=== PATIENT | female | born 1945 | race African-American/Black ===

== ENCOUNTER 2016-03-16 12:28 | Inpatient (IN) | payer MEDICARE ==
[~2016-03-16] VITALS: Ht 157.5 cm; Wt 71.8 kg
[~2016-03-16 12:28] MED LIST: HYDR50TA6 PO; INSU100I17 SQ; LEVO50TA5 PO; LOSA50TA6 PO; OMEP20CA5 PO
[2016-03-16 13:33] LABS: BASO # 0.1 x10^3/uL (0.0-0.2); BASO % 1 % (0-3); EOS % 1 % (0-3); HEMATOCRIT 36.2 % (36.0-47.0); HEMOGLOBIN 11.3 g/dL (12.0-15.5); LYMPH # 2.4 x10^3/uL (1.0-4.8); LYMPH % 17 % (24-48); MEAN CORPUSCULAR HEMOGLOBIN 28 pg (25-35); MEAN CORPUSCULAR HGB CONC 31 g/dL (31-37); MEAN CORPUSCULAR VOLUME 89 fL (79-100); MONO % 5 % (0-9); NEUT % 76 % (31-73); PLATELET COUNT 205 x10^3/uL (140-400); RED BLOOD COUNT 4.08 x10^6/uL (3.50-5.40); RED CELL DISTRIBUTION WIDTH 18.1 % (11.5-14.5); WHITE BLOOD COUNT 13.7 x10^3/uL (4.0-11.0)
--- NOTE | 2016-03-16 13:39 | PHYS DOC ---
Past Medical History Past Medical History: Anemia, Diabetes-Type II, Hypertension Additional Past Medical Histor: "borderline diabetes" Past Surgical History: Other Additional Past Surgical Histo: PANCREATIC Alcohol Use: Rarely Drug Use: None Adult General Chief Complaint Chief Complaint: CHEST PAIN HPI HPI Patient is a 71 year old female who drove herself to the emergency department with the complaint of left-sided chest pain that started at 10 AM today. The patient was seated at work when it started. It has not changed since it began about 3 hours and 20 minutes ago. It does go through into her back and goes up into the left side of her neck, it does not go down her arm. She feels a little short of air and the pain worsens with of breath. She's never had pain like this before. She has not had any diaphoresis or nausea. She has not recently been sick, no cough or fever. She has a history of treated hypertension, "borderline diabetes", negative cardiac history. She is not a smoker. PCP Dr. kaye Review of Systems Review of Systems Constitutional: Denies fever or chills [] Eyes: Denies change in visual acuity, redness, or eye pain [] HENT: Denies nasal congestion or sore throat [] Respiratory: Denies cough or shortness of breath [] Cardiovascular: As in history of present illness GI: Denies abdominal pain, nausea, vomiting, bloody stools or diarrhea [] : Denies dysuria or hematuria [] Musculoskeletal: Denies back pain or joint pain [] Integument: Denies rash or skin lesions [] Neurologic: Denies headache, focal weakness or sensory changes [] Allergies Allergies Allergies Coded Allergies Type Severity Reaction Last Updated Verified No Known Drug Allergies 01/21/14 No Physical Exam Physical Exam Constitutional: Well developed, well nourished, no acute distress, non-toxic appearance. Blood pressure 190s over 100. HENT: Normocephalic, atraumatic, bilateral external ears normal, nose normal. [] Eyes: conjunctiva normal, no discharge. [] Neck: Normal range of motion, no stridor. [] Cardiovascular:Heart rate regular rhythm, no murmur [] Lungs & Thorax: Bilateral breath sounds clear to auscultation [] Abdomen: Bowel sounds normal, soft, no tenderness, no masses, no pulsatile masses. [] Skin: Warm, dry, no erythema, no rash. [] Extremities: No tenderness, no cyanosis, no clubbing, ROM intact, no edema. [] Neurologic: Alert and oriented X 3, normal motor function, normal sensory function, no focal deficits noted. [] Current Patient Data Vital Signs Vital Signs Date Time Temp Pulse Resp B/P Pulse Ox O2 Delivery O2 Flow Rate FiO2 03/16/16 15:03 66 203/86 97 Room Air 03/16/16 12:35 98.2 18 98.2 Lab Values Laboratory Tests Test 03/16/16 12:45 White Blood Count 13.7x10^3/uL (4.0-11.0) H Red Blood Count 4.08x10^6/uL (3.50-5.40) Hemoglobin 11.3g/dL (12.0-15.5) L Hematocrit 36.2% (36.0-47.0) Mean Corpuscular Volume 89fL (79-100) Mean Corpuscular Hemoglobin 28pg (25-35) Mean Corpuscular Hemoglobin Concent 31g/dL (31-37) Red Cell Distribution Width 18.1% (11.5-14.5) H Platelet Count 205x10^3/uL (140-400) Neutrophils (%) (Auto) 76% (31-73) H Lymphocytes (%) (Auto) 17% (24-48) L Monocytes (%) (Auto) 5% (0-9) Eosinophils (%) (Auto) 1% (0-3) Basophils (%) (Auto) 1% (0-3) Neutrophils # (Auto) 10.5x10^3uL (1.8-7.7) H Lymphocytes # (Auto) 2.4x10^3/uL (1.0-4.8) Monocytes # (Auto) 0.7x10^3/uL (0.0-1.1) Eosinophils # (Auto) 0.2x10^3/uL (0.0-0.7) Basophils # (Auto) 0.1x10^3/uL (0.0-0.2) Sodium Level 142mmol/L (136-145) Potassium Level 3.7mmol/L (3.5-5.1) Chloride Level 103mmol/L (98-107) Carbon Dioxide Level 28mmol/L (21-32) Anion Gap 11 (6-14) Blood Urea Nitrogen 15mg/dL (7-20) Creatinine 0.9mg/dL (0.6-1.0) Estimated GFR (Cockcroft-Gault) 74.7 Glucose Level 89mg/dL (70-99) Calcium Level 9.6mg/dL (8.5-10.1) Magnesium Level 1.9mg/dL (1.8-2.4) Total Bilirubin 0.8mg/dL (0.2-1.0) Direct Bilirubin 0.1mg/dL (0.0-0.2) Aspartate Amino Transferase (AST) 25U/L (15-37) Alanine Aminotransferase (ALT) 25U/L (14-59) Alkaline Phosphatase 67U/L (46-116) Creatine Kinase 136U/L (26-192) Creatine Kinase MB (Mass) 1.2ng/mL (0.0-3.6) Creatine Kinase MB Relative Index 0.9% (0-4) Troponin I Quantitative < 0.017ng/mL (0.000-0.055) HT-Uhz-I-Type Natriuretic Peptide 58pg/mL (0-124) Total Protein 8.1g/dL (6.4-8.2) Albumin 4.0g/dL (3.4-5.0) Lipase 114U/L (73-393) Laboratory Tests 03/16/16 12:45 Laboratory Tests 03/16/16 12:45 EKG EKG 12-lead EKG read by me. Sinus rhythm. Heart rate 63. There are no acute ST or T wave changes indicative of ischemia or infarction. No STEMI. 1236 [] Radiology/Procedures Radiology/Procedures One view portable chest x-ray read by the radiologist. No infiltrate. Probable tortuous thoracic aorta, mediastinal mass on entirely excluded. No acute process. I ordered a CT scan of the chest with IV contrast to follow this up. It's pending at the time of the patient's admission. [] Course & Med Decision Making Course & Med Decision Making Pertinent Labs and Imaging studies reviewed. (See chart for details) 71-year-old female with no cardiac history presents with 3 hours of left-sided chest pain with some shortness of air into the left side of her neck and into her back, unclear what might be causing this pain. I discussed with the patient that we will check some labs and chest x-ray. Her blood pressure was elevated at about 190/100 but the patient has not yet taken her morning doses of meds, she just forgot her didn't get around to doing it yet. I let her go ahead and take her regularly scheduled medications. This includes aspirin 81 mg. Patient remained stable in the emergency department. Cardiac enzymes negative. As noted, I did order a CT scan of the chest to follow up on the possible mediastinal abnormality. That's pending at the time of the patient's admission. I spoke with Dr. Kaye who will admit the patient. I wrote bridge orders. [] Dragon Disclaimer Dragon Disclaimer This electronic medical record was generated, in whole or in part, using a voice recognition dictation system. Departure Departure Impression: Primary Impression: Chest pain Additional Impression: Abnormal chest x-ray Disposition: ADMITTED INPATIENT Admitting Physician: María Kaye Condition: STABLE Referrals: MARÍA KAYE MD (PCP) Problem Qualifiers THOM CALVERT MD Mar 16, 2016 13:39
[2016-03-16 13:44] LABS: CALCIUM 9.6 mg/dL (8.5-10.1); CREATININE 0.9 mg/dL (0.6-1.0); GFR 74.7; POTASSIUM 3.7 mmol/L (3.5-5.1)
[2016-03-16 13:49] LABS: DIRECT BILIRUBIN 0.1 mg/dL (0.0-0.2); MAGNESIUM 1.9 mg/dL (1.8-2.4); TOTAL BILIRUBIN 0.8 mg/dL (0.2-1.0); TOTAL PROTEIN 8.1 g/dL (6.4-8.2)
[2016-03-16 13:57] LABS: CKMB INDEX 0.9 % (0-4); CKMB MASS 1.2 ng/mL (0.0-3.6)
--- NOTE | 2016-03-16 13:58 | EKG ---
[facility] [address] [place] [address] Test Date: 2016-03-16 Test Time: 12:36:35 Pat Name: DURAN DAVIS Department: Room: Gender: F Procedure Writer: : 1945 Requested By: THOM CALVERT Order Number: [id number] Reading MD: Ynes Rodriguez Measurements Intervals [place] Rate: 63 P: 59 IA: 132 QRS: 26 QRSD: 92 T: 8 QT: 418 QTc: 431 Interpretive Statements SINUS RHYTHM T ABNORMALITY IN INFEROLATERAL LEADS ABNORMAL ECG Electronically Signed On 03-20-2016 15:27:57 STATE MANAGER by Ynes Rodriguez
--- NOTE | 2016-03-16 14:04 | RAD ---
Indication left-sided chest pain. A single view of the chest was obtained. No prior imaging of the chest is available. Heart size and pulmonary vessels are within normal limits. There is a curvilinear density adjacent to the left lower thoracic spine. This may represent a tortuous aorta. A mediastinal mass is not entirely excluded. There is no acute parenchymal infiltrate. Significant pleural fluid is not present and there is no pneumothorax. Chronic, probably postsurgical, abnormality is noted associated with the right sixth rib IMPRESSION: Probable tortuous thoracic aorta. Mediastinal mass not entirely excluded. See above discussion. A definite acute process in the chest is not seen
[2016-03-16] MEDS ORDERED: IOHEXOL 300 MG/ML 75 ML VIAL IV ONE (15:30)
[2016-03-16] MEDS ORDERED: CONTRAST GIVEN MC PRN (15:45)
--- NOTE | 2016-03-16 16:10 | RAD ---
CT study of the chest with contrast Clinical indications: Left-sided chest pain since 10:00 AM. Left-sided neck pain which extends down the left arm. Shortness of air.. Follow-up of abnormal chest x-ray. Possible mediastinal mass. Technique: After IV infusion of 75 mL of Omnipaque 300, helical CT scanning of the chest was performed down to the adrenal glands. Findings: Large calcified subcarinal lymph nodes are seen. The largest measures 3.3 cm in size. Calcified right hilar lymph nodes are seen. This is due to old granulomatous disease. No other thoracic lymphadenopathy is seen. The heart size is enlarged. No pericardial effusion is seen. Calcified atheromatous disease of the right and left coronary arteries is seen. No focal aneurysmal dilatation or dissection of the thoracic aorta is seen. No lung mass or lung consolidation is seen. There is some linear scarring of the right midlung zone. The proximal bronchial tree is patent. No adrenal mass is seen. There is an abnormal appearance of the lateral aspect of the right sixth rib. This may represent a developmental anomaly or related to previous surgery or trauma. No osteolytic process is seen otherwise. There is wall thickening of the antrum of the stomach. Small radiopaque gallstone of the gallbladder is seen. IMPRESSION: Enlarged calcified granulomatous lymph nodes in the subcarinal region. No other mediastinal mass is seen. Linear scarring of the right midlung zone. No lung mass or lung consolidation is seen. Cardiomegaly with calcified atheromatous disease of the coronary arteries. Wall thickening of the antrum of the stomach. This could be due to gastritis or peptic ulcer disease or neoplasia. Cholelithiasis.
[2016-03-16 18:15] VITALS: BP 202/52
[2016-03-16] MEDS ORDERED: FERR-26 PO (18:19)
[2016-03-16] MEDS ORDERED: ASPI325T4 PO (18:19)
[2016-03-16] MEDS ORDERED: OLME40TA PO (18:19)
[2016-03-16] MEDS ORDERED: CLONIDINE HCL 0.1 MG TABLET PO PRN (18:45)
[2016-03-16] MEDS ORDERED: CLONIDINE HCL 0.2 MG TABLET PO ONE (18:45)
[2016-03-16 19:00] VITALS: BP 187/75
[2016-03-16 19:17] VITALS: BP 202/52
[2016-03-16 23:00] VITALS: BP 107/48
[2016-03-17 03:05] VITALS: BP 112/56
--- NOTE | 2016-03-17 05:19 | EKG ---
[facility] [address] [place] [address] Test Date: 2016-03-17 Test Time: 05:12:13 Pat Name: DURAN DAVIS Department: Room: 528 1 Gender: F Forestry Biology Specialist: RODNEY : 1945 Requested By: MARÍA DILLON Order Number: [id number] Reading MD: Measurements Intervals [place] Rate: 46 P: 90 [place]: 144 QRS: 49 QRSD: 88 T: 51 QT: 476 QTc: 418 Interpretive Statements SINUS BRADYCARDIA NO SPECIFIC ECG ABNORMALITIES RI6.01 Unconfirmed report Compared to ECG 11/21/2014 19:03:03 No significant changes
[2016-03-17 07:00] VITALS: BP 117/45
[2016-03-17] MEDS: LEVOTHYROXINE 50 MCG TABLET PO SCH (07:53)
[2016-03-17] MEDS: PANTOPRAZOLE 40 MG TABLET. PO SCH (07:54)
[2016-03-17] MEDS ORDERED: OLMESARTAN MEDOXOMIL PO SCH (09:00)
--- NOTE | 2016-03-17 09:39 | PDOC2 ---
PTEER BOWEN SENIOR CONTRACT SPECIALIST 03/17/16 0939: CARDIAC CONSULT DATE OF CONSULT Date of Consult DATE: 03/17/16 TIME: 09:34 REASON FOR CONSULT Reason for Consult: Chest pain REFERRING PHYSICIAN Referring Physician: Ruslan SOURCE Source: Chart review, Patient HISTORY OF PRESENT ILLNESS HISTORY OF PRESENT ILLNESS This is a pleasant 71 yo functional female admitted for complains of chest pain. Reports of this occurring walking to work. Lasted about 2 hours with no medications. Reported pressure to left chest radiated to back. She has not had this pain before. Associated with nausea and SOA. No diaphoresis, palpitations, dizziness. She was noted with slow HR upon admission and verbalized that she knows about her "slow pulse" but she currently does not take any medications that would promote this. There has been no episode of dizziness or passing out. She is compliant with her medications at home. Denies any CAD, VTE, falls, injury. She does take ASA daily and PPI. NO routine use of NSAID. PAST MEDICAL HISTORY Cardiovascular: HTN, Other (Slow pulse) CENTRAL NERVOUS SYSTEM: Other (No pertinent history) GI: GERD Heme/Onc: No pertinent hx Hepatobiliary: No pertinent hx Psych: No pertinent hx Musculoskeletal: Osteoarthritis Infectious disease: No pertinent hx ENT: Other (cataract) Renal/: No pertinent hx Endocrine: Diabetes (in the past better after pancreatic lesion removal, not on any regimen, borderline per her report), Hypothyroidism (takes her replacement on empty stomach) Dermatology: No pertinent hx PAST SURGICAL HISTORY Past Surgical History: Other (pancreatic lesion removal) FAMILY HISTORY Family History: Coronary Artery Disease (father with SCD at 69) SOCIAL HISTORY Smoke: No (quit at age 30. 30 pk/yr) ALCOHOL: none Drugs: None Lives: with Family CURRENT MEDICATIONS CURRENT MEDICATIONS Current Medications Medications (Trade) Dose Ordered Sig/Eber Route PRN Reason Start Time Stop Time Status Last Admin Dose Admin Iohexol (Omnipaque 300 Mg/ml) 75 ml 1X ONCE IV 03/16/16 15:30 03/16/16 15:33 DC 03/16/16 15:42 Levothyroxine Sodium (Synthroid) 50 mcg DAILYAC PO 03/17/16 07:30 03/17/16 07:53 Pantoprazole Sodium (Protonix) 40 mg DAILYAC PO 03/17/16 07:30 03/17/16 07:54 Clonidine HCl (Catapres) 0.2 mg 1X ONCE PO 03/16/16 18:45 03/16/16 18:50 DC 03/16/16 18:45 ALLERGIES ALLERGIES: Coded Allergies: No Known Drug Allergies (Unverified , 01/21/14) ROS Review of System 14 point ROS evaluated with pertinent positives noted per HPI PHYSICAL EXAM General: Alert, Oriented X3, Cooperative, No acute distress HEENT: Atraumatic, Mucous membr. moist/pink Lungs: Clear to auscultation, Normal air movement Heart: Regular rate, Normal S1, Normal S2, Other (2/6 systolic murmur to LLS border) Extremities: No cyanosis, No edema Skin: No breakdown, No significant lesion Neuro: Normal speech, Sensation intact Psych/Mental Status: Mental status NL, Mood NL MUSCULOSKELETAL: Osteoarthritic changes both hands VITALS VITALS Vital Signs Date Time Temp Pulse Resp B/P Pulse Ox O2 Delivery O2 Flow Rate FiO2 03/17/16 07:00 97.5 45 18 117/45 99 Room Air 97.5 LABS Lab: Laboratory Tests Test 03/16/16 12:45 03/16/16 17:53 03/16/16 20:53 03/17/16 04:50 White Blood Count 13.7x10^3/uL (4.0-11.0) Red Blood Count 4.08x10^6/uL (3.50-5.40) Hemoglobin 11.3g/dL (12.0-15.5) Hematocrit 36.2% (36.0-47.0) Mean Corpuscular Volume 89fL (79-100) Mean Corpuscular Hemoglobin 28pg (25-35) Mean Corpuscular Hemoglobin Concent 31g/dL (31-37) Red Cell Distribution Width 18.1% (11.5-14.5) Platelet Count 205x10^3/uL (140-400) Neutrophils (%) (Auto) 76% (31-73) Lymphocytes (%) (Auto) 17% (24-48) Monocytes (%) (Auto) 5% (0-9) Eosinophils (%) (Auto) 1% (0-3) Basophils (%) (Auto) 1% (0-3) Neutrophils # (Auto) 10.5x10^3uL (1.8-7.7) Lymphocytes # (Auto) 2.4x10^3/uL (1.0-4.8) Monocytes # (Auto) 0.7x10^3/uL (0.0-1.1) Eosinophils # (Auto) 0.2x10^3/uL (0.0-0.7) Basophils # (Auto) 0.1x10^3/uL (0.0-0.2) Sodium Level 142mmol/L (136-145) Potassium Level 3.7mmol/L (3.5-5.1) Chloride Level 103mmol/L (98-107) Carbon Dioxide Level 28mmol/L (21-32) Anion Gap 11 (6-14) Blood Urea Nitrogen 15mg/dL (7-20) Creatinine 0.9mg/dL (0.6-1.0) Estimated GFR (Cockcroft-Gault) 74.7 Glucose Level 89mg/dL (70-99) Calcium Level 9.6mg/dL (8.5-10.1) Magnesium Level 1.9mg/dL (1.8-2.4) Total Bilirubin 0.8mg/dL (0.2-1.0) Direct Bilirubin 0.1mg/dL (0.0-0.2) Aspartate Amino Transf (AST/SGOT) 25U/L (15-37) Alanine Aminotransferase (ALT/SGPT) 25U/L (14-59) Alkaline Phosphatase 67U/L (46-116) Creatine Kinase 136U/L (26-192) Creatine Kinase MB (Mass) 1.2ng/mL (0.0-3.6) Creatine Kinase MB Relative Index 0.9% (0-4) Troponin I Quantitative < 0.017ng/mL (0.000-0.055) < 0.017ng/mL (0.000-0.055) < 0.017ng/mL (0.000-0.055) LO-Xwx-H-Type Natriuretic Peptide 58pg/mL (0-124) Total Protein 8.1g/dL (6.4-8.2) Albumin 4.0g/dL (3.4-5.0) Lipase 114U/L (73-393) Glucose (Fingerstick) 219mg/dL (70-99) Test 03/17/16 08:30 Glucose (Fingerstick) 103mg/dL (70-99) ASSESSMENT/PLAN ASSESSMENT/PLAN 1. Chest pain: better 2. Accelerated HTN: improved. 3. Asymptomatic Bradycardia: lowest in the 30s. Known "slow pulse". Received x1 clonidine last night. 4. Leukocytosis with enlarged calcified granulomatous lymph nodes in the subcarinal region per CT 5. CAD per CT 6. Gastric wall thickening per CT 7. DM2: verbalized being borderline, no home coverage Recommendations 1. TTE, MPI today 2. TSH, lipid panel, Mg 3. Avoid QT prolonging medications, and bradycardia inducing agents 4. Resume home antiHTN or equivalence and uptitrate as warranted. Stop clonidine. Hydralazine IV PRN. Problems: THEO TOLLIVER MD 03/17/16 2318: CARDIAC CONSULT ALLERGIES ALLERGIES: Coded Allergies: No Known Drug Allergies (Unverified , 01/21/14) ASSESSMENT/PLAN ASSESSMENT/PLAN Pt. seen and examined. Agree with above RAILROAD SUPERVISOR OF ENGINES note. 71 y.o woman presenting with atypical symptoms. Normal cardiac exam. labs/meds reviewed. Normal echo/MPI. No further testing needed. Thanks for consultation. Problems: PETER BOWEN APRN Mar 17, 2016 09:39 THEO TOLLIVER MD Mar 17, 2016 23:18
--- NOTE | 2016-03-17 09:56 | PDOC ---
Provider Note Provider Note Pt seen.H&P dictated. #[id number] MARÍA DILLON MD Mar 17, 2016 09:56
[2016-03-17] MEDS ORDERED: DEXTROSE 50% 25 GM / 50ML DISP.SYRIN. IV PRN (10:00)
[2016-03-17] MEDS ORDERED: hydrALAZINE 20 MG/ML VIAL. IVP PRN (10:00)
[2016-03-17 10:15] LABS: BASO % 1 % (0-3); EOS % 2 % (0-3); HEMOGLOBIN 9.6 g/dL (12.0-15.5); LYMPH # 1.3 x10^3/uL (1.0-4.8); LYMPH % 26 % (24-48); MEAN CORPUSCULAR HEMOGLOBIN 28 pg (25-35); MEAN CORPUSCULAR HGB CONC 32 g/dL (31-37); MEAN CORPUSCULAR VOLUME 88 fL (79-100); MONO % 7 % (0-9); NEUT % 64 % (31-73); PLATELET COUNT 161 x10^3/uL (140-400); RED BLOOD COUNT 3.41 x10^6/uL (3.50-5.40); RED CELL DISTRIBUTION WIDTH 18.3 % (11.5-14.5)
--- NOTE | 2016-03-17 10:25 | PDOC2 ---
JOSELINE PRIEST Pat [employer] HELPER 03/17/16 1025: CONSULT Date of Consult Date of Consult DATE: 03/17/16 TIME: 10:20 Reason for Consult Reason for Consult: cholelithiasis Referring Physician Referring Physician: Dr Marcial Identification/Chief Complaint Chief Complaint chest pain Source Source: Chart review, Patient History of Present Illness Reason for Visit: Acute onset of chest pain, LUQ, and radiation to back yesterday mid morning. Had a sausage and cinnamon roll for breakfast. No nausea or emesis. No similar pain in past. Does have occasional epigastric pain that resolves without intervention. Currently no pain Past Medical History Cardiovascular: HTN, Other (Slow pulse) CENTRAL NERVOUS SYSTEM: Other (No pertinent history) GI: GERD Heme/Onc: No pertinent hx Hepatobiliary: No pertinent hx Psych: No pertinent hx Musculoskeletal: Osteoarthritis Infectious disease: No pertinent hx ENT: Other (cataract) Renal/: No pertinent hx Endocrine: Diabetes (in the past better after pancreatic lesion removal, not on any regimen, borderline per her report), Hypothyroidism (takes her replacement on empty stomach) Dermatology: No pertinent hx Past Surgical History Past Surgical History: Other (pancreatic lesion removal) Family History Family History: Coronary Artery Disease (father with SCD at 69) Social History No (quit at age 30. 30 pk/yr) ALCOHOL: none Drugs: None Lives: with Family Current Problem List Problem List Problems Medical Problems: (1) Abnormal chest x-ray Status: Acute (2) Chest pain Status: Acute (3) Gall stone Status: Acute Current Medications Current Medications Current Medications Iohexol (Omnipaque 300 Mg/ml) 75 ml 1X ONCE IV Last administered on 03/16/16 15:42; Start 03/16/16 at 15:30; Stop 03/16/16 at 15:33; Status DC Info (Do NOT chart on this entry -- for MONITORING) 1 each PRN DAILY PRN MC SEE COMMENTS; Start 03/16/16 at 15:45; Stop 03/18/16 at 15:44 Aspirin (Gabriella Aspirin) 325 mg DAILYWBKFT PO ; Start 03/17/16 at 08:00 Ferrous Sulfate (Feosol) 325 mg DAILYWBKFT PO ; Start 03/17/16 at 08:00 Levothyroxine Sodium (Synthroid) 50 mcg DAILYAC PO Last administered on 07:53; Start 03/17/16 at 07:30 Losartan Potassium (Cozaar) 50 mg DAILY PO ; Start 03/17/16 at 09:00 Hydrochlorothiazide (Hydrodiuril) 25 mg DAILY PO ; Start 03/17/16 at 09:00 Non-Formulary Medication 1 tab DAILY PO ; Start 03/17/16 at 09:00; Status UNV Pantoprazole Sodium (Protonix) 40 mg DAILYAC PO Last administered on 03/17/16 07:54; Start 03/17/16 at 07:30 Clonidine HCl (Catapres) 0.2 mg 1X ONCE PO Last administered on 03/16/16 18:45 ; Start 03/16/16 at 18:45; Stop 03/16/16 at 18:50; Status DC Clonidine HCl (Catapres) 0.1 mg PRN Q6HRS PRN PO HYPERTENSION, SEE COMMENTS; Start 03/16/16 at 18:45; Stop 03/17/16 at 10:07; Status DC Insulin Aspart (Novolog) 0-7 UNITS TIDWMEALS SQ ; Start 03/17/16 at 12:00 Dextrose 12.5 gm PRN Q15MIN PRN IV SEE COMMENTS; Start 03/17/16 at 10:00 Hydralazine HCl (Apresoline) 10 mg PRN Q4HRS PRN IVP ELEVATED BP, SEE COMMENTS ; Start 03/17/16 at 10:00 Active Scripts Active Reported Ferrous Sulfate 325 Mg Tablet 1 Tab PO DAILY Aspirin 325 Mg Tablet 325 Tab PO DAILY Benicar (Olmesartan Medoxomil) 40 Mg Tablet 1 Tab PO DAILY Losartan Potassium 50 Mg Tablet 50 Mg PO DAILY Hydrochlorothiazide Tablet (Hydrochlorothiazide) 50 Mg Tablet 25 Mg PO DAILY Levothyroxine Sodium 50 Mcg Tablet 50 Mcg PO DAILYAC Prilosec (Omeprazole) 20 Mg Capsule.dr 20 Mg PO DAILY Novolog Flexpen (Insulin Aspart) 100 Unit/1 Ml Insuln.pen 10 Unit SQ DAILYAC Allergies Allergies: Coded Allergies: No Known Drug Allergies (Unverified , 01/21/14) ROS General: No: Chills, Other (fevers) PSYCHOLOGICAL ROS: No: Anxiety, Depression Eyes: No Blurry vision, No Double vision HEENT: No: Heacaches, Sore Throat Hematological and Lymphatic: No: Bleeding Problems, Blood Clots Respiratory: YES: Shortness of breath (with acute pain), No: Cough Cardiovascular: yes Chest Pain, No Palpitations Gastrointestinal: Yes Other (see hpi) Genitourinary: No Dysuria, No Hematuria Musculoskeletal: No Joint Pain, No Muscle Pain Neurological: No Confusion, No Numbness/Tingling Skin: No Pruritus, No Rash Physical Exam General: Alert, Oriented X3, Cooperative, No acute distress HEENT: PERRLA, Mucous membr. moist/pink Lungs: Clear to auscultation, Normal air movement Heart: Regular rate, Normal S1, Normal S2, No murmurs Abdomen: Soft, Other (ND, NTTP, large midline scar from previous pancreatic surgery ) Extremities: No clubbing, No cyanosis Skin: No rashes, No breakdown Neuro: Normal gait, Normal speech Psych/Mental Status: Mental status NL, Mood NL MUSCULOSKELETAL: No deformity, No swelling Vitals VITALS Vital Signs Date Time Temp Pulse Resp B/P Pulse Ox O2 Delivery O2 Flow Rate FiO2 03/17/16 08:00 Room Air 03/17/16 07:00 97.5 45 18 117/45 99 97.5 Labs Labs Laboratory Tests Test 03/16/16 12:45 03/16/16 17:53 03/16/16 20:53 03/17/16 04:50 White Blood Count 13.7x10^3/uL (4.0-11.0) 5.0x10^3/uL (4.0-11.0) Red Blood Count 4.08x10^6/uL (3.50-5.40) 3.41x10^6/uL (3.50-5.40) Hemoglobin 11.3g/dL (12.0-15.5) 9.6g/dL (12.0-15.5) Hematocrit 36.2% (36.0-47.0) 30.0% (36.0-47.0) Mean Corpuscular Volume 89fL (79-100) 88fL (79-100) Mean Corpuscular Hemoglobin 28pg (25-35) 28pg (25-35) Mean Corpuscular Hemoglobin Concent 31g/dL (31-37) 32g/dL (31-37) Red Cell Distribution Width 18.1% (11.5-14.5) 18.3% (11.5-14.5) Platelet Count 205x10^3/uL (140-400) 161x10^3/uL (140-400) Neutrophils (%) (Auto) 76% (31-73) 64% (31-73) Lymphocytes (%) (Auto) 17% (24-48) 26% (24-48) Monocytes (%) (Auto) 5% (0-9) 7% (0-9) Eosinophils (%) (Auto) 1% (0-3) 2% (0-3) Basophils (%) (Auto) 1% (0-3) 1% (0-3) Neutrophils # (Auto) 10.5x10^3uL (1.8-7.7) 3.2x10^3uL (1.8-7.7) Lymphocytes # (Auto) 2.4x10^3/uL (1.0-4.8) 1.3x10^3/uL (1.0-4.8) Monocytes # (Auto) 0.7x10^3/uL (0.0-1.1) 0.4x10^3/uL (0.0-1.1) Eosinophils # (Auto) 0.2x10^3/uL (0.0-0.7) 0.1x10^3/uL (0.0-0.7) Basophils # (Auto) 0.1x10^3/uL (0.0-0.2) 0.0x10^3/uL (0.0-0.2) Sodium Level 142mmol/L (136-145) Potassium Level 3.7mmol/L (3.5-5.1) Chloride Level 103mmol/L (98-107) Carbon Dioxide Level 28mmol/L (21-32) Anion Gap 11 (6-14) Blood Urea Nitrogen 15mg/dL (7-20) Creatinine 0.9mg/dL (0.6-1.0) Estimated GFR (Cockcroft-Gault) 74.7 Glucose Level 89mg/dL (70-99) Calcium Level 9.6mg/dL (8.5-10.1) Magnesium Level 1.9mg/dL (1.8-2.4) Total Bilirubin 0.8mg/dL (0.2-1.0) Direct Bilirubin 0.1mg/dL (0.0-0.2) Aspartate Amino Transf (AST/SGOT) 25U/L (15-37) Alanine Aminotransferase (ALT/SGPT) 25U/L (14-59) Alkaline Phosphatase 67U/L (46-116) Creatine Kinase 136U/L (26-192) Creatine Kinase MB (Mass) 1.2ng/mL (0.0-3.6) Creatine Kinase MB Relative Index 0.9% (0-4) Troponin I Quantitative < 0.017ng/mL (0.000-0.055) < 0.017ng/mL (0.000-0.055) < 0.017ng/mL (0.000-0.055) FU-Xao-I-Type Natriuretic Peptide 58pg/mL (0-124) Total Protein 8.1g/dL (6.4-8.2) Albumin 4.0g/dL (3.4-5.0) Lipase 114U/L (73-393) Glucose (Fingerstick) 219mg/dL (70-99) Test 03/17/16 08:30 Glucose (Fingerstick) 103mg/dL (70-99) Laboratory Tests Test 03/16/16 12:45 03/16/16 17:53 03/16/16 20:53 03/17/16 04:50 White Blood Count 13.7x10^3/uL (4.0-11.0) 5.0x10^3/uL (4.0-11.0) Red Blood Count 4.08x10^6/uL (3.50-5.40) 3.41x10^6/uL (3.50-5.40) Hemoglobin 11.3g/dL (12.0-15.5) 9.6g/dL (12.0-15.5) Hematocrit 36.2% (36.0-47.0) 30.0% (36.0-47.0) Mean Corpuscular Volume 89fL (79-100) 88fL (79-100) Mean Corpuscular Hemoglobin 28pg (25-35) 28pg (25-35) Mean Corpuscular Hemoglobin Concent 31g/dL (31-37) 32g/dL (31-37) Red Cell Distribution Width 18.1% (11.5-14.5) 18.3% (11.5-14.5) Platelet Count 205x10^3/uL (140-400) 161x10^3/uL (140-400) Neutrophils (%) (Auto) 76% (31-73) 64% (31-73) Lymphocytes (%) (Auto) 17% (24-48) 26% (24-48) Monocytes (%) (Auto) 5% (0-9) 7% (0-9) Eosinophils (%) (Auto) 1% (0-3) 2% (0-3) Basophils (%) (Auto) 1% (0-3) 1% (0-3) Neutrophils # (Auto) 10.5x10^3uL (1.8-7.7) 3.2x10^3uL (1.8-7.7) Lymphocytes # (Auto) 2.4x10^3/uL (1.0-4.8) 1.3x10^3/uL (1.0-4.8) Monocytes # (Auto) 0.7x10^3/uL (0.0-1.1) 0.4x10^3/uL (0.0-1.1) Eosinophils # (Auto) 0.2x10^3/uL (0.0-0.7) 0.1x10^3/uL (0.0-0.7) Basophils # (Auto) 0.1x10^3/uL (0.0-0.2) 0.0x10^3/uL (0.0-0.2) Sodium Level 142mmol/L (136-145) Potassium Level 3.7mmol/L (3.5-5.1) Chloride Level 103mmol/L (98-107) Carbon Dioxide Level 28mmol/L (21-32) Anion Gap 11 (6-14) Blood Urea Nitrogen 15mg/dL (7-20) Creatinine 0.9mg/dL (0.6-1.0) Estimated GFR (Cockcroft-Gault) 74.7 Glucose Level 89mg/dL (70-99) Calcium Level 9.6mg/dL (8.5-10.1) Magnesium Level 1.9mg/dL (1.8-2.4) Total Bilirubin 0.8mg/dL (0.2-1.0) Direct Bilirubin 0.1mg/dL (0.0-0.2) Aspartate Amino Transf (AST/SGOT) 25U/L (15-37) Alanine Aminotransferase (ALT/SGPT) 25U/L (14-59) Alkaline Phosphatase 67U/L (46-116) Creatine Kinase 136U/L (26-192) Creatine Kinase MB (Mass) 1.2ng/mL (0.0-3.6) Creatine Kinase MB Relative Index 0.9% (0-4) Troponin I Quantitative < 0.017ng/mL (0.000-0.055) < 0.017ng/mL (0.000-0.055) < 0.017ng/mL (0.000-0.055) DI-Prl-V-Type Natriuretic Peptide 58pg/mL (0-124) Total Protein 8.1g/dL (6.4-8.2) Albumin 4.0g/dL (3.4-5.0) Lipase 114U/L (73-393) Glucose (Fingerstick) 219mg/dL (70-99) Test 03/17/16 08:30 Glucose (Fingerstick) 103mg/dL (70-99) Assessment/Plan Assessment/Plan chest pain, LUQ and radiation to back Cardiology is evaluating CT chest showed cholelithiasis will order US of to evaluate TABITHA LORD MD 03/17/16 1039: CONSULT Allergies Allergies: Coded Allergies: No Known Drug Allergies (Unverified , 01/21/14) Assessment/Plan Assessment/Plan Patient seen and examined by me. She currently has no complaints, no abdominal pain, or nausea. All of her pain on admission was on the left side. She has a history of GERD and on PPI. Labs show normal LFT's. CT chest suggested gallstones. Will obtain U/S but enlight of no symptoms and cardiac work up would likely recommend follow up as outpatient. Will F/U on U/S results. JOSELINE PRIEST APRN Mar 17, 2016 10:25 TABITHA LORD MD Mar 17, 2016 10:39
[2016-03-17 10:26] LABS: CALCIUM 9.4 mg/dL (8.5-10.1); CREATININE 0.9 mg/dL (0.6-1.0); GFR 74.7; POTASSIUM 4.1 mmol/L (3.5-5.1)
[2016-03-17 10:33] LABS: CHOLESTEROL/HDL RATIO 2.4
[2016-03-17 11:00] VITALS: BP 130/57
[2016-03-17] MEDS ORDERED: REGADENOSON 0.4 MG/5 ML DISP.SYRIN. IV ONE (11:00)
[2016-03-17] MEDS: INSULIN ASPART 300 UNITS/3 ML INSULN.PEN SQ SCH ×2 (12:00→17:28)
[2016-03-17] MEDS: LOSARTAN POTASSIUM 50 MG TABLET. PO SCH (12:52)
[2016-03-17] MEDS: ASPIRIN 325 MG TABLET PO SCH (12:52)
[2016-03-17] MEDS: HYDROCHLOROTHIAZIDE 25 MG TABLET PO SCH (12:52)
[2016-03-17] MEDS: FERROUS SULFATE 325 MG TABLET PO SCH (12:52)
--- NOTE | 2016-03-17 13:22 | RAD ---
Right upper quadrant abdomen ultrasound study Clinical indications: Cholelithiasis. Chest pain. Findings: Small gallbladder polyp is seen measuring 5 mm. Small gallstones are seen. The largest measures 6 mm. No gallbladder wall thickening or pericholecystic free fluid is evident. The pancreas is poorly visualized due to overlying bowel gas. The liver measures 11.8 cm in length and is homogeneous. The extra hepatic bile duct measures 2.6 mm in caliber which is normal. The length of the right kidney is 9.8 cm. No hydronephrosis or renal mass or perinephric fluid collection is seen on this side. IMPRESSION: Cholelithiasis. Gallbladder polyp.
--- NOTE | 2016-03-17 14:35 | RAD ---
APPROVED REPORT Test Type: Exercise Stress Nurse/Tech: FABRICIO Swan RN Test Indications: Chest pressure Cardiac History: HTN, see EHR Medications: see EHR Medical History: see EHR Resting ECG: SB Resting Heart Rate: 45 bpm Resting Blood Pressure: 138/56mmHg Pretest Chest Pain: No chest pain Nurse/Tech Notes Lungs CTA, heart tones WNL Consent: The procedure was explained to the patient in lay terms. Informed consent was witnessed. Mike eout was entered into [employer] OTR. History and Stress Test performed by RT Shara (R) (N) Stress Symptoms No chest pain or symptoms. POST EXERCISE Reason for Termination: Reached target heart rate Target HR: Yes Max HR: 142 bpm 112% of Maximum Predicted HR: 126 bpm Exercise duration: 3:00 min:sec, 1 Stage Exercise capacity: 4.6METs Max Blood Pressure: 198/67mmHg Blood Pressure response to exercise: Normal blood pressure response during stress. Chest Pain: No. Arrhythmia: No. ST Change: No. INTERPRETATION Stress EKG Conclusion: Baseline EKG showed sinus rhythm. No ischemic changes at peak stress. No arr hythmias. Imaging Protocol IMAGE PROTOCOL: Rest Tc-99m/stress Tc-99m 1 day Rest: Stress: Viability: Radiopharm.Tc99m VgkgkrzutRu83p Sestamibi Ghvw15aSi 34mCi Duration 15min. 10min. Img Date 03/17/2016 03/17/2016 Inj-Img Enyw85thy. 60min. Rest Admin Site:IV - Left AntecubitalAdministrator:RT Shara (R)(N) Stress Admin Site: IV - Left AntecubitalAdministrator: RT Maggie (R)(N) STRESS DATA End Diast. Vol.50.0mlAv. Heart Rate56.0bpm End Syst. Vol.11.0mlCO Index BSA0.0L/min Myocardial Mass92.0gEject. Utikhdqe12.0% Stress Rates Pk. Fill Rate2.79EDV/secLVtime Pk. Fill 251.31msec Pk. Empty Rate4.31ESV/secLVtime Pk. Ozbbs430.07msec 02/08 Pk. Fill1.15EDV/sec Stress Scores Regional WT1.00Summed WT2.00 Regional WM0.00Summed WM1.00 Study quality was good. Left Ventricular size was Normal at Rest and Stress. Lung uptake was Normal. Left Ventricular ejection fraction is 78%. The rest and stress images show normal perfusion, normal contraction and thickening. LV Perf. Quant 17 Seg. SSS0.00 17 Seg. SRS3.00 17 Seg. SDS0.00 Stress Defect Extent (% LAD)0.00Rest Defect Extent (% LAD)6.30Rev. Defect Extent (% LAD)0.00 Stress Defect Extent (% LCX) 0.00Rest Defect Extent (% LCX)0.00Rev. Defect Extent (% LCX)0.00 Stress Defect Extent (% RCA)0.00Rest Defect Extent (% RCA)5.60Rev. Defect Extent (% RCA)0.00 Stress Defect Extent (% YARELIS)0.00Rest Defect Extent (% YARELIS)8.30Rev. Defect Extent (% YARELIS)0.00 Conclusion 1. Treadmill exercise cardioisotope stress test did not show any evidence of ischemia or infarct. 2. Normal left ventricular systolic function with ejection fraction calculated at 78%. 3. Patient had fair activity tolerance. Low risk for cardiac events.
--- NOTE | 2016-03-17 14:39 | CARD ---
APPROVED REPORT EXAM: Two-dimensional and M-mode echocardiogram with Doppler and color Doppler. Other Information Quality : Average Rhythm : NSR INDICATION Chest Pain 2D DIMENSIONS Left Atrium(2D)3.6 (1.6-4.0cm)IVSd0.7 (0.7-1.1cm) Aortic Root(2D)2.5 (2.0-3.7cm)LVDd5.1 (3.9-5.9cm) LVOT Diameter1.9 (1.8-2.4cm)PWd0.7 (0.7-1.1cm) LVDs2.6 (2.5-4.0cm)FS (%) 39.5 % SV98.0 mlLVEF(%)70.6 (>50%) Aortic Valve AoV Peak David.157.3cm/sAoV VTI34.5cm AO Peak GR.9.9mmHgLVOT Peak David.124.7cm/s AO Mean GR.5mmHgAVA (VMAX)2.21cm2 YAMILETH (VTI)2.40cm2 Mitral Valve MV E Qhdwlbzu220.0cm/sMV E Peak Gr.6mmHg MV DECEL FJOE910xuFR A Huwmkhat633.3cm/s MV E Mean Gr.2mmHgMV MUE48ee E/A Ratio1.1MV A Dtrmyzlp143ja MVA (PHT)3.93cm2 Tricuspid Valve TR P. Jxikxvvq481gc/sRAP DKUUNTZN7gbXg TR Peak Gr.16sjFbJBYU84poUq Pulmonary Vein S1 Nfbgydjv65.0cm/sD2 Gqfzmsni41.0cm/s PVa pnapsulc82iept LEFT VENTRICLE The left ventricle is normal size. There is normal left ventricular wall thickness. Left ventricle sy stolic function is normal. The Ejection Fraction is 65-70%. There is normal LV segmental wall motion. The left ventricular diastolic function and filling is normal for age. RIGHT VENTRICLE The right ventricle is normal size. The right ventricular systolic function is normal. ATRIA The left atrium size is normal. The right atrium size is normal. The interatrial septum is intact wit h no evidence for an atrial septal defect or patent foramen ovale as noted on 2-D or Doppler imaging. AORTIC VALVE The aortic valve is normal in structure and function. The aortic valve is trileaflet. Doppler and Col or Flow revealed no significant aortic regurgitation. There is no significant aortic valvular stenosi s. MITRAL VALVE The mitral valve is normal in structure and function. There is no mitral valve stenosis. Doppler and Color Flow revealed no mitral valve regurgitation noted. TRICUSPID VALVE The tricuspid valve is normal in structure and function. Doppler and Color Flow revealed mild tricusp id regurgitation. The PA pressure was estimated at 37 mmHg. There is no tricuspid valve stenosis. PULMONIC VALVE The pulmonic valve is not well visualized. Doppler and Color Flow revealed no pulmonic valvular regur gitation. There is no pulmonic valvular stenosis. GREAT VESSELS The aortic root is normal in size. Normal pulmonary venous flow (Doppler). The IVC is normal in size and collapses >50% with inspiration. PERICARDIAL EFFUSION There is no evidence of significant pericardial effusion. Critical Notification Critical Value: No <Conclusion> Left ventricle systolic function is normal. The Ejection Fraction is 65-70%. There is normal LV segmental wall motion. Doppler and Color Flow revealed mild tricuspid regurgitation. The PA pressure was estimated at 37 mmHg. There is no evidence of significant pericardial effusion.
[2016-03-17 15:00] VITALS: BP 146/55
[2016-03-17 19:00] VITALS: BP 151/50
--- NOTE | 2016-03-18 01:18 | HP ---
ADMIT DATE: 03/16/2016 PATIENT LOCATION: 8. REASON FOR ADMISSION TO THE HOSPITAL: Chest pain, abdominal pain, possible gallstones. HISTORY OF PRESENT ILLNESS: The patient is a 71-year-old female patient known to me. She has a history of hypertension, has mild renal insufficiency. She also had history of pancreatic pseudocyst with partial pancreatectomy was done at 3-4 years ago. She was doing relatively well. She was having pain in the lower chest going to the back and came into the Emergency Room. EKG negative for ischemia. Cardiac enzymes negative, was admitted to rule out CAD and also the patient had a CT chest, which picked up showed some gallstones. The patient was admitted to the hospital. Surgical consult was obtained and also cardiology evaluation pending. PAST MEDICAL HISTORY: The patient has a history of hypertension, borderline diabetes, renal insufficiency stage 2. PAST SURGICAL HISTORY: The patient had a pancreatic pseudocyst, partial pancreatectomy 3-4 years ago at . ALLERGIES: No known drug allergies. MEDICATIONS AT HOME: Sliding scale insulin, aspirin 325 daily, iron 325 mg daily, hydrochlorothiazide 50 mg daily, levothyroxine 50 mcg daily, losartan 50 mg daily, omeprazole 20 mg daily. PERSONAL HISTORY: No history of smoking, alcohol, drug abuse. FAMILY HISTORY: Positive for diabetes, hypertension, heart disease. REVIEW OF SYSTEMS: Fourteen-system review: CARDIAC: Has some pain going to the back. GASTROINTESTINAL: Heartburn. NEUROLOGICAL: No weakness. The rest of the 14-system was reviewed and negative. PHYSICAL EXAMINATION: GENERAL: The patient is pleasant, not in any distress. VITAL SIGNS: At the time of admission shows a temperature 98, pulse 62, respirations 18, blood pressure 229/98, 97% on room air. HEENT: Head is atraumatic. Pupils are equal. Oral cavity, no congestion. NECK: Supple. Thyroid not enlarged. JVD not elevated. CHEST: Symmetrical. CARDIOVASCULAR: S1, S2. LUNGS: Clear. ABDOMEN: Soft. Scar in the midline from partial pancreatectomy. No mass palpable. EXTERNAL GENITALIA: No [place]. RECTAL: Deferred. EXTREMITIES: No calf tenderness or edema. Pulses 1+. NEUROLOGIC: Cranial nerves intact. Power 5/5 in all extremities. LABORATORY DATA: Shows a white count of 13.7, hemoglobin 11, platelets 205. Electrolytes show sodium 142, potassium 3.7, chloride 103, bicarbonate 28, BUN 15, creatinine 0.9, glucose 89. LFTs were normal. CPK 136, albumin 4, lipase 114. Chest x-ray was negative. CT scan showed some gallstones and some calcification of the coronary arteries, thickening of candelario of the stomach and also calcified granulomatous lymph nodes in the subcarinal regional, slightly enlarged. No other mediastinal mass. FINAL IMPRESSION: 1. Chest pain, probably looks like from gallstones. 2. The patient has borderline diabetes, hypertension and family history of coronary artery disease. We will also have cardiology. 3. May need a stress test later. We will have a surgical consult for gallstone surgery and hopefully we can do laparoscopy and see how she improves. MARÍA DILLON MD DR: GRACE/reynaldo JOB#: [id number] / [id number]
[2016-03-18 03:00] VITALS: BP 195/43
[2016-03-18 07:43] VITALS: BP 142/80
[2016-03-18] MEDS: INSULIN ASPART 300 UNITS/3 ML INSULN.PEN SQ SCH (08:00)
--- NOTE | 2016-03-18 08:49 | PDOC ---
JOSELINE PRIEST [employer] 03/18/16 0849: SURGICAL PROGRESS NOTE Subjective no abdominal pain tolerated diet yesterday Vital Signs Vital Signs Date Time Temp Pulse Resp B/P Pulse Ox O2 Delivery O2 Flow Rate FiO2 03/18/16 07:43 97.5 50 20 142/80 Room Air 97.5 03/18/16 03:00 99 I&O Intake and Output 03/18/16 07:00 Intake Total 550 ml Balance 550 ml Intake Oral 550 ml # Voids 7 General: Alert, Oriented X3, Cooperative, No acute distress Abdomen: Soft, No tenderness Labs Laboratory Tests Test 03/16/16 12:45 03/16/16 17:53 03/16/16 20:53 03/17/16 04:50 White Blood Count 13.7x10^3/uL (4.0-11.0) 5.0x10^3/uL (4.0-11.0) Red Blood Count 4.08x10^6/uL (3.50-5.40) 3.41x10^6/uL (3.50-5.40) Hemoglobin 11.3g/dL (12.0-15.5) 9.6g/dL (12.0-15.5) Hematocrit 36.2% (36.0-47.0) 30.0% (36.0-47.0) Mean Corpuscular Volume 89fL (79-100) 88fL (79-100) Mean Corpuscular Hemoglobin 28pg (25-35) 28pg (25-35) Mean Corpuscular Hemoglobin Concent 31g/dL (31-37) 32g/dL (31-37) Red Cell Distribution Width 18.1% (11.5-14.5) 18.3% (11.5-14.5) Platelet Count 205x10^3/uL (140-400) 161x10^3/uL (140-400) Neutrophils (%) (Auto) 76% (31-73) 64% (31-73) Lymphocytes (%) (Auto) 17% (24-48) 26% (24-48) Monocytes (%) (Auto) 5% (0-9) 7% (0-9) Eosinophils (%) (Auto) 1% (0-3) 2% (0-3) Basophils (%) (Auto) 1% (0-3) 1% (0-3) Neutrophils # (Auto) 10.5x10^3uL (1.8-7.7) 3.2x10^3uL (1.8-7.7) Lymphocytes # (Auto) 2.4x10^3/uL (1.0-4.8) 1.3x10^3/uL (1.0-4.8) Monocytes # (Auto) 0.7x10^3/uL (0.0-1.1) 0.4x10^3/uL (0.0-1.1) Eosinophils # (Auto) 0.2x10^3/uL (0.0-0.7) 0.1x10^3/uL (0.0-0.7) Basophils # (Auto) 0.1x10^3/uL (0.0-0.2) 0.0x10^3/uL (0.0-0.2) Sodium Level 142mmol/L (136-145) 141mmol/L (136-145) Potassium Level 3.7mmol/L (3.5-5.1) 4.1mmol/L (3.5-5.1) Chloride Level 103mmol/L (98-107) 106mmol/L (98-107) Carbon Dioxide Level 28mmol/L (21-32) 28mmol/L (21-32) Anion Gap 11 (6-14) 7 (6-14) Blood Urea Nitrogen 15mg/dL (7-20) 17mg/dL (7-20) Creatinine 0.9mg/dL (0.6-1.0) 0.9mg/dL (0.6-1.0) Estimated GFR (Cockcroft-Gault) 74.7 74.7 Glucose Level 89mg/dL (70-99) 137mg/dL (70-99) Calcium Level 9.6mg/dL (8.5-10.1) 9.4mg/dL (8.5-10.1) Magnesium Level 1.9mg/dL (1.8-2.4) 2.0mg/dL (1.8-2.4) Total Bilirubin 0.8mg/dL (0.2-1.0) Direct Bilirubin 0.1mg/dL (0.0-0.2) Aspartate Amino Transf (AST/SGOT) 25U/L (15-37) Alanine Aminotransferase (ALT/SGPT) 25U/L (14-59) Alkaline Phosphatase 67U/L (46-116) Creatine Kinase 136U/L (26-192) Creatine Kinase MB (Mass) 1.2ng/mL (0.0-3.6) Creatine Kinase MB Relative Index 0.9% (0-4) Troponin I Quantitative < 0.017ng/mL (0.000-0.055) < 0.017ng/mL (0.000-0.055) < 0.017ng/mL (0.000-0.055) VF-Qfz-E-Type Natriuretic Peptide 58pg/mL (0-124) Total Protein 8.1g/dL (6.4-8.2) Albumin 4.0g/dL (3.4-5.0) Lipase 114U/L (73-393) Glucose (Fingerstick) 219mg/dL (70-99) Triglycerides Level 83mg/dL (0-150) Cholesterol Level 162mg/dL (0-200) LDL Cholesterol, Calculated 77mg/dL (0-100) VLDL Cholesterol, Calculated 17mg/dL (0-40) HDL Cholesterol 68mg/dL (40-60) Cholesterol/HDL Ratio 2.4 Amylase Level 39U/L (25-115) Thyroid Stimulating Hormone (TSH) 1.333uIU/mL (0.358-3.74) Test 03/17/16 08:30 03/17/16 12:40 03/17/16 16:36 03/17/16 19:56 Glucose (Fingerstick) 103mg/dL (70-99) 111mg/dL (70-99) 199mg/dL (70-99) 161mg/dL (70-99) Test 03/18/16 07:37 Glucose (Fingerstick) 110mg/dL (70-99) Laboratory Tests Test 03/17/16 12:40 03/17/16 16:36 03/17/16 19:56 03/18/16 07:37 Glucose (Fingerstick) 111mg/dL (70-99) 199mg/dL (70-99) 161mg/dL (70-99) 110mg/dL (70-99) Problem List Problems Medical Problems: (1) Abnormal chest x-ray Status: Acute (2) Chest pain Status: Acute (3) Gall stone Status: Acute Assessment/Plan US shows cholelithiasis, polyp asymptomatic, would rec FU in clinic with Dr Lord to arrange elective surgery for cholecystectomy Problems: TABITHA LORD MD 03/18/16 0912: SURGICAL PROGRESS NOTE Assessment/Plan Agree with Penny's assessment and plan. Problems: JOSELINE PRIEST APRN Mar 18, 2016 08:49 TABITHA LORD MD Mar 18, 2016 09:12
--- NOTE | 2016-03-18 09:39 | PDOC ---
PROGRESS NOTES Subjective Subjective pt feels better ,anxious to go home Objective Objective Vital Signs Date Time Temp Pulse Resp B/P Pulse Ox O2 Delivery O2 Flow Rate FiO2 03/18/16 08:25 Room Air 03/18/16 07:43 97.5 50 20 142/80 97.5 03/18/16 03:00 99 Intake and Output 03/18/16 07:00 Intake Total 550 ml Balance 550 ml Intake Oral 550 ml # Voids 7 Physical Exam Abdomen: Soft, No tenderness Heart: Regular rate, Normal S1, Normal S2, No murmurs Extremities: No clubbing, No cyanosis General: Alert, Oriented X3, Cooperative, No acute distress HEENT: PERRLA, Mucous membr. moist/pink Lungs: Clear to auscultation, Normal air movement MUSCULOSKELETAL: No deformity, No swelling Neuro: Normal gait, Normal speech Psych/Mental Status: Mental status NL, Mood NL Skin: No rashes, No breakdown Diagnosis Problem List Problems Medical Problems: (1) Abnormal chest x-ray Status: Acute (2) Chest pain Status: Acute (3) Gall stone Status: Acute Assessment Assessment Problems Medical Problems: (1) Abnormal chest x-ray Status: Acute (2) Chest pain Status: Acute (3) Gall stone Status: Acute FINAL IMPRESSION: 1. Chest pain, probably looks like from gallstones. 2. The patient has borderline diabetes, hypertension and family history of coronary artery disease. We will also have cardiology. 3. May need a stress test later. We will have a surgical consult for gallstone surgery and hopefully we can do laparoscopy and see how she improves. Plan: stress test -ve for ischemia. echo 60% gallstones+ out pt gall stones, surgery out pt on gallbladder d/c home today Problems: Plan Plan of Care Problems Medical Problems: (1) Abnormal chest x-ray Status: Acute (2) Chest pain Status: Acute (3) Gall stone Status: Acute Comment Review of Relevant I have reviewed the following items raeann (where applicable) has been applied. Labs Laboratory Tests Test 03/17/16 12:40 03/17/16 16:36 03/17/16 19:56 03/18/16 07:37 Glucose (Fingerstick) 111mg/dL (70-99) 199mg/dL (70-99) 161mg/dL (70-99) 110mg/dL (70-99) Medications Current Medications Dextrose 12.5 gm PRN Q15MIN PRN IV SEE COMMENTS; Start 03/17/16 at 10:00 Hydralazine HCl (Apresoline) 10 mg PRN Q4HRS PRN IVP ELEVATED BP, SEE COMMENTS ; Start 03/17/16 at 10:00 Insulin Aspart (Novolog) 0-7 UNITS TIDWMEALS SQ Last administered on 03/17/16t 17:28; Start 03/17/16 at 12:00 Regadenoson (Lexiscan) 0.4 mg 1X ONCE IV ; Start 03/17/16 at 11:00; Stop at 11:01; Status DC Vitals/I & O Vital Sign - Last 24 Hours 03/17/16 03/17/16 03/17/16 03/17/16 11:00 12:52 15:00 19:00 Temp 97.7 97.6 97.7 97.7 97.6 97.7 Pulse 53 53 60 54 Resp B/P 130/57 130/57 146/55 151/50 Pulse Ox 99 98 100 O2 Delivery Room Air Room Air Room Air 03/17/16 03/18/16 03/18/16 03/18/16 20:00 03:00 07:43 08:25 Temp 97.3 97.5 97.3 97.5 Pulse 94 50 Resp 18 B/P 195/43 142/80 Pulse Ox 99 O2 Delivery Room Air Room Air Room Air Room Air Intake and Output 03/17/16 03/17/16 03/18/16 15:00 23:00 07:00 Intake Total 550 ml 0 ml Balance 550 ml 0 ml MARÍA DILLON MD Mar 18, 2016 09:39
[2016-03-18 09:42] VITALS: BP 142/80
[2016-03-18] MEDS: FERROUS SULFATE 325 MG TABLET PO SCH (09:42)
[2016-03-18] MEDS: ASPIRIN 325 MG TABLET PO SCH (09:42)
[2016-03-18] MEDS: PANTOPRAZOLE 40 MG TABLET. PO SCH (09:42)
[2016-03-18] MEDS: HYDROCHLOROTHIAZIDE 25 MG TABLET PO SCH (09:42)
[2016-03-18] MEDS: LOSARTAN POTASSIUM 50 MG TABLET. PO SCH (09:42)
[2016-03-18] MEDS: LEVOTHYROXINE 50 MCG TABLET PO SCH (09:42)
--- NOTE | 2016-03-23 20:30 | PDOC ---
Provider Note Provider Note Discharge summary dictated. #[id number] MARÍA DILLON MD Mar 23, 2016 20:30
--- NOTE | 2016-03-24 06:57 | DS ---
DATE OF DISCHARGE: 03/18/2016 REASON FOR ADMISSION TO THE HOSPITAL: Chest pain, epigastric pain, history of hypertension. PROCEDURES DONE: 1. CT of the chest. 2. Ultrasound of the abdomen. 3. Nuclear stress test. 4. Echocardiogram. CONSULTATIONS: Dr. Tinoco, Surgery, General Surgery and Dr. Collier, Cardiology. HOSPITAL COURSE: The patient is a 71-year-old female with history of pancreatic pseudocyst and a partial pancreatectomy in the past. She came with chest pain, epigastric pain and EKG, cardiac enzymes negative. Her blood pressure was high when she came in. EKG negative for ischemia. Cardiac enzymes negative. Echocardiogram shows a normal left ventricular function, ejection fraction 70%. Had a nuclear stress test, was negative for ischemia and normal left ventricular function. The patient had an ultrasound, which shows gallstones, gallbladder polyp. Had a CT of the chest, was negative for pulmonary embolism, shows enlarged calcified granulomatous lymph node subcarinal area, not significant at this point, thickening of the antrum of the stomach, the patient was seen by General Surgery, she was feeling better. It was recommended that she needs a gallbladder surgery, but would be scheduled as outpatient in a couple of weeks and she is being discharged over the weekend. FINAL DIAGNOSES: 1. Abdominal pain secondary to gallstones. 2. Gastroesophageal reflux disease secondary to gallstones. 3. Stress test negative for ischemia. 4. Hypertension, accelerated. 5. History of pancreatic pseudocyst s/p partial resection of pancreas. DISPOSITION: Home. She was scheduled for a gallbladder surgery outpatient in a couple of weeks. MARÍA DILLON MD DR: GRACE/reynaldo JOB#: [id number] / [id number] SHARDA
== END 2016-03-18 10:49 | disposition home or self-care (01) | DRG 446 ==
LOC: ER 12:28 → 5 NORTH 15:25
PROVIDERS: ADMIT Internal Medicine; ATTEND Internal Medicine
DX: K80.20 Calculus of gallbladder without cholecystitis without obstruction (principal); I10 Essential (primary) hypertension; D72.829 Elevated white blood cell count, unspecified; E11.9 Type 2 diabetes mellitus without complications; H26.9 Unspecified cataract; D64.9 Anemia, unspecified; I25.10 Atherosclerotic heart disease of native coronary artery without angina pectoris; K21.9 Gastro-esophageal reflux disease without esophagitis; Z79.82 Long term (current) use of aspirin; Z82.49 Family history of ischemic heart disease and other diseases of the circulatory system; Z83.3 Family history of diabetes mellitus
CPT/HCPCS: 36415; 71010; 71260; 76705; 78452; 80048; 80061; 80076; 82150; 82553; 82947; 83690; 83735; 83880; 84443; 84484; 85027; 93005; 93017; 93306; 96374; 96376; A9500; J1815; Q9967; 99285-25

== ENCOUNTER 2017-04-19 04:58 | Emergency (ER) | payer MEDICARE ==
[2017-04-19 06:00] LABS: ADD MAN DIFF? NO
[2017-04-19 06:03] LABS: BASO % 1 % (0-3); EOS # 0.2 x10^3/uL (0.0-0.7); EOS % 4 % (0-3); HEMATOCRIT 37.3 % (36.0-47.0); HEMOGLOBIN 11.9 g/dL (12.0-15.5); LYMPH # 1.9 x10^3/uL (1.0-4.8); LYMPH % 35 % (24-48); MEAN CORPUSCULAR HEMOGLOBIN 30 pg (25-35); MEAN CORPUSCULAR HGB CONC 32 g/dL (31-37); MEAN CORPUSCULAR VOLUME 93 fL (79-100); MONO # 0.4 x10^3/uL (0.0-1.1); MONO % 7 % (0-9); NEUT # 2.8 x10^3uL (1.8-7.7); NEUT % 53 % (31-73); PLATELET COUNT 189 x10^3/uL (140-400); RED BLOOD COUNT 4.03 x10^6/uL (3.50-5.40); RED CELL DISTRIBUTION WIDTH 13.1 % (11.5-14.5); WHITE BLOOD COUNT 5.3 x10^3/uL (4.0-11.0)
[2017-04-19 06:20] LABS: ANION GAP 7 (6-14); BLOOD UREA NITROGEN 16 mg/dL (7-20); CALCIUM 9.7 mg/dL (8.5-10.1); CARBON DIOXIDE 29 mmol/L (21-32); CHLORIDE 104 mmol/L (98-107); CREATININE 0.9 mg/dL (0.6-1.0); GFR 74.5; GLUCOSE 142 mg/dL (70-99); POTASSIUM 3.9 mmol/L (3.5-5.1); SODIUM 140 mmol/L (136-145)
[2017-04-19 06:31] LABS: TROPONINI < 0.017 ng/mL (0.000-0.055)
[2017-04-19 06:33] LABS: NT-PRO BNP 91 pg/mL (0-124)
== END 2017-04-19 07:00 | disposition left against medical advice (07) ==
LOC: ER 04:58
DX: R07.89 Other chest pain (principal); R00.1 Bradycardia, unspecified; R11.0 Nausea; E11.9 Type 2 diabetes mellitus without complications; I10 Essential (primary) hypertension
CPT/HCPCS: 36415; 71045; 80048; 83880; 84484; 85025; 93005; 99285-25

== ENCOUNTER → 2017-07-21 | Outpatient (CLI) | payer MEDICARE | END | disposition home or self-care (01) | LOC: KCIC 15:25 | DX: M41.86 Other forms of scoliosis, lumbar region (principal); I70.0 Atherosclerosis of aorta | CPT/HCPCS: 72100; 73502 ==

== ENCOUNTER → 2019-03-12 | Outpatient (CLI) | payer MEDICARE ==
[2017-04-19 07:04] VITALS: BP 232/84
[~2019-03-12] MED LIST changes: +ASPI325T8 PO; +FERR325T14 PO; +LOSA-73 PO; -LOSA50TA6 PO; +OLME40TA12 PO
--- NOTE | 2019-03-12 16:40 | RAD ---
EXAM: Right lower extremity venous Doppler. HISTORY: Right lower extremity pain/swelling. COMPARISON: None. FINDINGS: Grayscale and Doppler analysis of the right lower extremity deep venous system was performed with graded compression and augmentation. The common femoral, greater saphenous, superficial femoral, popliteal and calf veins were assessed. There is no evidence of deep venous thrombosis. No clear abnormality is appreciated at the site of calf swelling. IMPRESSION: 1. No evidence of deep venous thrombosis. Electronically signed by: Raúl Epstein MD (03/12/2019 4:37 PM) [id number]
== END | disposition home or self-care (01) ==
LOC: US 15:35
PROVIDERS: ATTEND Internal Medicine
DX: M79.661 Pain in right lower leg (principal); Z79.899 Other long term (current) drug therapy
CPT/HCPCS: 93971

== ENCOUNTER 2019-07-06 07:42 | Inpatient (IN) | payer MEDICARE ==
[~2019-07-06] VITALS: Ht 154.9 cm; Wt 65.5 kg
[2019-07-06] MEDS ORDERED: FAMOTIDINE 20 MG/2 ML VIAL IVP ONE (08:00)
[2019-07-06] MEDS ORDERED: MORPHINE SULFATE 4 MG/ML VIAL. IV ONE (08:00)
[2019-07-06] MEDS ORDERED: ONDANSETRON PF 4 MG/2 ML VIAL. IVP ONE (08:00)
--- NOTE | 2019-07-06 08:03 | PHYS DOC ---
Past Medical History Past Medical History: Anemia, Diabetes-Type II, GERD, Hypertension Additional Past Medical Histor: "borderline diabetes" Past Surgical History: Other Additional Past Surgical Histo: PANCREATIC Smoking Status: Former Smoker Alcohol Use: Rarely Drug Use: None General Adult EDM: Chief Complaint: ABDOMINAL PAIN HPI: HPI: Patient is a 74 year old female presenting to the ED with a chief complaint of abdominal pain. Patient states that the pain is been present for the last 3 to 4 days. Patient states that she had a CT done of her abdomen and pelvis as an outpatient 2 days ago but has not received the results yet. Patient states that her last good bowel movement was 2 days ago. Patient does state that she is a history of GERD. Patient describes the pain is in the mid abdomen with no specific radiation. Patient describes the pain as generalized and aching. Patient did state that she had surgery on her pancreas in 2012. Patient states that the surgery was done at [facility]. Patient states that she had one episode of vomiting earlier this morning. Patient denies taking blood thinners or having history of irregular heartbeat. Review of Systems: Review of Systems: Constitutional: Denies fever or chills. [] Eyes: Denies change in visual acuity. [] HENT: Denies nasal congestion or sore throat. [] Respiratory: Denies cough or shortness of breath. [] Cardiovascular: Denies chest pain or edema. [] GI: Complains of generalized abdominal pain. : Denies dysuria. [] Musculoskeletal: Denies back pain or joint pain. [] Neurologic: Denies headache, focal weakness or sensory changes. [] Heart Score: Risk Factors: Risk Factors: DM, Current or recent (<one month) smoker, HTN, HLP, family history of CAD, obesity. Risk Scores: Score 0 - 3: 2.5% MACE over next 6 weeks - Discharge Home Score 4 - 6: 20.3% MACE over next 6 weeks - Admit for Clinical Observation Score 7 - 10: 72.7% MACE over next 6 weeks - Early Invasive Strategies Current Medications: Current Medications Medications (Trade) Dose Ordered Sig/Eber Start Time Stop Time Status Last Admin Dose Admin Famotidine (Pepcid Vial) 20 mg 1X ONCE 07/06/19 08:00 07/06/19 08:01 UNV Morphine Sulfate (Morphine Sulfate) 4 mg 1X ONCE 07/06/19 08:00 07/06/19 08:01 UNV Ondansetron HCl (Zofran) 4 mg 1X ONCE 07/06/19 08:00 07/06/19 08:01 UNV Allergies: Allergies: Allergies Coded Allergies Type Severity Reaction Last Updated Verified No Known Drug Allergies 01/21/14 No Physical Exam: PE: Constitutional: Well developed, well nourished, no acute distress, non-toxic appearance. [] HENT: Normocephalic, atraumatic Eyes: EOMI Neck: Normal range of motion, no tenderness, supple Cardiovascular:Heart rate regular rhythm, no murmur [] Lungs & Thorax: Bilateral breath sounds clear to auscultation [] Abdomen: Bowel sounds normal, soft, mid abdominal tenderness. No focal abdominal tenderness. Extremities: No tenderness, no cyanosis, no clubbing, ROM intact Neurologic: Alert and oriented X 3, normal motor function EKG: EKG: [] Radiology/Procedures: Radiology/Procedures: [] Impression: Impression: 1. Dilated loops of small bowel with transition point in the anterior lower abdomen, concerning for bowel obstruction. 2. 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 3. High-grade stenosis of the right renal artery origin. 4. High-grade stenosis to near occlusion of the left common iliac artery. 5. Postoperative changes distal pancreatectomy. Course & Med Decision Making: Course & Med Decision Making Pertinent Labs and Imaging studies reviewed. (See chart for details) Ordered labs, UA, IV morphine, IV Zofran, IV Pepcid. We will try to get the results of her CT scan before we order any repeat imaging. Patient has leukocytosis. CT shows likely small bowel obstruction. There are also multiple artery stenosis per the CTA. Patient's lactic acid is 2.4. I will page general surgery on-call for consultation. I discussed case with Dr. Hall who is the on-call surgeon. He recommends that patient get an NG tube. I also discussed case with Dr. Johns who is the on-call vascular surgeon. He states that he will consult on the patient. Patient has NG tube placed in the ER. I discussed results and plan of care with patient and family. Discussed with Dr Dillon for admission. Critical Care: 35 minutes Patient had a surgical bowel as well as mesenteric ischemia due to multiple artery stenosis. Dragon Disclaimer: Dragon Disclaimer: This electronic medical record was generated, in whole or in part, using a voice recognition dictation system. Departure Departure Impression: Primary Impression: Bowel obstruction Disposition: ADMITTED INPATIENT Admitting Physician: Aniket CASTILLO Vinaya Condition: IMPROVED Referrals: MARÍA DILLON MD (PCP) RMAONITA TEJADA DO July 06, 2019 08:03
[2019-07-06 08:20] LABS: BASO # 0.1 x10^3/uL (0.0-0.2); BASO % 1 % (0-3); EOS % 0 % (0-3); HEMATOCRIT 26.2 % (36.0-47.0); HEMOGLOBIN 8.4 g/dL (12.0-15.5); LYMPH % 8 % (24-48); MEAN CORPUSCULAR HEMOGLOBIN 26 pg (25-35); MEAN CORPUSCULAR HGB CONC 32 g/dL (31-37); MEAN CORPUSCULAR VOLUME 82 fL (79-100); MONO # 0.6 x10^3/uL (0.0-1.1); MONO % 4 % (0-9); NEUT # 11.2 x10^3/uL (1.8-7.7); NEUT % 87 % (31-73); PLATELET COUNT 374 x10^3/uL (140-400); RED CELL DISTRIBUTION WIDTH 16.8 % (11.5-14.5); WHITE BLOOD COUNT 12.8 x10^3/uL (4.0-11.0)
[2019-07-06 08:28] LABS: CALCIUM 10.1 mg/dL (8.5-10.1); CREATININE 1.7 mg/dL (0.6-1.0); GFR 35.5; POTASSIUM 3.7 mmol/L (3.5-5.1)
[2019-07-06 08:33] LABS: ALBUMIN 3.7 g/dL (3.4-5.0); ALBUMIN/GLOBULIN RATIO 0.9 (1.0-1.7); TOTAL PROTEIN 7.9 g/dL (6.4-8.2)
[2019-07-06] MEDS ORDERED: IV NORMAL SALINE 1000ML BAG 1,000 ML IV ONE ×2 (09:30→12:45)
[2019-07-06 09:39] LABS: % LYMPHS 8 % (24-48); % MONOS 3 % (0-10); % SEGS 89 % (35-66); PLT ESTIMATE ADEQUATE (ADEQUATE)
[2019-07-06] MEDS ORDERED: IOHEXOL 350 MG/ML 100 ML VIAL. IV ONE (09:45)
[2019-07-06] MEDS ORDERED: CONTRAST GIVEN. MC PRN (10:00)
--- NOTE | 2019-07-06 11:28 | RAD ---
CT ANGIOGRAPHY ABD AND PELVIS History: Reason: pain Technique: CT angiogram abdomen and pelvis with intravenous contrast. 3-D reconstructions were performed. Exposure: One or more of the following individualized dose reduction techniques were utilized for this examination: 1. Automated exposure control 2. Adjustment of the mA and/or kV according to patient size 3. Use of iterative reconstruction technique. Comparison: None Findings: Lower chest: Postop changes right middle lobe. Linear bilateral atelectasis. Abdomen and pelvis: The liver, spleen, and adrenal glands are unremarkable. Lobulated appearance the kidneys. No hydronephrosis. Postoperative changes distal pancreatectomy. Increased layering density within the gallbladder, may relate to gallbladder sludge or vicarious excretion of contrast from prior contrast study. Decompressed urinary bladder. Colonic diverticulosis. Decompressed colon. Normal appendix. Mild distention of the stomach with fluid. Mildly dilated mid to proximal small bowel loops with transition point in the anterior lower abdomen and decompressed distal small bowel loops. Contrast is noted within the colon from prior contrast study. No pathologic lymphadenopathy. No ascites. Prior hysterectomy. Heavy calcification within the celiac artery origin with high-grade stenosis or occlusion. Small-caliber celiac axis. Mild narrowing of the superior mesenteric artery origin due to calcified plaque. Narrowing of the inferior mesenteric artery origin. Moderate to severe narrowing of the right and mild narrowing of the left renal artery origins. Extensive atheromatous plaque throughout the nonaneurysmal abdominal aorta. Severe narrowing to near occlusion of the left common iliac artery origin. Calcified plaque throughout the internal iliac arteries. Bones: Multilevel lumbar spondylosis. Impression: 1. Dilated loops of small bowel with transition point in the anterior lower abdomen, concerning for bowel obstruction. 2. 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 3. High-grade stenosis of the right renal artery origin. 4. High-grade stenosis to near occlusion of the left common iliac artery. 5. Postoperative changes distal pancreatectomy. Electronically signed by: Beltran Gipson DO (07/06/2019 11:25 AM) [id number]
--- NOTE | 2019-07-06 13:37 | RAD ---
Examination: KUB History: Reason: POST NG TUBE PLACEMENT / Spl. Instructions: / History: Comparison/Correlation: None Findings: Portable supine frontal view of the abdomen was obtained. Enteric tube terminates within the stomach. The sidehole is at the gastroesophageal junction level. Surgical clips involving the left upper quadrant. Suture material involves the right lung base. Contrast is noted within the proximal colon. Surgical clips involving epigastric region and right upper quadrant also present. Gas within bowel is present without significant distention suggested. Retained contrast within pyelocalyceal systems and urinary bladder noted. Impression: Enteric tube is in place. Sidehole of the tube is at the gastroesophageal junction. Consider further advancement by several centimeters if clinically desired. Electronically signed by: Redd Rey MD (07/06/2019 1:34 PM) [id number]
[2019-07-06] MEDS ORDERED: AMLO5TAB10 PO (15:26)
[2019-07-06] MEDS ORDERED: LOSA-73 PO (15:26)
[2019-07-06] MEDS ORDERED: OMEP40CA45 PO (16:22)
[2019-07-06 16:46] VITALS: BP 162/48
[2019-07-06] MEDS: hydrALAZINE 20 MG/ML VIAL. IVP PRN (17:30)
[2019-07-06] MEDS: POTASSIUM CL 20MEQ D5-0.9%NACL 1,000 ML IV SCH (17:30)
[2019-07-06 19:00] VITALS: BP 181/53
[2019-07-06 23:00] VITALS: BP 148/54
[2019-07-07 03:00] VITALS: BP 180/61
[2019-07-07] MEDS: POTASSIUM CL 20MEQ D5-0.9%NACL 1,000 ML IV SCH ×3 (03:04→23:20)
[2019-07-07] MEDS: hydrALAZINE 20 MG/ML VIAL. IVP PRN ×2 (03:04→11:59)
[2019-07-07 05:37] LABS: ALBUMIN 3.1 g/dL (3.4-5.0); ALBUMIN/GLOBULIN RATIO 0.9 (1.0-1.7); CALCIUM 9.2 mg/dL (8.5-10.1); CREATININE 1.3 mg/dL (0.6-1.0); GFR 48.4; POTASSIUM 3.8 mmol/L (3.5-5.1); TOTAL BILIRUBIN 0.8 mg/dL (0.2-1.0); TOTAL PROTEIN 6.7 g/dL (6.4-8.2)
[2019-07-07 05:44] LABS: BASO % 0 % (0-3); EOS # 0.1 x10^3/uL (0.0-0.7); EOS % 1 % (0-3); HEMATOCRIT 22.9 % (36.0-47.0); HEMOGLOBIN 7.3 g/dL (12.0-15.5); LYMPH # 1.1 x10^3/uL (1.0-4.8); LYMPH % 17 % (24-48); MEAN CORPUSCULAR HEMOGLOBIN 26 pg (25-35); MEAN CORPUSCULAR HGB CONC 32 g/dL (31-37); MEAN CORPUSCULAR VOLUME 83 fL (79-100); MONO # 0.9 x10^3/uL (0.0-1.1); MONO % 13 % (0-9); NEUT # 4.7 x10^3/uL (1.8-7.7); NEUT % 69 % (31-73); PLATELET COUNT 260 x10^3/uL (140-400); RED BLOOD COUNT 2.77 x10^6/uL (3.50-5.40); RED CELL DISTRIBUTION WIDTH 17.3 % (11.5-14.5); WHITE BLOOD COUNT 6.8 x10^3/uL (4.0-11.0)
[2019-07-07] MEDS: PANTOPRAZOLE 40 MG TABLET.DR. PO SCH (07:11)
[2019-07-07 07:25] VITALS: BP 161/47
--- NOTE | 2019-07-07 07:50 | RAD ---
KUB History: Reason: SBO / Spl. Instructions: / History: Technique: Supine view the abdomen. Comparison: July 06, 2019 Findings: Mildly prominent air-filled loops of small bowel within the mid abdomen, similar compared to prior. Air stool scattered throughout the imaged colon. Contrast noted within the right colon. Unchanged position of enteric tube with tip projecting over the gastric fundus and side port over the gastroesophageal junction. Contrast noted within the urinary bladder. Multilevel lumbar spondylosis. Postop changes overlying the upper abdomen and pelvis. Impression: 1. Unchanged positioning of enteric tube with side-port at the level of the gastroesophageal junction. Consider advancement. 2. Mildly prominent small bowel loops, unchanged. Electronically signed by: Beltran Gipson DO (07/07/2019 7:47 AM) [id number]
[2019-07-07] MEDS: amLODIPine BESYLATE 5 MG TABLET PO SCH (08:16)
[2019-07-07] MEDS ORDERED: hydroCHLOROthiazide 25 MG TABLET PO SCH (09:00)
--- NOTE | 2019-07-07 09:38 | PDOC2 ---
CONSULT Date of Consult Date of Consult DATE: 07/07/19 TIME: 09:35 Reason for Consult Reason for Consult: SBO Referring Physician Referring Physician: Dr. Marcial Identification/Chief Complaint Chief Complaint abd pain, constipation Source Source: Chart review, Patient History of Present Illness Reason for Visit: 74 yo F with 2 day history of abd pain, no flatus, no stool. Seen in hospital room and pt reports feeling better. Past Medical History Cardiovascular: HTN, Other CENTRAL NERVOUS SYSTEM: Other GI: GERD Heme/Onc: No pertinent hx Hepatobiliary: No pertinent hx Psych: No pertinent hx Musculoskeletal: Osteoarthritis Infectious disease: No pertinent hx Renal/: No pertinent hx Endocrine: Diabetes, Hypothyroidism Past Surgical History Past Surgical History: Other (distal pancreatectomy) Family History Family History: Coronary Artery Disease Social History ALCOHOL: none Drugs: None Lives: with Family Current Problem List Problem List Problems Medical Problems: (1) Bowel obstruction Status: Acute Current Medications Current Medications Current Medications Morphine Sulfate (Morphine Sulfate) 4 mg 1X ONCE IV Last administered on 07/06/19at 08:17; Start 07/06/19 at 08:00; Stop 07/06/19 at 08:05; Status DC Ondansetron HCl (Zofran) 4 mg 1X ONCE IVP Last administered on 07/06/19at 08:17; Start 07/06/19 at 08:00; Stop 07/06/19 at 08:05; Status DC Famotidine (Pepcid Vial) 20 mg 1X ONCE IVP Last administered on 07/06/19at 08:17; Start 07/06/19 at 08:00; Stop 07/06/19 at 08:05; Status DC Sodium Chloride 1,000 ml @ 1,000 mls/hr 1X ONCE IV Last administered on 07/06/19at 09:38; Start 07/06/19 at 09:30; Stop 07/06/19 at 10:29; Status DC Iohexol (Omnipaque 350 Mg/ml) 70 ml 1X ONCE IV Last administered on 07/06/19at 10:50; Start 07/06/19 at 09:45; Stop 07/06/19 at 09:46; Status DC Info (CONTRAST GIVEN -- Rx MONITORING) 1 each PRN DAILY PRN MC SEE COMMENTS; Start 07/06/19 at 10:00; Stop 07/08/19 at 09:59 Sodium Chloride 1,000 ml @ 1,000 mls/hr 1X ONCE IV Last administered on 07/06/19at 12:41; Start 07/06/19 at 12:45; Stop 07/06/19 at 13:44; Status DC Amlodipine Besylate (Norvasc) 5 mg DAILY PO ; Start 07/07/19 at 09:00 Hydrochlorothiazide (Hydrodiuril) 25 mg DAILY PO ; Start 07/07/19 at 09:00 Pantoprazole Sodium (Protonix) 40 mg DAILYAC PO ; Start 07/07/19 at 07:30 Potassium Chloride/Dextrose/ Sod Cl 1,000 ml @ 100 mls/hr Q10H IV Last administered on 07/07/19at 03:04; Start 07/06/19 at 18:00 Hydralazine HCl (Apresoline Inj) 10 mg PRN Q4HRS PRN IVP ELEVATED BP, SEE COMMENTS Last administered on 07/07/19at 03:04; Start 07/06/19 at 17:15 Active Scripts Active Reported Omeprazole 40 Mg Capsule.dr 50 Mg PO DAILY Losartan Potassium 50 Mg Tablet 50 Mg PO BID Amlodipine Besylate 5 Mg Tablet 5 Mg PO DAILY Aspirin 325 Mg Tablet 325 Tab PO DAILY Hydrochlorothiazide Tablet (Hydrochlorothiazide) 50 Mg Tablet 25 Mg PO DAILY Levothyroxine Sodium 50 Mcg Tablet 50 Mcg PO DAILYAC Allergies Allergies: Coded Allergies: No Known Drug Allergies (Unverified , 01/21/14) ROS Gastrointestinal: Yes Constipation Physical Exam General: Alert, Oriented X3, Cooperative, No acute distress HEENT: Atraumatic Lungs: Normal air movement Abdomen: Soft, No tenderness, Other (incision well healed, NGT with clearing aspriate) Extremities: No clubbing, No cyanosis Skin: No rashes, No breakdown Neuro: Normal speech, Sensation intact Psych/Mental Status: Mental status NL, Mood NL Vitals VITALS Vital Signs Date Time Temp Pulse Resp B/P (MAP) Pulse Ox O2 Delivery O2 Flow Rate FiO2 07/07/19 08:00 Room Air 07/07/19 07:25 98.9 83 18 161/47 (85) 93 98.9 Labs Labs Laboratory Tests Test 07/06/19 08:10 07/06/19 12:04 07/07/19 03:57 07/07/19 05:04 White Blood Count 12.8 x10^3/uL (4.0-11.0) 6.8 x10^3/uL (4.0-11.0) Red Blood Count 3.20 x10^6/uL (3.50-5.40) 2.77 x10^6/uL (3.50-5.40) Hemoglobin 8.4 g/dL (12.0-15.5) 7.3 g/dL (12.0-15.5) Hematocrit 26.2 % (36.0-47.0) 22.9 % (36.0-47.0) Mean Corpuscular Volume 82 fL (79-100) 83 fL (79-100) Mean Corpuscular Hemoglobin 26 pg (25-35) 26 pg (25-35) Mean Corpuscular Hemoglobin Concent 32 g/dL (31-37) 32 g/dL (31-37) Red Cell Distribution Width 16.8 % (11.5-14.5) 17.3 % (11.5-14.5) Platelet Count 374 x10^3/uL (140-400) 260 x10^3/uL (140-400) Neutrophils (%) (Auto) 87 % (31-73) 69 % (31-73) Lymphocytes (%) (Auto) 8 % (24-48) 17 % (24-48) Monocytes (%) (Auto) 4 % (0-9) 13 % (0-9) Eosinophils (%) (Auto) 0 % (0-3) 1 % (0-3) Basophils (%) (Auto) 1 % (0-3) 0 % (0-3) Neutrophils # (Auto) 11.2 x10^3/uL (1.8-7.7) 4.7 x10^3/uL (1.8-7.7) Lymphocytes # (Auto) 1.0 x10^3/uL (1.0-4.8) 1.1 x10^3/uL (1.0-4.8) Monocytes # (Auto) 0.6 x10^3/uL (0.0-1.1) 0.9 x10^3/uL (0.0-1.1) Eosinophils # (Auto) 0.0 x10^3/uL (0.0-0.7) 0.1 x10^3/uL (0.0-0.7) Basophils # (Auto) 0.1 x10^3/uL (0.0-0.2) 0.0 x10^3/uL (0.0-0.2) Segmented Neutrophils % 89 % (35-66) Lymphocytes % 8 % (24-48) Monocytes % 3 % (0-10) Platelet Estimate Adequate (ADEQUATE) Sodium Level 136 mmol/L (136-145) 141 mmol/L (136-145) Potassium Level 3.7 mmol/L (3.5-5.1) 3.8 mmol/L (3.5-5.1) Chloride Level 95 mmol/L (98-107) 106 mmol/L (98-107) Carbon Dioxide Level 31 mmol/L (21-32) 28 mmol/L (21-32) Anion Gap 10 (6-14) 7 (6-14) Blood Urea Nitrogen 21 mg/dL (7-20) 19 mg/dL (7-20) Creatinine 1.7 mg/dL (0.6-1.0) 1.3 mg/dL (0.6-1.0) Estimated GFR (Cockcroft-Gault) 35.5 48.4 BUN/Creatinine Ratio 12 (6-20) 15 (6-20) Glucose Level 221 mg/dL (70-99) 174 mg/dL (70-99) Lactic Acid Level 2.4 mmol/L (0.4-2.0) 1.1 mmol/L (0.4-2.0) Calcium Level 10.1 mg/dL (8.5-10.1) 9.2 mg/dL (8.5-10.1) Total Bilirubin 1.0 mg/dL (0.2-1.0) 0.8 mg/dL (0.2-1.0) Aspartate Amino Transf (AST/SGOT) 22 U/L (15-37) 22 U/L (15-37) Alanine Aminotransferase (ALT/SGPT) 17 U/L (14-59) 13 U/L (14-59) Alkaline Phosphatase 72 U/L (46-116) 59 U/L (46-116) Total Protein 7.9 g/dL (6.4-8.2) 6.7 g/dL (6.4-8.2) Albumin 3.7 g/dL (3.4-5.0) 3.1 g/dL (3.4-5.0) Albumin/Globulin Ratio 0.9 (1.0-1.7) 0.9 (1.0-1.7) Lipase 64 U/L (73-393) Glucose (Fingerstick) 178 mg/dL (70-99) Laboratory Tests Test 07/06/19 12:04 07/07/19 03:57 07/07/19 05:04 Lactic Acid Level 1.1 mmol/L (0.4-2.0) White Blood Count 6.8 x10^3/uL (4.0-11.0) Red Blood Count 2.77 x10^6/uL (3.50-5.40) Hemoglobin 7.3 g/dL (12.0-15.5) Hematocrit 22.9 % (36.0-47.0) Mean Corpuscular Volume 83 fL (79-100) Mean Corpuscular Hemoglobin 26 pg (25-35) Mean Corpuscular Hemoglobin Concent 32 g/dL (31-37) Red Cell Distribution Width 17.3 % (11.5-14.5) Platelet Count 260 x10^3/uL (140-400) Neutrophils (%) (Auto) 69 % (31-73) Lymphocytes (%) (Auto) 17 % (24-48) Monocytes (%) (Auto) 13 % (0-9) Eosinophils (%) (Auto) 1 % (0-3) Basophils (%) (Auto) 0 % (0-3) Neutrophils # (Auto) 4.7 x10^3/uL (1.8-7.7) Lymphocytes # (Auto) 1.1 x10^3/uL (1.0-4.8) Monocytes # (Auto) 0.9 x10^3/uL (0.0-1.1) Eosinophils # (Auto) 0.1 x10^3/uL (0.0-0.7) Basophils # (Auto) 0.0 x10^3/uL (0.0-0.2) Sodium Level 141 mmol/L (136-145) Potassium Level 3.8 mmol/L (3.5-5.1) Chloride Level 106 mmol/L (98-107) Carbon Dioxide Level 28 mmol/L (21-32) Anion Gap 7 (6-14) Blood Urea Nitrogen 19 mg/dL (7-20) Creatinine 1.3 mg/dL (0.6-1.0) Estimated GFR (Cockcroft-Gault) 48.4 BUN/Creatinine Ratio 15 (6-20) Glucose Level 174 mg/dL (70-99) Calcium Level 9.2 mg/dL (8.5-10.1) Total Bilirubin 0.8 mg/dL (0.2-1.0) Aspartate Amino Transf (AST/SGOT) 22 U/L (15-37) Alanine Aminotransferase (ALT/SGPT) 13 U/L (14-59) Alkaline Phosphatase 59 U/L (46-116) Total Protein 6.7 g/dL (6.4-8.2) Albumin 3.1 g/dL (3.4-5.0) Albumin/Globulin Ratio 0.9 (1.0-1.7) Glucose (Fingerstick) 178 mg/dL (70-99) Images Images CT with concern for SBO and multiple vascular abnormalities Assessment/Plan Assessment/Plan SBO will plan SBFT in AM, agree with NGT will ask vascular to comment on abnormals Thanks for consult! SILVIO YUAN MD July 07, 2019 09:38
[2019-07-07] MEDS: fentaNYL PF VIAL 100 MCG/2 ML VIAL IVP PRN ×2 (10:04→13:48)
[2019-07-07] MEDS: ONDANSETRON PF 4 MG/2 ML VIAL. IVP PRN (10:17)
[2019-07-07 11:59] VITALS: BP 176/58
--- NOTE | 2019-07-07 12:13 | PDOC ---
Provider Note Provider Note . Pt seen.H&P dictated. #[id number] MARÍA DILLON MD July 07, 2019 12:13
--- NOTE | 2019-07-07 13:44 | PDOC ---
Provider Note Provider Note (Please see full dictation) 74 yo female was admitted with several day history of left lower abdominal pain associated with severe nausea and vomiting the day prior to admission. Her nausea and pain has improved since admission. A CTA abd/pelvis showed occlusion or high grade stenosis at the origin of the celiac artery. There was some plaque at the origin of the SMA, but this did not cause signicant narrowing. There is high grade stenosis of the proximal left common iliac artery, but she does not have any claudication. It is unlikely that her abdominal discomfort is related to mesenteric ischemia. She has not leg claudication. I would continue efforts at good blood pressure and cholesterol control, but would not recommend any arterial intervention at this time. ALEJANDRA FLAHERTY MD July 07, 2019 13:44
--- NOTE | 2019-07-07 14:15 | CONS ---
DATE OF CONSULTATION: 07/07/2019 CHIEF COMPLAINT: Abdominal pain with nausea and emesis. HISTORY OF PRESENT ILLNESS: The patient is a 74-year-old female with hypertension, diabetes, gastroesophageal reflux disease, and previous pancreatic cyst, who was admitted with several day history of left lower abdominal pain as well as nausea and emesis. She notes left lower abdominal pain for the last several days. She had nausea and emesis the day prior to admission including several bouts of emesis. She denies any hematemesis. Her last bowel movement was at least 2-3 days ago. She denies any previous history of diarrhea or hematochezia. She denies any chest pain or shortness of breath. She denies any lower extremity pain with activity or at rest. No history of lower extremity ulcers. PAST MEDICAL HISTORY: 1. Hypertension. 2. Gastroesophageal reflux disease. 3. Diabetes. 4. Hypothyroidism. 5. Osteoarthritis. PAST SURGICAL HISTORY: Pancreatectomy for cyst about 7 years ago. MEDICATIONS: On admission, aspirin, amlodipine, losartan, omeprazole, hydrochlorothiazide, and levothyroxine. ALLERGIES: No known drug allergies. SOCIAL HISTORY: She denies any smoking or alcohol use. FAMILY HISTORY: Noncontributory. REVIEW OF SYSTEMS: No recent fevers, chills, chest pain or shortness of breath. She had left lower abdominal pain as noted above, associated with nausea and emesis. No diarrhea, hematochezia or melena. Her last bowel movement was several days ago. She denies any unilateral weakness/numbness, vision loss, speech changes, or other TIA or stroke type symptoms. She denies any significant weight changes recently. PHYSICAL EXAMINATION: GENERAL: This is a well-developed female in no acute distress at this time. VITAL SIGNS: Temperature 98.8, pulse 79, blood pressure 176/58, respirations 18. NECK: Supple, no lymphadenopathy. CARDIOVASCULAR: Regular rhythm. ABDOMEN: Soft, nontender, nondistended, no palpable masses. She has some diffuse abdominal discomfort mainly in the lower abdomen. EXTREMITIES: She has palpable radial and right pedal pulses. Her left pedal pulses are nonpalpable. LABORATORY DATA: Significant for white blood cell 6.8, hemoglobin 7.3, and platelet count of 260. Sodium 141, potassium 3.8, BUN 19, creatinine 1.3, glucose 174, lipase 64. CT angiogram of the abdomen and pelvis demonstrated occlusion versus high-grade stenosis at the origin of the celiac artery. There is some atherosclerotic plaquing, but no significant narrowing of the superior mesenteric artery. There is high-grade stenosis at the right renal artery origin as well as high-grade stenosis at the left common iliac artery origin. There are some postoperative changes noted from distal pancreatectomy. IMPRESSION: 1. Abdominal pain, possibly due to partial small-bowel obstruction. 2. High-grade celiac artery stenosis or occlusion. 3. Peripheral arterial disease with left common iliac artery critical stenosis, but no claudication at this time. 4. Hypertension. 5. Gastroesophageal reflux disease. RECOMMENDATIONS: 1. Continue good atherosclerotic risk factor modification including good blood pressure and cholesterol control. 2. Would continue aspirin on a long-term basis to decrease risk of stroke and heart attack. 3. It is unlikely that the celiac artery occlusion is contributing to her abdominal pain and emesis at this time. I would not recommend any intervention for the celiac artery obstruction at this time. 4. She has high-grade stenosis of her left common iliac artery, but she has no claudication. I would not recommend intervention unless she has significant limiting claudication. I discussed all of the above findings with her including warning signs for which she is to contact me. I would be happy to see her if she develops symptoms in the near future. ALEJANDRA FLAHERTY MD DR: ORQUIDEA/reynaldo JOB#: [id number] / [id number] Cleo Dumont MD, STEPHEN MD
--- NOTE | 2019-07-07 14:51 | HP ---
ADMIT DATE: 07/06/2019 REASON FOR ADMISSION TO THE HOSPITAL: Abdominal pain, nausea, vomiting, partial small-bowel obstruction. HISTORY OF PRESENT ILLNESS: The patient is a 74-year-old female patient known to me. She was not feeling well for the last 3-4 days. She was having abdominal pain, nausea and vomiting, got progressively worse, came to the Emergency Room. CT scan shows partial small-bowel obstruction and the patient was NG tube, IV fluids. Surgery was consulted, was admitted to the hospital. PAST MEDICAL HISTORY: She has a history of hypertension, had a pancreatic cyst, had a surgery done 5 years ago at . PAST SURGICAL HISTORY: Had a distal pancreatic surgery at . PERSONAL HISTORY: Former smoker. Denies alcohol or drug abuse. ALLERGIES: No known drug allergies. MEDICATIONS AT HOME: The patient is on aspirin 325 daily, levothyroxine 50 mcg daily, losartan 50 mg daily, amlodipine 5 mg daily, hydrochlorothiazide 50 daily, omeprazole 40 mg daily. FAMILY HISTORY: Unremarkable. The patient's recently from chronic illness. REVIEW OF SYMPTOMS: Denies any chest pain, shortness of breath. Only nausea, abdominal pain. No fever. Rest of the 14-system was reviewed. No diarrhea. PHYSICAL EXAMINATION: GENERAL: The patient is not in any distress. VITAL SIGNS: Temperature 98, pulse 80, respirations 18, blood pressure 176/58, 92 on room air. HEENT: Head is atraumatic. Pupils equal. The patient has NG tube to intermittent suction. Oral cavity: Dentures. NECK: Supple. Thyroid not enlarged. JVD not elevated. CHEST: Symmetrical. CARDIOVASCULAR: S1, S2. LUNGS: Clear. ABDOMEN: Soft. Scar in the midline from previous surgery, had a distal pancreatectomy. EXTERNAL GENITALIA: No [place]. RECTAL: Deferred. EXTREMITIES: No calf tenderness, no edema. Pulses 1+. NEUROLOGIC: Moving all extremities. No focal deficits noted. LABORATORY DATA: Shows a white count of 13, hemoglobin 8.4, platelets of 374. Electrolytes show sodium 136, potassium 3.7, chloride 95, bicarbonate 31, BUN 21, creatinine 1.7, glucose 221. LFTs were normal. Lactic acid was 2.4, came down to 1.1. CT of the abdomen and pelvis shows small-bowel obstruction. FINAL IMPRESSION: 1. Partial small-bowel obstruction. 2. 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 3. Hypertension. 4. Hyperlipidemia. 5. Hypothyroidism. 6. Anemia. 7. Acute renal insufficiency. 8. Lactic acidosis, improving with IV fluids. PLAN: At this time, admit to hospital, given IV fluids, NG tube to suction. Surgical consult small bowel series. DVT prevention and see how she improves. Need further workup once the GI reassured for anemia. MARÍA DILLON MD DR: GRACE/reynaldo JOB#: [id number] / [id number]
--- NOTE | 2019-07-07 15:28 | RAD ---
KUB History: Reason: VERIFY NG TUBE PLACEMENT / Spl. Instructions: / History: Technique: Supine view the abdomen. Comparison: July 07, 2019 Findings: Feeding tube with tip projecting over the gastric fundus. Side port below the diaphragm. Postop changes upper abdomen. Prominent loops of small bowel within the imaged upper abdomen. Air and stool scattered throughout the imaged colon. Contrast within the right colon. Multilevel lumbar spondylosis. Patchy bibasilar opacities, most likely atelectasis. Postop changes right lower lung. Impression: 1. Interval advancement of feeding tube with tip projecting over the gastric fundus and side port below the diaphragm. Electronically signed by: Beltran Gipson DO (07/07/2019 3:25 PM) [id number]
[2019-07-07 15:59] VITALS: BP 169/55
[2019-07-07 19:00] VITALS: BP 170/60
[2019-07-07 23:00] VITALS: BP 150/48
[2019-07-08] VITALS (10 sets, daily range): BP systolic 175–194; BP diastolic 53–87
[2019-07-08] MEDS: hydrALAZINE 20 MG/ML VIAL. IVP PRN ×3 (04:04→20:14)
[2019-07-08 06:48] LABS: BASO % 0 % (0-3); EOS # 0.1 x10^3/uL (0.0-0.7); EOS % 2 % (0-3); HEMATOCRIT 21.4 % (36.0-47.0); LYMPH # 0.7 x10^3/uL (1.0-4.8); LYMPH % 14 % (24-48); MEAN CORPUSCULAR HEMOGLOBIN 27 pg (25-35); MEAN CORPUSCULAR HGB CONC 32 g/dL (31-37); MEAN CORPUSCULAR VOLUME 83 fL (79-100); MONO # 0.6 x10^3/uL (0.0-1.1); MONO % 12 % (0-9); NEUT # 3.8 x10^3/uL (1.8-7.7); NEUT % 72 % (31-73); PLATELET COUNT 225 x10^3/uL (140-400); RED BLOOD COUNT 2.56 x10^6/uL (3.50-5.40); RED CELL DISTRIBUTION WIDTH 16.9 % (11.5-14.5); WHITE BLOOD COUNT 5.3 x10^3/uL (4.0-11.0)
[2019-07-08 07:04] LABS: HEMOGLOBIN 6.8 g/dL (12.0-15.5)
[2019-07-08 07:05] LABS: CALCIUM 8.8 mg/dL (8.5-10.1); GFR 65.6; POTASSIUM 3.7 mmol/L (3.5-5.1)
--- NOTE | 2019-07-08 07:05 | NUR ---
Dr. Marcial paged regarding critical hgb and hct. Awaiting call back.
[2019-07-08] MEDS: PANTOPRAZOLE 40 MG TABLET.DR. PO SCH (07:30)
[2019-07-08] MEDS ORDERED: IOHEXOL 300 MG/ML 100ML VIAL. PO ONE (07:45)
[2019-07-08] MEDS ORDERED: CONTRAST GIVEN. MC PRN (07:45)
[2019-07-08] MEDS: amLODIPine BESYLATE 5 MG TABLET PO SCH (09:00)
--- NOTE | 2019-07-08 09:49 | PDOC ---
PROGRESS NOTES Subjective Subjective none Objective Objective Vital Signs Date Time Temp Pulse Resp B/P (MAP) Pulse Ox O2 Delivery O2 Flow Rate FiO2 07/08/19 07:00 98.7 89 16 175/53 (93) 94 Room Air 98.7 Intake and Output 07/08/19 07:00 Intake Total 1000 ml Output Total 525 ml Balance 475 ml Intake Oral 0 ml IV Total 1000 ml Output Gastric Drainage Total 25 ml Drainage Total 500 ml # Voids 2 Physical Exam Abdomen: Soft, No tenderness, Other (incision well healed, NGT with clearing aspriate) Extremities: No clubbing, No cyanosis General: Alert, Oriented X3, Cooperative, No acute distress HEENT: Atraumatic Lungs: Normal air movement MUSCULOSKELETAL: No deformity, No swelling Neuro: Normal speech, Sensation intact Psych/Mental Status: Mental status NL, Mood NL Skin: No rashes, No breakdown Diagnosis Problem List Problems Medical Problems: (1) Bowel obstruction Status: Acute Assessment Assessment Problems Medical Problems: (1) Bowel obstruction Status: Acute FINAL IMPRESSION: 1. Partial small-bowel obstruction. 2. 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 3. Hypertension. 4. Hyperlipidemia. 5. Hypothyroidism. 6. Anemia. 7. Acute renal insufficiency. 8. Lactic acidosis, improving with IV fluids. PLAN: small bowel series today Hb 6.7 transfuse 1 u today. IV fluids. kidney function improved. GI consult for anemia At this time, admit to hospital, given IV fluids, NG tube to suction. Surgical consult small bowel series. DVT prevention and see how she improves. Need further workup once the GI reassured for anemia. Plan Plan of Care Problems Medical Problems: (1) Bowel obstruction Status: Acute Comment Review of Relevant I have reviewed the following items raeann (where applicable) has been applied. Labs Laboratory Tests Test 07/07/19 11:43 07/07/19 18:01 07/08/19 00:01 07/08/19 05:30 Glucose (Fingerstick) 162 mg/dL (70-99) 144 mg/dL (70-99) 136 mg/dL (70-99) White Blood Count 5.3 x10^3/uL (4.0-11.0) Red Blood Count 2.56 x10^6/uL (3.50-5.40) Hemoglobin 6.8 g/dL (12.0-15.5) Hematocrit 21.4 % (36.0-47.0) Mean Corpuscular Volume 83 fL (79-100) Mean Corpuscular Hemoglobin 27 pg (25-35) Mean Corpuscular Hemoglobin Concent 32 g/dL (31-37) Red Cell Distribution Width 16.9 % (11.5-14.5) Platelet Count 225 x10^3/uL (140-400) Neutrophils (%) (Auto) 72 % (31-73) Lymphocytes (%) (Auto) 14 % (24-48) Monocytes (%) (Auto) 12 % (0-9) Eosinophils (%) (Auto) 2 % (0-3) Basophils (%) (Auto) 0 % (0-3) Neutrophils # (Auto) 3.8 x10^3/uL (1.8-7.7) Lymphocytes # (Auto) 0.7 x10^3/uL (1.0-4.8) Monocytes # (Auto) 0.6 x10^3/uL (0.0-1.1) Eosinophils # (Auto) 0.1 x10^3/uL (0.0-0.7) Basophils # (Auto) 0.0 x10^3/uL (0.0-0.2) Sodium Level 147 mmol/L (136-145) Potassium Level 3.7 mmol/L (3.5-5.1) Chloride Level 112 mmol/L (98-107) Carbon Dioxide Level 28 mmol/L (21-32) Anion Gap 7 (6-14) Blood Urea Nitrogen 13 mg/dL (7-20) Creatinine 1.0 mg/dL (0.6-1.0) Estimated GFR (Cockcroft-Gault) 65.6 Glucose Level 161 mg/dL (70-99) Calcium Level 8.8 mg/dL (8.5-10.1) Test 07/08/19 06:27 Glucose (Fingerstick) 134 mg/dL (70-99) Medications Current Medications Fentanyl Citrate (Fentanyl 2ml Vial) 25 mcg PRN Q3HRS PRN IVP PAIN Last administered on 07/07/19at 13:48; Start 07/07/19 at 10:00 Info (CONTRAST GIVEN -- Rx MONITORING) 1 each PRN DAILY PRN MC SEE COMMENTS; Start 07/08/19 at 07:45; Stop 07/10/19 at 07:44 Iohexol (Omnipaque 300 Mg/ml) 400 ml 1X ONCE PO Last administered on 07/08/19at 07:45; Start 07/08/19 at 07:45; Stop 07/08/19 at 07:46; Status DC Ondansetron HCl (Zofran) 4 mg PRN Q6HRS PRN IVP NAUSEA/VOMITING Last administered on 07/07/19at 10:17; Start 07/07/19 at 10:00 Vitals/I & O Vital Sign - Last 24 Hours 07/07/19 07/07/19 07/07/19 07/07/19 10:04 10:34 11:59 11:59 Temp 98.8 98.8 Pulse 79 81 Resp 18 B/P (MAP) 176/58 176/58 (97) Pulse Ox 92 O2 Delivery Room Air Room Air Room Air 07/07/19 07/07/19 07/07/19 07/07/19 13:48 14:50 15:59 19:00 Temp 99.3 98.9 99.3 98.9 Pulse 91 80 Resp 18 18 B/P (MAP) 169/55 (93) 170/60 (96) Pulse Ox 92 91 O2 Delivery Room Air Room Air Room Air Room Air 07/07/19 07/07/19 07/08/19 07/08/19 19:00 23:00 03:00 04:04 Temp 98.9 98.6 98.9 98.6 Pulse 76 75 75 Resp 18 18 B/P (MAP) 150/48 (82) 175/62 (99) 175/62 Pulse Ox 91 90 O2 Delivery Room Air Room Air Room Air 07/08/19 07:00 Temp 98.7 98.7 Pulse 89 Resp 16 B/P (MAP) 175/53 (93) Pulse Ox 94 O2 Delivery Room Air Intake and Output 07/07/19 07/07/19 07/08/19 15:00 23:00 07:00 Intake Total 0 ml 0 ml 1000 ml Output Total 25 ml 500 ml Balance -25 ml 0 ml 500 ml MARÍA DILLON MD Jul 08, 2019 09:49
--- NOTE | 2019-07-08 09:54 | NUR ---
SW following. Discussed with RN, pt from home with son - pt's recently. Pt having small bowel series today, getting blood afterwards. No PT/OT ordered. SW will continue to follow for any discharge planning needs.
--- NOTE | 2019-07-08 11:41 | RAD ---
EXAM: SMALL BOWEL FOLLOW-THROUGH. HISTORY: Small bowel obstruction.. COMPARISON: CT abdomen and pelvis of 07/06/2019. FINDINGS: A network designer image was obtained. It showed that there was residual dense enteric contrast material in the right colon, splenic flexure, transverse colon and rectum, similar to the pattern of residual contrast material in the large bowel on the abdomen CT of 2 days prior. Following an attempt to discuss these findings with the referring surgeon, decision was made to proceed with the diagnostic study, accepting the limitations of evaluation of the ileocecal junction due to residual contrast in the large bowel. 400 mL of Omnipaque 300 contrast material was administered orally and followed in its course through the stomach and small bowel with fluoroscopy and plain radiographs. 2 fluoroscopic images were obtained. Fluoroscopy time 0.8 minutes. The network designer image demonstrates a persistence of gas-filled distended small bowel loops in the midabdomen and residual contrast material in the large bowel. Serial images of the small bowel showed opacification of distended jejunal loops which remain dilated and very slow to opacify with enteric contrast. At 2 hours post oral contrast administration, persistently dilated small bowel loops were demonstrated with gradual dilution of contrast in dilated bowel loops in the right lower quadrant. Incidental duodenal diverticulum in the second portion noted. Fluoroscopic spot images showed no clear opacification of the terminal ileum at the ileocecal valve. Additional attempts at fluoroscopic imaging were deferred as the residual contrast material in the right colon likely meant that identified the ileocecal valve the challenging. IMPRESSION: 1. Small bowel series shows evidence of high-grade partial small bowel obstruction. No evidence of bowel perforation. Electronically signed by: Jodie Gomes MD (07/08/2019 11:38 AM) [id number]
--- NOTE | 2019-07-08 12:53 | PDOC2 ---
GI CONSULT Reason For Consult: SBO, anemia HPI: HPI: 74 y/o female, not feeling well. Ill w/ abd pain and n/v for a week or so. Admitted 07/05 w/ SBO. Had SBS today - says vomited during exam - results as below w/ ongoing obstruction. Noted w/ anemia and we are asked to see re: this. Denies hematemesis, hematoche diana, and melena. Takes ASA QD. H/o GERD on omeprazole QD. No dysphagia. Hasn't stooled in several days but usually no issues w/ diarrhea or constipation. Denies weight loss. EGD long ago. Last colonoscopy w/ polyps in 2017. Abnormal GB imaging in the past. Denies liver history. S/p distal pancreatectomy for cyst at [facility]. CT noted possible GB sludge, diverticulosis, high grade celiac stenosis and PAD - vascular evaluated, no intervention planned. PMH: PMH: HTN, DM, hypothyroidism, OA, PAD, celiac artery stenosis, colon polyps, GERD distal pancreatectomy Social History: Smoke: Quit ALCOHOL: none Drugs: None ROS: GEN: Denies fevers, chills, sweats HEENT: Denies blurred vision, sore throat CV: Denies chest pain RESP: Denies shortness of air, cough GI: Per HPI : Denies hematuria, dysuria ENDO: Denies weight changes NEURO: Denies confusion, dizziness MSK: Denies weakness, joint pain/swelling SKIN: Denies jaundice, pruritus Vitals: Vitals: Vital Signs Date Time Temp Pulse Resp B/P (MAP) Pulse Ox O2 Delivery O2 Flow Rate FiO2 07/08/19 12:30 98.9 86 16 177/61 98.9 07/08/19 07:00 94 Room Air Labs: Labs: Laboratory Tests Test 07/07/19 18:01 07/08/19 00:01 07/08/19 05:30 07/08/19 06:27 Glucose (Fingerstick) 144 mg/dL (70-99) 136 mg/dL (70-99) 134 mg/dL (70-99) White Blood Count 5.3 x10^3/uL (4.0-11.0) Red Blood Count 2.56 x10^6/uL (3.50-5.40) Hemoglobin 6.8 g/dL (12.0-15.5) Hematocrit 21.4 % (36.0-47.0) Mean Corpuscular Volume 83 fL (79-100) Mean Corpuscular Hemoglobin 27 pg (25-35) Mean Corpuscular Hemoglobin Concent 32 g/dL (31-37) Red Cell Distribution Width 16.9 % (11.5-14.5) Platelet Count 225 x10^3/uL (140-400) Neutrophils (%) (Auto) 72 % (31-73) Lymphocytes (%) (Auto) 14 % (24-48) Monocytes (%) (Auto) 12 % (0-9) Eosinophils (%) (Auto) 2 % (0-3) Basophils (%) (Auto) 0 % (0-3) Neutrophils # (Auto) 3.8 x10^3/uL (1.8-7.7) Lymphocytes # (Auto) 0.7 x10^3/uL (1.0-4.8) Monocytes # (Auto) 0.6 x10^3/uL (0.0-1.1) Eosinophils # (Auto) 0.1 x10^3/uL (0.0-0.7) Basophils # (Auto) 0.0 x10^3/uL (0.0-0.2) Sodium Level 147 mmol/L (136-145) Potassium Level 3.7 mmol/L (3.5-5.1) Chloride Level 112 mmol/L (98-107) Carbon Dioxide Level 28 mmol/L (21-32) Anion Gap 7 (6-14) Blood Urea Nitrogen 13 mg/dL (7-20) Creatinine 1.0 mg/dL (0.6-1.0) Estimated GFR (Cockcroft-Gault) 65.6 Glucose Level 161 mg/dL (70-99) Calcium Level 8.8 mg/dL (8.5-10.1) Allergies: Coded Allergies: No Known Drug Allergies (Unverified , 01/21/14) Medications: Current Medications Medications (Trade) Dose Ordered Sig/Eber Route PRN Reason Start Time Stop Time Status Last Admin Dose Admin Iohexol (Omnipaque 300 Mg/ml) 400 ml 1X ONCE PO 07/08/19 07:45 07/08/19 07:46 DC 07/08/19 07:45 Imaging: Imaging: SBS 07/07 IMPRESSION: 1. Small bowel series shows evidence of high-grade partial small bowel obstruction. No evidence of bowel perforation. KUB 07/06 Impression: 1. Interval advancement of feeding tube with tip projecting over the gastric fundus and side port below the diaphragm. CTA A/P 07/05 Impression: 1. Dilated loops of small bowel with transition point in the anterior lower abdomen, concerning for bowel obstruction. 2. 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 3. High-grade stenosis of the right renal artery origin. 4. High-grade stenosis to near occlusion of the left common iliac artery. 5. Postoperative changes distal pancreatectomy. CT A/P on 07/03 [facility] noted extensive multivessel atherosclerotic disease with areas of possible stenosis, also noted mild sigmoid diverticulosis, lower lumbar spine degenerative changes, incidental finding of intramuscular lipome within right adductor muscles or proximal right thigh, and surgical changes withint the pancreatic body and tail. PE: GEN: looks ill HEENT: Atraumatic, PERRL LUNGS: CTAB HEART: RRR ABD: quiet, uncomfortable, NG w/ brownish output EXTREMITY: No edema SKIN: No rashes, no jaundice NEURO/PSYCH: A & O 3 A/P: A/P: SBO Anemia - chronic, Hgb below baseline GERD on PPI CRC screen, h/o polyps - due for screening 2021 Diverticulosis ?GB sludge S/p distal pancreatectomy HTN -- Await surgery recommendations, continue NGT. Change to IV PPI, check iron profile. Transfusion planned. Additional GB imaging eventually. Other per Dr. Mancilla. LULI MONZON Jul 08, 2019 12:53
[2019-07-08] MEDS: cloNIDine TTS-1 1 PATCH PATCH.TDWK TD SCH (14:15)
[2019-07-08] MEDS: ONDANSETRON PF 4 MG/2 ML VIAL. IVP PRN (14:33)
[2019-07-08] MEDS: POTASSIUM CL 20MEQ D5-0.45NACL 1,000 ML IV SCH (15:16)
--- NOTE | 2019-07-08 15:44 | PDOC ---
SURGICAL PROGRESS NOTE Subjective Pt feels better, no flatus or stool Vital Signs Vital Signs Date Time Temp Pulse Resp B/P (MAP) Pulse Ox O2 Delivery O2 Flow Rate FiO2 07/08/19 15:00 98.6 91 18 192/70 (110) 93 Room Air 98.6 I&O Intake and Output0 07/08/19 07:00 Intake Total 1000 ml Output Total 525 ml Balance 475 ml Intake Oral 0 ml IV Total 1000 ml Output Gastric Drainage Total 25 ml Drainage Total 500 ml # Voids 2 General: Alert, Oriented X3, Cooperative, No acute distress Abdomen: Soft, No tenderness Labs Laboratory Tests Test 07/07/19 03:57 07/07/19 05:04 07/07/19 11:43 07/07/19 18:01 White Blood Count 6.8 x10^3/uL (4.0-11.0) Red Blood Count 2.77 x10^6/uL (3.50-5.40) Hemoglobin 7.3 g/dL (12.0-15.5) Hematocrit 22.9 % (36.0-47.0) Mean Corpuscular Volume 83 fL (79-100) Mean Corpuscular Hemoglobin 26 pg (25-35) Mean Corpuscular Hemoglobin Concent 32 g/dL (31-37) Red Cell Distribution Width 17.3 % (11.5-14.5) Platelet Count 260 x10^3/uL (140-400) Neutrophils (%) (Auto) 69 % (31-73) Lymphocytes (%) (Auto) 17 % (24-48) Monocytes (%) (Auto) 13 % (0-9) Eosinophils (%) (Auto) 1 % (0-3) Basophils (%) (Auto) 0 % (0-3) Neutrophils # (Auto) 4.7 x10^3/uL (1.8-7.7) Lymphocytes # (Auto) 1.1 x10^3/uL (1.0-4.8) Monocytes # (Auto) 0.9 x10^3/uL (0.0-1.1) Eosinophils # (Auto) 0.1 x10^3/uL (0.0-0.7) Basophils # (Auto) 0.0 x10^3/uL (0.0-0.2) Sodium Level 141 mmol/L (136-145) Potassium Level 3.8 mmol/L (3.5-5.1) Chloride Level 106 mmol/L (98-107) Carbon Dioxide Level 28 mmol/L (21-32) Anion Gap 7 (6-14) Blood Urea Nitrogen 19 mg/dL (7-20) Creatinine 1.3 mg/dL (0.6-1.0) Estimated GFR (Cockcroft-Gault) 48.4 BUN/Creatinine Ratio 15 (6-20) Glucose Level 174 mg/dL (70-99) Calcium Level 9.2 mg/dL (8.5-10.1) Total Bilirubin 0.8 mg/dL (0.2-1.0) Aspartate Amino Transf (AST/SGOT) 22 U/L (15-37) Alanine Aminotransferase (ALT/SGPT) 13 U/L (14-59) Alkaline Phosphatase 59 U/L (46-116) Total Protein 6.7 g/dL (6.4-8.2) Albumin 3.1 g/dL (3.4-5.0) Albumin/Globulin Ratio 0.9 (1.0-1.7) Glucose (Fingerstick) 178 mg/dL (70-99) 162 mg/dL (70-99) 144 mg/dL (70-99) Test 07/08/19 00:01 07/08/19 05:30 07/08/19 06:27 Glucose (Fingerstick) 136 mg/dL (70-99) 134 mg/dL (70-99) White Blood Count 5.3 x10^3/uL (4.0-11.0) Red Blood Count 2.56 x10^6/uL (3.50-5.40) Hemoglobin 6.8 g/dL (12.0-15.5) Hematocrit 21.4 % (36.0-47.0) Mean Corpuscular Volume 83 fL (79-100) Mean Corpuscular Hemoglobin 27 pg (25-35) Mean Corpuscular Hemoglobin Concent 32 g/dL (31-37) Red Cell Distribution Width 16.9 % (11.5-14.5) Platelet Count 225 x10^3/uL (140-400) Neutrophils (%) (Auto) 72 % (31-73) Lymphocytes (%) (Auto) 14 % (24-48) Monocytes (%) (Auto) 12 % (0-9) Eosinophils (%) (Auto) 2 % (0-3) Basophils (%) (Auto) 0 % (0-3) Neutrophils # (Auto) 3.8 x10^3/uL (1.8-7.7) Lymphocytes # (Auto) 0.7 x10^3/uL (1.0-4.8) Monocytes # (Auto) 0.6 x10^3/uL (0.0-1.1) Eosinophils # (Auto) 0.1 x10^3/uL (0.0-0.7) Basophils # (Auto) 0.0 x10^3/uL (0.0-0.2) Sodium Level 147 mmol/L (136-145) Potassium Level 3.7 mmol/L (3.5-5.1) Chloride Level 112 mmol/L (98-107) Carbon Dioxide Level 28 mmol/L (21-32) Anion Gap 7 (6-14) Blood Urea Nitrogen 13 mg/dL (7-20) Creatinine 1.0 mg/dL (0.6-1.0) Estimated GFR (Cockcroft-Gault) 65.6 Glucose Level 161 mg/dL (70-99) Calcium Level 8.8 mg/dL (8.5-10.1) Iron Level 10 ug/dL (50-170) Total Iron Binding Capacity 328 ug/dL (250-450) Iron Saturation 3 % (15-34) Laboratory Tests Test 07/07/19 18:01 07/08/19 00:01 07/08/19 05:30 07/08/19 06:27 Glucose (Fingerstick) 144 mg/dL (70-99) 136 mg/dL (70-99) 134 mg/dL (70-99) White Blood Count 5.3 x10^3/uL (4.0-11.0) Red Blood Count 2.56 x10^6/uL (3.50-5.40) Hemoglobin 6.8 g/dL (12.0-15.5) Hematocrit 21.4 % (36.0-47.0) Mean Corpuscular Volume 83 fL (79-100) Mean Corpuscular Hemoglobin 27 pg (25-35) Mean Corpuscular Hemoglobin Concent 32 g/dL (31-37) Red Cell Distribution Width 16.9 % (11.5-14.5) Platelet Count 225 x10^3/uL (140-400) Neutrophils (%) (Auto) 72 % (31-73) Lymphocytes (%) (Auto) 14 % (24-48) Monocytes (%) (Auto) 12 % (0-9) Eosinophils (%) (Auto) 2 % (0-3) Basophils (%) (Auto) 0 % (0-3) Neutrophils # (Auto) 3.8 x10^3/uL (1.8-7.7) Lymphocytes # (Auto) 0.7 x10^3/uL (1.0-4.8) Monocytes # (Auto) 0.6 x10^3/uL (0.0-1.1) Eosinophils # (Auto) 0.1 x10^3/uL (0.0-0.7) Basophils # (Auto) 0.0 x10^3/uL (0.0-0.2) Sodium Level 147 mmol/L (136-145) Potassium Level 3.7 mmol/L (3.5-5.1) Chloride Level 112 mmol/L (98-107) Carbon Dioxide Level 28 mmol/L (21-32) Anion Gap 7 (6-14) Blood Urea Nitrogen 13 mg/dL (7-20) Creatinine 1.0 mg/dL (0.6-1.0) Estimated GFR (Cockcroft-Gault) 65.6 Glucose Level 161 mg/dL (70-99) Calcium Level 8.8 mg/dL (8.5-10.1) Iron Level 10 ug/dL (50-170) Total Iron Binding Capacity 328 ug/dL (250-450) Iron Saturation 3 % (15-34) I have reviewed the following SBFT concerning for SBO Problem List Problems Medical Problems: (1) Bowel obstruction Status: Acute Assessment/Plan SBO cont NGT and bowel rest recheck KUB in AM will attempt to avoid surgical intervention, given comorbidities. Justicifation of Admission Dx: Justifications for Admission: Justification of Admission Dx: Yes Comments: Small bowel obstruction SILVIO YUAN MD Jul 08, 2019 15:44
[2019-07-08] MEDS: fentaNYL PF VIAL 100 MCG/2 ML VIAL IVP PRN (16:12)
[2019-07-09] VITALS (7 sets, daily range): BP systolic 172–196; BP diastolic 54–70
[2019-07-09] MEDS: hydrALAZINE 20 MG/ML VIAL. IVP PRN ×3 (00:37→22:03)
[2019-07-09] MEDS: POTASSIUM CL 20MEQ D5-0.45NACL 1,000 ML IV SCH ×3 (00:38→20:28)
[2019-07-09] MEDS: ONDANSETRON PF 4 MG/2 ML VIAL. IVP PRN (06:47)
[2019-07-09 07:26] LABS: BASO % 1 % (0-3); EOS # 0.1 x10^3/uL (0.0-0.7); EOS % 1 % (0-3); HEMATOCRIT 29.2 % (36.0-47.0); HEMOGLOBIN 9.4 g/dL (12.0-15.5); LYMPH # 1.4 x10^3/uL (1.0-4.8); LYMPH % 16 % (24-48); MEAN CORPUSCULAR HEMOGLOBIN 27 pg (25-35); MEAN CORPUSCULAR HGB CONC 32 g/dL (31-37); MEAN CORPUSCULAR VOLUME 83 fL (79-100); MONO # 1.1 x10^3/uL (0.0-1.1); MONO % 12 % (0-9); NEUT # 6.2 x10^3/uL (1.8-7.7); NEUT % 71 % (31-73); PLATELET COUNT 299 x10^3/uL (140-400); RED BLOOD COUNT 3.53 x10^6/uL (3.50-5.40); RED CELL DISTRIBUTION WIDTH 16.7 % (11.5-14.5); WHITE BLOOD COUNT 8.7 x10^3/uL (4.0-11.0)
[2019-07-09 07:38] LABS: CALCIUM 9.6 mg/dL (8.5-10.1); CREATININE 1.1 mg/dL (0.6-1.0); GFR 58.7; POTASSIUM 3.4 mmol/L (3.5-5.1)
--- NOTE | 2019-07-09 08:13 | RAD ---
ABDOMEN SUPINE UPRIGHT History: Reason: small bowel obstruction / Spl. Instructions: / History: Technique: Supine and upright views of the abdomen. Comparison: Small bowel series July 08, 2019 Findings: Postoperative changes right lower lung. No consolidation or pleural effusion. Right basilar linear atelectasis or scarring. Normal heart size. No pneumothorax. No pneumoperitoneum. Enteric tube with tip projecting over the gastric fundus and side port at the level of the gastric esophageal junction. Dilated small bowel loops with contrast from recent small bowel series. Slight interval progression distally into small bowel compared to prior. Contrast noted within the proximal colon from prior study before the small bowel series. Postop changes overlying the pelvis and upper abdomen. Multilevel lumbar spondylosis. Impression: 1. Dilated small bowel loops with contrast from recent small bowel series, slight progression of contrast into distal dilated small bowel compared to prior. Findings concerning for persistent small bowel obstruction. Electronically signed by: Beltran Gipson DO (07/09/2019 8:10 AM) [facility]
[2019-07-09] MEDS: PANTOPRAZOLE IV PUSH 40 MG VIAL. IVP SCH (08:15)
[2019-07-09] MEDS: amLODIPine BESYLATE 5 MG TABLET PO SCH (08:20)
--- NOTE | 2019-07-09 09:31 | PDOC ---
PROGRESS NOTES Subjective Subjective no new problems ,sore throat from NGT Objective Objective Vital Signs Date Time Temp Pulse Resp B/P (MAP) Pulse Ox O2 Delivery O2 Flow Rate FiO2 07/09/19 08:20 93 174/54 07/09/19 07:00 98.2 16 94 Room Air 98.2 Intake and Output 07/09/19 07:00 Intake Total 30 ml Output Total 500 ml Balance -470 ml Blood Product IV Normal Saline Flush 30 ml Output Gastric Drainage Total 500 ml # Voids 1 Physical Exam Abdomen: Soft, No tenderness Extremities: No clubbing, No cyanosis General: Alert, Oriented X3, Cooperative, No acute distress HEENT: Atraumatic Lungs: Normal air movement MUSCULOSKELETAL: No deformity, No swelling Neuro: Normal speech, Sensation intact Psych/Mental Status: Mental status NL, Mood NL Skin: No rashes, No breakdown Diagnosis Problem List Problems Medical Problems: (1) Bowel obstruction Status: Acute Assessment Assessment Problems Medical Problems: (1) Bowel obstruction Status: Acute FINAL IMPRESSION: 1. Partial small-bowel obstruction. 2. 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 3. Hypertension. 4. Hyperlipidemia. 5. Hypothyroidism. 6. Anemia. 7. Acute renal insufficiency. 8. Lactic acidosis, improving with IV fluids. PLAN: catapress patch for htn small bowel series -high grade stenosis Hb 6.7 transfused 1 u yesterday ,Hb 9 today IV fluids.NA 147, cr 1.3 kidney function improved. GI consult for anemia At this time, admit to hospital, given IV fluids, NG tube to suction. Surgical consult small bowel series. DVT prevention and see how she improves. Need further workup once the GI reassured for anemia. Plan Plan of Care Problems Medical Problems: (1) Bowel obstruction Status: Acute Comment Review of Relevant I have reviewed the following items raeann (where applicable) has been applied. Labs Laboratory Tests Test 07/08/19 16:47 07/08/19 21:06 07/09/19 05:45 07/09/19 07:23 Glucose (Fingerstick) 148 mg/dL (70-99) 151 mg/dL (70-99) 175 mg/dL (70-99) White Blood Count 8.7 x10^3/uL (4.0-11.0) Red Blood Count 3.53 x10^6/uL (3.50-5.40) Hemoglobin 9.4 g/dL (12.0-15.5) Hematocrit 29.2 % (36.0-47.0) Mean Corpuscular Volume 83 fL (79-100) Mean Corpuscular Hemoglobin 27 pg (25-35) Mean Corpuscular Hemoglobin Concent 32 g/dL (31-37) Red Cell Distribution Width 16.7 % (11.5-14.5) Platelet Count 299 x10^3/uL (140-400) Neutrophils (%) (Auto) 71 % (31-73) Lymphocytes (%) (Auto) 16 % (24-48) Monocytes (%) (Auto) 12 % (0-9) Eosinophils (%) (Auto) 1 % (0-3) Basophils (%) (Auto) 1 % (0-3) Neutrophils # (Auto) 6.2 x10^3/uL (1.8-7.7) Lymphocytes # (Auto) 1.4 x10^3/uL (1.0-4.8) Monocytes # (Auto) 1.1 x10^3/uL (0.0-1.1) Eosinophils # (Auto) 0.1 x10^3/uL (0.0-0.7) Basophils # (Auto) 0.0 x10^3/uL (0.0-0.2) Sodium Level 147 mmol/L (136-145) Potassium Level 3.4 mmol/L (3.5-5.1) Chloride Level 108 mmol/L (98-107) Carbon Dioxide Level 31 mmol/L (21-32) Anion Gap 8 (6-14) Blood Urea Nitrogen 15 mg/dL (7-20) Creatinine 1.1 mg/dL (0.6-1.0) Estimated GFR (Cockcroft-Gault) 58.7 Glucose Level 156 mg/dL (70-99) Calcium Level 9.6 mg/dL (8.5-10.1) Medications Current Medications Clonidine HCl (Catapres Tts-1) 1 patch WEEKLY TD Last administered on 07/08/19at 14:15; Start 07/08/19 at 13:30 Pantoprazole Sodium (PROTONIX VIAL for IV PUSH) 40 mg DAILYAC IVP Last administered on 07/09/19at 08:15; Start 6/2/20 at 07:30 Potassium Chloride/Dextrose/ Sod Cl 1,000 ml @ 100 mls/hr Q10H IV Last administered on 07/09/19at 08:22; Start 07/08/19 at 13:15 Vitals/I & O Vital Sign - Last 24 Hours 07/08/19 07/08/19 07/08/19 07/08/19 12:30 12:45 13:30 14:30 Temp 98.9 99.2 98.6 98.8 98.9 99.2 98.6 98.8 Pulse 86 85 91 90 Resp 16 16 16 18 B/P (MAP) 177/61 183/68 192/70 187/76 07/08/19 07/08/19 07/08/19 07/08/19 14:34 15:00 16:12 16:14 Temp 98.6 97.9 98.6 97.9 Pulse 91 91 92 Resp 18 17 B/P (MAP) 192/70 192/70 (110) 188/70 Pulse Ox 93 93 O2 Delivery Room Air Room Air 07/08/19 07/08/19 07/08/19 07/08/19 16:42 19:00 19:30 20:07 Temp 98.9 98.9 Pulse 91 Resp 20 B/P (MAP) 194/70 (111) Pulse Ox 93 93 O2 Delivery Room Air Room Air Room Air Room Air 07/08/19 07/08/19 07/09/19 07/09/19 20:14 23:00 00:37 03:00 Temp 98.9 99.2 98.9 99.2 Pulse 91 87 87 80 Resp 18 18 B/P (MAP) 194/70 181/87 (118) 181/65 172/56 (94) Pulse Ox 94 93 O2 Delivery Room Air Room Air 07/09/19 07/09/19 07/09/19 07/09/19 05:30 05:40 07:00 08:20 Temp 98.2 98.2 Pulse 86 86 93 93 Resp 16 B/P (MAP) 187/62 (103) 187/62 174/54 (94) 174/54 Pulse Ox 94 O2 Delivery Room Air Intake and Output 07/08/19 07/08/19 07/09/19 15:00 23:00 07:00 Intake Total 30 ml Output Total 500 ml Balance 30 ml -500 ml Justicifation of Admission Dx: Justifications for Admission: Justification of Admission Dx: Yes MARÍA DILLON MD Jul 09, 2019 09:31
--- NOTE | 2019-07-09 10:06 | PDOC ---
Subjective: Subjective: Stinging pain in right ear. Pain controlled w/ meds. No flatus or stool. Objective: Vital Signs: Vital Signs Date Time Temp Pulse Resp B/P (MAP) Pulse Ox O2 Delivery O2 Flow Rate FiO2 07/09/19 08:20 93 174/54 07/09/19 07:00 98.2 16 94 Room Air 98.2 Labs: Laboratory Tests Test 07/08/19 16:47 07/08/19 21:06 07/09/19 05:45 07/09/19 07:23 Glucose (Fingerstick) 148 mg/dL 151 mg/dL 175 mg/dL White Blood Count 8.7 x10^3/uL Red Blood Count 3.53 x10^6/uL Hemoglobin 9.4 g/dL Hematocrit 29.2 % Mean Corpuscular Volume 83 fL Mean Corpuscular Hemoglobin 27 pg Mean Corpuscular Hemoglobin Concent 32 g/dL Red Cell Distribution Width 16.7 % Platelet Count 299 x10^3/uL Neutrophils (%) (Auto) 71 % Lymphocytes (%) (Auto) 16 % Monocytes (%) (Auto) 12 % Eosinophils (%) (Auto) 1 % Basophils (%) (Auto) 1 % Neutrophils # (Auto) 6.2 x10^3/uL Lymphocytes # (Auto) 1.4 x10^3/uL Monocytes # (Auto) 1.1 x10^3/uL Eosinophils # (Auto) 0.1 x10^3/uL Basophils # (Auto) 0.0 x10^3/uL Sodium Level 147 mmol/L Potassium Level 3.4 mmol/L Chloride Level 108 mmol/L Carbon Dioxide Level 31 mmol/L Anion Gap 8 Blood Urea Nitrogen 15 mg/dL Creatinine 1.1 mg/dL Estimated GFR (Cockcroft-Gault) 58.7 Glucose Level 156 mg/dL Calcium Level 9.6 mg/dL Imaging: Abd X-Ray Impression: 1. Dilated small bowel loops with contrast from recent small bowel series, slight progression of contrast into distal dilated small bowel compared to prior. Findings concerning for persistent small bowel obstruction. PE: GEN: NAD LUNGS: CTAB HEART: RRR ABD: periumbilical discomfort, NG more bilious NEURO/PSYCH: A & O 3 A/P: SBO RAYRAY - improved w/ transfusion Ear pain -- NG output ongoing, continue per surgery. Justicifation of Admission Dx: Justifications for Admission: Justification of Admission Dx: Yes LULI MONZON Jul 09, 2019 10:06
--- NOTE | 2019-07-09 10:11 | NUR ---
SW following. Discussed with RN, pt NPO, had xray this morning, NG tube. Per RN, pt having quite a large output from NG tube and still vomiting. SW will continue to follow.
--- NOTE | 2019-07-09 16:31 | PDOC ---
SURGICAL PROGRESS NOTE Subjective Pt reports feeling better, best day yet, no flatus or stool Vital Signs Vital Signs Date Time Temp Pulse Resp B/P (MAP) Pulse Ox O2 Delivery O2 Flow Rate FiO2 07/09/19 15:00 98.6 77 18 191/68 (109) 92 Room Air 98.6 I&O Intake and Output 07/09/19 07:00 Intake Total 30 ml Output Total 500 ml Balance -470 ml Blood Product IV Normal Saline Flush 30 ml Output Gastric Drainage Total 500 ml # Voids 1 General: Alert, Oriented X3, Cooperative, No acute distress Abdomen: Soft, No tenderness Labs Laboratory Tests Test 07/07/19 18:01 07/08/19 00:01 07/08/19 05:30 07/08/19 06:27 Glucose (Fingerstick) 144 mg/dL (70-99) 136 mg/dL (70-99) 134 mg/dL (70-99) White Blood Count 5.3 x10^3/uL (4.0-11.0) Red Blood Count 2.56 x10^6/uL (3.50-5.40) Hemoglobin 6.8 g/dL (12.0-15.5) Hematocrit 21.4 % (36.0-47.0) Mean Corpuscular Volume 83 fL (79-100) Mean Corpuscular Hemoglobin 27 pg (25-35) Mean Corpuscular Hemoglobin Concent 32 g/dL (31-37) Red Cell Distribution Width 16.9 % (11.5-14.5) Platelet Count 225 x10^3/uL (140-400) Neutrophils (%) (Auto) 72 % (31-73) Lymphocytes (%) (Auto) 14 % (24-48) Monocytes (%) (Auto) 12 % (0-9) Eosinophils (%) (Auto) 2 % (0-3) Basophils (%) (Auto) 0 % (0-3) Neutrophils # (Auto) 3.8 x10^3/uL (1.8-7.7) Lymphocytes # (Auto) 0.7 x10^3/uL (1.0-4.8) Monocytes # (Auto) 0.6 x10^3/uL (0.0-1.1) Eosinophils # (Auto) 0.1 x10^3/uL (0.0-0.7) Basophils # (Auto) 0.0 x10^3/uL (0.0-0.2) Sodium Level 147 mmol/L (136-145) Potassium Level 3.7 mmol/L (3.5-5.1) Chloride Level 112 mmol/L (98-107) Carbon Dioxide Level 28 mmol/L (21-32) Anion Gap 7 (6-14) Blood Urea Nitrogen 13 mg/dL (7-20) Creatinine 1.0 mg/dL (0.6-1.0) Estimated GFR (Cockcroft-Gault) 65.6 Glucose Level 161 mg/dL (70-99) Calcium Level 8.8 mg/dL (8.5-10.1) Iron Level 10 ug/dL (50-170) Total Iron Binding Capacity 328 ug/dL (250-450) Iron Saturation 3 % (15-34) Test 07/08/19 16:47 07/08/19 21:06 07/09/19 05:45 07/09/19 07:23 Glucose (Fingerstick) 148 mg/dL (70-99) 151 mg/dL (70-99) 175 mg/dL (70-99) White Blood Count 8.7 x10^3/uL (4.0-11.0) Red Blood Count 3.53 x10^6/uL (3.50-5.40) Hemoglobin 9.4 g/dL (12.0-15.5) Hematocrit 29.2 % (36.0-47.0) Mean Corpuscular Volume 83 fL (79-100) Mean Corpuscular Hemoglobin 27 pg (25-35) Mean Corpuscular Hemoglobin Concent 32 g/dL (31-37) Red Cell Distribution Width 16.7 % (11.5-14.5) Platelet Count 299 x10^3/uL (140-400) Neutrophils (%) (Auto) 71 % (31-73) Lymphocytes (%) (Auto) 16 % (24-48) Monocytes (%) (Auto) 12 % (0-9) Eosinophils (%) (Auto) 1 % (0-3) Basophils (%) (Auto) 1 % (0-3) Neutrophils # (Auto) 6.2 x10^3/uL (1.8-7.7) Lymphocytes # (Auto) 1.4 x10^3/uL (1.0-4.8) Monocytes # (Auto) 1.1 x10^3/uL (0.0-1.1) Eosinophils # (Auto) 0.1 x10^3/uL (0.0-0.7) Basophils # (Auto) 0.0 x10^3/uL (0.0-0.2) Sodium Level 147 mmol/L (136-145) Potassium Level 3.4 mmol/L (3.5-5.1) Chloride Level 108 mmol/L (98-107) Carbon Dioxide Level 31 mmol/L (21-32) Anion Gap 8 (6-14) Blood Urea Nitrogen 15 mg/dL (7-20) Creatinine 1.1 mg/dL (0.6-1.0) Estimated GFR (Cockcroft-Gault) 58.7 Glucose Level 156 mg/dL (70-99) Calcium Level 9.6 mg/dL (8.5-10.1) Test 07/09/19 11:25 Glucose (Fingerstick) 144 mg/dL (70-99) Laboratory Tests Test 07/08/19 16:47 07/08/19 21:06 07/09/19 05:45 07/09/19 07:23 Glucose (Fingerstick) 148 mg/dL (70-99) 151 mg/dL (70-99) 175 mg/dL (70-99) White Blood Count 8.7 x10^3/uL (4.0-11.0) Red Blood Count 3.53 x10^6/uL (3.50-5.40) Hemoglobin 9.4 g/dL (12.0-15.5) Hematocrit 29.2 % (36.0-47.0) Mean Corpuscular Volume 83 fL (79-100) Mean Corpuscular Hemoglobin 27 pg (25-35) Mean Corpuscular Hemoglobin Concent 32 g/dL (31-37) Red Cell Distribution Width 16.7 % (11.5-14.5) Platelet Count 299 x10^3/uL (140-400) Neutrophils (%) (Auto) 71 % (31-73) Lymphocytes (%) (Auto) 16 % (24-48) Monocytes (%) (Auto) 12 % (0-9) Eosinophils (%) (Auto) 1 % (0-3) Basophils (%) (Auto) 1 % (0-3) Neutrophils # (Auto) 6.2 x10^3/uL (1.8-7.7) Lymphocytes # (Auto) 1.4 x10^3/uL (1.0-4.8) Monocytes # (Auto) 1.1 x10^3/uL (0.0-1.1) Eosinophils # (Auto) 0.1 x10^3/uL (0.0-0.7) Basophils # (Auto) 0.0 x10^3/uL (0.0-0.2) Sodium Level 147 mmol/L (136-145) Potassium Level 3.4 mmol/L (3.5-5.1) Chloride Level 108 mmol/L (98-107) Carbon Dioxide Level 31 mmol/L (21-32) Anion Gap 8 (6-14) Blood Urea Nitrogen 15 mg/dL (7-20) Creatinine 1.1 mg/dL (0.6-1.0) Estimated GFR (Cockcroft-Gault) 58.7 Glucose Level 156 mg/dL (70-99) Calcium Level 9.6 mg/dL (8.5-10.1) Test 07/09/19 11:25 Glucose (Fingerstick) 144 mg/dL (70-99) I have reviewed the following KUB with minimal improvement Problem List Problems Medical Problems: (1) Bowel obstruction Status: Acute Assessment/Plan SBO no evidence of bowel compromise favor continued conservative management given comorbidities and known vascular issues will start TPN and PICC pt in agreement. Justicifation of Admission Dx: Justifications for Admission: Justification of Admission Dx: Yes SILVIO YUAN MD Jul 09, 2019 16:31
--- NOTE | 2019-07-10 00:44 | NUR ---
Pt had DL PICC inserted by [facility] to Right Basilic vein. 5 bengali. 36cm inserted. Modified cell susan used. Tip ends at CAJ. Suraj DORMAN Addendum: 07/10/19 at 0046 by SURAJ STERN RN RN Amended: Links added.
--- NOTE | 2019-07-10 01:44 | RAD ---
EXAM: AP View of the chest DATE: 07/10/2019 12:13 AM INDICATION: PICC placementn COMPARISON: 06/19/17 FINDINGS: Right upper extremity PICC tip projects over the middistal right SVC. Enteric tube tip terminates within the fundus/body of the stomach. Cardiomediastinal silhouette is stable. Patchy opacities in the right lower lobe may represent atelectasis or developing consolidation. Postsurgical changes are seen in the right lower lung. No pleural effusion or pneumothorax. IMPRESSION: Patchy opacities right lower lung, new compared to 04/19/2017 possibly consolidation or atelectasis. Support lines and tubes as above with the right upper extremity PICC tip projecting over the mid-distal SVC. Electronically signed by: Fuad Bynum MD (07/10/2019 1:41 AM) [facility]
[2019-07-10 03:00] VITALS: BP 176/53
[2019-07-10] MEDS: hydrALAZINE 20 MG/ML VIAL. IVP PRN ×2 (04:50→21:11)
[2019-07-10 04:57] LABS: BASO % 1 % (0-3); EOS # 0.1 x10^3/uL (0.0-0.7); EOS % 2 % (0-3); HEMATOCRIT 26.6 % (36.0-47.0); HEMOGLOBIN 8.6 g/dL (12.0-15.5); LYMPH # 1.2 x10^3/uL (1.0-4.8); LYMPH % 16 % (24-48); MEAN CORPUSCULAR HEMOGLOBIN 27 pg (25-35); MEAN CORPUSCULAR HGB CONC 32 g/dL (31-37); MEAN CORPUSCULAR VOLUME 83 fL (79-100); MONO # 0.9 x10^3/uL (0.0-1.1); MONO % 11 % (0-9); NEUT # 5.6 x10^3/uL (1.8-7.7); NEUT % 71 % (31-73); PLATELET COUNT 228 x10^3/uL (140-400); RED CELL DISTRIBUTION WIDTH 16.5 % (11.5-14.5); WHITE BLOOD COUNT 7.8 x10^3/uL (4.0-11.0)
[2019-07-10] MEDS: POTASSIUM CL 20MEQ D5-0.45NACL 1,000 ML IV SCH ×2 (04:59→15:41)
[2019-07-10 05:18] LABS: CREATININE 1.1 mg/dL (0.6-1.0); GFR 58.7; POTASSIUM 3.5 mmol/L (3.5-5.1)
[2019-07-10] MEDS: ONDANSETRON PF 4 MG/2 ML VIAL. IVP PRN (05:40)
[2019-07-10 06:45] VITALS: BP 171/53
[2019-07-10] MEDS: amLODIPine BESYLATE 5 MG TABLET PO SCH (07:26)
[2019-07-10] MEDS: PANTOPRAZOLE IV PUSH 40 MG VIAL. IVP SCH (07:56)
--- NOTE | 2019-07-10 09:56 | PDOC ---
PROGRESS NOTES Subjective Subjective no new problems Objective Objective Vital Signs Date Time Temp Pulse Resp B/P (MAP) Pulse Ox O2 Delivery O2 Flow Rate FiO2 07/10/19 08:00 Room Air 07/10/19 07:26 78 171/53 07/10/19 06:45 98.4 17 94 98.4 Intake and Output 07/10/19 07:00 Intake Total 100 ml Output Total 950 ml Balance -850 ml Intake Oral 100 ml Output Urine Total 500 ml Gastric Drainage Total 100 ml Drainage Total 350 ml # Voids 4 Physical Exam Physical Exam NGT to suction Abdomen: Soft, No tenderness Extremities: No clubbing, No cyanosis General: Alert, Oriented X3, Cooperative, No acute distress HEENT: Atraumatic Lungs: Normal air movement MUSCULOSKELETAL: No deformity, No swelling Neuro: Normal speech, Sensation intact Psych/Mental Status: Mental status NL, Mood NL Skin: No rashes, No breakdown Diagnosis Problem List Problems Medical Problems: (1) Bowel obstruction Status: Acute Assessment Assessment Problems Medical Problems: (1) Bowel obstruction Status: Acute FINAL IMPRESSION: 1. Partial small-bowel obstruction. 2. 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 3. Hypertension. 4. Hyperlipidemia. 5. Hypothyroidism. 6. Anemia. 7. Acute renal insufficiency. 8. Lactic acidosis, improving with IV fluids. PLAN: spoke with pts daughter spoke with GI spoke with RN atelactasis on cxr .KUB pending catapress patch for htn small bowel series -high grade stenosis Hb 6.7 transfused 1 u yesterday ,Hb8.6 today IV fluids.NA 143, cr 1.3 kidney function improved. inc ambulation ,incentive spirometry, duoneb plans for picc line and TPN Plan Plan of Care Problems Medical Problems: (1) Bowel obstruction Status: Acute Comment Review of Relevant I have reviewed the following items raeann (where applicable) has been applied. Labs Laboratory Tests Test 07/09/19 11:25 07/10/19 01:02 07/10/19 03:55 07/10/19 06:24 Glucose (Fingerstick) 144 mg/dL (70-99) 156 mg/dL (70-99) 156 mg/dL (70-99) White Blood Count 7.8 x10^3/uL (4.0-11.0) Red Blood Count 3.20 x10^6/uL (3.50-5.40) Hemoglobin 8.6 g/dL (12.0-15.5) Hematocrit 26.6 % (36.0-47.0) Mean Corpuscular Volume 83 fL (79-100) Mean Corpuscular Hemoglobin 27 pg (25-35) Mean Corpuscular Hemoglobin Concent 32 g/dL (31-37) Red Cell Distribution Width 16.5 % (11.5-14.5) Platelet Count 228 x10^3/uL (140-400) Neutrophils (%) (Auto) 71 % (31-73) Lymphocytes (%) (Auto) 16 % (24-48) Monocytes (%) (Auto) 11 % (0-9) Eosinophils (%) (Auto) 2 % (0-3) Basophils (%) (Auto) 1 % (0-3) Neutrophils # (Auto) 5.6 x10^3/uL (1.8-7.7) Lymphocytes # (Auto) 1.2 x10^3/uL (1.0-4.8) Monocytes # (Auto) 0.9 x10^3/uL (0.0-1.1) Eosinophils # (Auto) 0.1 x10^3/uL (0.0-0.7) Basophils # (Auto) 0.0 x10^3/uL (0.0-0.2) Sodium Level 143 mmol/L (136-145) Potassium Level 3.5 mmol/L (3.5-5.1) Chloride Level 107 mmol/L (98-107) Carbon Dioxide Level 27 mmol/L (21-32) Anion Gap 9 (6-14) Blood Urea Nitrogen 14 mg/dL (7-20) Creatinine 1.1 mg/dL (0.6-1.0) Estimated GFR (Cockcroft-Gault) 58.7 Glucose Level 146 mg/dL (70-99) Calcium Level 9.0 mg/dL (8.5-10.1) Vitals/I & O Vital Sign - Last 24 Hours 07/09/19 07/09/19 07/09/19 07/09/19 11:00 15:00 19:00 20:15 Temp 98.3 98.6 99.0 98.3 98.6 99.0 Pulse 92 77 77 Resp 16 18 18 B/P (MAP) 191/55 (100) 191/68 (109) 190/70 (110) Pulse Ox 93 92 94 O2 Delivery Room Air Room Air Room Air Room Air 07/09/19 07/09/19 07/10/19 07/10/19 22:03 23:00 03:00 04:50 Temp 98.5 98.2 98.5 98.2 Pulse 77 79 74 74 Resp 18 18 B/P (MAP) 190/70 196/67 (110) 176/53 (94) 176/53 Pulse Ox 95 94 O2 Delivery Room Air Room Air 07/10/19 07/10/19 07/10/19 06:45 07:26 08:00 Temp 98.4 98.4 Pulse 78 78 Resp 17 B/P (MAP) 171/53 (92) 171/53 Pulse Ox 94 O2 Delivery Room Air Room Air Intake and Output 07/09/19 07/09/19 07/10/19 15:00 23:00 07:00 Intake Total 100 ml Output Total 650 ml 300 ml Balance -650 ml -200 ml Justicifation of Admission Dx: Justifications for Admission: Justification of Admission Dx: Yes Nutrition Consultation Dietary Evaluation: Recommendations by RD: Dietary education by RD, Increase Calorie Intake, PPN/TPN Comments: REC diet advancement within 24-48 hrs as able/per surgery, goal diet regular w/protein supplments per pt choice REC PPN if unable to advance diet within 24 - 48 hrs Expected Outcomes/Goals: diet advancement Interpretation of weight loss: >7.5% in 3 months Malnutrition Findings: Food and Nutrition Intake (Sev: <50% est energy req 5days Weight Status: Appropriate MARÍA DILLON MD Jul 10, 2019 09:55
--- NOTE | 2019-07-10 10:07 | PDOC ---
Subjective: Subjective: Belching but no flatus or stool. NG uncomfortable, meds help abd pain. Going to get up and walk today. Objective: Objective: D/w nurse - NG wasn't suctioning earlier, working better now. D/w Dr. Marcial - he spoke w/ her daughter just now - they are wanting to know a plan/timeline. Vital Signs: Vital Signs Date Time Temp Pulse Resp B/P (MAP) Pulse Ox O2 Delivery O2 Flow Rate FiO2 07/10/19 08:00 Room Air 07/10/19 07:26 78 171/53 07/10/19 06:45 98.4 17 94 98.4 Labs: Laboratory Tests Test 07/09/19 11:25 07/10/19 01:02 07/10/19 03:55 07/10/19 06:24 Glucose (Fingerstick) 144 mg/dL 156 mg/dL 156 mg/dL White Blood Count 7.8 x10^3/uL Red Blood Count 3.20 x10^6/uL Hemoglobin 8.6 g/dL Hematocrit 26.6 % Mean Corpuscular Volume 83 fL Mean Corpuscular Hemoglobin 27 pg Mean Corpuscular Hemoglobin Concent 32 g/dL Red Cell Distribution Width 16.5 % Platelet Count 228 x10^3/uL Neutrophils (%) (Auto) 71 % Lymphocytes (%) (Auto) 16 % Monocytes (%) (Auto) 11 % Eosinophils (%) (Auto) 2 % Basophils (%) (Auto) 1 % Neutrophils # (Auto) 5.6 x10^3/uL Lymphocytes # (Auto) 1.2 x10^3/uL Monocytes # (Auto) 0.9 x10^3/uL Eosinophils # (Auto) 0.1 x10^3/uL Basophils # (Auto) 0.0 x10^3/uL Sodium Level 143 mmol/L Potassium Level 3.5 mmol/L Chloride Level 107 mmol/L Carbon Dioxide Level 27 mmol/L Anion Gap 9 Blood Urea Nitrogen 14 mg/dL Creatinine 1.1 mg/dL Estimated GFR (Cockcroft-Gault) 58.7 Glucose Level 146 mg/dL Calcium Level 9.0 mg/dL Imaging: CXR 07/09 IMPRESSION: Patchy opacities right lower lung, new compared to 04/19/2017 possibly consolidation or atelectasis. Support lines and tubes as above with the right upper extremity PICC tip projecting over the mid-distal SVC. KUB 07/09 pending PE: GEN: NAD LUNGS: CTAB HEART: RRR ABD: soft, NG bilious NEURO/PSYCH: A & O 3 A/P: SBO RAYRAY -- Continue same. Justicifation of Admission Dx: Justifications for Admission: Justification of Admission Dx: Yes LULI MONZON Jul 10, 2019 10:07
[2019-07-10] MEDS ORDERED: IPRATRPIUM/ALBUTEROL 0.5/2.5MG 3 ML NEBU. NEB ONE (10:15)
--- NOTE | 2019-07-10 10:38 | RAD ---
ABDOMEN SUPINE UPRIGHT History: Reason: SBO / Spl. Instructions: / History: Technique: Upright and supine views the abdomen. Comparison: July 09, 2019 Findings: Numerous dilated small bowel loops throughout the abdomen with contrast, similar compared to prior. Scattered fluid levels noted. Contrast noted within the proximal colon from prior contrast study. No definite new contrast is noted within the colon. Stable enteric tube. Postop changes right lower lobe. Postop changes upper abdomen and pelvis. Multilevel lumbar spondylosis. Impression: 1. Unchanged dilated small bowel loops with contrast. No definite progression of contrast distally. Electronically signed by: Beltran Gipson DO (07/10/2019 10:35 AM) [facility]
--- NOTE | 2019-07-10 10:49 | NUR ---
SW following. Discussed with RN, pt still NPO. PICC line inserted yesterday for plans to start TPN. SW will continue to follow.
[2019-07-10 10:56] VITALS: BP 180/53
[2019-07-10] MEDS: IPRATRPIUM/ALBUTEROL 0.5/2.5MG 3 ML NEBU. NEB SCH ×3 (11:31→20:30)
--- NOTE | 2019-07-10 13:50 | PDOC ---
SURGICAL PROGRESS NOTE Subjective Pt without new c/o, did have some N/V with NGT off, no flatus, no abd pain Vital Signs Vital Signs Date Time Temp Pulse Resp B/P (MAP) Pulse Ox O2 Delivery O2 Flow Rate FiO2 07/10/19 11:31 98 Room Air 07/10/19 10:56 97.5 72 18 180/53 (95) 97.5 I&O Intake and Output 07/10/19 07:00 Intake Total 100 ml Output Total 950 ml Balance -850 ml Intake Oral 100 ml Output Urine Total 500 ml Gastric Drainage Total 100 ml Drainage Total 350 ml # Voids 4 General: Alert, Oriented X3, Cooperative, No acute distress, Other (NGT with some bilious output) Abdomen: Soft, No tenderness Labs Laboratory Tests Test 07/08/19 16:47 07/08/19 21:06 07/09/19 05:45 07/09/19 07:23 Glucose (Fingerstick) 148 mg/dL (70-99) 151 mg/dL (70-99) 175 mg/dL (70-99) White Blood Count 8.7 x10^3/uL (4.0-11.0) Red Blood Count 3.53 x10^6/uL (3.50-5.40) Hemoglobin 9.4 g/dL (12.0-15.5) Hematocrit 29.2 % (36.0-47.0) Mean Corpuscular Volume 83 fL (79-100) Mean Corpuscular Hemoglobin 27 pg (25-35) Mean Corpuscular Hemoglobin Concent 32 g/dL (31-37) Red Cell Distribution Width 16.7 % (11.5-14.5) Platelet Count 299 x10^3/uL (140-400) Neutrophils (%) (Auto) 71 % (31-73) Lymphocytes (%) (Auto) 16 % (24-48) Monocytes (%) (Auto) 12 % (0-9) Eosinophils (%) (Auto) 1 % (0-3) Basophils (%) (Auto) 1 % (0-3) Neutrophils # (Auto) 6.2 x10^3/uL (1.8-7.7) Lymphocytes # (Auto) 1.4 x10^3/uL (1.0-4.8) Monocytes # (Auto) 1.1 x10^3/uL (0.0-1.1) Eosinophils # (Auto) 0.1 x10^3/uL (0.0-0.7) Basophils # (Auto) 0.0 x10^3/uL (0.0-0.2) Sodium Level 147 mmol/L (136-145) Potassium Level 3.4 mmol/L (3.5-5.1) Chloride Level 108 mmol/L (98-107) Carbon Dioxide Level 31 mmol/L (21-32) Anion Gap 8 (6-14) Blood Urea Nitrogen 15 mg/dL (7-20) Creatinine 1.1 mg/dL (0.6-1.0) Estimated GFR (Cockcroft-Gault) 58.7 Glucose Level 156 mg/dL (70-99) Calcium Level 9.6 mg/dL (8.5-10.1) Test 07/09/19 11:25 07/10/19 01:02 07/10/19 03:55 07/10/19 06:24 Glucose (Fingerstick) 144 mg/dL (70-99) 156 mg/dL (70-99) 156 mg/dL (70-99) White Blood Count 7.8 x10^3/uL (4.0-11.0) Red Blood Count 3.20 x10^6/uL (3.50-5.40) Hemoglobin 8.6 g/dL (12.0-15.5) Hematocrit 26.6 % (36.0-47.0) Mean Corpuscular Volume 83 fL (79-100) Mean Corpuscular Hemoglobin 27 pg (25-35) Mean Corpuscular Hemoglobin Concent 32 g/dL (31-37) Red Cell Distribution Width 16.5 % (11.5-14.5) Platelet Count 228 x10^3/uL (140-400) Neutrophils (%) (Auto) 71 % (31-73) Lymphocytes (%) (Auto) 16 % (24-48) Monocytes (%) (Auto) 11 % (0-9) Eosinophils (%) (Auto) 2 % (0-3) Basophils (%) (Auto) 1 % (0-3) Neutrophils # (Auto) 5.6 x10^3/uL (1.8-7.7) Lymphocytes # (Auto) 1.2 x10^3/uL (1.0-4.8) Monocytes # (Auto) 0.9 x10^3/uL (0.0-1.1) Eosinophils # (Auto) 0.1 x10^3/uL (0.0-0.7) Basophils # (Auto) 0.0 x10^3/uL (0.0-0.2) Sodium Level 143 mmol/L (136-145) Potassium Level 3.5 mmol/L (3.5-5.1) Chloride Level 107 mmol/L (98-107) Carbon Dioxide Level 27 mmol/L (21-32) Anion Gap 9 (6-14) Blood Urea Nitrogen 14 mg/dL (7-20) Creatinine 1.1 mg/dL (0.6-1.0) Estimated GFR (Cockcroft-Gault) 58.7 Glucose Level 146 mg/dL (70-99) Calcium Level 9.0 mg/dL (8.5-10.1) Test 07/10/19 11:46 Glucose (Fingerstick) 135 mg/dL (70-99) Laboratory Tests Test 07/10/19 01:02 07/10/19 03:55 07/10/19 06:24 07/10/19 11:46 Glucose (Fingerstick) 156 mg/dL (70-99) 156 mg/dL (70-99) 135 mg/dL (70-99) White Blood Count 7.8 x10^3/uL (4.0-11.0) Red Blood Count 3.20 x10^6/uL (3.50-5.40) Hemoglobin 8.6 g/dL (12.0-15.5) Hematocrit 26.6 % (36.0-47.0) Mean Corpuscular Volume 83 fL (79-100) Mean Corpuscular Hemoglobin 27 pg (25-35) Mean Corpuscular Hemoglobin Concent 32 g/dL (31-37) Red Cell Distribution Width 16.5 % (11.5-14.5) Platelet Count 228 x10^3/uL (140-400) Neutrophils (%) (Auto) 71 % (31-73) Lymphocytes (%) (Auto) 16 % (24-48) Monocytes (%) (Auto) 11 % (0-9) Eosinophils (%) (Auto) 2 % (0-3) Basophils (%) (Auto) 1 % (0-3) Neutrophils # (Auto) 5.6 x10^3/uL (1.8-7.7) Lymphocytes # (Auto) 1.2 x10^3/uL (1.0-4.8) Monocytes # (Auto) 0.9 x10^3/uL (0.0-1.1) Eosinophils # (Auto) 0.1 x10^3/uL (0.0-0.7) Basophils # (Auto) 0.0 x10^3/uL (0.0-0.2) Sodium Level 143 mmol/L (136-145) Potassium Level 3.5 mmol/L (3.5-5.1) Chloride Level 107 mmol/L (98-107) Carbon Dioxide Level 27 mmol/L (21-32) Anion Gap 9 (6-14) Blood Urea Nitrogen 14 mg/dL (7-20) Creatinine 1.1 mg/dL (0.6-1.0) Estimated GFR (Cockcroft-Gault) 58.7 Glucose Level 146 mg/dL (70-99) Calcium Level 9.0 mg/dL (8.5-10.1) Problem List Problems Medical Problems: (1) Bowel obstruction Status: Acute Assessment/Plan SBO appears to not have bowel compromise will try sesame seed oil may need to consider operative intervention if not improved TPN to start tonight, PICC in Justicifation of Admission Dx: Justifications for Admission: Justification of Admission Dx: Yes SILVIO YUAN MD Jul 10, 2019 13:50
[2019-07-10 14:16] LABS: PHOSPHORUS 3.3 mg/dL (2.6-4.7)
[2019-07-10 14:57] VITALS: BP 180/61
[2019-07-10 19:25] VITALS: BP 191/76
[2019-07-10] MEDS ORDERED: TOTAL PARENTERAL NUTRITION 1,424.9614 ML, AMINO ACID 15% 60 GM, DEXTROSE 70 % IN WATER ... IV SCH ×10 (22:00)
[2019-07-10 23:19] VITALS: BP 187/62
[2019-07-11 03:12] VITALS: BP 169/55
[2019-07-11] MEDS: hydrALAZINE 20 MG/ML VIAL. IVP PRN ×2 (03:18→14:19)
[2019-07-11 06:07] LABS: CALCIUM 8.9 mg/dL (8.5-10.1); CREATININE 1.1 mg/dL (0.6-1.0); GFR 58.7; MAGNESIUM 1.7 mg/dL (1.8-2.4); PHOSPHORUS 3.6 mg/dL (2.6-4.7); POTASSIUM 3.5 mmol/L (3.5-5.1)
[2019-07-11 06:44] VITALS: BP 152/41
[2019-07-11] MEDS: IPRATRPIUM/ALBUTEROL 0.5/2.5MG 3 ML NEBU. NEB SCH ×4 (07:01→20:00)
--- NOTE | 2019-07-11 08:08 | PDOC ---
SURGICAL PROGRESS NOTE Subjective Patient resting comfortably in bed she states that she has not passed any flatus or stool but feels some rumblings below like she might need to go denies any nausea Vital Signs Vital Signs Date Time Temp Pulse Resp B/P (MAP) Pulse Ox O2 Delivery O2 Flow Rate FiO2 07/11/19 07:02 95 Room Air 07/11/19 06:44 98.4 75 16 152/41 (78) 98.4 I&O Intake and Output 07/11/19 07:00 Intake Total 850 ml Balance 850 ml Intake Oral 150 ml IV Total 700 ml # Voids 5 PATIENT HAS A CABRERA: No General: Alert, Oriented X3, Cooperative, No acute distress Abdomen: Normal bowel sounds, Soft, No tenderness, Other (Mildly distended NG tube in place with bilious output) Labs Laboratory Tests Test 07/09/19 11:25 07/10/19 01:02 07/10/19 03:55 07/10/19 06:24 Glucose (Fingerstick) 144 mg/dL (70-99) 156 mg/dL (70-99) 156 mg/dL (70-99) White Blood Count 7.8 x10^3/uL (4.0-11.0) Red Blood Count 3.20 x10^6/uL (3.50-5.40) Hemoglobin 8.6 g/dL (12.0-15.5) Hematocrit 26.6 % (36.0-47.0) Mean Corpuscular Volume 83 fL (79-100) Mean Corpuscular Hemoglobin 27 pg (25-35) Mean Corpuscular Hemoglobin Concent 32 g/dL (31-37) Red Cell Distribution Width 16.5 % (11.5-14.5) Platelet Count 228 x10^3/uL (140-400) Neutrophils (%) (Auto) 71 % (31-73) Lymphocytes (%) (Auto) 16 % (24-48) Monocytes (%) (Auto) 11 % (0-9) Eosinophils (%) (Auto) 2 % (0-3) Basophils (%) (Auto) 1 % (0-3) Neutrophils # (Auto) 5.6 x10^3/uL (1.8-7.7) Lymphocytes # (Auto) 1.2 x10^3/uL (1.0-4.8) Monocytes # (Auto) 0.9 x10^3/uL (0.0-1.1) Eosinophils # (Auto) 0.1 x10^3/uL (0.0-0.7) Basophils # (Auto) 0.0 x10^3/uL (0.0-0.2) Sodium Level 143 mmol/L (136-145) Potassium Level 3.5 mmol/L (3.5-5.1) Chloride Level 107 mmol/L (98-107) Carbon Dioxide Level 27 mmol/L (21-32) Anion Gap 9 (6-14) Blood Urea Nitrogen 14 mg/dL (7-20) Creatinine 1.1 mg/dL (0.6-1.0) Estimated GFR (Cockcroft-Gault) 58.7 Glucose Level 146 mg/dL (70-99) Calcium Level 9.0 mg/dL (8.5-10.1) Phosphorus Level 3.3 mg/dL (2.6-4.7) Triglycerides Level 96 mg/dL (0-150) Test 07/10/19 11:46 07/10/19 17:43 07/10/19 23:40 07/11/19 05:40 Glucose (Fingerstick) 135 mg/dL (70-99) 154 mg/dL (70-99) 163 mg/dL (70-99) Sodium Level 142 mmol/L (136-145) Potassium Level 3.5 mmol/L (3.5-5.1) Chloride Level 106 mmol/L (98-107) Carbon Dioxide Level 25 mmol/L (21-32) Anion Gap 11 (6-14) Blood Urea Nitrogen 16 mg/dL (7-20) Creatinine 1.1 mg/dL (0.6-1.0) Estimated GFR (Cockcroft-Gault) 58.7 Glucose Level 149 mg/dL (70-99) Calcium Level 8.9 mg/dL (8.5-10.1) Phosphorus Level 3.6 mg/dL (2.6-4.7) Magnesium Level 1.7 mg/dL (1.8-2.4) Test 07/11/19 05:41 Glucose (Fingerstick) 161 mg/dL (70-99) Laboratory Tests Test 07/10/19 11:46 6/3/20 17:43 07/10/19 23:40 07/11/19 05:40 Glucose (Fingerstick) 135 mg/dL (70-99) 154 mg/dL (70-99) 163 mg/dL (70-99) Sodium Level 142 mmol/L (136-145) Potassium Level 3.5 mmol/L (3.5-5.1) Chloride Level 106 mmol/L (98-107) Carbon Dioxide Level 25 mmol/L (21-32) Anion Gap 11 (6-14) Blood Urea Nitrogen 16 mg/dL (7-20) Creatinine 1.1 mg/dL (0.6-1.0) Estimated GFR (Cockcroft-Gault) 58.7 Glucose Level 149 mg/dL (70-99) Calcium Level 8.9 mg/dL (8.5-10.1) Phosphorus Level 3.6 mg/dL (2.6-4.7) Magnesium Level 1.7 mg/dL (1.8-2.4) Test 07/11/19 05:41 Glucose (Fingerstick) 161 mg/dL (70-99) Problem List Problems Medical Problems: (1) Bowel obstruction Status: Acute Assessment/Plan Small bowel obstruction minimal progression she is currently on sesame seed oil monitor today may need surgical intervention Justicifation of Admission Dx: Justifications for Admission: Justification of Admission Dx: Yes TABITHA LORD MD Jul 11, 2019 08:08
[2019-07-11] MEDS: amLODIPine BESYLATE 5 MG TABLET PO SCH (09:00)
[2019-07-11] MEDS: PANTOPRAZOLE IV PUSH 40 MG VIAL. IVP SCH (09:22)
--- NOTE | 2019-07-11 09:54 | PDOC ---
PROGRESS NOTES Subjective Subjective no new problems Objective Objective Vital Signs Date Time Temp Pulse Resp B/P (MAP) Pulse Ox O2 Delivery O2 Flow Rate FiO2 07/11/19 07:02 95 Room Air 07/11/19 06:44 98.4 75 16 152/41 (78) 98.4 Intake and Output 07/11/19 07:00 Intake Total 850 ml Balance 850 ml Intake Oral 150 ml IV Total 700 ml # Voids 5 Physical Exam Physical Exam NGT to suction Abdomen: Normal bowel sounds, Soft, No tenderness, Other (Mildly distended NG tube in place with bilious output) Extremities: No clubbing, No cyanosis General: Alert, Oriented X3, Cooperative, No acute distress HEENT: Atraumatic Lungs: Normal air movement MUSCULOSKELETAL: No deformity, No swelling Neuro: Normal speech, Sensation intact Psych/Mental Status: Mental status NL, Mood NL Skin: No rashes, No breakdown Diagnosis Problem List Problems Medical Problems: (1) Bowel obstruction Status: Acute Assessment Assessment Problems Medical Problems: (1) Bowel obstruction Status: Acute FINAL IMPRESSION: 1. Partial small-bowel obstruction. 2. 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 3. Hypertension. 4. Hyperlipidemia. 5. Hypothyroidism. 6. Anemia. 7. Acute renal insufficiency. 8. Lactic acidosis, improving with IV fluids. PLAN: trying sesame seed oil ,to see if it works if not ?surgery tomorrow spoke with pts daughter spoke with GI spoke with RN .TRISHA tomorrow catapress patch for htn small bowel series -high grade stenosis Hb 6.7 transfused 1 u yesterday ,Hb8.6 today IV fluids.NA 143, cr 11 kidney function improved. inc ambulation ,incentive spirometry, duoneb picc line and TPN started Plan Plan of Care Problems Medical Problems: (1) Bowel obstruction Status: Acute Comment Review of Relevant I have reviewed the following items raeann (where applicable) has been applied. Labs Laboratory Tests Test 07/10/19 11:46 07/10/19 17:43 07/10/19 23:40 07/11/19 05:40 Glucose (Fingerstick) 135 mg/dL (70-99) 154 mg/dL (70-99) 163 mg/dL (70-99) Sodium Level 142 mmol/L (136-145) Potassium Level 3.5 mmol/L (3.5-5.1) Chloride Level 106 mmol/L (98-107) Carbon Dioxide Level 25 mmol/L (21-32) Anion Gap 11 (6-14) Blood Urea Nitrogen 16 mg/dL (7-20) Creatinine 1.1 mg/dL (0.6-1.0) Estimated GFR (Cockcroft-Gault) 58.7 Glucose Level 149 mg/dL (70-99) Calcium Level 8.9 mg/dL (8.5-10.1) Phosphorus Level 3.6 mg/dL (2.6-4.7) Magnesium Level 1.7 mg/dL (1.8-2.4) Test 07/11/19 05:41 Glucose (Fingerstick) 161 mg/dL (70-99) Medications Current Medications Albuterol/ Ipratropium (Duoneb) 3 ml 1X ONCE NEB Last administered on 07/10/19at 11:31; Start 07/10/19 at 10:15; Stop 07/10/19 at 10:16; Status DC Albuterol/ Ipratropium (Duoneb) 3 ml RTQID NEB Last administered on 07/11/19at 07:01; Start 07/10/19 at 12:00 Info (Tpn Per Pharmacy) 1 each PRN DAILY PRN MC SEE COMMENTS; Start 07/10/19 at 13:45 Sodium Chloride 90 meq/Potassium Chloride 50 meq/ Potassium Phosphate 13.6 mmol/Magnesium Sulfate 10 meq/ Calcium Gluconate 10 meq/ Multivitamins 10 ml/Chromium/ Copper/Manganese/ Seleni/Zn 1 ml/ Total Parenteral Nutrition/Amino Acids/Dextrose/ Fat Emulsion Intravenous 1,512 ml @ 63 mls/hr TPN CONT IV Last administered on 07/10/19at 22:40; Start 07/10/19 at 22:00; Stop 07/11/19 at 21:59 Vitals/I & O Vital Sign - Last 24 Hours 07/10/19 07/10/19 07/10/19 07/10/19 10:56 11:31 14:57 15:48 Temp 97.5 98.5 97.5 98.5 Pulse 72 73 Resp 18 16 B/P (MAP) 180/53 (95) 180/61 (100) Pulse Ox 95 98 93 O2 Delivery Room Air Room Air Room Air Room Air 6/3/07/10/19 07/10/19 07/10/19 19:25 19:30 20:31 21:11 Temp 98.8 98.8 Pulse 70 70 Resp 18 B/P (MAP) 191/76 (114) 191/76 Pulse Ox 96 O2 Delivery Room Air Room Air Room Air 07/10/19 07/11/19 07/11/19 07/11/19 23:19 03:12 03:18 06:44 Temp 98.9 99.0 98.4 98.9 99.0 98.4 Pulse 84 71 71 75 Resp 16 14 16 B/P (MAP) 187/62 (103) 169/55 (93) 169/55 152/41 (78) Pulse Ox 92 96 95 O2 Delivery Room Air Room Air Room Air 07/11/19 07:02 Pulse Ox 95 O2 Delivery Room Air Intake and Output 07/10/19 07/10/19 07/11/19 15:00 23:00 07:00 Intake Total 750 ml 100 ml Balance 750 ml 100 ml Justicifation of Admission Dx: Justifications for Admission: Justification of Admission Dx: Yes Nutrition Consultation Dietary Evaluation: Recommendations by RD: Dietary education by RD, Increase Calorie Intake, PPN/TPN Comments: REC diet advancement within 24-48 hrs as able/per surgery, goal diet regular w/protein supplments per pt choice REC PPN if unable to advance diet within 24 - 48 hrs Expected Outcomes/Goals: diet advancement Interpretation of weight loss: >7.5% in 3 months Malnutrition Findings: Food and Nutrition Intake (Sev: <50% est energy req 5days Weight Status: Appropriate MARÍA DILLON MD Jul 11, 2019 09:54
--- NOTE | 2019-07-11 10:25 | PDOC ---
Subjective: Subjective: Would like some ice chips. Hasn't had to use pain medication. No flatus or stool but feels like something might happen today. Has been walking. Objective: Objective: Reviewed chart - got sesame seed oil, TPN started. Vital Signs: Vital Signs Date Time Temp Pulse Resp B/P (MAP) Pulse Ox O2 Delivery O2 Flow Rate FiO2 07/11/19 07:02 95 Room Air 07/11/19 06:44 98.4 75 16 152/41 (78) 98.4 Labs: Laboratory Tests Test 07/10/19 11:46 07/10/19 17:43 07/10/19 23:40 07/11/19 05:40 Glucose (Fingerstick) 135 mg/dL 154 mg/dL 163 mg/dL Sodium Level 142 mmol/L Potassium Level 3.5 mmol/L Chloride Level 106 mmol/L Carbon Dioxide Level 25 mmol/L Anion Gap 11 Blood Urea Nitrogen 16 mg/dL Creatinine 1.1 mg/dL Estimated GFR (Cockcroft-Gault) 58.7 Glucose Level 149 mg/dL Calcium Level 8.9 mg/dL Phosphorus Level 3.6 mg/dL Magnesium Level 1.7 mg/dL Test 07/11/19 05:41 Glucose (Fingerstick) 161 mg/dL PE: GEN: NAD, resting LUNGS: CTAB HEART: RRR ABD: a few gurgles? (maybe NGT), non-tender NEURO/PSYCH: A & O 3 A/P: SBO, RAYRAY -- Denies pain today but still no gas/stool. Continue per surgery. Justicifation of Admission Dx: Justifications for Admission: Justification of Admission Dx: Yes LULI MONZON Jul 11, 2019 10:25
--- NOTE | 2019-07-11 10:48 | NUR ---
SW following. Discussed with RN, pt started TPN last night. Per chart, may need to consider surgical intervention if no improvement by tomorrow (07/12/2019). SW will continue to follow.
[2019-07-11 10:56] VITALS: BP 176/61
[2019-07-11] MEDS: TPN PER PHARMACY MC PRN ×2 (14:07→14:13)
--- NOTE | 2019-07-11 14:13 | NUR ---
Pharmacy TPN Dosing Note S: JAQUELIN DAVIS is a 74 year old F Currently receiving Central Continuous TPN started 07/10/19 B:Pertinent PMH: SBO, NPO Height: 5 feet, 1 inches Weight: 65.5 kg Current diet: NPO LABS: Sodium: 142 Potassium: 3.5 Chloride: 106 Calcium: 8.9 Corrected Calcium: 9.62 Magnesium: 1.7 CO2: 25 SCr: 1.1 Glucose: 200 Albumin: 3.1 AST: 22 ALT: 13 TPN FORMULA: TPN TYPE: Central Continuous AMINO ACIDS: 60 gm DEXTROSE: 195 gm LIPIDS: 20 gm SODIUM CHLORIDE: 90 mEq POTASSIUM CHLORIDE: 50 mEq POTASSIUM PHOSPHATE: 13.6 mmol MAGNESIUM: 10 mEq CALCIUM: 10 mEq MULTIPLE VITAMIN: 10 ml TRACE ELEMENTS: 1ml ml(s) TPN PLAN: Continue same TPN. Waiting for forge tender recommendation for nutrients. R: Continue TPN Will monitor electrolytes, glucose, and tolerance to TPN. Brandon Hernández [facility], 07/11/19 [id number]
[2019-07-11 14:32] VITALS: BP 195/70
[2019-07-11] MEDS ORDERED: BENZOCAINE ONE 20% MUCOSAL SPRAY. MM PRN (16:15)
[2019-07-11] MEDS: ONDANSETRON PF 4 MG/2 ML VIAL. IVP PRN (16:47)
[2019-07-11] MEDS ORDERED: DEXTROSE 50% 25 GM / 50ML DISP.SYRIN. IV PRN (19:15)
[2019-07-11 19:28] VITALS: BP 191/57
[2019-07-11] MEDS ORDERED: TOTAL PARENTERAL NUTRITION 1,424.9614 ML, AMINO ACID 15% 60 GM, DEXTROSE 70 % IN WATER ... IV SCH ×10 (22:00)
[2019-07-11 22:54] VITALS: BP 185/58
[2019-07-12] MEDS: hydrALAZINE 20 MG/ML VIAL. IVP PRN ×2 (01:41→11:36)
[2019-07-12 03:04] VITALS: BP 155/49
[2019-07-12] MEDS: ONDANSETRON PF 4 MG/2 ML VIAL. IVP PRN (03:34)
[2019-07-12 06:15] LABS: CALCIUM 9.2 mg/dL (8.5-10.1); CREATININE 1.1 mg/dL (0.6-1.0); GFR 58.7; PHOSPHORUS 3.3 mg/dL (2.6-4.7); POTASSIUM 3.7 mmol/L (3.5-5.1)
[2019-07-12 06:28] LABS: BASO # 0.1 x10^3/uL (0.0-0.2); BASO % 1 % (0-3); EOS # 0.2 x10^3/uL (0.0-0.7); EOS % 2 % (0-3); HEMATOCRIT 28.1 % (36.0-47.0); LYMPH # 1.2 x10^3/uL (1.0-4.8); LYMPH % 10 % (24-48); MEAN CORPUSCULAR HEMOGLOBIN 27 pg (25-35); MEAN CORPUSCULAR HGB CONC 32 g/dL (31-37); MEAN CORPUSCULAR VOLUME 83 fL (79-100); MONO % 9 % (0-9); NEUT % 78 % (31-73); PLATELET COUNT 236 x10^3/uL (140-400); RED CELL DISTRIBUTION WIDTH 16.5 % (11.5-14.5); WHITE BLOOD COUNT 11.6 x10^3/uL (4.0-11.0)
[2019-07-12 07:00] VITALS: BP 172/60
[2019-07-12] MEDS: INSULIN LISPRO 300 UNITS/3 ML VIAL. SQ SCH ×3 (07:35→17:00)
[2019-07-12] MEDS: PANTOPRAZOLE IV PUSH 40 MG VIAL. IVP SCH (07:49)
[2019-07-12] MEDS: IPRATRPIUM/ALBUTEROL 0.5/2.5MG 3 ML NEBU. NEB SCH ×4 (07:51→19:25)
--- NOTE | 2019-07-12 08:34 | PDOC ---
SURGICAL PROGRESS NOTE Subjective Pt with c/o N/V yesterday, no flatus, no stool, denies significant pain Vital Signs Vital Signs Date Time Temp Pulse Resp B/P (MAP) Pulse Ox O2 Delivery O2 Flow Rate FiO2 07/12/19 07:59 96 Room Air 07/12/19 07:00 98.7 75 16 172/60 (97) 98.7 I&O Intake and Output 07/12/19 07:00 Intake Total 50 ml Output Total 2050 ml Balance -2000 ml Intake Oral 50 ml Emesis 50 ml Drainage Total 1550 ml Other 450 ml # Voids 7 General: Alert, Oriented X3, Cooperative, No acute distress HEENT: Other (NGt with bilious output) Abdomen: Soft, No tenderness Labs Laboratory Tests Test 07/10/19 11:46 07/10/19 17:43 07/10/19 23:40 07/11/19 05:40 Glucose (Fingerstick) 135 mg/dL (70-99) 154 mg/dL (70-99) 163 mg/dL (70-99) Sodium Level 142 mmol/L (136-145) Potassium Level 3.5 mmol/L (3.5-5.1) Chloride Level 106 mmol/L (98-107) Carbon Dioxide Level 25 mmol/L (21-32) Anion Gap 11 (6-14) Blood Urea Nitrogen 16 mg/dL (7-20) Creatinine 1.1 mg/dL (0.6-1.0) Estimated GFR (Cockcroft-Gault) 58.7 Glucose Level 149 mg/dL (70-99) Calcium Level 8.9 mg/dL (8.5-10.1) Phosphorus Level 3.6 mg/dL (2.6-4.7) Magnesium Level 1.7 mg/dL (1.8-2.4) Test 07/11/19 05:41 07/11/19 11:57 07/11/19 18:32 07/12/19 00:25 Glucose (Fingerstick) 161 mg/dL (70-99) 200 mg/dL (70-99) 194 mg/dL (70-99) 188 mg/dL (70-99) Test 07/12/19 05:50 07/12/19 06:09 White Blood Count 11.6 x10^3/uL (4.0-11.0) Red Blood Count 3.40 x10^6/uL (3.50-5.40) Hemoglobin 9.0 g/dL (12.0-15.5) Hematocrit 28.1 % (36.0-47.0) Mean Corpuscular Volume 83 fL (79-100) Mean Corpuscular Hemoglobin 27 pg (25-35) Mean Corpuscular Hemoglobin Concent 32 g/dL (31-37) Red Cell Distribution Width 16.5 % (11.5-14.5) Platelet Count 236 x10^3/uL (140-400) Neutrophils (%) (Auto) 78 % (31-73) Lymphocytes (%) (Auto) 10 % (24-48) Monocytes (%) (Auto) 9 % (0-9) Eosinophils (%) (Auto) 2 % (0-3) Basophils (%) (Auto) 1 % (0-3) Neutrophils # (Auto) 9.0 x10^3/uL (1.8-7.7) Lymphocytes # (Auto) 1.2 x10^3/uL (1.0-4.8) Monocytes # (Auto) 1.0 x10^3/uL (0.0-1.1) Eosinophils # (Auto) 0.2 x10^3/uL (0.0-0.7) Basophils # (Auto) 0.1 x10^3/uL (0.0-0.2) Sodium Level 142 mmol/L (136-145) Potassium Level 3.7 mmol/L (3.5-5.1) Chloride Level 107 mmol/L (98-107) Carbon Dioxide Level 25 mmol/L (21-32) Anion Gap 10 (6-14) Blood Urea Nitrogen 26 mg/dL (7-20) Creatinine 1.1 mg/dL (0.6-1.0) Estimated GFR (Cockcroft-Gault) 58.7 Glucose Level 135 mg/dL (70-99) Calcium Level 9.2 mg/dL (8.5-10.1) Phosphorus Level 3.3 mg/dL (2.6-4.7) Magnesium Level 2.0 mg/dL (1.8-2.4) Glucose (Fingerstick) 148 mg/dL (70-99) Laboratory Tests Test 07/11/19 11:57 07/11/19 18:32 07/12/19 00:25 07/12/19 05:50 Glucose (Fingerstick) 200 mg/dL (70-99) 194 mg/dL (70-99) 188 mg/dL (70-99) White Blood Count 11.6 x10^3/uL (4.0-11.0) Red Blood Count 3.40 x10^6/uL (3.50-5.40) Hemoglobin 9.0 g/dL (12.0-15.5) Hematocrit 28.1 % (36.0-47.0) Mean Corpuscular Volume 83 fL (79-100) Mean Corpuscular Hemoglobin 27 pg (25-35) Mean Corpuscular Hemoglobin Concent 32 g/dL (31-37) Red Cell Distribution Width 16.5 % (11.5-14.5) Platelet Count 236 x10^3/uL (140-400) Neutrophils (%) (Auto) 78 % (31-73) Lymphocytes (%) (Auto) 10 % (24-48) Monocytes (%) (Auto) 9 % (0-9) Eosinophils (%) (Auto) 2 % (0-3) Basophils (%) (Auto) 1 % (0-3) Neutrophils # (Auto) 9.0 x10^3/uL (1.8-7.7) Lymphocytes # (Auto) 1.2 x10^3/uL (1.0-4.8) Monocytes # (Auto) 1.0 x10^3/uL (0.0-1.1) Eosinophils # (Auto) 0.2 x10^3/uL (0.0-0.7) Basophils # (Auto) 0.1 x10^3/uL (0.0-0.2) Sodium Level 142 mmol/L (136-145) Potassium Level 3.7 mmol/L (3.5-5.1) Chloride Level 107 mmol/L (98-107) Carbon Dioxide Level 25 mmol/L (21-32) Anion Gap 10 (6-14) Blood Urea Nitrogen 26 mg/dL (7-20) Creatinine 1.1 mg/dL (0.6-1.0) Estimated GFR (Cockcroft-Gault) 58.7 Glucose Level 135 mg/dL (70-99) Calcium Level 9.2 mg/dL (8.5-10.1) Phosphorus Level 3.3 mg/dL (2.6-4.7) Magnesium Level 2.0 mg/dL (1.8-2.4) Test 07/12/19 06:09 Glucose (Fingerstick) 148 mg/dL (70-99) Problem List Problems Medical Problems: (1) Bowel obstruction Status: Acute Assessment/Plan SBO, not responding to conservative measures. d/w pt and pt's daughter (via phone) extensively. No evidence of bowel compromise, so no need for urgent surgery. However, pt is not improving at this time, despite conservative efforts. Suspect pt is moderately poor surgical candidate, given no vascular disease by imaging. Regardless, favor proceeding with surgical intervention on 07/14, if not improved. R/R/B/A d/w pt and pt's supportive daughter. Risks, including, but not limited to: bleeding, infection, damage to surrounding structures, risk of anesthesia, risk of open, risk of bowel resection. They appear to understand, their questions are answered and they elect to proceed. Justicifation of Admission Dx: Justifications for Admission: Justification of Admission Dx: Yes SILVIO YUAN MD Jul 12, 2019 08:34
[2019-07-12] MEDS: amLODIPine BESYLATE 5 MG TABLET PO SCH (09:00)
--- NOTE | 2019-07-12 09:32 | PDOC ---
PROGRESS NOTES Subjective Subjective feels upbeat today Objective Objective Vital Signs Date Time Temp Pulse Resp B/P (MAP) Pulse Ox O2 Delivery O2 Flow Rate FiO2 07/12/19 07:59 96 Room Air 07/12/19 07:00 98.7 75 16 172/60 (97) 98.7 Intake and Output 07/12/19 07:00 Intake Total 50 ml Output Total 2050 ml Balance -2000 ml Intake Oral 50 ml Emesis 50 ml Drainage Total 1550 ml Other 450 ml # Voids 7 Physical Exam Physical Exam NGT to suction Abdomen: Soft, No tenderness Extremities: No clubbing, No cyanosis General: Alert, Oriented X3, Cooperative, No acute distress HEENT: Other (NGt with bilious output) Lungs: Normal air movement MUSCULOSKELETAL: No deformity, No swelling Neuro: Normal speech, Sensation intact Psych/Mental Status: Mental status NL, Mood NL Skin: No rashes, No breakdown Diagnosis Problem List Problems Medical Problems: (1) Bowel obstruction Status: Acute Assessment Assessment Problems Medical Problems: (1) Bowel obstruction Status: Acute FINAL IMPRESSION: 1. Partial small-bowel obstruction. 2. 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 3. Hypertension. 4. Hyperlipidemia. 5. Hypothyroidism. 6. Anemia. 7. Acute renal insufficiency. 8. Lactic acidosis, improving with IV fluids. PLAN:Covid test for pre op. trying sesame seed oil ,to see if it works if not ?surgery monday spoke with pts daughter spoke with GI spoke with RN .TRISHA today catapress patch for htn small bowel series -high grade stenosis Hb8.6 today,s/p i u transfusion On TPN,.NA 143, cr 1.1 kidney function improved. inc ambulation ,incentive spirometry, duoneb picc line and TPN started Plan Plan of Care Problems Medical Problems: (1) Bowel obstruction Status: Acute Comment Review of Relevant I have reviewed the following items raeann (where applicable) has been applied. Labs Laboratory Tests Test 07/11/19 11:57 07/11/19 18:32 07/12/19 00:25 07/12/19 05:50 Glucose (Fingerstick) 200 mg/dL (70-99) 194 mg/dL (70-99) 188 mg/dL (70-99) White Blood Count 11.6 x10^3/uL (4.0-11.0) Red Blood Count 3.40 x10^6/uL (3.50-5.40) Hemoglobin 9.0 g/dL (12.0-15.5) Hematocrit 28.1 % (36.0-47.0) Mean Corpuscular Volume 83 fL (79-100) Mean Corpuscular Hemoglobin 27 pg (25-35) Mean Corpuscular Hemoglobin Concent 32 g/dL (31-37) Red Cell Distribution Width 16.5 % (11.5-14.5) Platelet Count 236 x10^3/uL (140-400) Neutrophils (%) (Auto) 78 % (31-73) Lymphocytes (%) (Auto) 10 % (24-48) Monocytes (%) (Auto) 9 % (0-9) Eosinophils (%) (Auto) 2 % (0-3) Basophils (%) (Auto) 1 % (0-3) Neutrophils # (Auto) 9.0 x10^3/uL (1.8-7.7) Lymphocytes # (Auto) 1.2 x10^3/uL (1.0-4.8) Monocytes # (Auto) 1.0 x10^3/uL (0.0-1.1) Eosinophils # (Auto) 0.2 x10^3/uL (0.0-0.7) Basophils # (Auto) 0.1 x10^3/uL (0.0-0.2) Sodium Level 142 mmol/L (136-145) Potassium Level 3.7 mmol/L (3.5-5.1) Chloride Level 107 mmol/L (98-107) Carbon Dioxide Level 25 mmol/L (21-32) Anion Gap 10 (6-14) Blood Urea Nitrogen 26 mg/dL (7-20) Creatinine 1.1 mg/dL (0.6-1.0) Estimated GFR (Cockcroft-Gault) 58.7 Glucose Level 135 mg/dL (70-99) Calcium Level 9.2 mg/dL (8.5-10.1) Phosphorus Level 3.3 mg/dL (2.6-4.7) Magnesium Level 2.0 mg/dL (1.8-2.4) Test 07/12/19 06:09 Glucose (Fingerstick) 148 mg/dL (70-99) Medications Current Medications Benzocaine (Hurricaine One) 1 spray PRN Q4HRS PRN MM NG irritation; Start 07/11/19 at 16:15 Cefoxitin Sodium (Mefoxin) 2 gm 1X PREOP ONCE IVP ; Start 07/15/19 at 08:30; Stop 07/15/19 at 08:31 Dextrose (Dextrose 50%-Water Syringe) 12.5 gm PRN Q15MIN PRN IV SEE COMMENTS; Start 07/11/19 at 19:15 Insulin Human Lispro (HumaLOG) 0-7 UNITS TIDWMEALS SQ ; Start 07/12/19 at 08:00 Sodium Chloride 90 meq/Potassium Chloride 50 meq/ Potassium Phosphate 13.6 mmol/Magnesium Sulfate 10 meq/ Calcium Gluconate 10 meq/ Multivitamins 10 ml/Chromium/ Copper/Manganese/ Seleni/Zn 1 ml/ Total Parenteral Nutrition/Amino Acids/Dextrose/ Fat Emulsion Intravenous 1,512 ml @ 63 mls/hr TPN CONT IV Last administered on 07/11/19at 22:00; Start 07/11/19 at 22:00; Stop 07/12/19 at 21:59 Vitals/I & O Vital Sign - Last 24 Hours 07/11/19 07/11/19 07/11/19 07/11/19 10:56 11:28 14:19 14:32 Temp 98.6 98.0 98.6 98.0 Pulse 75 75 Resp 16 18 B/P (MAP) 176/61 (99) 195/70 195/70 (111) Pulse Ox 93 98 O2 Delivery Room Air Room Air Room Air 07/11/19 07/11/19 07/11/19 07/12/19 19:28 20:21 22:54 01:41 Temp 98.6 98.9 98.6 98.9 Pulse 77 73 73 Resp 18 18 B/P (MAP) 191/57 (101) 185/58 (100) 185/58 Pulse Ox 93 93 O2 Delivery Room Air Room Air Room Air 07/12/19 07/12/19 07/12/19 03:04 07:00 07:59 Temp 98.7 98.7 98.7 98.7 Pulse 77 75 Resp 18 16 B/P (MAP) 155/49 (84) 172/60 (97) Pulse Ox 94 95 96 O2 Delivery Room Air Room Air Room Air Intake and Output 07/11/19 07/11/19 07/12/19 15:00 23:00 07:00 Intake Total 50 ml Output Total 1100 ml 950 ml Balance -1050 ml -950 ml Justicifation of Admission Dx: Justifications for Admission: Justification of Admission Dx: Yes Nutrition Consultation Dietary Evaluation: Recommendations by RD: Dietary education by RD, Increase Calorie Intake, PPN/TPN Comments: REC adjust TPN to followin g AA, 225 g dextrose, 30 g lipids Expected Outcomes/Goals: diet advancement - not met, new goal established New goal 07/10: TPN to meet >70% est needs while NPO Interpretation of weight loss: >7.5% in 3 months Malnutrition Findings: Food and Nutrition Intake (Sev: <50% est energy req 5days Weight Status: Appropriate MARÍA DILLON MD Jul 12, 2019 09:32
--- NOTE | 2019-07-12 10:19 | RAD ---
KUB History: Reason: small bowel obstruction f/u xray / Spl. Instructions: / History: Technique: Supine view of the abdomen. Comparison: July 10, 2019 Findings: Dilated fluid-filled loops of small bowel throughout the abdomen. Contrast is less apparent within the small bowel loops compared to prior and may relate to resorption. Overall distention of small bowel is similar compared to prior. Contrast noted within the proximal colon and distal colon, unchanged. Postop changes overlying the abdomen and pelvis. Multilevel lumbar spondylosis. Unchanged enteric tube. Pubic symphysis DJD. Impression: 1. Dilated fluid-filled loops of small bowel, similar compared to prior with less apparent contrast. Electronically signed by: Beltran Gipson DO (07/12/2019 10:16 AM) SHAYNA
--- NOTE | 2019-07-12 10:26 | PDOC ---
Subjective: Subjective: Vomited last night when tube not suctioning. No flatus/stool. Says getting sesame oil again. Objective: Objective: Reviewed surgery note - d/w daughter, possibly to OR on 07/14 if no improvement. On TPN. Vital Signs: Vital Signs Date Time Temp Pulse Resp B/P (MAP) Pulse Ox O2 Delivery O2 Flow Rate FiO2 07/12/19 07:59 96 Room Air 07/12/19 07:00 98.7 75 16 172/60 (97) 98.7 Labs: Laboratory Tests Test 07/11/19 11:57 07/11/19 18:32 07/12/19 00:25 07/12/19 05:50 Glucose (Fingerstick) 200 mg/dL 194 mg/dL 188 mg/dL White Blood Count 11.6 x10^3/uL Red Blood Count 3.40 x10^6/uL Hemoglobin 9.0 g/dL Hematocrit 28.1 % Mean Corpuscular Volume 83 fL Mean Corpuscular Hemoglobin 27 pg Mean Corpuscular Hemoglobin Concent 32 g/dL Red Cell Distribution Width 16.5 % Platelet Count 236 x10^3/uL Neutrophils (%) (Auto) 78 % Lymphocytes (%) (Auto) 10 % Monocytes (%) (Auto) 9 % Eosinophils (%) (Auto) 2 % Basophils (%) (Auto) 1 % Neutrophils # (Auto) 9.0 x10^3/uL Lymphocytes # (Auto) 1.2 x10^3/uL Monocytes # (Auto) 1.0 x10^3/uL Eosinophils # (Auto) 0.2 x10^3/uL Basophils # (Auto) 0.1 x10^3/uL Sodium Level 142 mmol/L Potassium Level 3.7 mmol/L Chloride Level 107 mmol/L Carbon Dioxide Level 25 mmol/L Anion Gap 10 Blood Urea Nitrogen 26 mg/dL Creatinine 1.1 mg/dL Estimated GFR (Cockcroft-Gault) 58.7 Glucose Level 135 mg/dL Calcium Level 9.2 mg/dL Phosphorus Level 3.3 mg/dL Magnesium Level 2.0 mg/dL Test 07/12/19 06:09 Glucose (Fingerstick) 148 mg/dL Imaging: KUB 07/11 Impression: 1. Dilated fluid-filled loops of small bowel, similar compared to prior with less apparent contrast. PE: GEN: NAD LUNGS: CTAB HEART: RRR ABD: one gurgle, non-tender, NG brownish NEURO/PSYCH: A & O 3 A/P: SBO -- Plans as above. Justicifation of Admission Dx: Justifications for Admission: Justification of Admission Dx: Yes LULI MONZON Jul 12, 2019 10:26
--- NOTE | 2019-07-12 10:29 | EKG ---
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
[2019-07-12 11:16] VITALS: BP 191/81
--- NOTE | 2019-07-12 11:28 | NUR ---
SW following. Chart reviewed, pt from home with family. COVID test pending for surgery. Trying sesame oil, if this doesn't work, surgery possibly on Monday (07/15/2019). SW will continue to follow.
[2019-07-12] MEDS: TPN PER PHARMACY MC PRN (12:25)
--- NOTE | 2019-07-12 13:16 | NUR ---
Pharmacy TPN Dosing Note S: JAQUELIN DAVIS is a 74 year old F Currently receiving Central Continuous TPN started 07/10/19 B:Pertinent PMH: SBO, NPO Height: 5 feet, 1 inches Weight: 65.5 kg Current diet: NPO LABS: Sodium: 142 Potassium: 3.7 Chloride: 107 Calcium: 9.2 Corrected Calcium: 9.92 Magnesium: 2 CO2: 25 SCr: 1.1 Glucose: 135-188 Albumin: 3.1 AST: 22 ALT: 13 TPN FORMULA: TPN TYPE: Central Continuous AMINO ACIDS: 65 gm DEXTROSE: 225 gm LIPIDS: 30 gm SODIUM CHLORIDE: 90 mEq SODIUM ACETATE: mEq SODIUM PHOSPHATE: mmol POTASSIUM CHLORIDE: 50 mEq POTASSIUM ACETATE: mEq POTASSIUM PHOSPHATE: 13.6 mmol MAGNESIUM: 10 mEq CALCIUM: 10 mEq INSULIN: units MULTIPLE VITAMIN: 10 ml TRACE ELEMENTS: 1ml ml(s) TPN PLAN: Macro changes per dietary. Labs stable. CMP, phos, mag in AM. R: Continue TPN ABOVE. Will monitor electrolytes, glucose, and tolerance to TPN. NAVNEET CORDON FORMERLY [facility], 07/12/19 [id number]
[2019-07-12 15:10] VITALS: BP 100/52
[2019-07-12 19:00] VITALS: BP 188/65
[2019-07-12] MEDS ORDERED: [UNRECOGNIZED DRUG - OTHER] IV SCH ×10 (22:00)
[2019-07-12] MEDS ORDERED: DEXTROSE 70% IV SCH ×10 (22:00)
[2019-07-12] MEDS ORDERED: TOTAL PARENTERAL NUTRITION IV SCH ×10 (22:00)
[2019-07-12] MEDS ORDERED: AMINO ACID IV SCH ×10 (22:00)
[2019-07-12 23:00] VITALS: BP 156/54
[2019-07-13 03:00] VITALS: BP 174/58
[2019-07-13 07:00] VITALS: BP 203/64
[2019-07-13 07:04] LABS: BASO # 0.1 x10^3/uL (0.0-0.2); BASO % 1 % (0-3); EOS # 0.4 x10^3/uL (0.0-0.7); EOS % 4 % (0-3); HEMATOCRIT 26.4 % (36.0-47.0); HEMOGLOBIN 8.6 g/dL (12.0-15.5); LYMPH % 10 % (24-48); MEAN CORPUSCULAR HEMOGLOBIN 27 pg (25-35); MEAN CORPUSCULAR HGB CONC 33 g/dL (31-37); MEAN CORPUSCULAR VOLUME 84 fL (79-100); MONO # 0.9 x10^3/uL (0.0-1.1); MONO % 9 % (0-9); NEUT # 7.6 x10^3/uL (1.8-7.7); NEUT % 76 % (31-73); PLATELET COUNT 180 x10^3/uL (140-400); RED BLOOD COUNT 3.15 x10^6/uL (3.50-5.40); RED CELL DISTRIBUTION WIDTH 17.3 % (11.5-14.5); WHITE BLOOD COUNT 9.9 x10^3/uL (4.0-11.0)
[2019-07-13] MEDS: IPRATRPIUM/ALBUTEROL 0.5/2.5MG 3 ML NEBU. NEB SCH ×4 (07:16→20:29)
[2019-07-13 07:23] LABS: CALCIUM 8.8 mg/dL (8.5-10.1); GFR 65.6; PHOSPHORUS 3.5 mg/dL (2.6-4.7); POTASSIUM 3.8 mmol/L (3.5-5.1)
[2019-07-13] MEDS: INSULIN LISPRO 300 UNITS/3 ML VIAL. SQ SCH ×3 (08:00→16:56)
[2019-07-13] MEDS: PANTOPRAZOLE IV PUSH 40 MG VIAL. IVP SCH (08:44)
[2019-07-13] MEDS: amLODIPine BESYLATE 5 MG TABLET PO SCH (08:45)
[2019-07-13] MEDS: hydrALAZINE 20 MG/ML VIAL. IVP PRN ×4 (08:46→21:57)
--- NOTE | 2019-07-13 10:45 | PDOC ---
IM PROGRESS NOTES- Subjective Subjective No complaints of nausea, dyspnea. She passed minimal gas Objective Vitals/I&O Vital Signs Date Time Temp Pulse Resp B/P (MAP) Pulse Ox O2 Delivery O2 Flow Rate FiO2 07/13/19 08:46 79 203/64 07/13/19 08:00 Room Air 07/13/19 07:18 98 07/13/19 07:00 97.9 16 97.9 I & O 07/12/19 07/12/19 07/13/19 15:00 23:00 07:00 Output Total 1150 ml 800 ml Balance -1150 ml -800 ml Physical Exam Physical Exam General appearance - alert,well appearing, and in no distress and oriented to person, place, and time Mental Status - alert, oriented to person, place, and time, affect appropriate to mood Head - normal Chest -decreased breath sounds bilaterally Heart - S1 and S2 normal Abdomen - soft, nontender, bowel sounds absent Neurological - alert and oriented Extremities - no pedal edema Skin - warm and dry Labs Laboratory Tests Test 07/12/19 11:40 07/12/19 18:04 07/13/19 00:15 07/13/19 06:30 Glucose (Fingerstick) 182 mg/dL (70-99) H 139 mg/dL (70-99) H 270 mg/dL (70-99) H White Blood Count 9.9 x10^3/uL (4.0-11.0) Red Blood Count 3.15 x10^6/uL (3.50-5.40) L Hemoglobin 8.6 g/dL (12.0-15.5) L Hematocrit 26.4 % (36.0-47.0) L Mean Corpuscular Volume 84 fL (79-100) Mean Corpuscular Hemoglobin 27 pg (25-35) Mean Corpuscular Hemoglobin Concent 33 g/dL (31-37) Red Cell Distribution Width 17.3 % (11.5-14.5) H Platelet Count 180 x10^3/uL (140-400) Neutrophils (%) (Auto) 76 % (31-73) H Lymphocytes (%) (Auto) 10 % (24-48) L Monocytes (%) (Auto) 9 % (0-9) Eosinophils (%) (Auto) 4 % (0-3) H Basophils (%) (Auto) 1 % (0-3) Neutrophils # (Auto) 7.6 x10^3/uL (1.8-7.7) Lymphocytes # (Auto) 1.0 x10^3/uL (1.0-4.8) Monocytes # (Auto) 0.9 x10^3/uL (0.0-1.1) Eosinophils # (Auto) 0.4 x10^3/uL (0.0-0.7) Basophils # (Auto) 0.1 x10^3/uL (0.0-0.2) Sodium Level 144 mmol/L (136-145) Potassium Level 3.8 mmol/L (3.5-5.1) Chloride Level 110 mmol/L (98-107) H Carbon Dioxide Level 25 mmol/L (21-32) Anion Gap 9 (6-14) Blood Urea Nitrogen 29 mg/dL (7-20) H Creatinine 1.0 mg/dL (0.6-1.0) Estimated GFR (Cockcroft-Gault) 65.6 Glucose Level 156 mg/dL (70-99) H Calcium Level 8.8 mg/dL (8.5-10.1) Phosphorus Level 3.5 mg/dL (2.6-4.7) Magnesium Level 2.0 mg/dL (1.8-2.4) Laboratory Tests 07/13/19 06:30 Laboratory Tests 07/13/19 06:30 Meds Current Medications Medications (Trade) Dose Ordered Sig/Eber Route PRN Reason Start Time Stop Time Status Last Admin Dose Admin Sodium Chloride 90 meq/Potassium Chloride 50 meq/ Potassium Phosphate 13.6 mmol/Magnesium Sulfate 10 meq/ Calcium Gluconate 10 meq/ Multivitamins 10 ml/Chromium/ Copper/Manganese/ Seleni/Zn 1 ml/ Total Parenteral Nutrition/Amino Acids/Dextrose/ Fat Emulsion Intravenous 1,512 ml @ 63 mls/hr TPN CONT IV 07/12/19 22:00 07/13/19 21:59 07/12/19 22:34 Assessment Assessment Problems Medical Problems: (1) Bowel obstruction Status: Acute FINAL IMPRESSION: 1. Partial small-bowel obstruction. 2. 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 3. Hypertension. 4. Hyperlipidemia. 5. Hypothyroidism. 6. Anemia. 7. Acute renal insufficiency. 8. Lactic acidosis, improving with IV fluids. PLAN:Covid test for pre op. trying sesame seed oil ,to see if it works if not ?surgery monday catapress patch for htn small bowel series -high grade stenosis On TPN,.NA 143, cr 1.1 kidney function improved. inc ambulation ,incentive spirometry, duoneb Accelerated hypertension-systolic blood pressure was 203. On PRN IV hydralazi minimal improvement. Ne and Catapres patch. May need more medications. Small bowel obstruction- Minimal improvement, order KUB tomorrow. Plan Plan For more details regarding further plans, please refer to the orders. Justicifation of Admission Dx: Justifications for Admission: Justification of Admission Dx: Yes Nutrition Consultation Dietary Evaluation: Recommendations by RD: Dietary education by RD, Increase Calorie Intake, PPN/TPN Comments: REC adjust TPN to followin g AA, 225 g dextrose, 30 g lipids Expected Outcomes/Goals: diet advancement - not met, new goal established New goal 07/10: TPN to meet >70% est needs while NPO Interpretation of weight loss: >7.5% in 3 months Malnutrition Findings: Food and Nutrition Intake (Sev: <50% est energy req 5days Weight Status: Appropriate JUS PLAZA MD Jul 13, 2019 10:45
[2019-07-13 11:00] VITALS: BP 185/60
--- NOTE | 2019-07-13 11:39 | PDOC ---
G I PROGRESS NOTE Subjective Maybe small amount of flatus. Has not stooled. Physical Exam Lungs clear. RRR Abdomen protuberant. Mild diffuse tenderness. Rare bowel sounds. Review of Relevant I have reviewed the following items raeann (where applicable) has been applied. Labs Laboratory Tests Test 07/11/19 11:57 07/11/19 18:32 07/12/19 00:25 07/12/19 05:50 Glucose (Fingerstick) 200 mg/dL (70-99) 194 mg/dL (70-99) 188 mg/dL (70-99) White Blood Count 11.6 x10^3/uL (4.0-11.0) Red Blood Count 3.40 x10^6/uL (3.50-5.40) Hemoglobin 9.0 g/dL (12.0-15.5) Hematocrit 28.1 % (36.0-47.0) Mean Corpuscular Volume 83 fL (79-100) Mean Corpuscular Hemoglobin 27 pg (25-35) Mean Corpuscular Hemoglobin Concent 32 g/dL (31-37) Red Cell Distribution Width 16.5 % (11.5-14.5) Platelet Count 236 x10^3/uL (140-400) Neutrophils (%) (Auto) 78 % (31-73) Lymphocytes (%) (Auto) 10 % (24-48) Monocytes (%) (Auto) 9 % (0-9) Eosinophils (%) (Auto) 2 % (0-3) Basophils (%) (Auto) 1 % (0-3) Neutrophils # (Auto) 9.0 x10^3/uL (1.8-7.7) Lymphocytes # (Auto) 1.2 x10^3/uL (1.0-4.8) Monocytes # (Auto) 1.0 x10^3/uL (0.0-1.1) Eosinophils # (Auto) 0.2 x10^3/uL (0.0-0.7) Basophils # (Auto) 0.1 x10^3/uL (0.0-0.2) Sodium Level 142 mmol/L (136-145) Potassium Level 3.7 mmol/L (3.5-5.1) Chloride Level 107 mmol/L (98-107) Carbon Dioxide Level 25 mmol/L (21-32) Anion Gap 10 (6-14) Blood Urea Nitrogen 26 mg/dL (7-20) Creatinine 1.1 mg/dL (0.6-1.0) Estimated GFR (Cockcroft-Gault) 58.7 Glucose Level 135 mg/dL (70-99) Calcium Level 9.2 mg/dL (8.5-10.1) Phosphorus Level 3.3 mg/dL (2.6-4.7) Magnesium Level 2.0 mg/dL (1.8-2.4) Test 07/12/19 06:09 07/12/19 11:40 07/12/19 18:04 07/13/19 00:15 Glucose (Fingerstick) 148 mg/dL (70-99) 182 mg/dL (70-99) 139 mg/dL (70-99) 270 mg/dL (70-99) Test 07/13/19 06:30 White Blood Count 9.9 x10^3/uL (4.0-11.0) Red Blood Count 3.15 x10^6/uL (3.50-5.40) Hemoglobin 8.6 g/dL (12.0-15.5) Hematocrit 26.4 % (36.0-47.0) Mean Corpuscular Volume 84 fL (79-100) Mean Corpuscular Hemoglobin 27 pg (25-35) Mean Corpuscular Hemoglobin Concent 33 g/dL (31-37) Red Cell Distribution Width 17.3 % (11.5-14.5) Platelet Count 180 x10^3/uL (140-400) Neutrophils (%) (Auto) 76 % (31-73) Lymphocytes (%) (Auto) 10 % (24-48) Monocytes (%) (Auto) 9 % (0-9) Eosinophils (%) (Auto) 4 % (0-3) Basophils (%) (Auto) 1 % (0-3) Neutrophils # (Auto) 7.6 x10^3/uL (1.8-7.7) Lymphocytes # (Auto) 1.0 x10^3/uL (1.0-4.8) Monocytes # (Auto) 0.9 x10^3/uL (0.0-1.1) Eosinophils # (Auto) 0.4 x10^3/uL (0.0-0.7) Basophils # (Auto) 0.1 x10^3/uL (0.0-0.2) Sodium Level 144 mmol/L (136-145) Potassium Level 3.8 mmol/L (3.5-5.1) Chloride Level 110 mmol/L (98-107) Carbon Dioxide Level 25 mmol/L (21-32) Anion Gap 9 (6-14) Blood Urea Nitrogen 29 mg/dL (7-20) Creatinine 1.0 mg/dL (0.6-1.0) Estimated GFR (Cockcroft-Gault) 65.6 Glucose Level 156 mg/dL (70-99) Calcium Level 8.8 mg/dL (8.5-10.1) Phosphorus Level 3.5 mg/dL (2.6-4.7) Magnesium Level 2.0 mg/dL (1.8-2.4) Laboratory Tests Test 07/12/19 11:40 07/12/19 18:04 07/13/19 00:15 07/13/19 06:30 Glucose (Fingerstick) 182 mg/dL (70-99) 139 mg/dL (70-99) 270 mg/dL (70-99) White Blood Count 9.9 x10^3/uL (4.0-11.0) Red Blood Count 3.15 x10^6/uL (3.50-5.40) Hemoglobin 8.6 g/dL (12.0-15.5) Hematocrit 26.4 % (36.0-47.0) Mean Corpuscular Volume 84 fL (79-100) Mean Corpuscular Hemoglobin 27 pg (25-35) Mean Corpuscular Hemoglobin Concent 33 g/dL (31-37) Red Cell Distribution Width 17.3 % (11.5-14.5) Platelet Count 180 x10^3/uL (140-400) Neutrophils (%) (Auto) 76 % (31-73) Lymphocytes (%) (Auto) 10 % (24-48) Monocytes (%) (Auto) 9 % (0-9) Eosinophils (%) (Auto) 4 % (0-3) Basophils (%) (Auto) 1 % (0-3) Neutrophils # (Auto) 7.6 x10^3/uL (1.8-7.7) Lymphocytes # (Auto) 1.0 x10^3/uL (1.0-4.8) Monocytes # (Auto) 0.9 x10^3/uL (0.0-1.1) Eosinophils # (Auto) 0.4 x10^3/uL (0.0-0.7) Basophils # (Auto) 0.1 x10^3/uL (0.0-0.2) Sodium Level 144 mmol/L (136-145) Potassium Level 3.8 mmol/L (3.5-5.1) Chloride Level 110 mmol/L (98-107) Carbon Dioxide Level 25 mmol/L (21-32) Anion Gap 9 (6-14) Blood Urea Nitrogen 29 mg/dL (7-20) Creatinine 1.0 mg/dL (0.6-1.0) Estimated GFR (Cockcroft-Gault) 65.6 Glucose Level 156 mg/dL (70-99) Calcium Level 8.8 mg/dL (8.5-10.1) Phosphorus Level 3.5 mg/dL (2.6-4.7) Magnesium Level 2.0 mg/dL (1.8-2.4) Vitals/I & O Vital Sign - Last 24 Hours 07/12/19 07/12/19 07/12/19 07/12/19 11:47 15:10 15:30 19:00 Temp 98.4 97.8 98.4 97.8 Pulse 79 97 Resp 16 18 B/P (MAP) 100/52 (68) 188/65 (106) Pulse Ox 96 95 97 100 O2 Delivery Room Air Room Air Room Air Room Air 07/12/19 07/12/19 07/12/19 07/13/19 19:25 20:00 23:00 03:00 Temp 99.0 98.1 99.0 98.1 Pulse 80 68 Resp 16 16 B/P (MAP) 156/54 (88) 174/58 (96) Pulse Ox 96 95 96 O2 Delivery Room Air Room Air Room Air Room Air 07/13/19 07/13/19 07/13/19 07/13/19 07:00 07:18 08:00 08:46 Temp 97.9 97.9 Pulse 79 79 Resp 16 B/P (MAP) 203/64 (110) 203/64 Pulse Ox 98 98 O2 Delivery Room Air Room Air Room Air Intake and Output 07/12/19 07/12/19 07/13/19 15:00 23:00 07:00 Output Total 1150 ml 800 ml Balance -1150 ml -800 ml Still high NG output. Problem List Problems Medical Problems: (1) Bowel obstruction Status: Acute Assessment SBO, clinically not resolved. Plan of Care Note Continue as now. May need surgical intervention. Justicifation of Admission Dx: Justifications for Admission: Justification of Admission Dx: Yes Comments: Small bowel obstruction. AMAYA ROSENBAUM MD Jul 13, 2019 11:39
--- NOTE | 2019-07-13 12:07 | PDOC ---
PROGRESS NOTES Subjective Subjective comfortable, not much pain, tiny amount of flatus Objective Objective Vital Signs Date Time Temp Pulse Resp B/P (MAP) Pulse Ox O2 Delivery O2 Flow Rate FiO2 07/13/19 11:00 98.3 84 18 185/60 (101) 99 Room Air 98.3 Intake and Output 07/13/19 06:59 Output Total 1950 ml Balance -1950 ml Output Urine Total 400 ml Drainage Total 1550 ml # Voids 1 Physical Exam Abdomen: Soft, No tenderness Extremities: No clubbing General: Alert, Oriented X3 HEENT: Atraumatic, Other (NG tube intact) Lungs: Clear to auscultation Neuro: Normal speech Psych/Mental Status: Mental status NL Assessment Assessment Problems Medical Problems: (1) Bowel obstruction Status: Acute Plan Plan of Care Cont NG tube, TPN; possible surgery Monday if no improvement Comment Review of Relevant I have reviewed the following items raeann (where applicable) has been applied. Labs Laboratory Tests Test 07/11/19 18:32 07/12/19 00:25 07/12/19 05:50 07/12/19 06:09 Glucose (Fingerstick) 194 mg/dL (70-99) 188 mg/dL (70-99) 148 mg/dL (70-99) White Blood Count 11.6 x10^3/uL (4.0-11.0) Red Blood Count 3.40 x10^6/uL (3.50-5.40) Hemoglobin 9.0 g/dL (12.0-15.5) Hematocrit 28.1 % (36.0-47.0) Mean Corpuscular Volume 83 fL (79-100) Mean Corpuscular Hemoglobin 27 pg (25-35) Mean Corpuscular Hemoglobin Concent 32 g/dL (31-37) Red Cell Distribution Width 16.5 % (11.5-14.5) Platelet Count 236 x10^3/uL (140-400) Neutrophils (%) (Auto) 78 % (31-73) Lymphocytes (%) (Auto) 10 % (24-48) Monocytes (%) (Auto) 9 % (0-9) Eosinophils (%) (Auto) 2 % (0-3) Basophils (%) (Auto) 1 % (0-3) Neutrophils # (Auto) 9.0 x10^3/uL (1.8-7.7) Lymphocytes # (Auto) 1.2 x10^3/uL (1.0-4.8) Monocytes # (Auto) 1.0 x10^3/uL (0.0-1.1) Eosinophils # (Auto) 0.2 x10^3/uL (0.0-0.7) Basophils # (Auto) 0.1 x10^3/uL (0.0-0.2) Sodium Level 142 mmol/L (136-145) Potassium Level 3.7 mmol/L (3.5-5.1) Chloride Level 107 mmol/L (98-107) Carbon Dioxide Level 25 mmol/L (21-32) Anion Gap 10 (6-14) Blood Urea Nitrogen 26 mg/dL (7-20) Creatinine 1.1 mg/dL (0.6-1.0) Estimated GFR (Cockcroft-Gault) 58.7 Glucose Level 135 mg/dL (70-99) Calcium Level 9.2 mg/dL (8.5-10.1) Phosphorus Level 3.3 mg/dL (2.6-4.7) Magnesium Level 2.0 mg/dL (1.8-2.4) Test 07/12/19 11:40 07/12/19 18:04 07/13/19 00:15 07/13/19 06:30 Glucose (Fingerstick) 182 mg/dL (70-99) 139 mg/dL (70-99) 270 mg/dL (70-99) White Blood Count 9.9 x10^3/uL (4.0-11.0) Red Blood Count 3.15 x10^6/uL (3.50-5.40) Hemoglobin 8.6 g/dL (12.0-15.5) Hematocrit 26.4 % (36.0-47.0) Mean Corpuscular Volume 84 fL (79-100) Mean Corpuscular Hemoglobin 27 pg (25-35) Mean Corpuscular Hemoglobin Concent 33 g/dL (31-37) Red Cell Distribution Width 17.3 % (11.5-14.5) Platelet Count 180 x10^3/uL (140-400) Neutrophils (%) (Auto) 76 % (31-73) Lymphocytes (%) (Auto) 10 % (24-48) Monocytes (%) (Auto) 9 % (0-9) Eosinophils (%) (Auto) 4 % (0-3) Basophils (%) (Auto) 1 % (0-3) Neutrophils # (Auto) 7.6 x10^3/uL (1.8-7.7) Lymphocytes # (Auto) 1.0 x10^3/uL (1.0-4.8) Monocytes # (Auto) 0.9 x10^3/uL (0.0-1.1) Eosinophils # (Auto) 0.4 x10^3/uL (0.0-0.7) Basophils # (Auto) 0.1 x10^3/uL (0.0-0.2) Sodium Level 144 mmol/L (136-145) Potassium Level 3.8 mmol/L (3.5-5.1) Chloride Level 110 mmol/L (98-107) Carbon Dioxide Level 25 mmol/L (21-32) Anion Gap 9 (6-14) Blood Urea Nitrogen 29 mg/dL (7-20) Creatinine 1.0 mg/dL (0.6-1.0) Estimated GFR (Cockcroft-Gault) 65.6 Glucose Level 156 mg/dL (70-99) Calcium Level 8.8 mg/dL (8.5-10.1) Phosphorus Level 3.5 mg/dL (2.6-4.7) Magnesium Level 2.0 mg/dL (1.8-2.4) Laboratory Tests Test 07/12/19 18:04 07/13/19 00:15 07/13/19 06:30 Glucose (Fingerstick) 139 mg/dL (70-99) 270 mg/dL (70-99) White Blood Count 9.9 x10^3/uL (4.0-11.0) Red Blood Count 3.15 x10^6/uL (3.50-5.40) Hemoglobin 8.6 g/dL (12.0-15.5) Hematocrit 26.4 % (36.0-47.0) Mean Corpuscular Volume 84 fL (79-100) Mean Corpuscular Hemoglobin 27 pg (25-35) Mean Corpuscular Hemoglobin Concent 33 g/dL (31-37) Red Cell Distribution Width 17.3 % (11.5-14.5) Platelet Count 180 x10^3/uL (140-400) Neutrophils (%) (Auto) 76 % (31-73) Lymphocytes (%) (Auto) 10 % (24-48) Monocytes (%) (Auto) 9 % (0-9) Eosinophils (%) (Auto) 4 % (0-3) Basophils (%) (Auto) 1 % (0-3) Neutrophils # (Auto) 7.6 x10^3/uL (1.8-7.7) Lymphocytes # (Auto) 1.0 x10^3/uL (1.0-4.8) Monocytes # (Auto) 0.9 x10^3/uL (0.0-1.1) Eosinophils # (Auto) 0.4 x10^3/uL (0.0-0.7) Basophils # (Auto) 0.1 x10^3/uL (0.0-0.2) Sodium Level 144 mmol/L (136-145) Potassium Level 3.8 mmol/L (3.5-5.1) Chloride Level 110 mmol/L (98-107) Carbon Dioxide Level 25 mmol/L (21-32) Anion Gap 9 (6-14) Blood Urea Nitrogen 29 mg/dL (7-20) Creatinine 1.0 mg/dL (0.6-1.0) Estimated GFR (Cockcroft-Gault) 65.6 Glucose Level 156 mg/dL (70-99) Calcium Level 8.8 mg/dL (8.5-10.1) Phosphorus Level 3.5 mg/dL (2.6-4.7) Magnesium Level 2.0 mg/dL (1.8-2.4) Medications Current Medications Morphine Sulfate (Morphine Sulfate) 4 mg 1X ONCE IV Last administered on 07/06/19at 08:17; Start 07/06/19 at 08:00; Stop 07/06/19 at 08:05; Status DC Ondansetron HCl (Zofran) 4 mg 1X ONCE IVP Last administered on 07/06/19at 08:17; Start 07/06/19 at 08:00; Stop 07/06/19 at 08:05; Status DC Famotidine (Pepcid Vial) 20 mg 1X ONCE IVP Last administered on 07/06/19at 08:17; Start 07/06/19 at 08:00; Stop 07/06/19 at 08:05; Status DC Sodium Chloride 1,000 ml @ 1,000 mls/hr 1X ONCE IV Last administered on 07/06/19at 09:38; Start 07/06/19 at 09:30; Stop 07/06/19 at 10:29; Status DC Iohexol (Omnipaque 350 Mg/ml) 70 ml 1X ONCE IV Last administered on 07/06/19at 10:50; Start 07/06/19 at 09:45; Stop 07/06/19 at 09:46; Status DC Info (CONTRAST GIVEN -- Rx MONITORING) 1 each PRN DAILY PRN MC SEE COMMENTS; Start 07/06/19 at 10:00; Stop 07/08/19 at 07:44; Status DC Sodium Chloride 1,000 ml @ 1,000 mls/hr 1X ONCE IV Last administered on 07/06/19at 12:41; Start 07/06/19 at 12:45; Stop 07/06/19 at 13:44; Status DC Amlodipine Besylate (Norvasc) 5 mg DAILY PO ; Start 07/07/19 at 09:00 Hydrochlorothiazide (Hydrodiuril) 25 mg DAILY PO ; Start 07/07/19 at 09:00; Stop 07/07/19 at 12:15; Status DC Pantoprazole Sodium (Protonix) 40 mg DAILYAC PO ; Start 07/07/19 at 07:30; Stop 07/08/19 at 12:50; Status DC Potassium Chloride/Dextrose/ Sod Cl 1,000 ml @ 100 mls/hr Q10H IV Last administered on 07/07/19at 23:20; Start 07/06/19 at 18:00; Stop 07/08/19 at 13:05; Status DC Hydralazine HCl (Apresoline Inj) 10 mg PRN Q4HRS PRN IVP ELEVATED BP, SEE COMMENTS Last administered on 07/13/19at 08:46; Start 07/06/19 at 17:15 Fentanyl Citrate (Fentanyl 2ml Vial) 25 mcg PRN Q3HRS PRN IVP PAIN Last administered on 07/08/19at 16:12; Start 07/07/19 at 10:00 Ondansetron HCl (Zofran) 4 mg PRN Q6HRS PRN IVP NAUSEA/VOMITING Last administered on 07/12/19 03:34; Start 07/07/19 at 10:00 Iohexol (Omnipaque 300 Mg/ml) 400 ml 1X ONCE PO Last administered on 07/08/19 07:45; Start 07/08/19 at 07:45; Stop 07/08/19 at 07:46; Status DC Info (CONTRAST GIVEN -- Rx MONITORING) 1 each PRN DAILY PRN MC SEE COMMENTS; Start 07/08/19 at 07:45; Stop 07/10/19 at 07:44; Status DC Pantoprazole Sodium (PROTONIX VIAL for IV PUSH) 40 mg DAILYAC IVP Last adm inistered on 07/13/19 08:44; Start 07/09/19 at 07:30 Potassium Chloride/Dextrose/ Sod Cl 1,000 ml @ 100 mls/hr Q10H IV Last adm inistered on 07/10/19at 15:41; Start 07/08/19 at 13:15; Stop 07/11/19 at 01:00; Status DC Clonidine HCl (Catapres Tts-1) 1 patch WEEKLY TD Last administered on 07/08/19at 14:15; Start 07/08/19 at 13:30 Albuterol/ Ipratropium (Duoneb) 3 ml 1X ONCE NEB Last administered on 07/10/19at 11:31; Start 07/10/19 at 10:15; Stop 07/10/19 at 10:16; Status DC Albuterol/ Ipratropium (Duoneb) 3 ml RTQID NEB Last administered on 07/13/19at 07:16; Start 07/10/19 at 12:00 Info (Tpn Per Pharmacy) 1 each PRN DAILY PRN MC SEE COMMENTS Last administered on 07/12/19at 12:25; Start 07/10/19 at 13:45 Sodium Chloride 90 meq/Potassium Chloride 50 meq/ Potassium Phosphate 13.6 mmol/Magnesium Sulfate 10 meq/ Calcium Gluconate 10 meq/ Multivitamins 10 ml/Chromium/ Copper/Manganese/ Seleni/Zn 1 ml/ Total Parenteral Nutrition/Amino Acids/Dextrose/ Fat Emulsion Intravenous 1,512 ml @ 63 mls/hr TPN CONT IV Last administered on 07/10/19at 22:40; Start 07/10/19 at 22:00; Stop 07/11/19 at 21:59; Status DC Sodium Chloride 90 meq/Potassium Chloride 50 meq/ Potassium Phosphate 13.6 mmol/Magnesium Sulfate 10 meq/ Calcium Gluconate 10 meq/ Multivitamins 10 ml/Chromium/ Copper/Manganese/ Seleni/Zn 1 ml/ Total Parenteral Nutrition/Amino Acids/Dextrose/ Fat Emulsion Intravenous 1,512 ml @ 63 mls/hr TPN CONT IV Last administered on 07/11/19at 22:00; Start 07/11/19 at 22:00; Stop 07/12/19 at 21:59; Status DC Benzocaine (Hurricaine One) 1 spray PRN Q4HRS PRN MM NG irritation; Start 07/11/19 at 16:15 Insulin Human Lispro (HumaLOG) 0-7 UNITS TIDWMEALS SQ Last administered on 07/12/19at 11:51; Start 07/12/19 at 08:00 Dextrose (Dextrose 50%-Water Syringe) 12.5 gm PRN Q15MIN PRN IV SEE COMMENTS; Start 07/11/19 at 19:15 Cefoxitin Sodium (Mefoxin) 2 gm 1X PREOP ONCE IVP ; Start 07/15/19 at 08:30; Stop 07/15/19 at 08:31 Sodium Chloride 90 meq/Potassium Chloride 50 meq/ Potassium Phosphate 13.6 mmol/Magnesium Sulfate 10 meq/ Calcium Gluconate 10 meq/ Multivitamins 10 ml/Chromium/ Copper/Manganese/ Seleni/Zn 1 ml/ Total Parenteral Nutrition/Amino Acids/Dextrose/ Fat Emulsion Intravenous 1,512 ml @ 63 mls/hr TPN CONT IV Last administered on 07/12/19at 22:34; Start 07/12/19 at 22:00; Stop 07/13/19 at 21:59 Ondansetron HCl (Zofran) 4 mg PRN Q6HRS PRN IV NAUSEA/VOMITING; Start 07/15/19 at 07:00; Stop 07/16/19 at 06:59 Fentanyl Citrate (Fentanyl 2ml Vial) 25 mcg PRN Q5MIN PRN IV MILD PAIN 1-3; Start 07/15/19 at 07:00; Stop 07/15/19 at 19:00 Fentanyl Citrate (Fentanyl 2ml Vial) 50 mcg PRN Q5MIN PRN IV MODERATE TO SEVERE PAIN; Start 07/15/19 at 07:00; Stop 07/15/19 at 19:00 Morphine Sulfate (Morphine Sulfate) 1 mg PRN Q10MIN PRN IV SEVERE PAIN 7-10; Start 07/15/19 at 07:00; Stop 07/15/19 at 19:00 Ringer's Solution 1,000 ml @ 30 mls/hr Q24H IV ; Start 07/15/19 at 07:00; Stop 07/15/19 at 18:59 Lidocaine HCl (Xylocaine-Mpf 1% 2ml Vial) 2 ml PRN 1X PRN ID PRIOR TO IV START; Start 07/15/19 at 07:00; Stop 07/15/19 at 19:00 Hydromorphone HCl (Dilaudid) 0.5 mg PRN Q10MIN PRN IV SEV PAIN, Second choice; Start 07/15/19 at 07:00; Stop 07/15/19 at 19:00 Prochlorperazine Edisylate (Compazine) 5 mg PACU PRN PRN IV NAUSEA, MRX1; Start 07/15/19 at 07:00; Stop 07/16/19 at 06:59 Active Scripts Active Reported Omeprazole 40 Mg Capsule.dr 50 Mg PO DAILY Losartan Potassium 50 Mg Tablet 50 Mg PO BID Amlodipine Besylate 5 Mg Tablet 5 Mg PO DAILY Aspirin 325 Mg Tablet 325 Tab PO DAILY Hydrochlorothiazide Tablet (Hydrochlorothiazide) 50 Mg Tablet 25 Mg PO DAILY Levothyroxine Sodium 50 Mcg Tablet 50 Mcg PO DAILYAC Vitals/I & O Vital Sign - Last 24 Hours 07/12/19 07/12/19 07/12/19 07/12/19 15:10 15:30 19:00 19:25 Temp 98.4 97.8 98.4 97.8 Pulse 79 97 Resp 16 18 B/P (MAP) 100/52 (68) 188/65 (106) Pulse Ox 95 97 100 96 O2 Delivery Room Air Room Air Room Air Room Air 07/12/19 07/12/19 07/13/19 07/13/19 20:00 23:00 03:00 07:00 Temp 99.0 98.1 97.9 99.0 98.1 97.9 Pulse 80 68 79 Resp 16 16 16 B/P (MAP) 156/54 (88) 174/58 (96) 203/64 (110) Pulse Ox 95 96 98 O2 Delivery Room Air Room Air Room Air Room Air 07/13/19 07/13/19 07/13/19 07/13/19 07:18 08:00 08:46 11:00 Temp 98.3 98.3 Pulse 79 84 Resp 18 B/P (MAP) 203/64 185/60 (101) Pulse Ox 98 99 O2 Delivery Room Air Room Air Room Air Intake and Output 07/12/19 07/12/19 07/13/19 14:59 22:59 06:59 Output Total 1150 ml 800 ml Balance -1150 ml -800 ml Nutrition Consultation Dietary Evaluation: Recommendations by RD: Dietary education by RD, Increase Calorie Intake, PPN/TPN Comments: REC adjust TPN to followin g AA, 225 g dextrose, 30 g lipids Expected Outcomes/Goals: diet advancement - not met, new goal established New goal 07/10: TPN to meet >70% est needs while NPO Interpretation of weight loss: >7.5% in 3 months Malnutrition Findings: Food and Nutrition Intake (Sev: <50% est energy req 5days Weight Status: Appropriate AKUA CARO MD Jul 13, 2019 12:07
[2019-07-13] MEDS: TPN PER PHARMACY MC PRN (12:11)
--- NOTE | 2019-07-13 12:12 | NUR ---
Pharmacy TPN Dosing Note S: JAQUELIN DAVIS is a 74 year old F Currently receiving Central Continuous TPN started 07/10/19 B:Pertinent PMH: SBO, NPO Current diet: NPO LABS: Sodium: 144 Potassium: 3.8 Chloride: 110 Calcium: 8.8 Corrected Calcium: 9.52 Magnesium: 2 CO2: 25 SCr: 1.0 Glucose: 156 Albumin: 3.1 AST: 22 ALT: 13 TPN FORMULA: TPN TYPE: Central Continuous AMINO ACIDS: 65 gm DEXTROSE: 225 gm LIPIDS: 30 gm SODIUM CHLORIDE: 90 mEq SODIUM ACETATE: - mEq SODIUM PHOSPHATE: - mmol POTASSIUM CHLORIDE: 50 mEq POTASSIUM ACETATE: - mEq POTASSIUM PHOSPHATE: 13.6 mmol MAGNESIUM: 10 mEq CALCIUM: 10 mEq INSULIN: - units MULTIPLE VITAMIN: 10 ml TRACE ELEMENTS: 1ml ml(s) TPN PLAN: Cont same TPN, labs stable. CMP, phos, mag in on Friday 07/14. R: Continue TPN Will monitor electrolytes, glucose, and tolerance to TPN. MATT ELENA RPH, 07/13/19 121
--- NOTE | 2019-07-13 15:39 | NUR ---
Patient transferred to room 664 so she can be placed on telemetry for PRN Lopressor dosing for HTN. Patient was told at about 1300 that she would be transferred mid-afternoon before next IVP anti-hypertensive medication was given. She agreed to transfer, even though she initially expressed her displeasure with having to be transferred. Report was given to Krish DORMAN and pt transferred from room 402 to room 664 at 1530.
[2019-07-13 15:41] VITALS: BP 191/68
[2019-07-13] MEDS: ONDANSETRON PF 4 MG/2 ML VIAL. IVP PRN (15:52)
[2019-07-13] MEDS: METOPROLOL TARTRATE 5 MG/5 ML VIAL. IVP PRN (15:57)
[2019-07-13 19:00] VITALS: BP 179/46
[2019-07-13] MEDS ORDERED: TOTAL PARENTERAL NUTRITION IV SCH ×10 (22:00)
[2019-07-13] MEDS ORDERED: DEXTROSE 70% IV SCH ×10 (22:00)
[2019-07-13] MEDS ORDERED: [UNRECOGNIZED DRUG - OTHER] IV SCH ×10 (22:00)
[2019-07-13] MEDS ORDERED: AMINO ACID IV SCH ×10 (22:00)
[2019-07-13 23:02] VITALS: BP 159/55
[2019-07-14 03:00] VITALS: BP 189/57
[2019-07-14] MEDS: ONDANSETRON PF 4 MG/2 ML VIAL. IVP PRN (03:55)
[2019-07-14] MEDS: METOPROLOL TARTRATE 5 MG/5 ML VIAL. IVP PRN ×2 (03:56→15:03)
[2019-07-14 07:00] VITALS: BP 176/61
[2019-07-14] MEDS: IPRATRPIUM/ALBUTEROL 0.5/2.5MG 3 ML NEBU. NEB SCH ×4 (07:29→20:16)
--- NOTE | 2019-07-14 07:38 | RAD ---
KUB 07/14/2019 5:00 AM INDICATION: Intestinal obstruction COMPARISON: 07/12/2019, 07/07/2019 TECHNIQUE: Single supine view the abdomen is provided. FINDINGS/ IMPRESSION: 1. Nasogastric tube is identified with the side port projecting over the expected region of the gastric lumen. Post surgical changes are identified in the left upper quadrant of the abdomen. Cholecystectomy clips are suspected. 2. Borderline prominent small bowel loops appears similar. Small bowel loops appear partly opacified with oral contrast measuring up to 2.7 cm. Oral contrast is noted within the right colon, similar to the prior examination without significant interval transit. 3. No new suspicious osseous abnormality. Electronically signed by: Katie Dash MD (07/14/2019 7:36 AM) PRETTY
[2019-07-14] MEDS: PANTOPRAZOLE IV PUSH 40 MG VIAL. IVP SCH (08:31)
[2019-07-14] MEDS: hydrALAZINE 20 MG/ML VIAL. IVP PRN ×2 (08:32→23:01)
[2019-07-14] MEDS: INSULIN LISPRO 300 UNITS/3 ML VIAL. SQ SCH ×3 (08:41→16:57)
[2019-07-14] MEDS: amLODIPine BESYLATE 5 MG TABLET PO SCH (08:51)
--- NOTE | 2019-07-14 10:10 | PDOC ---
IM PROGRESS NOTES- Subjective Subjective No complaints of nausea, dyspnea. She passed minimal gas Objective Vitals/I&O Vital Signs Date Time Temp Pulse Resp B/P (MAP) Pulse Ox O2 Delivery O2 Flow Rate FiO2 07/14/19 08:32 57 176/61 07/14/19 07:31 99 Room Air 07/14/19 07:00 97.8 17 97.8 I & O 07/13/19 07/13/19 07/14/19 15:00 23:00 07:00 Intake Total 1562 ml 0 ml Balance 1562 ml 0 ml Physical Exam Physical Exam General appearance - alert,well appearing, and in no distress and oriented to person, place, and time Mental Status - alert, oriented to person, place, and time, affect appropriate to mood Head - normal Chest -decreased breath sounds bilaterally Heart - S1 and S2 normal Abdomen - soft, nontender, bowel sounds absent Neurological - alert and oriented Extremities - no pedal edema Skin - warm and dry Labs Laboratory Tests Test 07/13/19 12:12 07/13/19 16:09 07/13/19 20:25 07/14/19 06:58 Glucose (Fingerstick) 216 mg/dL (70-99) H 112 mg/dL (70-99) H 173 mg/dL (70-99) H 195 mg/dL (70-99) H Meds Current Medications Medications (Trade) Dose Ordered Sig/Eber Route PRN Reason Start Time Stop Time Status Last Admin Dose Admin Sodium Chloride 90 meq/Potassium Chloride 50 meq/ Potassium Phosphate 13.6 mmol/Magnesium Sulfate 10 meq/ Calcium Gluconate 10 meq/ Multivitamins 10 ml/Chromium/ Copper/Manganese/ Seleni/Zn 1 ml/ Total Parenteral Nutrition/Amino Acids/Dextrose/ Fat Emulsion Intravenous 1,512 ml @ 63 mls/hr TPN CONT IV 07/13/19 22:00 07/14/19 21:59 07/13/19 21:56 Metoprolol Tartrate (Lopressor Vial) 10 mg PRN Q6HRS PRN IVP SBP > 160 07/13/19 12:45 07/14/19 03:56 Assessment Assessment Problems Medical Problems: (1) Bowel obstruction Status: Acute FINAL IMPRESSION: 1. Partial small-bowel obstruction. 2. 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 3. Hypertension. 4. Hyperlipidemia. 5. Hypothyroidism. 6. Anemia. 7. Acute renal insufficiency. 8. Lactic acidosis, improving with IV fluids. PLAN:Covid test for pre op. trying sesame seed oil ,to see if it works if not ?surgery monday catapress patch f. small bowel series -high grade stenosis On TPN,. kidney function improved. inc ambulation ,incentive spirometry, duoneb Accelerated hypertension-systolic blood pressure is elevated but improving. Last systolic blood pressure 173.. On PRN IV hydralazine minimal improvement. On Catapres patch. Continue IV Lopressor as needed. Small bowel obstruction- Minimal improvement, KUB today shows no improvement. She will need surgery tomorrow Plan Plan For more details regarding further plans, please refer to the orders. Justicifation of Admission Dx: Justifications for Admission: Justification of Admission Dx: Yes Nutrition Consultation Dietary Evaluation: Recommendations by RD: Dietary education by RD, Increase Calorie Intake, PPN /TPN Comments: REC adjust TPN to followin g AA, 225 g dextrose, 30 g lipids Expected Outcomes/Goals: diet advancement - not met, new goal established New goal 07/10: TPN to meet >70% est needs while NPO Interpretation of weight loss: >7.5% in 3 months Malnutrition Findings: Food and Nutrition Intake (Sev: <50% est energy req 5days Weight Status: Appropriate JUS PLAZA MD Jul 14, 2019 10:10
[2019-07-14 11:00] VITALS: BP 162/64
[2019-07-14] MEDS: TPN PER PHARMACY MC PRN (11:21)
--- NOTE | 2019-07-14 11:21 | NUR ---
Pharmacy TPN Dosing Note S: JAQUELIN DAVIS is a 74 year old F Currently receiving Central Continuous TPN started 07/10/19 B:Pertinent PMH: SBO, NPO LABS: Sodium: 144 Potassium: 3.8 Chloride: 110 Calcium: 8.8 Corrected Calcium: 9.52 Magnesium: 2 CO2: 25 SCr: 1.0 Glucose: 112-195 Albumin: 3.1 AST: 22 ALT: 13 TPN FORMULA: TPN TYPE: Central Continuous AMINO ACIDS: 65 gm DEXTROSE: 225 gm LIPIDS: 30 gm SODIUM CHLORIDE: 90 mEq SODIUM ACETATE: - mEq SODIUM PHOSPHATE: - mmol POTASSIUM CHLORIDE: 50 mEq POTASSIUM ACETATE: - mEq POTASSIUM PHOSPHATE: 13.6 mmol MAGNESIUM: 10 mEq CALCIUM: 10 mEq INSULIN: - units MULTIPLE VITAMIN: 10 ml TRACE ELEMENTS: 1ml ml(s) TPN PLAN: Cont same TPN, labs stable. CMP, phos, mag on Friday 07/14. R: Continue TPN Will monitor electrolytes, glucose, and tolerance to TPN. MATT ELENA RPH, 07/14/19 1121
--- NOTE | 2019-07-14 12:19 | PDOC ---
G I PROGRESS NOTE Subjective Fairly comfortable. Denies N, V, flatus or stool. Objective Still high NG output. Physical Exam Lungs clear. RRR Abdomen soft, not distended. Review of Relevant I have reviewed the following items raeann (where applicable) has been applied. Labs Laboratory Tests Test 07/12/19 18:04 07/12/19 21:00 07/13/19 00:15 07/13/19 06:30 Glucose (Fingerstick) 139 mg/dL (70-99) 270 mg/dL (70-99) Coronavirus (COVID-19)(PCR) Negative (NEGATIVE) White Blood Count 9.9 x10^3/uL (4.0-11.0) Red Blood Count 3.15 x10^6/uL (3.50-5.40) Hemoglobin 8.6 g/dL (12.0-15.5) Hematocrit 26.4 % (36.0-47.0) Mean Corpuscular Volume 84 fL (79-100) Mean Corpuscular Hemoglobin 27 pg (25-35) Mean Corpuscular Hemoglobin Concent 33 g/dL (31-37) Red Cell Distribution Width 17.3 % (11.5-14.5) Platelet Count 180 x10^3/uL (140-400) Neutrophils (%) (Auto) 76 % (31-73) Lymphocytes (%) (Auto) 10 % (24-48) Monocytes (%) (Auto) 9 % (0-9) Eosinophils (%) (Auto) 4 % (0-3) Basophils (%) (Auto) 1 % (0-3) Neutrophils # (Auto) 7.6 x10^3/uL (1.8-7.7) Lymphocytes # (Auto) 1.0 x10^3/uL (1.0-4.8) Monocytes # (Auto) 0.9 x10^3/uL (0.0-1.1) Eosinophils # (Auto) 0.4 x10^3/uL (0.0-0.7) Basophils # (Auto) 0.1 x10^3/uL (0.0-0.2) Sodium Level 144 mmol/L (136-145) Potassium Level 3.8 mmol/L (3.5-5.1) Chloride Level 110 mmol/L (98-107) Carbon Dioxide Level 25 mmol/L (21-32) Anion Gap 9 (6-14) Blood Urea Nitrogen 29 mg/dL (7-20) Creatinine 1.0 mg/dL (0.6-1.0) Estimated GFR (Cockcroft-Gault) 65.6 Glucose Level 156 mg/dL (70-99) Calcium Level 8.8 mg/dL (8.5-10.1) Phosphorus Level 3.5 mg/dL (2.6-4.7) Magnesium Level 2.0 mg/dL (1.8-2.4) Test 07/13/19 12:12 07/13/19 16:09 07/13/19 20:25 07/14/19 06:58 Glucose (Fingerstick) 216 mg/dL (70-99) 112 mg/dL (70-99) 173 mg/dL (70-99) 195 mg/dL (70-99) Test 07/14/19 10:59 Glucose (Fingerstick) 169 mg/dL (70-99) Laboratory Tests Test 07/13/19 16:09 07/13/19 20:25 07/14/19 06:58 07/14/19 10:59 Glucose (Fingerstick) 112 mg/dL (70-99) 173 mg/dL (70-99) 195 mg/dL (70-99) 169 mg/dL (70-99) Vitals/I & O Vital Sign - Last 24 Hours 07/13/19 07/13/19 07/13/19 07/13/19 12:52 15:41 15:57 17:28 Temp 97.6 97.6 Pulse 84 89 89 89 Resp 20 B/P (MAP) 185/60 191/68 (109) 191/68 191/68 Pulse Ox 98 O2 Delivery Room Air 07/13/19 07/13/19 07/13/19 07/13/19 19:00 20:08 20:33 21:57 Temp 99.0 99.0 Pulse 68 68 Resp 18 B/P (MAP) 179/46 (90) 179/46 Pulse Ox 98 97 O2 Delivery Room Air Room Air Room Air 07/13/19 07/14/19 07/14/19 07/14/19 23:02 03:00 03:56 07:00 Temp 97.5 98.1 97.8 97.5 98.1 97.8 Pulse 77 74 77 57 Resp 18 18 17 B/P (MAP) 159/55 (89) 189/57 (101) 189/57 176/61 (99) Pulse Ox 97 96 97 O2 Delivery Room Air Room Air Room Air 07/14/19 07/14/19 07/14/19 07/14/19 07:31 07:45 08:32 11:00 Temp 97.7 97.7 Pulse 57 68 Resp 17 B/P (MAP) 176/61 162/64 (96) Pulse Ox 99 99 O2 Delivery Room Air Room Air Room Air 07/14/19 11:45 Pulse Ox 99 O2 Delivery Room Air Intake and Output 07/13/19 07/13/19 07/14/19 15:00 23:00 07:00 Intake Total 1562 ml 0 ml Balance 1562 ml 0 ml Problem List Problems Medical Problems: (1) Bowel obstruction Status: Acute Assessment SBO, not clinically resolved. Plan of Care Note CPM Agree with plans for surgical intervention 07/14. Consider concomitant jimbo. Justicifation of Admission Dx: Justifications for Admission: Justification of Admission Dx: Yes Comments: Unresolved small bowel obstruction. AMAYA ROSENBAUM MD Jul 14, 2019 12:19
[2019-07-14 15:00] VITALS: BP 179/46
[2019-07-14 19:15] VITALS: BP 127/58
--- NOTE | 2019-07-14 19:45 | PDOC ---
PROGRESS NOTES Subjective Subjective Pt states she feels better, no pain, but no gas or stool Objective Objective Vital Signs Date Time Temp Pulse Resp B/P (MAP) Pulse Ox O2 Delivery O2 Flow Rate FiO2 07/14/19 15:52 99 Room Air 07/14/19 15:03 80 179/46 07/14/19 15:00 97.9 17 97.9 Intake and Output 07/14/19 07:00 Intake Total 1562 ml Balance 1562 ml Intake Oral 50 ml IV Total 1512 ml # Voids 3 Physical Exam Abdomen: Soft, No tenderness Heart: Regular rate Extremities: No clubbing General: Alert, Oriented X3, Cooperative Neuro: Normal speech Psych/Mental Status: Mental status NL Assessment Assessment Problems Medical Problems: (1) Bowel obstruction Status: Acute Plan Plan of Care SBO, not much clinical improvement; Dr Hall to return tomorrow for surgical planning Comment Review of Relevant I have reviewed the following items raeann (where applicable) has been applied. Labs Laboratory Tests Test 07/12/19 21:00 07/13/19 00:15 07/13/19 06:30 07/13/19 12:12 Coronavirus (COVID-19)(PCR) Negative (NEGATIVE) Glucose (Fingerstick) 270 mg/dL (70-99) 216 mg/dL (70-99) White Blood Count 9.9 x10^3/uL (4.0-11.0) Red Blood Count 3.15 x10^6/uL (3.50-5.40) Hemoglobin 8.6 g/dL (12.0-15.5) Hematocrit 26.4 % (36.0-47.0) Mean Corpuscular Volume 84 fL (79-100) Mean Corpuscular Hemoglobin 27 pg (25-35) Mean Corpuscular Hemoglobin Concent 33 g/dL (31-37) Red Cell Distribution Width 17.3 % (11.5-14.5) Platelet Count 180 x10^3/uL (140-400) Neutrophils (%) (Auto) 76 % (31-73) Lymphocytes (%) (Auto) 10 % (24-48) Monocytes (%) (Auto) 9 % (0-9) Eosinophils (%) (Auto) 4 % (0-3) Basophils (%) (Auto) 1 % (0-3) Neutrophils # (Auto) 7.6 x10^3/uL (1.8-7.7) Lymphocytes # (Auto) 1.0 x10^3/uL (1.0-4.8) Monocytes # (Auto) 0.9 x10^3/uL (0.0-1.1) Eosinophils # (Auto) 0.4 x10^3/uL (0.0-0.7) Basophils # (Auto) 0.1 x10^3/uL (0.0-0.2) Sodium Level 144 mmol/L (136-145) Potassium Level 3.8 mmol/L (3.5-5.1) Chloride Level 110 mmol/L (98-107) Carbon Dioxide Level 25 mmol/L (21-32) Anion Gap 9 (6-14) Blood Urea Nitrogen 29 mg/dL (7-20) Creatinine 1.0 mg/dL (0.6-1.0) Estimated GFR (Cockcroft-Gault) 65.6 Glucose Level 156 mg/dL (70-99) Calcium Level 8.8 mg/dL (8.5-10.1) Phosphorus Level 3.5 mg/dL (2.6-4.7) Magnesium Level 2.0 mg/dL (1.8-2.4) Test 07/13/19 16:09 07/13/19 20:25 07/14/19 06:58 07/14/19 10:59 Glucose (Fingerstick) 112 mg/dL (70-99) 173 mg/dL (70-99) 195 mg/dL (70-99) 169 mg/dL (70-99) Test 07/14/19 16:26 Glucose (Fingerstick) 209 mg/dL (70-99) Laboratory Tests Test 07/13/19 20:25 07/14/19 06:58 07/14/19 10:59 07/14/19 16:26 Glucose (Fingerstick) 173 mg/dL (70-99) 195 mg/dL (70-99) 169 mg/dL (70-99) 209 mg/dL (70-99) Medications Current Medications Morphine Sulfate (Morphine Sulfate) 4 mg 1X ONCE IV Last administered on 07/06/19at 08:17; Start 07/06/19 at 08:00; Stop 07/06/19 at 08:05; Status DC Ondansetron HCl (Zofran) 4 mg 1X ONCE IVP Last administered on 07/06/19at 08:17; Start 07/06/19 at 08:00; Stop 07/06/19 at 08:05; Status DC Famotidine (Pepcid Vial) 20 mg 1X ONCE IVP Last administered on 07/06/19at 08:17; Start 07/06/19 at 08:00; Stop 07/06/19 at 08:05; Status DC Sodium Chloride 1,000 ml @ 1,000 mls/hr 1X ONCE IV Last administered on 07/06/19at 09:38; Start 07/06/19 at 09:30; Stop 07/06/19 at 10:29; Status DC Iohexol (Omnipaque 350 Mg/ml) 70 ml 1X ONCE IV Last administered on 07/06/19at 10:50; Start 07/06/19 at 09:45; Stop 07/06/19 at 09:46; Status DC Info (CONTRAST GIVEN -- Rx MONITORING) 1 each PRN DAILY PRN MC SEE COMMENTS; Start 07/06/19 at 10:00; Stop 07/08/19 at 07:44; Status DC Sodium Chloride 1,000 ml @ 1,000 mls/hr 1X ONCE IV Last administered on 07/06/19at 12:41; Start 07/06/19 at 12:45; Stop 07/06/19 at 13:44; Status DC Amlodipine Besylate (Norvasc) 5 mg DAILY PO ; Start 07/07/19 at 09:00 Hydrochlorothiazide (Hydrodiuril) 25 mg DAILY PO ; Start 07/07/19 at 09:00; Stop 07/07/19 at 12:15; Status DC Pantoprazole Sodium (Protonix) 40 mg DAILYAC PO ; Start 07/07/19 at 07:30; Stop 07/08/19 at 12:50; Status DC Potassium Chloride/Dextrose/ Sod Cl 1,000 ml @ 100 mls/hr Q10H IV Last administered on 07/07/19at 23:20; Start 07/06/19 at 18:00; Stop 07/08/19 at 13:05; Status DC Hydralazine HCl (Apresoline Inj) 10 mg PRN Q4HRS PRN IVP ELEVATED BP, SEE COMMENTS Last administered on 07/14/19 08:32; Start 07/06/19 at 17:15 Fentanyl Citrate (Fentanyl 2ml Vial) 25 mcg PRN Q3HRS PRN IVP PAIN Last administered on 07/08/19 16:12; Start 07/07/19 at 10:00 Ondansetron HCl (Zofran) 4 mg PRN Q6HRS PRN IVP NAUSEA/VOMITING Last administered on 07/14/19 03:55; Start 07/07/19 at 10:00 Iohexol (Omnipaque 300 Mg/ml) 400 ml 1X ONCE PO Last administered on 07/08/19 07:45; Start 07/08/19 at 07:45; Stop 07/08/19 at 07:46; Status DC Info (CONTRAST GIVEN -- Rx MONITORING) 1 each PRN DAILY PRN MC SEE COMMENTS; Start 07/08/19 at 07:45; Stop 07/10/19 at 07:44; Status DC Pantoprazole Sodium (PROTONIX VIAL for IV PUSH) 40 mg DAILYAC IVP Last administered on 07/14/19 08:31; Start 07/09/19 at 07:30 Potassium Chloride/Dextrose/ Sod Cl 1,000 ml @ 100 mls/hr Q10H IV Last administered on 07/10/19 15:41; Start 07/08/19 at 13:15; Stop 07/11/19 at 01:00; Status DC Clonidine HCl (Catapres Tts-1) 1 patch WEEKLY TD Last administered on 07/08/19 14:15; Start 07/08/19 at 13:30 Albuterol/ Ipratropium (Duoneb) 3 ml 1X ONCE NEB Last administered on 07/10/19 11:31; Start 07/10/19 at 10:15; Stop 07/10/19 at 10:16; Status DC Albuterol/ Ipratropium (Duoneb) 3 ml RTQID NEB Last administered on 07/14/19 15:51; Start 07/10/19 at 12:00 Info (Tpn Per Pharmacy) 1 each PRN DAILY PRN MC SEE COMMENTS Last administered on 07/14/19 11:21; Start 07/10/19 at 13:45 Sodium Chloride 90 meq/Potassium Chloride 50 meq/ Potassium Phosphate 13.6 mmol/Magnesium Sulfate 10 meq/ Calcium Gluconate 10 meq/ Multivitamins 10 ml/Chromium/ Copper/Manganese/ Seleni/Zn 1 ml/ Total Parenteral Nutrition/Amino Acids/Dextrose/ Fat Emulsion Intravenous 1,512 ml @ 63 mls/hr TPN CONT IV Last administered on 07/10/19at 22:40; Start 07/10/19 at 22:00; Stop 07/11/19 at 21:59; Status DC Sodium Chloride 90 meq/Potassium Chloride 50 meq/ Potassium Phosphate 13.6 mmol/ Magnesium Sulfate 10 meq/ Calcium Gluconate 10 meq/ Multivitamins 10 ml/Chromium/ Copper/Manganese/ Seleni/Zn 1 ml/ Total Parenteral Nutrition/Amino Acids/Dextrose/ Fat Emulsion Intravenous 1,512 ml @ 63 mls/hr TPN CONT IV Last administered on 07/11/19at 22:00; Start 07/11/19 at 22:00; Stop 07/12/19 at 21:59; Status DC Benzocaine (Hurricaine One) 1 spray PRN Q4HRS PRN MM NG irritation; Start 07/11/19 at 16:15 Insulin Human Lispro (HumaLOG) 0-7 UNITS TIDWMEALS SQ Last administered on 07/14/19at 16:57; Start 07/12/19 at 08:00 Dextrose (Dextrose 50%-Water Syringe) 12.5 gm PRN Q15MIN PRN IV SEE COMMENTS; Start 07/11/19 at 19:15 Cefoxitin Sodium (Mefoxin) 2 gm 1X PREOP ONCE IVP ; Start 07/15/19 at 08:30; Stop 07/15/19 at 08:31 Sodium Chloride 90 meq/Potassium Chloride 50 meq/ Potassium Phosphate 13.6 mmol/Magnesium Sulfate 10 meq/ Calcium Gluconate 10 meq/ Multivitamins 10 ml/Chromium/ Copper/Manganese/ Seleni/Zn 1 ml/ Total Parenteral Nutrition/Amino Acids/Dextrose/ Fat Emulsion Intravenous 1,512 ml @ 63 mls/hr TPN CONT IV Last administered on 07/12/19at 22:34; Start 07/12/19 at 22:00; Stop 07/13/19 at 21:59; Status DC Ondansetron HCl (Zofran) 4 mg PRN Q6HRS PRN IV NAUSEA/VOMITING; Start 07/15/19 at 07:00; Stop 07/15/19 at 19:00 Fentanyl Citrate (Fentanyl 2ml Vial) 25 mcg PRN Q5MIN PRN IV MILD PAIN 1-3; Start 07/15/19 at 07:00; Stop 07/15/19 at 19:00 Fentanyl Citrate (Fentanyl 2ml Vial) 50 mcg PRN Q5MIN PRN IV MODERATE TO SEVERE PAIN; Start 07/15/19 at 07:00; Stop 07/15/19 at 19:00 Morphine Sulfate (Morphine Sulfate) 1 mg PRN Q10MIN PRN IV SEVERE PAIN 7-10; Start 07/15/19 at 07:00; Stop 07/15/19 at 19:00 Ringer's Solution 1,000 ml @ 30 mls/hr Q24H IV ; Start 07/15/19 at 07:00; Stop 07/15/19 at 18:59 Lidocaine HCl (Xylocaine-Mpf 1% 2ml Vial) 2 ml PRN 1X PRN ID PRIOR TO IV START; Start 07/15/19 at 07:00; Stop 07/15/19 at 19:00 Hydromorphone HCl (Dilaudid) 0.5 mg PRN Q10MIN PRN IV SEV PAIN, Second choice; Start 07/15/19 at 07:00; Stop 07/15/19 at 19:00 Prochlorperazine Edisylate (Compazine) 5 mg PACU PRN PRN IV NAUSEA, MRX1; St art 07/15/19 at 07:00; Stop 07/16/19 at 06:59 Sodium Chloride 90 meq/Potassium Chloride 50 meq/ Potassium Phosphate 13.6 mmol/Magnesium Sulfate 10 meq/ Calcium Gluconate 10 meq/ Multivitamins 10 ml/Chromium/ Copper/Manganese/ Seleni/Zn 1 ml/ Total Parenteral Nutrition/Amino Acids/Dextrose/ Fat Emulsion Intravenous 1,512 ml @ 63 mls/hr TPN CONT IV Last administered on 07/13/19at 21:56; Start 07/13/19 at 22:00; Stop 07/14/19 at 21:59 Metoprolol Tartrate (Lopressor Vial) 10 mg PRN Q6HRS PRN IVP SBP > 160 Last adm inistered on 07/14/19at 15:03; Start 07/13/19 at 12:45 Sodium Chloride 90 meq/Potassium Chloride 50 meq/ Potassium Phosphate 13.6 m mol/Magnesium Sulfate 10 meq/ Calcium Gluconate 10 meq/ Multivitamins 10 ml/Chromium/ Copper/Manganese/ Seleni/Zn 1 ml/ Total Parenteral Nutrition/Amino Acids/Dextrose/ Fat Emulsion Intravenous 1,512 ml @ 63 mls/hr TPN CONT IV ; Start 07/14/19 at 22:00; Stop 07/15/19 at 21:59 Active Scripts Active Reported Omeprazole 40 Mg Capsule.dr 50 Mg PO DAILY Losartan Potassium 50 Mg Tablet 50 Mg PO BID Amlodipine Besylate 5 Mg Tablet 5 Mg PO DAILY Aspirin 325 Mg Tablet 325 Tab PO DAILY Hydrochlorothiazide Tablet (Hydrochlorothiazide) 50 Mg Tablet 25 Mg PO DAILY Levothyroxine Sodium 50 Mcg Tablet 50 Mcg PO DAILYAC Vitals/I & O Vital Sign - Last 24 Hours 07/13/19 07/13/19 07/13/19 07/13/19 20:08 20:33 21:57 23:02 Temp 97.5 97.5 Pulse 68 77 Resp 18 B/P (MAP) 179/46 159/55 (89) Pulse Ox 97 97 O2 Delivery Room Air Room Air Room Air 07/14/19 07/14/19 07/14/19 07/14/19 03:00 03:56 07:00 07:31 Temp 98.1 97.8 98.1 97.8 Pulse 74 77 57 Resp 18 17 B/P (MAP) 189/57 (101) 189/57 176/61 (99) Pulse Ox 96 97 99 O2 Delivery Room Air Room Air Room Air 07/14/19 07/14/19 07/14/19 07/14/19 07:45 08:32 11:00 11:45 Temp 97.7 97.7 Pulse 57 68 Resp 17 B/P (MAP) 176/61 162/64 (96) Pulse Ox 99 99 O2 Delivery Room Air Room Air Room Air 07/14/19 07/14/19 07/14/19 15:00 15:03 15:52 Temp 97.9 97.9 Pulse 80 80 Resp 17 B/P (MAP) 179/46 (90) 179/46 Pulse Ox 97 99 O2 Delivery Room Air Room Air Intake and Output 07/13/19 07/13/19 07/14/19 15:00 23:00 07:00 Intake Total 1562 ml 0 ml Balance 1562 ml 0 ml Nutrition Consultation Dietary Evaluation: Recommendations by RD: Dietary education by RD, Increase Calorie Intake, PPN/TPN Comments: REC adjust TPN to followin g AA, 225 g dextrose, 30 g lipids Expected Outcomes/Goals: diet advancement - not met, new goal established New goal 07/10: TPN to meet >70% est needs while NPO Interpretation of weight loss: >7.5% in 3 months Malnutrition Findings: Food and Nutrition Intake (Sev: <50% est energy req 5days Weight Status: Appropriate AKUA CARO MD Jul 14, 2019 19:45
[2019-07-14] MEDS ORDERED: [UNRECOGNIZED DRUG - OTHER] IV SCH ×10 (22:00)
[2019-07-14] MEDS ORDERED: TOTAL PARENTERAL NUTRITION IV SCH ×10 (22:00)
[2019-07-14] MEDS ORDERED: DEXTROSE 70% IV SCH ×10 (22:00)
[2019-07-14] MEDS ORDERED: AMINO ACID IV SCH ×10 (22:00)
[2019-07-14 23:00] VITALS: BP 189/57
[2019-07-15] VITALS (13 sets, daily range): BP systolic 101–191; BP diastolic 43–74
[2019-07-15 05:30] LABS: PHOSPHORUS 3.6 mg/dL (2.6-4.7)
[2019-07-15 05:37] LABS: ALBUMIN/GLOBULIN RATIO 0.8 (1.0-1.7); CALCIUM 9.3 mg/dL (8.5-10.1); CREATININE 1.1 mg/dL (0.6-1.0); GFR 58.7; POTASSIUM 4.1 mmol/L (3.5-5.1); TOTAL BILIRUBIN 0.5 mg/dL (0.2-1.0); TOTAL PROTEIN 6.7 g/dL (6.4-8.2)
[2019-07-15] MEDS ORDERED: fentaNYL PF VIAL 100 MCG/2 ML VIAL IV PRN ×2 (07:00)
[2019-07-15] MEDS ORDERED: MORPHINE SULFATE 2 MG/ML VIAL. IV PRN (07:00)
[2019-07-15] MEDS ORDERED: ONDANSETRON PF 4 MG/2 ML VIAL. IV PRN (07:00)
[2019-07-15] MEDS ORDERED: LIDOCAINE 1% PF 2 ML VIAL. ID PRN (07:00)
[2019-07-15] MEDS ORDERED: HYDROmorphone 2 MG/ML VIAL IV PRN (07:00)
[2019-07-15] MEDS ORDERED: IV RINGERS,LACTATED 1000ML 1,000 ML IV SCH (07:00)
[2019-07-15] MEDS ORDERED: PROCHLORPERAZINE 10 MG/2 ML VIAL. IV PRN (07:00)
[2019-07-15] MEDS: IPRATRPIUM/ALBUTEROL 0.5/2.5MG 3 ML NEBU. NEB SCH ×4 (07:23→22:19)
[2019-07-15] MEDS: PANTOPRAZOLE IV PUSH 40 MG VIAL. IVP SCH (07:30)
[2019-07-15] MEDS: INSULIN LISPRO 300 UNITS/3 ML VIAL. SQ SCH ×3 (08:00→18:00)
[2019-07-15] MEDS ORDERED: cefOXitin SODIUM IV Push 2 GM VIAL. IVP ONE (08:30)
[2019-07-15] MEDS: amLODIPine BESYLATE 5 MG TABLET PO SCH (09:00)
--- NOTE | 2019-07-15 09:46 | PDOC ---
PROGRESS NOTES Subjective Subjective no new problems ,moved to 6 th floor due to HTN, better controlled today Objective Objective Vital Signs Date Time Temp Pulse Resp B/P (MAP) Pulse Ox O2 Delivery O2 Flow Rate FiO2 07/15/19 07:24 98 Room Air 07/15/19 07:00 97.8 73 18 101/74 (83) 97.8 Intake and Output 07/15/19 07:00 Intake Total 1562 ml Output Total 950 ml Balance 612 ml Intake Oral 50 ml IV Total 1512 ml Output Urine Total 300 ml Drainage Total 650 ml # Voids 2 Physical Exam Physical Exam NGT to suction Abdomen: Soft, No tenderness Heart: Regular rate Extremities: No clubbing General: Alert, Oriented X3, Cooperative HEENT: Atraumatic, Other (NG tube intact) Lungs: Clear to auscultation MUSCULOSKELETAL: No deformity, No swelling Neuro: Normal speech Psych/Mental Status: Mental status NL Skin: No rashes, No breakdown Diagnosis Problem List Problems Medical Problems: (1) Bowel obstruction Status: Acute Assessment Assessment Problems Medical Problems: (1) Bowel obstruction Status: Acute FINAL IMPRESSION: 1. Partial small-bowel obstruction. 2. 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 3. Hypertension. 4. Hyperlipidemia. 5. Hypothyroidism. 6. Anemia. 7. Acute renal insufficiency. 8. Lactic acidosis, improving with IV fluids. PLAN: Plans for surgery today for SBO Covid test neg. labs ok tryied sesame seed oil ,to see if it works ,did not work spoke with RN zac coley f. small bowel series -high grade stenosis On TPN,. kidney function improved. inc ambulation ,incentive spirometry, duoneb Accelerated hypertension-systolic blood pressure is elevated but improving. Last systolic blood pressure 173.. On PRN IV hydralazine minimal improvement. On Catapres patch. Continue IV Lopressor as needed. Small bowel obstruction- Minimal improvement, KUB today shows no improvement. She will need surgery tomorrow Plan Plan of Care Problems Medical Problems: (1) Bowel obstruction Status: Acute Comment Review of Relevant I have reviewed the following items raeann (where applicable) has been applied. Labs Laboratory Tests Test 07/14/19 10:59 07/14/19 16:26 07/14/19 20:45 07/15/19 04:15 Glucose (Fingerstick) 169 mg/dL (70-99) 209 mg/dL (70-99) 131 mg/dL (70-99) Sodium Level 145 mmol/L (136-145) Potassium Level 4.1 mmol/L (3.5-5.1) Chloride Level 111 mmol/L (98-107) Carbon Dioxide Level 21 mmol/L (21-32) Anion Gap 13 (6-14) Blood Urea Nitrogen 34 mg/dL (7-20) Creatinine 1.1 mg/dL (0.6-1.0) Estimated GFR (Cockcroft-Gault) 58.7 BUN/Creatinine Ratio 31 (6-20) Glucose Level 196 mg/dL (70-99) Calcium Level 9.3 mg/dL (8.5-10.1) Phosphorus Level 3.6 mg/dL (2.6-4.7) Magnesium Level 2.0 mg/dL (1.8-2.4) Total Bilirubin 0.5 mg/dL (0.2-1.0) Aspartate Amino Transf (AST/SGOT) 19 U/L (15-37) Alanine Aminotransferase (ALT/SGPT) 20 U/L (14-59) Alkaline Phosphatase 79 U/L (46-116) Total Protein 6.7 g/dL (6.4-8.2) Albumin 3.0 g/dL (3.4-5.0) Albumin/Globulin Ratio 0.8 (1.0-1.7) Test 07/15/19 07:10 Glucose (Fingerstick) 194 mg/dL (70-99) Medications Current Medications Cefoxitin Sodium (Mefoxin) 2 gm 1X PREOP ONCE IVP ; Start 07/15/19 at 08:30; Stop 07/15/19 at 08:31; Status DC Fentanyl Citrate (Fentanyl 2ml Vial) 25 mcg PRN Q5MIN PRN IV MILD PAIN 1-3; Start 07/15/19 at 07:00; Stop 07/15/19 at 19:00 Fentanyl Citrate (Fentanyl 2ml Vial) 50 mcg PRN Q5MIN PRN IV MODERATE TO SEVERE PAIN; Start 07/15/19 at 07:00; Stop 07/15/19 at 19:00 Hydromorphone HCl (Dilaudid) 0.5 mg PRN Q10MIN PRN IV SEV PAIN, Second choice; Start 07/15/19 at 07:00; Stop 07/15/19 at 19:00 Lidocaine HCl (Xylocaine-Mpf 1% 2ml Vial) 2 ml PRN 1X PRN ID PRIOR TO IV START; Start 07/15/19 at 07:00; Stop 07/15/19 at 19:00 Morphine Sulfate (Morphine Sulfate) 1 mg PRN Q10MIN PRN IV SEVERE PAIN 7-10; Start 07/15/19 at 07:00; Stop 07/15/19 at 19:00 Ondansetron HCl (Zofran) 4 mg PRN Q6HRS PRN IV NAUSEA/VOMITING; Start 07/15/19 at 07:00; Stop 07/15/19 at 19:00 Prochlorperazine Edisylate (Compazine) 5 mg PACU PRN PRN IV NAUSEA, MRX1; Start 07/15/19 at 07:00; Stop 07/16/19 at 06:59 Ringer's Solution 1,000 ml @ 30 mls/hr Q24H IV ; Start 07/15/19 at 07:00; Stop 07/15/19 at 18:59 Sodium Chloride 90 meq/Potassium Chloride 50 meq/ Potassium Phosphate 13.6 mmol/Magnesium Sulfate 10 meq/ Calcium Gluconate 10 meq/ Multivitamins 10 ml/Chr omium/ Copper/Manganese/ Seleni/Zn 1 ml/ Total Parenteral Nutrition/Amino Acids/Dextrose/ Fat Emulsion Intravenous 1,512 ml @ 63 mls/hr TPN CONT IV Last administered on 07/14/19at 20:53; Start 07/14/19 at 22:00; Stop 07/15/19 at 21:59 Vitals/I & O Vital Sign - Last 24 Hours 07/14/19 07/14/19 07/14/19 07/14/19 11:00 11:45 15:00 15:03 Temp 97.7 97.9 97.7 97.9 Pulse 68 80 80 Resp 17 17 B/P (MAP) 162/64 (96) 179/46 (90) 179/46 Pulse Ox 99 99 97 O2 Delivery Room Air Room Air Room Air 07/14/19 07/14/19 07/14/19 07/14/19 15:52 19:15 20:08 20:16 Temp 98.4 98.4 Pulse 65 Resp 20 B/P (MAP) 127/58 (81) Pulse Ox 99 97 97 O2 Delivery Room Air Room Air Room Air Room Air 07/14/19 07/14/19 07/15/19 07/15/19 23:00 23:01 00:01 03:00 Temp 98.3 97.9 98.3 97.9 Pulse 66 63 Resp 20 18 B/P (MAP) 189/57 (101) 189/56 157/45 (82) 157/43 (81) Pulse Ox 96 95 O2 Delivery Room Air Room Air 07/15/19 07/15/19 07:00 07:24 Temp 97.8 97.8 Pulse 73 Resp 18 B/P (MAP) 101/74 (83) Pulse Ox 97 98 O2 Delivery Room Air Room Air Intake and Output 07/14/19 07/14/19 07/15/19 15:00 23:00 07:00 Intake Total 1512 ml 50 ml Output Total 300 ml 650 ml Balance 1212 ml -600 ml Justicifation of Admission Dx: Justifications for Admission: Justification of Admission Dx: Yes Nutrition Consultation Dietary Evaluation: Recommendations by RD: Dietary education by RD, Increase Calorie Intake, PPN/TPN Comments: REC adjust TPN to followin g AA, 225 g dextrose, 30 g lipids Expected Outcomes/Goals: diet advancement - not met, new goal established New goal 07/10: TPN to meet >70% est needs while NPO Interpretation of weight loss: >7.5% in 3 months Malnutrition Findings: Food and Nutrition Intake (Sev: <50% est energy req 5days Weight Status: Appropriate MARÍA DILLON MD Jul 15, 2019 09:46
--- NOTE | 2019-07-15 10:39 | PDOC ---
SURGICAL PROGRESS NOTE Subjective no flatus feels full Vital Signs Vital Signs Date Time Temp Pulse Resp B/P (MAP) Pulse Ox O2 Delivery O2 Flow Rate FiO2 07/15/19 09:00 73 101/74 07/15/19 07:24 98 Room Air 07/15/19 07:00 97.8 18 97.8 I&O Intake and Output 07/15/19 07:00 Intake Total 1562 ml Output Total 950 ml Balance 612 ml Intake Oral 50 ml IV Total 1512 ml Output Urine Total 300 ml Drainage Total 650 ml # Voids 2 General: Oriented X3, Cooperative HEENT: Other (ng in place) Abdomen: Soft Labs Laboratory Tests Test 07/13/19 12:12 07/13/19 16:09 07/13/19 20:25 07/14/19 06:58 Glucose (Fingerstick) 216 mg/dL (70-99) 112 mg/dL (70-99) 173 mg/dL (70-99) 195 mg/dL (70-99) Test 07/14/19 10:59 07/14/19 16:26 07/14/19 20:45 07/15/19 04:15 Glucose (Fingerstick) 169 mg/dL (70-99) 209 mg/dL (70-99) 131 mg/dL (70-99) Sodium Level 145 mmol/L (136-145) Potassium Level 4.1 mmol/L (3.5-5.1) Chloride Level 111 mmol/L (98-107) Carbon Dioxide Level 21 mmol/L (21-32) Anion Gap 13 (6-14) Blood Urea Nitrogen 34 mg/dL (7-20) Creatinine 1.1 mg/dL (0.6-1.0) Estimated GFR (Cockcroft-Gault) 58.7 BUN/Creatinine Ratio 31 (6-20) Glucose Level 196 mg/dL (70-99) Calcium Level 9.3 mg/dL (8.5-10.1) Phosphorus Level 3.6 mg/dL (2.6-4.7) Magnesium Level 2.0 mg/dL (1.8-2.4) Total Bilirubin 0.5 mg/dL (0.2-1.0) Aspartate Amino Transf (AST/SGOT) 19 U/L (15-37) Alanine Aminotransferase (ALT/SGPT) 20 U/L (14-59) Alkaline Phosphatase 79 U/L (46-116) Total Protein 6.7 g/dL (6.4-8.2) Albumin 3.0 g/dL (3.4-5.0) Albumin/Globulin Ratio 0.8 (1.0-1.7) Test 07/15/19 07:10 Glucose (Fingerstick) 194 mg/dL (70-99) Laboratory Tests Test 07/14/19 10:59 07/14/19 16:26 07/14/19 20:45 07/15/19 04:15 Glucose (Fingerstick) 169 mg/dL (70-99) 209 mg/dL (70-99) 131 mg/dL (70-99) Sodium Level 145 mmol/L (136-145) Potassium Level 4.1 mmol/L (3.5-5.1) Chloride Level 111 mmol/L (98-107) Carbon Dioxide Level 21 mmol/L (21-32) Anion Gap 13 (6-14) Blood Urea Nitrogen 34 mg/dL (7-20) Creatinine 1.1 mg/dL (0.6-1.0) Estimated GFR (Cockcroft-Gault) 58.7 BUN/Creatinine Ratio 31 (-20) Glucose Level 196 mg/dL (70-99) Calcium Level 9.3 mg/dL (8.5-10.1) Phosphorus Level 3.6 mg/dL (2.6-4.7) Magnesium Level 2.0 mg/dL (1.8-2.4) Total Bilirubin 0.5 mg/dL (0.2-1.0) Aspartate Amino Transf (AST/SGOT) 19 U/L (15-37) Alanine Aminotransferase (ALT/SGPT) 20 U/L (14-59) Alkaline Phosphatase 79 U/L (46-116) Total Protein 6.7 g/dL (6.4-8.2) Albumin 3.0 g/dL (3.4-5.0) Albumin/Globulin Ratio 0.8 (1.0-1.7) Test 07/15/19 07:10 Glucose (Fingerstick) 194 mg/dL (70-99) Problem List Problems Medical Problems: (1) Bowel obstruction Status: Acute Assessment/Plan plans for OR with Dr Hall today Justicifation of Admission Dx: Justifications for Admission: Justification of Admission Dx: Yes JOSELINE PRIEST REPORT MANAGER Jul 15, 2019 10:39
--- NOTE | 2019-07-15 10:49 | PDOC ---
Subjective: Subjective: Feels like she ate a big meal. No flatus or stool. Disappointed that she has to have surgery. Objective: Vital Signs: Vital Signs Date Time Temp Pulse Resp B/P (MAP) Pulse Ox O2 Delivery O2 Flow Rate FiO2 07/15/19 09:00 73 101/74 07/15/19 07:24 98 Room Air 07/15/19 07:00 97.8 18 97.8 Labs: Laboratory Tests Test 07/14/19 10:59 07/14/19 16:26 07/14/19 20:45 07/15/19 04:15 Glucose (Fingerstick) 169 mg/dL 209 mg/dL 131 mg/dL Sodium Level 145 mmol/L Potassium Level 4.1 mmol/L Chloride Level 111 mmol/L Carbon Dioxide Level 21 mmol/L Anion Gap 13 Blood Urea Nitrogen 34 mg/dL Creatinine 1.1 mg/dL Estimated GFR (Cockcroft-Gault) 58.7 BUN/Creatinine Ratio 31 Glucose Level 196 mg/dL Calcium Level 9.3 mg/dL Phosphorus Level 3.6 mg/dL Magnesium Level 2.0 mg/dL Total Bilirubin 0.5 mg/dL Aspartate Amino Transf (AST/SGOT) 19 U/L Alanine Aminotransferase (ALT/SGPT) 20 U/L Alkaline Phosphatase 79 U/L Total Protein 6.7 g/dL Albumin 3.0 g/dL Albumin/Globulin Ratio 0.8 Test 07/15/19 07:10 Glucose (Fingerstick) 194 mg/dL Imaging: KUB 07/13 IMPRESSION: 1. Nasogastric tube is identified with the side port projecting over the expected region of the gastric lumen. Post surgical changes are identifiedin the left upper quadrant of the abdomen. Cholecystectomy clips are suspected. 2. Borderline prominent small bowel loops appears similar. Small bowel loops appear partly opacified with oral contrast measuring up to 2.7 cm. Oral contrast is noted within the right colon, similar to the prior examination without significant interval transit. 3. No new suspicious osseous abnormality. PE: GEN: NAD LUNGS: clear anteriorly HEART: RRR ABD: soft, not particularly tender, NGT NEURO/PSYCH: A & O 3 A/P: SBO RAYRAY -- OR today? Will follow. Justicifation of Admission Dx: Justifications for Admission: Justification of Admission Dx: Yes LULI MONZON Jul 15, 2019 10:49
[2019-07-15] MEDS ORDERED: PROPOFOL 10 MG/ML (20ML) VIAL. IV ONE (10:50)
[2019-07-15] MEDS ORDERED: ROCURONIUM 50 MG/5 ML VIAL. ONE (10:50)
[2019-07-15] MEDS ORDERED: LIDOCAINE 2% PF 5 ML VIAL. ONE (10:50)
[2019-07-15] MEDS ORDERED: fentaNYL PF VIAL 100 MCG/2 ML VIAL ONE ×2 (10:51→18:09)
[2019-07-15] MEDS: TPN PER PHARMACY MC PRN (11:14)
--- NOTE | 2019-07-15 11:15 | NUR ---
Pharmacy TPN Dosing Note S: JAQUELIN DAVIS is a 74 year old F Currently receiving Central Continuous TPN started 07/10/19 B:Pertinent PMH: SBO, NPO Height: 5 feet, 1 inches Weight: 65.5 kg Current diet: NPO LABS: Sodium: 145 Potassium: 4.1 Chloride: 111 Calcium: 9.3 Corrected Calcium: 10.10 Magnesium: 2 CO2: 21 SCr: 1.1 Glucose: 131, 196, 194 Albumin: 3.0 AST: 19 ALT: 20 TPN FORMULA: TPN TYPE: Central Continuous AMINO ACIDS: 65 gm DEXTROSE: 225 gm LIPIDS: 30 gm SODIUM ACETATE: 70 mEq POTASSIUM CHLORIDE: 50 mEq POTASSIUM PHOSPHATE: 13.6 mmol MAGNESIUM: 10 mEq CALCIUM: 10 mEq MULTIPLE VITAMIN: 10 ml TRACE ELEMENTS: 1 ml TPN PLAN: -Change NaCl to NaAC, lower to 70 mEq/day. -Other electrolytes WNL and stable. -BMP tomorrow. R: Continue TPN @ current rate and with above formula. Will monitor electrolytes, glucose, and tolerance to TPN. [facility], 07/15/19 [id number]
[2019-07-15] MEDS ORDERED: INSULIN LISPRO 100 UNIT/ML 3ML VIAL for OP,RR ONLY. SQ PRN (12:00)
[2019-07-15] MEDS ORDERED: BUPIVACAINE-EPI 0.5%-1:200000 MPF 30 ML VIAL. ONE (12:38)
--- NOTE | 2019-07-15 12:44 | NUR ---
SW following. Discussed with RN, pt having surgery today - possible bowel resection. SW will continue to follow.
--- NOTE | 2019-07-15 15:29 | PDOC ---
SURGICAL PROGRESS NOTE Subjective Pre-Op Note 74 yo F with SBO, favor secondary to adhesions. Pt has not responded to conservative measures. TO OR for laparoscopic versus open exploration. R/R/B/A d/w pt and pt's supportive daughter. Risks, including, but not limited to: bleeding, infection, damage to surrounding structures, risk of anesthesia, risk of open, risk of need for bowel resection. They appear to understand, their questions are answered and they elect to proceed. Vital Signs Vital Signs Date Time Temp Pulse Resp B/P (MAP) Pulse Ox O2 Delivery O2 Flow Rate FiO2 07/15/19 12:20 97.4 80 15 119/57 97 Room Air 97.4 I&O Intake and Output 07/15/19 06:59 Intake Total 1562 ml Output Total 950 ml Balance 612 ml Intake Oral 50 ml IV Total 1512 ml Output Urine Total 300 ml Drainage Total 650 ml # Voids 2 Labs Laboratory Tests Test 07/13/19 16:09 07/13/19 20:25 07/14/19 06:58 07/14/19 10:59 Glucose (Fingerstick) 112 mg/dL (70-99) 173 mg/dL (70-99) 195 mg/dL (70-99) 169 mg/dL (70-99) Test 07/14/19 16:26 07/14/19 20:45 07/15/19 04:15 07/15/19 07:10 Glucose (Fingerstick) 209 mg/dL (70-99) 131 mg/dL (70-99) 194 mg/dL (70-99) Sodium Level 145 mmol/L (136-145) Potassium Level 4.1 mmol/L (3.5-5.1) Chloride Level 111 mmol/L (98-107) Carbon Dioxide Level 21 mmol/L (21-32) Anion Gap 13 (6-14) Blood Urea Nitrogen 34 mg/dL (7-20) Creatinine 1.1 mg/dL (0.6-1.0) Estimated GFR (Cockcroft-Gault) 58.7 BUN/Creatinine Ratio 31 (6-20) Glucose Level 196 mg/dL (70-99) Calcium Level 9.3 mg/dL (8.5-10.1) Phosphorus Level 3.6 mg/dL (2.6-4.7) Magnesium Level 2.0 mg/dL (1.8-2.4) Total Bilirubin 0.5 mg/dL (0.2-1.0) Aspartate Amino Transf (AST/SGOT) 19 U/L (15-37) Alanine Aminotransferase (ALT/SGPT) 20 U/L (14-59) Alkaline Phosphatase 79 U/L (46-116) Total Protein 6.7 g/dL (6.4-8.2) Albumin 3.0 g/dL (3.4-5.0) Albumin/Globulin Ratio 0.8 (1.0-1.7) Test 07/15/19 11:29 07/15/19 12:12 Glucose (Fingerstick) 222 mg/dL (70-99) 199 mg/dL (70-99) Laboratory Tests Test 07/14/19 16:26 07/14/19 20:45 07/15/19 04:15 07/15/19 07:10 Glucose (Fingerstick) 209 mg/dL (70-99) 131 mg/dL (70-99) 194 mg/dL (70-99) Sodium Level 145 mmol/L (136-145) Potassium Level 4.1 mmol/L (3.5-5.1) Chloride Level 111 mmol/L (98-107) Carbon Dioxide Level 21 mmol/L (21-32) Anion Gap 13 (6-14) Blood Urea Nitrogen 34 mg/dL (7-20) Creatinine 1.1 mg/dL (0.6-1.0) Estimated GFR (Cockcroft-Gault) 58.7 BUN/Creatinine Ratio 31 (6-20) Glucose Level 196 mg/dL (70-99) Calcium Level 9.3 mg/dL (8.5-10.1) Phosphorus Level 3.6 mg/dL (2.6-4.7) Magnesium Level 2.0 mg/dL (1.8-2.4) Total Bilirubin 0.5 mg/dL (0.2-1.0) Aspartate Amino Transf (AST/SGOT) 19 U/L (15-37) Alanine Aminotransferase (ALT/SGPT) 20 U/L (14-59) Alkaline Phosphatase 79 U/L (46-116) Total Protein 6.7 g/dL (6.4-8.2) Albumin 3.0 g/dL (3.4-5.0) Albumin/Globulin Ratio 0.8 (1.0-1.7) Test 07/15/19 11:29 07/15/19 12:12 Glucose (Fingerstick) 222 mg/dL (70-99) 199 mg/dL (70-99) Problem List Problems Medical Problems: (1) Bowel obstruction Status: Acute Justicifation of Admission Dx: Justifications for Admission: Justification of Admission Dx: Yes SILVIO YUAN MD Jul 15, 2019 15:29
[2019-07-15] MEDS ORDERED: SEVOFLURANE > 120 MINUTES. IH ONE (16:57)
[2019-07-15] MEDS ORDERED: ALBUMIN HUMAN 5% 500 ML IV ONE (16:57)
[2019-07-15] MEDS ORDERED: NEOSTIGMINE METHYLSULFATE 5 MG/5 ML SYRINGE. ONE (16:58)
[2019-07-15] MEDS ORDERED: PHENYLEPHRINE in 0.9% NACL PF 1 MG/10 ML SYRINGE. IV ONE (16:58)
[2019-07-15] MEDS ORDERED: ePHEDrine PF IN SALINE 50 MG/10 ML SYRINGE. IV ONE (16:58)
[2019-07-15] MEDS ORDERED: GLYCOPYRROLATE 1 MG/5 ML VIAL. ONE (16:58)
[2019-07-15] MEDS ORDERED: NALOXONE 0.4 MG/ML VIAL. IV PRN (17:45)
[2019-07-15] MEDS ORDERED: 0.9 % SODIUM CHLORIDE 10 ML DISP.SYRIN. IV PRN (17:45)
[2019-07-15] MEDS ORDERED: MORPHINE SULFATE 30 ML IV PRN (17:45)
[2019-07-15] MEDS ORDERED: ONDANSETRON PF 4 MG/2 ML VIAL. IVP PRN (17:45)
--- NOTE | 2019-07-15 18:01 | PDOC4 ---
OPERATIVE NOTE Date: Date: Jul 15, 2019 Pre-Op Diagnosis: Small bowel obstruction Post-Op Diagnosis: same Procedure Performed: laparoscopic converted to open small bowel resection x 2, lysis of adhesions Surgeon: Fawad Yuan Anesthesia Type: GETA plus local Blood Loss: 100 Specimans Obtained: small bowel segments (proximal and distal) Findings: extensive adhesions; two main areas of obstruction: proximal was less significant and noted in LUQ and appeared to be healed jejunostomy tube site; distal was more significant area with tight, somewhat compromised segment, significant adhered and involved with the anterior abdominal wall scar, stomach, colon, liver appeared otherwise normal. Complications: none Operative Note: After obtaining informed consent, patient was taken to OR, induced under GETA and prepped in the usual fashion. 5 mm ports placed LLQ, RLQ and RUQ all under laparoscopic guidance. This demonstrated extensive adhesions, especially noted to have bowel involving abdominal wall. Given this finding, open procedure indicated. Midline incision was made with cautery. Extensive lysis of adhesions was performed. Ultimately, patient was explored and noted as above. The proximal small bowel was taken off the abdominal wall. Given it's somewhat strictured nature, resection was performed. MARTELL used to divide bowel proximal and distal to area of concern. Mesentery ligated with 3 0 vicryl stick ties. Bowel sent to pathology. Side to side stapled anastomosis created with MARTELL 75. End sealed with TA 60. Mesentery repaired with 3 0 chromic. Anastomosis noted to be patent, under no tension and completely viable without evidence of leakage. In the distal small bowel was more significant stricture and possible bowel compromise. This was resected and repaired with the same manner as above. Copious irrigation. No evidence of bleeding or other pathology. Fascia repaired with 0 looped PDS. Skin repaired with 3 0 vicryl and 4 0 monocryl with vernon placed in wound and secured with 3 0 nylon. Dressing placed. Patient tolerated procedure well and sent to PACU in stable condition. Anesthesia did note patient was dry and received albumin with improvement. All counts correct. Wound class is 3. SILVIO YUAN MD Jul 15, 2019 18:01
[2019-07-15] MEDS ORDERED: ONDANSETRON PF 4 MG/2 ML VIAL. ONE (18:08)
--- NOTE | 2019-07-15 18:12 | RAD ---
Exam: Abdomen one view INDICATION: Postop exploratory laparotomy TECHNIQUE: Supine view the abdomen Comparisons: 07/14/2019 FINDINGS: Interval surgical suture material seen in the left upper quadrant. There is a small amount of air likely within the anterior abdominal wall in the left lower quadrant. Enteric tube with tip in the left upper quadrant likely within the stomach. Abdominal drain noted projecting over the right para midline abdomen. Air and stool noted throughout the colon to level of the rectum in a nonobstructive bowel gas pattern. No suspicious masses or calcifications. Redemonstration of numerous surgical clips in the left upper quadrant. IMPRESSION: Postsurgical changes as described above. Electronically signed by: Sofie Guevara MD (07/15/2019 6:09 PM) [id number]
[2019-07-15] MEDS ORDERED: KETOROLAC 30 MG/ML VIAL. IVP ONE (18:30)
[2019-07-15] MEDS: METOPROLOL TARTRATE 5 MG/5 ML VIAL. IVP PRN (20:29)
[2019-07-15] MEDS: cloNIDine TTS-1 1 PATCH PATCH.TDWK TD SCH (20:33)
[2019-07-15] MEDS ORDERED: AMINO ACID IV SCH ×10 (22:00)
[2019-07-15] MEDS ORDERED: DEXTROSE 70% IV SCH ×10 (22:00)
[2019-07-15] MEDS ORDERED: [UNRECOGNIZED DRUG - OTHER] IV SCH ×10 (22:00)
[2019-07-15] MEDS: IV RINGERS,LACTATED 1000ML 1,000 ML IV SCH (22:00)
[2019-07-15] MEDS ORDERED: TOTAL PARENTERAL NUTRITION IV SCH ×10 (22:00)
[2019-07-15] MEDS: IV NORMAL SALINE 1000ML BAG 1,000 ML IV SCH (22:00)
[2019-07-16] MEDS: INSULIN LISPRO 300 UNITS/3 ML VIAL. SQ SCH ×4 (00:46→17:26)
[2019-07-16 02:51] VITALS: BP 171/49
[2019-07-16] MEDS: IV RINGERS,LACTATED 1000ML 1,000 ML IV SCH ×3 (05:49→22:14)
[2019-07-16 06:03] LABS: CALCIUM 8.4 mg/dL (8.5-10.1); CREATININE 1.1 mg/dL (0.6-1.0); GFR 58.7; POTASSIUM 4.5 mmol/L (3.5-5.1)
[2019-07-16 07:00] VITALS: BP 190/58
[2019-07-16 07:02] LABS: BASO % 0 % (0-3); EOS % 0 % (0-3); HEMATOCRIT 26.1 % (36.0-47.0); HEMOGLOBIN 8.3 g/dL (12.0-15.5); LYMPH # 0.7 x10^3/uL (1.0-4.8); LYMPH % 4 % (24-48); MEAN CORPUSCULAR HEMOGLOBIN 27 pg (25-35); MEAN CORPUSCULAR HGB CONC 32 g/dL (31-37); MEAN CORPUSCULAR VOLUME 84 fL (79-100); MONO # 0.8 x10^3/uL (0.0-1.1); MONO % 5 % (0-9); NEUT # 15.6 x10^3/uL (1.8-7.7); NEUT % 91 % (31-73); PLATELET COUNT 152 x10^3/uL (140-400); RED BLOOD COUNT 3.11 x10^6/uL (3.50-5.40); RED CELL DISTRIBUTION WIDTH 17.4 % (11.5-14.5)
[2019-07-16] MEDS: IPRATRPIUM/ALBUTEROL 0.5/2.5MG 3 ML NEBU. NEB SCH ×4 (07:40→19:45)
[2019-07-16] MEDS: hydrALAZINE 20 MG/ML VIAL. IVP PRN (08:33)
[2019-07-16] MEDS: PANTOPRAZOLE IV PUSH 40 MG VIAL. IVP SCH (08:37)
[2019-07-16] MEDS: ENOXAPARIN 40 MG/0.4 ML SYRINGE. SQ SCH (08:37)
[2019-07-16] MEDS: amLODIPine BESYLATE 5 MG TABLET PO SCH (08:45)
[2019-07-16 08:51] LABS: % BANDS 8 % (0-9); % LYMPHS 13 % (24-48); % MONOS 1 % (0-10); % SEGS 78 % (35-66)
[2019-07-16 08:52] LABS: ACANTHOCYTES OCC; ANISOCYTOSIS SLIGHT; OVALOCYTES OCC; PLT ESTIMATE ADEQUATE (ADEQUATE); TEAR DROP CELLS OCC
--- NOTE | 2019-07-16 09:53 | PDOC ---
PROGRESS NOTES Subjective Subjective feels weak Objective Objective Vital Signs Date Time Temp Pulse Resp B/P (MAP) Pulse Ox O2 Delivery O2 Flow Rate FiO2 07/16/19 08:33 73 190/58 07/16/19 07:41 97 Room Air 07/16/19 07:00 98.8 18 1.0 98.8 Intake and Output 07/16/19 07:00 Intake Total 2000 ml Output Total 1050 ml Balance 950 ml Intake Oral 0 ml IV Total 2000 ml Output Urine Total 950 ml Estimated Blood Loss 100 ml # Voids 2 Physical Exam Physical Exam NGT to suction Abdomen: Other (dressings) Heart: Regular rate Extremities: No clubbing General: Oriented X3, Cooperative HEENT: Other (ng in place) Lungs: Clear to auscultation MUSCULOSKELETAL: No deformity, No swelling Neuro: Normal speech Psych/Mental Status: Mental status NL Skin: No rashes, No breakdown Diagnosis Problem List Problems Medical Problems: (1) Bowel obstruction Status: Acute Assessment Assessment Problems Medical Problems: (1) Bowel obstruction Status: Acute FINAL IMPRESSION: 1. Persistent small-bowel obstruction 2. 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 3. Hypertension. 4. Hyperlipidemia. 5. Hypothyroidism. 6. Anemia. 7. Acute renal insufficiency. 8. Lactic acidosis, improving with IV fluids. PLAN: POD#1 small bowel partial resection due to adhesions labs ok BP still high Covid test neg. labs ok spoke with DANDY wiggins On TPN,. kidney function improved. inc ambulation ,incentive spirometry, duoneb. Plan Plan of Care Problems Medical Problems: (1) Bowel obstruction Status: Acute Comment Review of Relevant I have reviewed the following items raeann (where applicable) has been applied. Labs Laboratory Tests Test 07/15/19 11:29 07/15/19 12:12 07/15/19 18:17 07/15/19 19:28 Glucose (Fingerstick) 222 mg/dL (70-99) 199 mg/dL (70-99) 137 mg/dL (70-99) 147 mg/dL (70-99) Test 07/16/19 00:03 07/16/19 05:40 Glucose (Fingerstick) 277 mg/dL (70-99) White Blood Count 17.0 x10^3/uL (4.0-11.0) Red Blood Count 3.11 x10^6/uL (3.50-5.40) Hemoglobin 8.3 g/dL (12.0-15.5) Hematocrit 26.1 % (36.0-47.0) Mean Corpuscular Volume 84 fL (79-100) Mean Corpuscular Hemoglobin 27 pg (25-35) Mean Corpuscular Hemoglobin Concent 32 g/dL (31-37) Red Cell Distribution Width 17.4 % (11.5-14.5) Platelet Count 152 x10^3/uL (140-400) Neutrophils (%) (Auto) 91 % (31-73) Lymphocytes (%) (Auto) 4 % (24-48) Monocytes (%) (Auto) 5 % (0-9) Eosinophils (%) (Auto) 0 % (0-3) Basophils (%) (Auto) 0 % (0-3) Neutrophils # (Auto) 15.6 x10^3/uL (1.8-7.7) Lymphocytes # (Auto) 0.7 x10^3/uL (1.0-4.8) Monocytes # (Auto) 0.8 x10^3/uL (0.0-1.1) Eosinophils # (Auto) 0.0 x10^3/uL (0.0-0.7) Basophils # (Auto) 0.0 x10^3/uL (0.0-0.2) Segmented Neutrophils % 78 % (35-66) Band Neutrophils % 8 % (0-9) Lymphocytes % 13 % (24-48) Monocytes % 1 % (0-10) Platelet Estimate Adequate (ADEQUATE) Anisocytosis Slight Tear Drop Cells Occ Ovalocytes Occ Acanthocytes Occ Sodium Level 143 mmol/L (136-145) Potassium Level 4.5 mmol/L (3.5-5.1) Chloride Level 110 mmol/L (98-107) Carbon Dioxide Level 24 mmol/L (21-32) Anion Gap 9 (6-14) Blood Urea Nitrogen 32 mg/dL (7-20) Creatinine 1.1 mg/dL (0.6-1.0) Estimated GFR (Cockcroft-Gault) 58.7 Glucose Level 299 mg/dL (70-99) Calcium Level 8.4 mg/dL (8.5-10.1) Medications Current Medications Albumin Human 500 ml @ As Directed STK-MED ONCE IV ; Start 07/15/19 at 16:57; Stop 07/15/19 at 16:58; Status DC Bupivacaine HCl/ Epinephrine Bitart (Sensorcain-Epi 0.5%-1:[id number] Mpf) 30 ml STK-MED ONCE .ROUTE Last administered on 07/15/19at 15:57; Start 07/15/19 at 12:38; Stop 07/15/19 at 12:38; Status DC Enoxaparin Sodium (Lovenox 40mg Syringe) 40 mg Q24H SQ Last administered on 07/16/19at 08:37; Start 07/16/19 at 09:00 Ephedrine Sulfate (ePHEDrine PF IN SALINE SYRINGE) 50 mg STK-MED ONCE IV ; Start 07/15/19 at 16:58; Stop 07/15/19 at 16:58; Status DC Fentanyl Citrate (Fentanyl 2ml Vial) 100 mcg STK-MED ONCE .ROUTE ; Start 07/15/19 at 10:51; Stop 07/15/19 at 10:51; Status DC Fentanyl Citrate (Fentanyl 2ml Vial) 100 mcg STK-MED ONCE .ROUTE ; Start 07/15/19 at 18:09; Stop 07/15/19 at 18:09; Status DC Glycopyrrolate (Robinul) 1 mg STK-MED ONCE .ROUTE ; Start 07/15/19 at 16:58; Stop 07/15/19 at 16:58; Status DC Insulin Human Lispro (HumaLOG VIAL for OP,RR ONLY) 0-10 units PRN Q1HR PRN SQ PER PROTOCOL Last administered on 07/15/19at 12:16; Start 07/15/19 at 12:00; Stop 07/16/19 at 11:59 Insulin Human Lispro (HumaLOG) 0-7 UNITS Q6HRS SQ Last administered on 07/16/19at 05:52; Start 07/15/19 at 12:00 Ketorolac Tromethamine (Toradol 30mg Vial) 30 mg 1X ONCE IVP Last administered on 07/15/19at 18:30; Start 07/15/19 at 18:30; Stop 07/15/19 at 18:31; Status DC Lidocaine HCl (Lidocaine Pf 2% Vial) 5 ml STK-MED ONCE .ROUTE ; Start 07/15/19 at 10:50; Stop 07/15/19 at 10:51; Status DC Morphine Sulfate 30 ml @ 0 mls/hr CONT PRN PRN IV PER PROTOCOL Last admi nistered on 07/15/19at 18:30; Start 07/15/19 at 17:45 Naloxone HCl (Narcan) 0.4 mg PRN Q2MIN PRN IV SEE INSTRUCTIONS; Start 07/15/19 at 17:45 Neostigmine [place] (Neostigmine Methylsulfate) 5 mg STK-MED ONCE .ROUTE ; Start 07/15/19 at 16:58; Stop 07/15/19 at 16:58; Status DC Ondansetron HCl (Zofran) 4 mg PRN Q6HRS PRN IVP [place], 1ST CHOICE; Start 07/15/19 at 17:45 Ondansetron HCl (Zofran) 4 mg STK-MED ONCE .ROUTE ; Start 07/15/19 at 18:08; Stop 07/15/19 at 18:08; Status DC Phenylephrine HCl (PHENYLEPHRINE in 0.9% NACL PF) 1 mg STK-MED ONCE IV ; Start 07/15/19 at 16:58; Stop 07/15/19 at 16:58; Status DC Propofol (Diprivan) 200 mg STK-MED ONCE IV ; Start 07/15/19 at 10:50; Stop 07/15/19 at 10:51; Status DC Ringer's Solution 1,000 ml @ 100 mls/hr Q10H IV Last administered on 07/16/19at 05:49; Start 07/15/19 at 17:43 Rocuronium [place] (Zemuron) 50 mg STK-MED ONCE .ROUTE ; Start 07/15/19 at 10:50; Stop 07/15/19 at 10:51; Status DC Sevoflurane (Ultane) 90 ml STK-MED ONCE IH ; Start 07/15/19 at 16:57; Stop 07/15/19 at 16:58; Status DC Sodium Acetate 70 meq/Potassium Chloride 50 meq/ Potassium Phosphate 13.6 mmol/Magnesium Sulfate 10 meq/ Calcium Gluconate 10 meq/ Multivitamins 10 ml/Chromium/ Copper/Manganese/ Seleni/Zn 1 ml/ Total Parenteral Nutrition/Amino Acids/Dextrose/ Fat Emulsion Intravenous 1,512 ml @ 63 mls/hr TPN CONT IV Last administered on 07/15/19at 22:02; Start 07/15/19 at 22:00; Stop 07/16/19 at 21:59 Sodium Chloride 1,000 ml @ 25 mls/hr Q24H IV ; Start 07/15/19 at 17:43 Sodium Chloride (Normal Saline Flush) 3 ml QSHIFT PRN IV AFTER MEDS AND BLOOD DRAWS; Start 07/15/19 at 17:45 Vitals/I & O Vital Sign - Last 24 Hours 07/15/19 07/15/19 07/15/19 07/15/19 10:51 12:20 18:04 18:04 Temp 97.9 97.4 98.0 97.9 97.4 98.0 Pulse 74 80 94 Resp 18 15 18 B/P (MAP) 110/70 (83) 119/57 175/62 Pulse Ox 98 97 96 O2 Delivery Room Air Room Air Mask Simple Mask O2 Flow Rate 8 8 07/15/19 07/15/19 07/15/19 07/15/19 18:20 18:23 18:30 18:35 Temp 98.0 98.0 Pulse 96 93 Resp 20 18 18 18 B/P (MAP) 180/57 180/59 Pulse Ox 97 8 96 94 O2 Delivery Simple Mask Simple Mask Nasal Cannula Nasal Cannula O2 Flow Rate 8 3.0 3 07/15/19 07/15/19 07/15/19 07/15/19 18:39 19:19 19:35 19:48 Temp 97.5 97.5 Pulse 85 94 Resp 20 20 B/P (MAP) 183/56 (98) 191/66 (107) Pulse Ox 96 97 98 O2 Delivery Nasal Cannula Nasal Cannula Nasal Cannula Room Air O2 Flow Rate 4 4.0 4.0 07/15/19 07/15/19 07/15/19 07/15/19 19:50 20:05 20:15 20:20 Pulse 92 94 96 Resp 20 20 16 B/P (MAP) 181/65 (103) 175/50 (91) 169/48 (88) Pulse Ox 97 100 92 O2 Delivery Nasal Cannula Nasal Cannula Nasal Cannula Nasal Cannula O2 Flow Rate 4.0 4.0 4.0 4.0 07/15/19 07/15/19 07/15/19 07/15/19 20:29 20:50 21:20 22:20 Temp 98.2 98.2 Pulse 96 98 78 78 Resp 16 B/P (MAP) 169/48 160/47 (84) 164/52 (89) 160/55 (90) Pulse Ox 95 93 94 O2 Delivery Nasal Cannula Nasal Cannula Nasal Cannula O2 Flow Rate 4.0 4.0 4.0 07/15/19 07/16/19 07/16/19 07/16/19 23:20 02:51 07:00 07:41 Temp 98.5 98.8 98.5 98.8 Pulse 78 86 73 Resp 16 20 18 B/P (MAP) 166/54 (91) 171/49 (89) 190/58 (102) Pulse Ox 94 98 91 97 O2 Delivery Nasal Cannula Room Air Nasal Cannula Room Air O2 Flow Rate 4.0 1.0 07/16/19 08:33 Pulse 73 B/P (MAP) 190/58 Intake and Output 07/15/19 07/15/19 07/16/19 15:00 23:00 07:00 Intake Total 2000 ml 0 ml Output Total 200 ml 850 ml Balance 1800 ml -850 ml Justicifation of Admission Dx: Justifications for Admission: Justification of Admission Dx: Yes Nutrition Consultation Dietary Evaluation: Recommendations by RD: Dietary education by RD, Increase Calorie Intake, PPN/TPN Comments: REC adjust TPN to followin g AA, 225 g dextrose, 30 g lipids Expected Outcomes/Goals: diet advancement - not met, new goal established New goal 07/10: TPN to meet >70% est needs while NPO Interpretation of weight loss: >7.5% in 3 months Malnutrition Findings: Food and Nutrition Intake (Sev: <50% est energy req 5days Weight Status: Appropriate MARÍA DILLON MD Jul 16, 2019 09:53
--- NOTE | 2019-07-16 10:20 | NUR ---
SW following. Discussed with RN, pt had surgery yesterday - doing okay today. RN advised no bowel sounds yet, still NPO/ TPN. SW will continue to follow.
--- NOTE | 2019-07-16 10:59 | PDOC ---
Subjective: Subjective: Not feeling great, pain pump helps. Objective: Objective: Procedure Performed: laparoscopic converted to open small bowel resection x 2, lysis of adhesions Specimans Obtained: small bowel segments (proximal and distal) Findings: extensive adhesions; two main areas of obstruction: proximal was less significant and noted in LUQ and appeared to be healed jejunostomy tube site; distal was more significant area with tight, somewhat compromised segment, significant adhered and involved with the anterior abdominal wall scar, stomach, colon, liver appeared otherwise normal. Vital Signs: Vital Signs Date Time Temp Pulse Resp B/P (MAP) Pulse Ox O2 Delivery O2 Flow Rate FiO2 07/16/19 08:33 73 190/58 07/16/19 07:41 97 Room Air 07/16/19 07:00 98.8 18 1.0 98.8 Labs: Laboratory Tests Test 07/15/19 11:29 07/15/19 12:12 07/15/19 18:17 07/15/19 19:28 Glucose (Fingerstick) 222 mg/dL 199 mg/dL 137 mg/dL 147 mg/dL Test 07/16/19 00:03 07/16/19 05:40 Glucose (Fingerstick) 277 mg/dL White Blood Count 17.0 x10^3/uL Red Blood Count 3.11 x10^6/uL Hemoglobin 8.3 g/dL Hematocrit 26.1 % Mean Corpuscular Volume 84 fL Mean Corpuscular Hemoglobin 27 pg Mean Corpuscular Hemoglobin Concent 32 g/dL Red Cell Distribution Width 17.4 % Platelet Count 152 x10^3/uL Neutrophils (%) (Auto) 91 % Lymphocytes (%) (Auto) 4 % Monocytes (%) (Auto) 5 % Eosinophils (%) (Auto) 0 % Basophils (%) (Auto) 0 % Neutrophils # (Auto) 15.6 x10^3/uL Lymphocytes # (Auto) 0.7 x10^3/uL Monocytes # (Auto) 0.8 x10^3/uL Eosinophils # (Auto) 0.0 x10^3/uL Basophils # (Auto) 0.0 x10^3/uL Segmented Neutrophils % 78 % Band Neutrophils % 8 % Lymphocytes % 13 % Monocytes % 1 % Platelet Estimate Adequate Anisocytosis Slight Tear Drop Cells Occ Ovalocytes Occ Acanthocytes Occ Sodium Level 143 mmol/L Potassium Level 4.5 mmol/L Chloride Level 110 mmol/L Carbon Dioxide Level 24 mmol/L Anion Gap 9 Blood Urea Nitrogen 32 mg/dL Creatinine 1.1 mg/dL Estimated GFR (Cockcroft-Gault) 58.7 Glucose Level 299 mg/dL Calcium Level 8.4 mg/dL PE: GEN: uncomfortable but cooperative, nurse present LUNGS: CTAB HEART: RRR ABD: soft NEURO/PSYCH: A & O 3 A/P: S/p SBR x 2, MORIAH 07/15/19 - on TPN, IV PPI -- Continue support. Justicifation of Admission Dx: Justifications for Admission: Justification of Admission Dx: Yes LULI MONZON Jul 16, 2019 10:59
[2019-07-16 11:00] VITALS: BP 170/62
--- NOTE | 2019-07-16 11:13 | PDOC ---
SURGICAL PROGRESS NOTE Subjective Pt with c/o incisional pain and fatigue Vital Signs Vital Signs Date Time Temp Pulse Resp B/P (MAP) Pulse Ox O2 Delivery O2 Flow Rate FiO2 07/16/19 08:33 73 190/58 07/16/19 07:41 97 Room Air 07/16/19 07:00 98.8 18 1.0 98.8 I&O Intake and Output 07/16/19 07:00 Intake Total 2000 ml Output Total 1050 ml Balance 950 ml Intake Oral 0 ml IV Total 2000 ml Output Urine Total 950 ml Estimated Blood Loss 100 ml # Voids 2 PATIENT HAS A CABRERA: Yes (plan d/c in AM, good UOP) General: Alert, Oriented X3, Cooperative, mild distress Abdomen: Soft, No tenderness, Other (dressing c/d/i) Labs Laboratory Tests Test 07/14/19 16:26 07/14/19 20:45 07/15/19 04:15 07/15/19 07:10 Glucose (Fingerstick) 209 mg/dL (70-99) 131 mg/dL (70-99) 194 mg/dL (70-99) Sodium Level 145 mmol/L (136-145) Potassium Level 4.1 mmol/L (3.5-5.1) Chloride Level 111 mmol/L (98-107) Carbon Dioxide Level 21 mmol/L (21-32) Anion Gap 13 (6-14) Blood Urea Nitrogen 34 mg/dL (7-20) Creatinine 1.1 mg/dL (0.6-1.0) Estimated GFR (Cockcroft-Gault) 58.7 BUN/Creatinine Ratio 31 (6-20) Glucose Level 196 mg/dL (70-99) Calcium Level 9.3 mg/dL (8.5-10.1) Phosphorus Level 3.6 mg/dL (2.6-4.7) Magnesium Level 2.0 mg/dL (1.8-2.4) Total Bilirubin 0.5 mg/dL (0.2-1.0) Aspartate Amino Transf (AST/SGOT) 19 U/L (15-37) Alanine Aminotransferase (ALT/SGPT) 20 U/L (14-59) Alkaline Phosphatase 79 U/L (46-116) Total Protein 6.7 g/dL (6.4-8.2) Albumin 3.0 g/dL (3.4-5.0) Albumin/Globulin Ratio 0.8 (1.0-1.7) Test 07/15/19 11:29 07/15/19 12:12 07/15/19 18:17 07/15/19 19:28 Glucose (Fingerstick) 222 mg/dL (70-99) 199 mg/dL (70-99) 137 mg/dL (70-99) 147 mg/dL (70-99) Test 07/16/19 00:03 07/16/19 05:40 Glucose (Fingerstick) 277 mg/dL (70-99) White Blood Count 17.0 x10^3/uL (4.0-11.0) Red Blood Count 3.11 x10^6/uL (3.50-5.40) Hemoglobin 8.3 g/dL (12.0-15.5) Hematocrit 26.1 % (36.0-47.0) Mean Corpuscular Volume 84 fL (79-100) Mean Corpuscular Hemoglobin 27 pg (25-35) Mean Corpuscular Hemoglobin Concent 32 g/dL (31-37) Red Cell Distribution Width 17.4 % (11.5-14.5) Platelet Count 152 x10^3/uL (140-400) Neutrophils (%) (Auto) 91 % (31-73) Lymphocytes (%) (Auto) 4 % (24-48) Monocytes (%) (Auto) 5 % (0-9) Eosinophils (%) (Auto) 0 % (0-3) Basophils (%) (Auto) 0 % (0-3) Neutrophils # (Auto) 15.6 x10^3/uL (1.8-7.7) Lymphocytes # (Auto) 0.7 x10^3/uL (1.0-4.8) Monocytes # (Auto) 0.8 x10^3/uL (0.0-1.1) Eosinophils # (Auto) 0.0 x10^3/uL (0.0-0.7) Basophils # (Auto) 0.0 x10^3/uL (0.0-0.2) Segmented Neutrophils % 78 % (35-66) Band Neutrophils % 8 % (0-9) Lymphocytes % 13 % (24-48) Monocytes % 1 % (0-10) Platelet Estimate Adequate (ADEQUATE) Anisocytosis Slight Tear Drop Cells Occ Ovalocytes Occ Acanthocytes Occ Sodium Level 143 mmol/L (136-145) Potassium Level 4.5 mmol/L (3.5-5.1) Chloride Level 110 mmol/L (98-107) Carbon Dioxide Level 24 mmol/L (21-32) Anion Gap 9 (6-14) Blood Urea Nitrogen 32 mg/dL (7-20) Creatinine 1.1 mg/dL (0.6-1.0) Estimated GFR (Cockcroft-Gault) 58.7 Glucose Level 299 mg/dL (70-99) Calcium Level 8.4 mg/dL (8.5-10.1) Laboratory Tests Test 07/15/19 11:29 07/15/19 12:12 07/15/19 18:17 07/15/19 19:28 Glucose (Fingerstick) 222 mg/dL (70-99) 199 mg/dL (70-99) 137 mg/dL (70-99) 147 mg/dL (70-99) Test 07/16/19 00:03 07/16/19 05:40 Glucose (Fingerstick) 277 mg/dL (70-99) White Blood Count 17.0 x10^3/uL (4.0-11.0) Red Blood Count 3.11 x10^6/uL (3.50-5.40) Hemoglobin 8.3 g/dL (12.0-15.5) Hematocrit 26.1 % (36.0-47.0) Mean Corpuscular Volume 84 fL (79-100) Mean Corpuscular Hemoglobin 27 pg (25-35) Mean Corpuscular Hemoglobin Concent 32 g/dL (31-37) Red Cell Distribution Width 17.4 % (11.5-14.5) Platelet Count 152 x10^3/uL (140-400) Neutrophils (%) (Auto) 91 % (31-73) Lymphocytes (%) (Auto) 4 % (24-48) Monocytes (%) (Auto) 5 % (0-9) Eosinophils (%) (Auto) 0 % (0-3) Basophils (%) (Auto) 0 % (0-3) Neutrophils # (Auto) 15.6 x10^3/uL (1.8-7.7) Lymphocytes # (Auto) 0.7 x10^3/uL (1.0-4.8) Monocytes # (Auto) 0.8 x10^3/uL (0.0-1.1) Eosinophils # (Auto) 0.0 x10^3/uL (0.0-0.7) Basophils # (Auto) 0.0 x10^3/uL (0.0-0.2) Segmented Neutrophils % 78 % (35-66) Band Neutrophils % 8 % (0-9) Lymphocytes % 13 % (24-48) Monocytes % 1 % (0-10) Platelet Estimate Adequate (ADEQUATE) Anisocytosis Slight Tear Drop Cells Occ Ovalocytes Occ Acanthocytes Occ Sodium Level 143 mmol/L (136-145) Potassium Level 4.5 mmol/L (3.5-5.1) Chloride Level 110 mmol/L (98-107) Carbon Dioxide Level 24 mmol/L (21-32) Anion Gap 9 (6-14) Blood Urea Nitrogen 32 mg/dL (7-20) Creatinine 1.1 mg/dL (0.6-1.0) Estimated GFR (Cockcroft-Gault) 58.7 Glucose Level 299 mg/dL (70-99) Calcium Level 8.4 mg/dL (8.5-10.1) Problem List Problems Medical Problems: (1) Bowel obstruction Status: Acute Assessment/Plan s/p xlap, MORIAH, SBR cont pain control and supportive care. D/w Dr. Marcial Justicifation of Admission Dx: Justifications for Admission: Justification of Admission Dx: Yes SILVIO YUAN MD Jul 16, 2019 11:12
[2019-07-16] MEDS: cloNIDine TTS-2 1 PATCH PATCH TD SCH (11:32)
[2019-07-16] MEDS: TPN PER PHARMACY MC PRN (13:23)
--- NOTE | 2019-07-16 13:24 | NUR ---
Pharmacy TPN Dosing Note S: JAQUELIN DAVIS is a 74 year old F Currently receiving Central Continuous TPN started 07/10/19 B:Pertinent PMH: SBO, NPO Height: 5 feet, 1 inches Weight: 65.5 kg Current diet: NPO LABS: Sodium: 143 Potassium: 4.5 Chloride: 110 Calcium: 8.4 Corrected Calcium: 9.20 Magnesium: 2 CO2: 21 SCr: 1.1 Glucose: 137-299 Albumin: 3.0 AST: 19 ALT: 20 TPN FORMULA: TPN TYPE: Central Continuous AMINO ACIDS: 65 gm DEXTROSE: 225 gm LIPIDS: 30 gm SODIUM ACETATE: 70 mEq POTASSIUM CHLORIDE: 50 mEq POTASSIUM PHOSPHATE: 13.6 mmol MAGNESIUM: 10 mEq CALCIUM: 10 mEq MULTIPLE VITAMIN: 10 ml TRACE ELEMENTS: 1ml(s) TPN PLAN: Refill R: Continue TPN Will monitor electrolytes, glucose, and tolerance to TPN. Meseret Sarabia Nancy, 07/16/19 [id number]
[2019-07-16 15:00] VITALS: BP 162/64
[2019-07-16 19:00] VITALS: BP 192/58
[2019-07-16] MEDS: IV NORMAL SALINE 1000ML BAG 1,000 ML IV SCH (20:11)
[2019-07-16] MEDS ORDERED: AMINO ACID IV SCH ×10 (22:00)
[2019-07-16] MEDS ORDERED: TOTAL PARENTERAL NUTRITION IV SCH ×10 (22:00)
[2019-07-16] MEDS ORDERED: DEXTROSE 70% IV SCH ×10 (22:00)
[2019-07-16] MEDS ORDERED: [UNRECOGNIZED DRUG - OTHER] IV SCH ×10 (22:00)
[2019-07-16] MEDS: METOPROLOL TARTRATE 5 MG/5 ML VIAL. IVP PRN (22:12)
[2019-07-16 23:00] VITALS: BP 184/46
[2019-07-17] MEDS: INSULIN LISPRO 300 UNITS/3 ML VIAL. SQ SCH ×4 (00:13→18:06)
[2019-07-17 03:00] VITALS: BP 183/60
[2019-07-17] MEDS: METOPROLOL TARTRATE 5 MG/5 ML VIAL. IVP PRN (04:10)
[2019-07-17 04:40] LABS: BASO # 0.1 x10^3/uL (0.0-0.2); BASO % 1 % (0-3); EOS % 0 % (0-3); HEMATOCRIT 23.6 % (36.0-47.0); HEMOGLOBIN 7.6 g/dL (12.0-15.5); LYMPH # 0.9 x10^3/uL (1.0-4.8); LYMPH % 6 % (24-48); MEAN CORPUSCULAR HEMOGLOBIN 26 pg (25-35); MEAN CORPUSCULAR HGB CONC 32 g/dL (31-37); MEAN CORPUSCULAR VOLUME 83 fL (79-100); MONO % 7 % (0-9); NEUT # 12.7 x10^3/uL (1.8-7.7); NEUT % 87 % (31-73); PLATELET COUNT 124 x10^3/uL (140-400); RED BLOOD COUNT 2.86 x10^6/uL (3.50-5.40); RED CELL DISTRIBUTION WIDTH 17.2 % (11.5-14.5); WHITE BLOOD COUNT 14.7 x10^3/uL (4.0-11.0)
[2019-07-17 07:00] VITALS: BP 108/69
[2019-07-17] MEDS: IPRATRPIUM/ALBUTEROL 0.5/2.5MG 3 ML NEBU. NEB SCH ×4 (07:37→20:15)
[2019-07-17] MEDS: amLODIPine BESYLATE 5 MG TABLET PO SCH (07:53)
--- NOTE | 2019-07-17 09:35 | PDOC ---
PROGRESS NOTES Subjective Subjective low grade fever Objective Objective Vital Signs Date Time Temp Pulse Resp B/P (MAP) Pulse Ox O2 Delivery O2 Flow Rate FiO2 07/17/19 07:37 Room Air 07/17/19 07:00 99.6 76 16 108/69 (82) 92 99.6 07/16/19 19:00 Intake and Output 07/17/19 07:00 Intake Total 2057.5 ml Output Total 3000 ml Balance -942.5 ml Intake Oral 0 ml IV Total 2057.5 ml Output Urine Total 1100 ml Gastric Drainage Total 1900 ml Physical Exam Physical Exam NGT to suction Abdomen: Soft, No tenderness, Other (dressing c/d/i) Heart: Regular rate Extremities: No clubbing General: Alert, Oriented X3, Cooperative, mild distress HEENT: Other (ng in place) Lungs: Clear to auscultation MUSCULOSKELETAL: No deformity, No swelling Neuro: Normal speech Psych/Mental Status: Mental status NL Skin: No rashes, No breakdown Diagnosis Problem List Problems Medical Problems: (1) Bowel obstruction Status: Acute Assessment Assessment Problems Medical Problems: (1) Bowel obstruction Status: Acute FINAL IMPRESSION: 1. Persistent small-bowel obstruction 2. 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 3. Hypertension. 4. Hyperlipidemia. 5. Hypothyroidism. 6. Anemia. 7. Acute renal insufficiency. 8. Lactic acidosis, improving with IV fluids. PLAN:post op fevers POD#2 small bowel partial resection due to adhesions labs , wbc 17 down to 14 today blood c/s, urine c/s,cxr today start on Zosyn for fever BP improving Covid test neg. labs ok spoke with DANDY coley On TPN,. kidney function improved. inc ambulation ,incentive spirometry, duoneb. Plan Plan of Care Problems Medical Problems: (1) Bowel obstruction Status: Acute Comment Review of Relevant I have reviewed the following items raeann (where applicable) has been applied. Labs Laboratory Tests Test 07/16/19 17:15 07/16/19 23:58 07/17/19 04:35 07/17/19 06:16 Glucose (Fingerstick) 207 mg/dL (70-99) 246 mg/dL (70-99) 220 mg/dL (70-99) White Blood Count 14.7 x10^3/uL (4.0-11.0) Red Blood Count 2.86 x10^6/uL (3.50-5.40) Hemoglobin 7.6 g/dL (12.0-15.5) Hematocrit 23.6 % (36.0-47.0) Mean Corpuscular Volume 83 fL (79-100) Mean Corpuscular Hemoglobin 26 pg (25-35) Mean Corpuscular Hemoglobin Concent 32 g/dL (31-37) Red Cell Distribution Width 17.2 % (11.5-14.5) Platelet Count 124 x10^3/uL (140-400) Neutrophils (%) (Auto) 87 % (31-73) Lymphocytes (%) (Auto) 6 % (24-48) Monocytes (%) (Auto) 7 % (0-9) Eosinophils (%) (Auto) 0 % (0-3) Basophils (%) (Auto) 1 % (0-3) Neutrophils # (Auto) 12.7 x10^3/uL (1.8-7.7) Lymphocytes # (Auto) 0.9 x10^3/uL (1.0-4.8) Monocytes # (Auto) 1.0 x10^3/uL (0.0-1.1) Eosinophils # (Auto) 0.0 x10^3/uL (0.0-0.7) Basophils # (Auto) 0.1 x10^3/uL (0.0-0.2) Medications Current Medications Clonidine HCl (Catapres Tts-2) 1 patch WEEKLY TD Last administered on 07/16/19at 11:32; Start 07/16/19 at 10:00 Piperacillin Sod/ Tazobactam Sod 3.375 gm/Sodium Chloride 50 ml @ 100 mls/hr Q6HRS IV ; Start 07/17/19 at 10:00 Sodium Acetate 70 meq/Potassium Chloride 50 meq/ Potassium Phosphate 13.6 mmol/Magnesium Sulfate 10 meq/ Calcium Gluconate 10 meq/ Multivitamins 10 ml/Chromium/ Copper/Manganese/ Seleni/Zn 1 ml/ Total Parenteral Nutrition/Amino Acids/Dextrose/ Fat Emulsion Intravenous 1,512 ml @ 63 mls/hr TPN CONT IV Last administered on 07/16/19at 22:12; Start 07/16/19 at 22:00; Stop 07/17/19 at 21:59 Vitals/I & O Vital Sign - Last 24 Hours 07/16/19 07/16/19 07/16/19 07/16/19 11:00 11:36 15:00 19:00 Temp 98.4 98.8 99.9 98.4 98.8 99.9 Pulse 70 70 94 Resp 18 18 18 B/P (MAP) 170/62 (98) 162/64 (96) 192/58 (102) Pulse Ox 93 93 90 O2 Delivery Nasal Cannula Room Air Room Air Nasal Cannula O2 Flow Rate 1.0 07/16/19 07/16/19 07/16/19 07/17/19 20:10 22:12 23:00 03:00 Temp 100.3 99.4 100.3 99.4 Pulse 94 72 84 Resp 18 18 B/P (MAP) 192/58 184/46 (92) 183/60 (101) Pulse Ox 93 90 O2 Delivery Room Air Room Air 07/17/19 07/17/19 07/17/19 04:10 07:00 07:37 Temp 99.6 99.6 Pulse 84 76 Resp 16 B/P (MAP) 183/60 108/69 (82) Pulse Ox 92 O2 Delivery Room Air Room Air Intake and Output 07/16/19 07/16/19 07/17/19 15:00 23:00 07:00 Intake Total 2057.5 ml 0 ml Output Total 2600 ml 400 ml Balance -542.5 ml -400 ml Justicifation of Admission Dx: Justifications for Admission: Justification of Admission Dx: Yes Nutrition Consultation Dietary Evaluation: Recommendations by RD: Dietary education by RD, PPN/TPN Comments: REC continue TPN as orderd at this time Expected Outcomes/Goals: diet advancement - not met, new goal established New goal 07/10: TPN to meet >70% est needs while NPO - 07/15:met, goal ongoing Interpretation of weight loss: >7.5% in 3 months Malnutrition Findings: Food and Nutrition Intake (Sev: <50% est energy req 5days Weight Status: Appropriate MARÍA DILLON MD Jul 17, 2019 09:35
--- NOTE | 2019-07-17 10:04 | PDOC ---
Subjective: Subjective: Feels better today. Using [employer] PRN (nurse says not often), no n/v, no flatus/stool. Objective: Objective: Tmax 100.3 Vital Signs: Vital Signs Date Time Temp Pulse Resp B/P (MAP) Pulse Ox O2 Delivery O2 Flow Rate FiO2 07/17/19 07:37 Room Air 07/17/19 07:00 99.6 76 16 108/69 (82) 92 99.6 07/16/19 19:00 Labs: Laboratory Tests Test 07/16/19 17:15 07/16/19 23:58 07/17/19 04:35 07/17/19 06:16 Glucose (Fingerstick) 207 mg/dL 246 mg/dL 220 mg/dL White Blood Count 14.7 x10^3/uL Red Blood Count 2.86 x10^6/uL Hemoglobin 7.6 g/dL Hematocrit 23.6 % Mean Corpuscular Volume 83 fL Mean Corpuscular Hemoglobin 26 pg Mean Corpuscular Hemoglobin Concent 32 g/dL Red Cell Distribution Width 17.2 % Platelet Count 124 x10^3/uL Neutrophils (%) (Auto) 87 % Lymphocytes (%) (Auto) 6 % Monocytes (%) (Auto) 7 % Eosinophils (%) (Auto) 0 % Basophils (%) (Auto) 1 % Neutrophils # (Auto) 12.7 x10^3/uL Lymphocytes # (Auto) 0.9 x10^3/uL Monocytes # (Auto) 1.0 x10^3/uL Eosinophils # (Auto) 0.0 x10^3/uL Basophils # (Auto) 0.1 x10^3/uL PE: GEN: NAD LUNGS: CTAB HEART: RRR ABD: quiet, has dressing NEURO/PSYCH: A & O 3 A/P: S/p SBR x 2, MORIAH -- Continue per surgery. Justicifation of Admission Dx: Justifications for Admission: Justification of Admission Dx: Yes LULI MONZON Jul 17, 2019 10:04
--- NOTE | 2019-07-17 10:30 | PDOC ---
SURGICAL PROGRESS NOTE Subjective Pt reports feeling better today, pain controlled, no flatus Vital Signs Vital Signs Date Time Temp Pulse Resp B/P (MAP) Pulse Ox O2 Delivery O2 Flow Rate FiO2 07/17/19 07:37 Room Air 07/17/19 07:00 99.6 76 16 108/69 (82) 92 99.6 07/16/19 19:00 I&O Intake and Output 07/17/19 07:00 Intake Total 2057.5 ml Output Total 3000 ml Balance -942.5 ml Intake Oral 0 ml IV Total 2057.5 ml Output Urine Total 1100 ml Gastric Drainage Total 1900 ml PATIENT HAS A CABRERA: Yes (dc today) General: Alert, Oriented X3, Cooperative, No acute distress (looks brighter) Abdomen: Soft, No tenderness Labs Laboratory Tests Test 07/15/19 11:29 07/15/19 12:12 07/15/19 18:17 07/15/19 19:28 Glucose (Fingerstick) 222 mg/dL (70-99) 199 mg/dL (70-99) 137 mg/dL (70-99) 147 mg/dL (70-99) Test 07/16/19 00:03 07/16/19 05:37 07/16/19 05:40 07/16/19 17:15 Glucose (Fingerstick) 277 mg/dL (70-99) 269 mg/dL (70-99) 207 mg/dL (70-99) White Blood Count 17.0 x10^3/uL (4.0-11.0) Red Blood Count 3.11 x10^6/uL (3.50-5.40) Hemoglobin 8.3 g/dL (12.0-15.5) Hematocrit 26.1 % (36.0-47.0) Mean Corpuscular Volume 84 fL (79-100) Mean Corpuscular Hemoglobin 27 pg (25-35) Mean Corpuscular Hemoglobin Concent 32 g/dL (31-37) Red Cell Distribution Width 17.4 % (11.5-14.5) Platelet Count 152 x10^3/uL (140-400) Neutrophils (%) (Auto) 91 % (31-73) Lymphocytes (%) (Auto) 4 % (24-48) Monocytes (%) (Auto) 5 % (0-9) Eosinophils (%) (Auto) 0 % (0-3) Basophils (%) (Auto) 0 % (0-3) Neutrophils # (Auto) 15.6 x10^3/uL (1.8-7.7) Lymphocytes # (Auto) 0.7 x10^3/uL (1.0-4.8) Monocytes # (Auto) 0.8 x10^3/uL (0.0-1.1) Eosinophils # (Auto) 0.0 x10^3/uL (0.0-0.7) Basophils # (Auto) 0.0 x10^3/uL (0.0-0.2) Segmented Neutrophils % 78 % (35-66) Band Neutrophils % 8 % (0-9) Lymphocytes % 13 % (24-48) Monocytes % 1 % (0-10) Platelet Estimate Adequate (ADEQUATE) Anisocytosis Slight Tear Drop Cells Occ Ovalocytes Occ Acanthocytes Occ Sodium Level 143 mmol/L (136-145) Potassium Level 4.5 mmol/L (3.5-5.1) Chloride Level 110 mmol/L (98-107) Carbon Dioxide Level 24 mmol/L (21-32) Anion Gap 9 (6-14) Blood Urea Nitrogen 32 mg/dL (7-20) Creatinine 1.1 mg/dL (0.6-1.0) Estimated GFR (Cockcroft-Gault) 58.7 Glucose Level 299 mg/dL (70-99) Calcium Level 8.4 mg/dL (8.5-10.1) Test 07/16/19 23:58 07/17/19 04:35 07/17/19 06:16 Glucose (Fingerstick) 246 mg/dL (70-99) 220 mg/dL (70-99) White Blood Count 14.7 x10^3/uL (4.0-11.0) Red Blood Count 2.86 x10^6/uL (3.50-5.40) Hemoglobin 7.6 g/dL (12.0-15.5) Hematocrit 23.6 % (36.0-47.0) Mean Corpuscular Volume 83 fL (79-100) Mean Corpuscular Hemoglobin 26 pg (25-35) Mean Corpuscular Hemoglobin Concent 32 g/dL (31-37) Red Cell Distribution Width 17.2 % (11.5-14.5) Platelet Count 124 x10^3/uL (140-400) Neutrophils (%) (Auto) 87 % (31-73) Lymphocytes (%) (Auto) 6 % (24-48) Monocytes (%) (Auto) 7 % (0-9) Eosinophils (%) (Auto) 0 % (0-3) Basophils (%) (Auto) 1 % (0-3) Neutrophils # (Auto) 12.7 x10^3/uL (1.8-7.7) Lymphocytes # (Auto) 0.9 x10^3/uL (1.0-4.8) Monocytes # (Auto) 1.0 x10^3/uL (0.0-1.1) Eosinophils # (Auto) 0.0 x10^3/uL (0.0-0.7) Basophils # (Auto) 0.1 x10^3/uL (0.0-0.2) Laboratory Tests Test 07/16/19 17:15 07/16/19 23:58 07/17/19 04:35 07/17/19 06:16 Glucose (Fingerstick) 207 mg/dL (70-99) 246 mg/dL (70-99) 220 mg/dL (70-99) White Blood Count 14.7 x10^3/uL (4.0-11.0) Red Blood Count 2.86 x10^6/uL (3.50-5.40) Hemoglobin 7.6 g/dL (12.0-15.5) Hematocrit 23.6 % (36.0-47.0) Mean Corpuscular Volume 83 fL (79-100) Mean Corpuscular Hemoglobin 26 pg (25-35) Mean Corpuscular Hemoglobin Concent 32 g/dL (31-37) Red Cell Distribution Width 17.2 % (11.5-14.5) Platelet Count 124 x10^3/uL (140-400) Neutrophils (%) (Auto) 87 % (31-73) Lymphocytes (%) (Auto) 6 % (24-48) Monocytes (%) (Auto) 7 % (0-9) Eosinophils (%) (Auto) 0 % (0-3) Basophils (%) (Auto) 1 % (0-3) Neutrophils # (Auto) 12.7 x10^3/uL (1.8-7.7) Lymphocytes # (Auto) 0.9 x10^3/uL (1.0-4.8) Monocytes # (Auto) 1.0 x10^3/uL (0.0-1.1) Eosinophils # (Auto) 0.0 x10^3/uL (0.0-0.7) Basophils # (Auto) 0.1 x10^3/uL (0.0-0.2) Problem List Problems Medical Problems: (1) Bowel obstruction Status: Acute Assessment/Plan appears improved cont NGT await bowel fxn d/w primary and appreciate plans Justicifation of Admission Dx: Justifications for Admission: Justification of Admission Dx: Yes SILVIO YUAN MD Jul 17, 2019 10:30
[2019-07-17 10:53] VITALS: BP 195/57
--- NOTE | 2019-07-17 11:01 | RAD ---
AP portable chest radiograph 07/17/2019 Clinical History: Fever. An AP erect portable digital radiograph of the chest was obtained. Comparison study is dated 07/10/2019. The NG tube and right arm PICC are unchanged in position. Surgical clips overlie the left upper quadrant of the abdomen. Surgical clips are seen overlying the right lower lobe. The cardiac silhouette is mildly enlarged. The thoracic aorta is tortuous. Atherosclerotic calcification of the thoracic aorta is seen. Improving subsegmental atelectasis and/or infiltrate is seen involving the right lower lobe. Increasing left lower lobe atelectasis and/or infiltrate is noted. No pneumothorax or pleural effusion is seen. The osseous structures are unchanged. Impression: Increasing left lower lobe atelectasis and/or infiltrate. Electronically signed by: Camron Denney MD (07/17/2019 10:58 AM) [id number]
[2019-07-17] MEDS: IV RINGERS,LACTATED 1000ML 1,000 ML IV SCH ×2 (11:19→23:44)
[2019-07-17] MEDS: PANTOPRAZOLE IV PUSH 40 MG VIAL. IVP SCH (11:20)
[2019-07-17] MEDS: ENOXAPARIN 40 MG/0.4 ML SYRINGE. SQ SCH (11:20)
[2019-07-17] MEDS: PIPERACILLIN/TAZOBACTAM 3.375 GM in IV NORMAL SALINE 50ML 50 ML IV SCH ×3 (11:21→23:44)
[2019-07-17] MEDS: hydrALAZINE 20 MG/ML VIAL. IVP PRN (11:27)
[2019-07-17] MEDS: TPN PER PHARMACY MC PRN (13:27)
--- NOTE | 2019-07-17 13:29 | NUR ---
Pharmacy TPN Dosing Note S: JAQUELIN DAVIS is a 74 year old F Currently receiving Central Continuous TPN started 07/10/19 B:Pertinent PMH: SBO, NPO Height: 5 feet, 1 inches Weight: 65.5 kg Current diet: NPO LABS: Sodium: 143 Potassium: 4.5 Chloride: 110 Calcium: 8.4 Corrected Calcium: 9.20 Magnesium: 2 CO2: 21 SCr: 1.1 Glucose: 205 Albumin: 3.0 AST: 19 ALT: 20 TPN FORMULA: TPN TYPE: Central Continuous AMINO ACIDS: 65 gm DEXTROSE: 225 gm LIPIDS: 30 gm SODIUM CHLORIDE: - mEq SODIUM ACETATE: 70 mEq SODIUM PHOSPHATE: - mmol POTASSIUM CHLORIDE: 50 mEq POTASSIUM ACETATE: - mEq POTASSIUM PHOSPHATE: 13.6 mmol MAGNESIUM: 10 mEq CALCIUM: 10 mEq INSULIN: - units MULTIPLE VITAMIN: 10 ml TRACE ELEMENTS: 1ml ml(s) R: Continue TPN as yesterday, Will monitor electrolytes, glucose, and tolerance to TPN. WALTER LARA Nancy, 07/17/19 [id number]
--- NOTE | 2019-07-17 13:56 | NUR ---
SW following. Discussed with RN, pt doing well today, mild bowel sounds, removing alcala today. Still NPO/TPN, and AERIAL GUNNER. SW will continue to follow. Addendum: 07/18/19 at 1528 by LISETTE WILKINSON SW SW following. Discussed with RN, still awaiting return of bowel function. PT/OT recommending home with assistance. SW will continue to follow.
[2019-07-17 15:00] VITALS: BP 154/46
[2019-07-17] MEDS: IV NORMAL SALINE 1000ML BAG 1,000 ML IV SCH (17:43)
[2019-07-17 19:00] VITALS: BP 172/49
--- NOTE | 2019-07-17 19:06 | PATHOLOGY ---
[facility] Accession Number: [id number] . 01 Material submitted: . PART A: small bowel - DISTAL SMALL BOWEL. Modifiers: distal PART B: small bowel - PROXIMAL SMALL BOWEL. Modifiers: proximal . 01 Clinical history: . Small bowel obstruction . 02 Diagnosis: A. Segment of small bowel and attached mesentery, distal small bowel segmental resection: - Dense serosal adhesions with small bowel stricture, focal mucosal chronic ischemic changes, and focal mucosal ulceration and transmural defect with batsheva-enteric scarring. . B. Segment of small bowel and attached mesentery, proximal small bowel segmental resection: - Extensive serosal adhesions with focal foreign body (suture) granulomatous reaction and with focal mucosal mild chronic ischemic changes. (JPM/db; 07/17/2019) LBQ 07/17/2019 1901 Local . 02 Electronically signed: . Walker Clark MD, Pathologist NPI- [id number] . 01 Gross description: . A. The specimen is received in formalin, labeled "Ezolia Alexey, distal small bowel". Received is an unoriented segment of small bowel measuring 12.1 cm in length and ranges in diameter from 1.2 to 2.1 cm. Both margins are stapled closed. The serosal surface is pink-cortez in appearance and displays a circular defect/torn area measuring 1.5 cm, which is 4.4 cm from the closest margin, and is surrounded by adhesions. The small bowel is strictured in this area. The serosal surface in this area is inked black. The attached mesenteric fat measures up to 2.5 cm in thickness. The specimen is opened along the antimesenteric line to reveal light rubio mucosa with normal architectural folds. The specimen is submitted representatively as follows: . A1-A2 both margins, en face A3-A4 packaging sales representative sections through strictured area of defect A5 packaging sales representative sections of uninvolved mucosa. . B. The specimen is received in formalin, labeled "Nathanael Blackburn, proximal small bowel". Received is an unoriented segment of small bowel measuring 8.6 cm in length and ranges in diameter from 2.6 to 3.0 cm. Both margins are stapled closed. The serosal surface is pink-cortez in appearance with a moderate amount of overlying adhesions at the central aspect. The attached mesenteric fat measures 1.2 cm in thickness. The specimen is opened along the antimesenteric line to reveal light rubio to pink-rubio mucosa with normal architectural folds. No distinct nodules or lesions are noted grossly. The specimen is submitted representatively as follows: . B1-B2 both margins, en face B3 packaging sales representative sections through area of adhesions B4 additional packaging sales representative sections of mucosa. (CAA; 07/16/2019) QA/[facility] 07/16/2019 1642 Local . 02 Pathologist provided ICD-10: K56.609, K63.3 . 02 CPT . 763587, 138621 Specimen Comment: A courtesy copy of this report has been sent to [phone], [phone] Specimen Comment: [id number], Specimen Comment: Report sent to ,DR DILLON / DR TEJADA Performed at: 01 [facility] [address], [place] [id number] MD Garrett Mauricio MD Phone: [phone] Performed at: 02 [facility] [address] [place], [place] [id number] MD Wlaker Clark MD Phone: [phone]
[2019-07-17] MEDS ORDERED: AMINO ACID IV SCH ×10 (22:00)
[2019-07-17] MEDS ORDERED: TOTAL PARENTERAL NUTRITION IV SCH ×10 (22:00)
[2019-07-17] MEDS ORDERED: [UNRECOGNIZED DRUG - OTHER] IV SCH ×10 (22:00)
[2019-07-17] MEDS ORDERED: DEXTROSE 70% IV SCH ×10 (22:00)
[2019-07-17 23:00] VITALS: BP 178/49
[2019-07-18] MEDS: INSULIN LISPRO 300 UNITS/3 ML VIAL. SQ SCH ×4 (02:40→18:39)
[2019-07-18 03:00] VITALS: BP 194/56
[2019-07-18] MEDS: PIPERACILLIN/TAZOBACTAM 3.375 GM in IV NORMAL SALINE 50ML 50 ML IV SCH ×3 (06:21→18:34)
[2019-07-18 06:43] LABS: HEMATOCRIT 22.2 % (36.0-47.0); HEMOGLOBIN 7.1 g/dL (12.0-15.5); MEAN CORPUSCULAR HEMOGLOBIN 26 pg (25-35); MEAN CORPUSCULAR HGB CONC 32 g/dL (31-37); MEAN CORPUSCULAR VOLUME 83 fL (79-100); PLATELET COUNT 117 x10^3/uL (140-400); RED BLOOD COUNT 2.69 x10^6/uL (3.50-5.40); RED CELL DISTRIBUTION WIDTH 17.2 % (11.5-14.5); WHITE BLOOD COUNT 11.6 x10^3/uL (4.0-11.0)
[2019-07-18 06:44] LABS: ALBUMIN/GLOBULIN RATIO 0.5 (1.0-1.7); BASO % 0 % (0-3); CALCIUM 8.6 mg/dL (8.5-10.1); CREATININE 1.1 mg/dL (0.6-1.0); EOS # 0.1 x10^3/uL (0.0-0.7); EOS % 1 % (0-3); GFR 58.7; LYMPH # 1.1 x10^3/uL (1.0-4.8); LYMPH % 10 % (24-48); MAGNESIUM 1.7 mg/dL (1.8-2.4); MONO % 9 % (0-9); NEUT # 9.3 x10^3/uL (1.8-7.7); NEUT % 80 % (31-73); PHOSPHORUS 3.1 mg/dL (2.6-4.7); POTASSIUM 3.5 mmol/L (3.5-5.1); TOTAL BILIRUBIN 1.1 mg/dL (0.2-1.0); TOTAL PROTEIN 5.8 g/dL (6.4-8.2)
[2019-07-18 07:00] VITALS: BP 192/55
[2019-07-18] MEDS: IPRATRPIUM/ALBUTEROL 0.5/2.5MG 3 ML NEBU. NEB SCH ×4 (07:33→20:13)
[2019-07-18] MEDS: hydrALAZINE 20 MG/ML VIAL. IVP PRN ×3 (08:11→16:02)
[2019-07-18] MEDS: amLODIPine BESYLATE 5 MG TABLET PO SCH (09:00)
[2019-07-18] MEDS: ENOXAPARIN 40 MG/0.4 ML SYRINGE. SQ SCH (09:50)
[2019-07-18] MEDS: PANTOPRAZOLE IV PUSH 40 MG VIAL. IVP SCH (09:50)
[2019-07-18] MEDS: IV RINGERS,LACTATED 1000ML 1,000 ML IV SCH (09:51)
--- NOTE | 2019-07-18 10:09 | PDOC ---
PROGRESS NOTES Subjective Subjective no new problems Objective Objective Vital Signs Date Time Temp Pulse Resp B/P (MAP) Pulse Ox O2 Delivery O2 Flow Rate FiO2 07/18/19 09:00 76 192/55 07/18/19 07:34 95 Room Air 07/18/19 07:00 98.9 16 98.9 Intake and Output 07/18/19 07:00 Intake Total 2612 ml Output Total 800 ml Balance 1812 ml Intake Oral 50 ml IV Total 2562 ml Output Urine Total 800 ml # Voids 2 Physical Exam Physical Exam NGT to suction Abdomen: Soft, No tenderness Heart: Regular rate Extremities: No clubbing General: Alert, Oriented X3, Cooperative, No acute distress (looks brighter) HEENT: Other (ng in place) Lungs: Clear to auscultation MUSCULOSKELETAL: No deformity, No swelling Neuro: Normal speech Psych/Mental Status: Mental status NL Skin: No rashes, No breakdown Diagnosis Problem List Problems Medical Problems: (1) Bowel obstruction Status: Acute Assessment Assessment Problems Medical Problems: (1) Bowel obstruction Status: Acute FINAL IMPRESSION: 1. Persistent small-bowel obstruction 2. 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 3. Hypertension. 4. Hyperlipidemia. 5. Hypothyroidism. 6. Anemia. 7. Acute renal insufficiency. 8. Lactic acidosis, improving with IV fluids. PLAN: POD#3 small bowel partial resection due to adhesions labs , wbc 17 down to 11 today blood c/s pending, urine c/s enterococuss , cxr today lung atelectasis started on Zosyn for fever BP improving Covid test neg. labs reviewed spoke with surgeon catapress patch On TPN,. kidney function improved. inc ambulation ,incentive spirometry, duoneb. fevers resolving. Plan Plan of Care Problems Medical Problems: (1) Bowel obstruction Status: Acute Comment Review of Relevant I have reviewed the following items raeann (where applicable) has been applied. Labs Laboratory Tests Test 07/17/19 10:47 07/17/19 17:25 07/18/19 01:19 07/18/19 06:10 Glucose (Fingerstick) 205 mg/dL (70-99) 221 mg/dL (70-99) 257 mg/dL (70-99) White Blood Count 11.6 x10^3/uL (4.0-11.0) Red Blood Count 2.69 x10^6/uL (3.50-5.40) Hemoglobin 7.1 g/dL (12.0-15.5) Hematocrit 22.2 % (36.0-47.0) Mean Corpuscular Volume 83 fL (79-100) Mean Corpuscular Hemoglobin 26 pg (25-35) Mean Corpuscular Hemoglobin Concent 32 g/dL (31-37) Red Cell Distribution Width 17.2 % (11.5-14.5) Platelet Count 117 x10^3/uL (140-400) Neutrophils (%) (Auto) 80 % (31-73) Lymphocytes (%) (Auto) 10 % (24-48) Monocytes (%) (Auto) 9 % (0-9) Eosinophils (%) (Auto) 1 % (0-3) Basophils (%) (Auto) 0 % (0-3) Neutrophils # (Auto) 9.3 x10^3/uL (1.8-7.7) Lymphocytes # (Auto) 1.1 x10^3/uL (1.0-4.8) Monocytes # (Auto) 1.0 x10^3/uL (0.0-1.1) Eosinophils # (Auto) 0.1 x10^3/uL (0.0-0.7) Basophils # (Auto) 0.0 x10^3/uL (0.0-0.2) Sodium Level 144 mmol/L (136-145) Potassium Level 3.5 mmol/L (3.5-5.1) Chloride Level 107 mmol/L (98-107) Carbon Dioxide Level 30 mmol/L (21-32) Anion Gap 7 (6-14) Blood Urea Nitrogen 24 mg/dL (7-20) Creatinine 1.1 mg/dL (0.6-1.0) Estimated GFR (Cockcroft-Gault) 58.7 BUN/Creatinine Ratio 22 (6-20) Glucose Level 182 mg/dL (70-99) Calcium Level 8.6 mg/dL (8.5-10.1) Phosphorus Level 3.1 mg/dL (2.6-4.7) Magnesium Level 1.7 mg/dL (1.8-2.4) Total Bilirubin 1.1 mg/dL (0.2-1.0) Aspartate Amino Transf (AST/SGOT) 18 U/L (15-37) Alanine Aminotransferase (ALT/SGPT) 19 U/L (14-59) Alkaline Phosphatase 95 U/L (46-116) Total Protein 5.8 g/dL (6.4-8.2) Albumin 2.0 g/dL (3.4-5.0) Albumin/Globulin Ratio 0.5 (1.0-1.7) Test 07/18/19 06:26 Glucose (Fingerstick) 172 mg/dL (70-99) Microbiology 07/17/19 Urine Culture - Preliminary, Resulted Medications Current Medications Sodium Acetate 70 meq/Potassium Chloride 50 meq/ Potassium Phosphate 13.6 mmol/Magnesium Sulfate 10 meq/ Calcium Gluconate 10 meq/ Multivitamins 10 ml/Chromium/ Copper/Manganese/ Seleni/Zn 1 ml/ Total Parenteral Nutrition/Amino Acids/Dextrose/ Fat Emulsion Intravenous 1,512 ml @ 63 mls/hr TPN CONT IV Last administered on 07/17/19at 21:51; Start 07/17/19 at 22:00; Stop 07/18/19 at 21:59 Vitals/I & O Vital Sign - Last 24 Hours 07/17/19 07/17/19 07/17/19 07/17/19 10:53 11:25 11:27 15:00 Temp 99.1 99.0 99.1 99.0 Pulse 80 90 Resp 12 12 B/P (MAP) 195/57 (103) 195/57 154/46 (82) Pulse Ox 90 91 O2 Delivery Room Air Room Air Room Air 07/17/19 07/17/19 07/17/19 07/17/19 15:33 19:00 20:00 20:16 Temp 99.6 99.6 Pulse 88 Resp 18 B/P (MAP) 172/49 (90) Pulse Ox 90 O2 Delivery Room Air Room Air Room Air Room Air 07/17/19 07/18/19 07/18/19 07/18/19 23:00 03:00 07:00 07:34 Temp 99.0 98.9 98.9 99.0 98.9 98.9 Pulse 86 81 76 Resp 18 18 16 B/P (MAP) 178/49 (92) 194/56 (102) 192/55 (100) Pulse Ox 91 90 88 95 O2 Delivery Room Air Room Air Room Air Room Air 07/18/19 07/18/19 08:11 09:00 Pulse 76 76 B/P (MAP) 192/55 192/55 Intake and Output 07/17/19 07/17/19 07/18/19 15:00 23:00 07:00 Intake Total 1562 ml 1050 ml Output Total 600 ml 200 ml 0 ml Balance -600 ml 1362 ml 1050 ml Justicifation of Admission Dx: Justifications for Admission: Justification of Admission Dx: Yes Nutrition Consultation Dietary Evaluation: Recommendations by RD: Dietary education by RD, PPN/TPN Comments: REC continue TPN as orderd at this time Expected Outcomes/Goals: diet advancement - not met, new goal established New goal 07/10: TPN to meet >70% est needs while NPO - 07/15:met, goal ongoing Interpretation of weight loss: >7.5% in 3 months Malnutrition Findings: Food and Nutrition Intake (Sev: <50% est energy req 5days Weight Status: Appropriate MARÍA DILLON MD Jul 18, 2019 10:09
--- NOTE | 2019-07-18 10:24 | PDOC ---
Subjective: Subjective: Doing okay. No flatus/stool. No nausea. Pain managed. Objective: Vital Signs: Vital Signs Date Time Temp Pulse Resp B/P (MAP) Pulse Ox O2 Delivery O2 Flow Rate FiO2 07/18/19 09:00 76 192/55 07/18/19 07:34 95 Room Air 07/18/19 07:00 98.9 16 98.9 Labs: Laboratory Tests Test 07/17/19 10:47 07/17/19 17:25 07/18/19 01:19 07/18/19 06:10 Glucose (Fingerstick) 205 mg/dL 221 mg/dL 257 mg/dL White Blood Count 11.6 x10^3/uL Red Blood Count 2.69 x10^6/uL Hemoglobin 7.1 g/dL Hematocrit 22.2 % Mean Corpuscular Volume 83 fL Mean Corpuscular Hemoglobin 26 pg Mean Corpuscular Hemoglobin Concent 32 g/dL Red Cell Distribution Width 17.2 % Platelet Count 117 x10^3/uL Neutrophils (%) (Auto) 80 % Lymphocytes (%) (Auto) 10 % Monocytes (%) (Auto) 9 % Eosinophils (%) (Auto) 1 % Basophils (%) (Auto) 0 % Neutrophils # (Auto) 9.3 x10^3/uL Lymphocytes # (Auto) 1.1 x10^3/uL Monocytes # (Auto) 1.0 x10^3/uL Eosinophils # (Auto) 0.1 x10^3/uL Basophils # (Auto) 0.0 x10^3/uL Sodium Level 144 mmol/L Potassium Level 3.5 mmol/L Chloride Level 107 mmol/L Carbon Dioxide Level 30 mmol/L Anion Gap 7 Blood Urea Nitrogen 24 mg/dL Creatinine 1.1 mg/dL Estimated GFR (Cockcroft-Gault) 58.7 BUN/Creatinine Ratio 22 Glucose Level 182 mg/dL Calcium Level 8.6 mg/dL Phosphorus Level 3.1 mg/dL Magnesium Level 1.7 mg/dL Total Bilirubin 1.1 mg/dL Aspartate Amino Transf (AST/SGOT) 18 U/L Alanine Aminotransferase (ALT/SGPT) 19 U/L Alkaline Phosphatase 95 U/L Total Protein 5.8 g/dL Albumin 2.0 g/dL Albumin/Globulin Ratio 0.5 Test 07/18/19 06:26 Glucose (Fingerstick) 172 mg/dL URINE CULTURE Preliminary Preliminary >100,000 CFU/ML [ENTEROCOCCUS SPECIES] on 07/18/19 at 0838 Testing Performed by: [facility] BLOOD CULTURE Preliminary NO GROWTH AFTER 1 DAY Material submitted: . PART A: small bowel - DISTAL SMALL BOWEL. Modifiers: distal PART B: small bowel - PROXIMAL SMALL BOWEL. Modifiers: proximal Clinical history: . Small bowel obstruction Diagnosis: A. 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 B. Segment of small bowel and attached mesentery, proximal small bowelsegmental resection: - Extensive serosal adhesions with focal foreign body (suture)granulomatous reaction and with focal mucosal mild chronic ischemic changes Gross description: . A. The specimen is received in formalin, labeled "Nathanael Alexey, distalsmall bowel". Received is an unoriented segment of small bowel [id number] cm in length and ranges in diameter from 1.2 to 2.1 cm. Both marginsare stapled closed. The serosal surface is pink-cortez in appearance and displays a circular defect/torn area measuring 1.5 cm, which is 4.4 cmfrom the closest margin, and is surrounded by adhesions. The small bowel is strictured in this area. The serosal surface in this area is inked black. The attached mesenteric fat measures up to 2.5 cm in thickness. The specimen is opened along the antimesenteric line to reveal light rubio mucosa with normal architectural folds. The specimen is submitted representatively as follows: A1-A2 both margins, en face A3-A4 termite control representative sections through strictured area of defect A5 termite control representative sections of uninvolved mucosa. B. The specimen is received in formalin, labeled "Nathanael Blackburn,proximal small bowel". Received is an unoriented segment of small bowelmeasuring 8.6 cm in length and ranges in diameter from 2.6 to 3.0 cm. Both margins are stapled closed. The serosal surface is pink-cortez in appearance with a moderate amount of overlying adhesions at the central aspect. The attached mesenteric fat measures 1.2 cm in thickness. The specimen is opened along the antimesenteric line to reveal light rubio to pink-rubio mucosa with normal architectural folds. No distinct nodules or lesions are noted grossly. The specimen is submitted representatively as follows: Imaging: CXR 07/16 Impression: Increasing left lower lobe atelectasis and/or infiltrate. PE: GEN: NAD LUNGS: diminished HEART: RRR ABD: quiet, NG brown/bilious NEURO/PSYCH: A & O 3 A/P: S/p SBR x 2, MORIAH HTN, UTI, RAYRAY -- Continue support. Justicifation of Admission Dx: Justifications for Admission: Justification of Admission Dx: Yes LULI MONZON Jul 18, 2019 10:24
[2019-07-18 11:00] VITALS: BP 182/56
--- NOTE | 2019-07-18 13:50 | PDOC ---
SURGICAL PROGRESS NOTE Subjective up in chair no flatus pain managed Vital Signs Vital Signs Date Time Temp Pulse Resp B/P (MAP) Pulse Ox O2 Delivery O2 Flow Rate FiO2 07/18/19 11:48 80 182/56 07/18/19 11:29 Room Air 07/18/19 11:00 98.5 17 92 98.5 I&O Intake and Output 07/18/19 07:00 Intake Total 2612 ml Output Total 800 ml Balance 1812 ml Intake Oral 50 ml IV Total 2562 ml Output Urine Total 800 ml # Voids 2 General: Alert, Cooperative HEENT: Other (ng bilious ) Abdomen: Soft, Other (dressing dry) Labs Laboratory Tests Test 07/16/19 17:15 07/16/19 23:58 07/17/19 04:35 07/17/19 06:16 Glucose (Fingerstick) 207 mg/dL (70-99) 246 mg/dL (70-99) 220 mg/dL (70-99) White Blood Count 14.7 x10^3/uL (4.0-11.0) Red Blood Count 2.86 x10^6/uL (3.50-5.40) Hemoglobin 7.6 g/dL (12.0-15.5) Hematocrit 23.6 % (36.0-47.0) Mean Corpuscular Volume 83 fL (79-100) Mean Corpuscular Hemoglobin 26 pg (25-35) Mean Corpuscular Hemoglobin Concent 32 g/dL (31-37) Red Cell Distribution Width 17.2 % (11.5-14.5) Platelet Count 124 x10^3/uL (140-400) Neutrophils (%) (Auto) 87 % (31-73) Lymphocytes (%) (Auto) 6 % (24-48) Monocytes (%) (Auto) 7 % (0-9) Eosinophils (%) (Auto) 0 % (0-3) Basophils (%) (Auto) 1 % (0-3) Neutrophils # (Auto) 12.7 x10^3/uL (1.8-7.7) Lymphocytes # (Auto) 0.9 x10^3/uL (1.0-4.8) Monocytes # (Auto) 1.0 x10^3/uL (0.0-1.1) Eosinophils # (Auto) 0.0 x10^3/uL (0.0-0.7) Basophils # (Auto) 0.1 x10^3/uL (0.0-0.2) Test 07/17/19 10:47 07/17/19 17:25 07/18/19 01:19 07/18/19 06:10 Glucose (Fingerstick) 205 mg/dL (70-99) 221 mg/dL (70-99) 257 mg/dL (70-99) White Blood Count 11.6 x10^3/uL (4.0-11.0) Red Blood Count 2.69 x10^6/uL (3.50-5.40) Hemoglobin 7.1 g/dL (12.0-15.5) Hematocrit 22.2 % (36.0-47.0) Mean Corpuscular Volume 83 fL (79-100) Mean Corpuscular Hemoglobin 26 pg (25-35) Mean Corpuscular Hemoglobin Concent 32 g/dL (31-37) Red Cell Distribution Width 17.2 % (11.5-14.5) Platelet Count 117 x10^3/uL (140-400) Neutrophils (%) (Auto) 80 % (31-73) Lymphocytes (%) (Auto) 10 % (24-48) Monocytes (%) (Auto) 9 % (0-9) Eosinophils (%) (Auto) 1 % (0-3) Basophils (%) (Auto) 0 % (0-3) Neutrophils # (Auto) 9.3 x10^3/uL (1.8-7.7) Lymphocytes # (Auto) 1.1 x10^3/uL (1.0-4.8) Monocytes # (Auto) 1.0 x10^3/uL (0.0-1.1) Eosinophils # (Auto) 0.1 x10^3/uL (0.0-0.7) Basophils # (Auto) 0.0 x10^3/uL (0.0-0.2) Sodium Level 144 mmol/L (136-145) Potassium Level 3.5 mmol/L (3.5-5.1) Chloride Level 107 mmol/L (98-107) Carbon Dioxide Level 30 mmol/L (21-32) Anion Gap 7 (6-14) Blood Urea Nitrogen 24 mg/dL (7-20) Creatinine 1.1 mg/dL (0.6-1.0) Estimated GFR (Cockcroft-Gault) 58.7 BUN/Creatinine Ratio 22 (6-20) Glucose Level 182 mg/dL (70-99) Calcium Level 8.6 mg/dL (8.5-10.1) Phosphorus Level 3.1 mg/dL (2.6-4.7) Magnesium Level 1.7 mg/dL (1.8-2.4) Total Bilirubin 1.1 mg/dL (0.2-1.0) Aspartate Amino Transf (AST/SGOT) 18 U/L (15-37) Alanine Aminotransferase (ALT/SGPT) 19 U/L (14-59) Alkaline Phosphatase 95 U/L (46-116) Total Protein 5.8 g/dL (6.4-8.2) Albumin 2.0 g/dL (3.4-5.0) Albumin/Globulin Ratio 0.5 (1.0-1.7) Test 07/18/19 06:26 07/18/19 12:09 Glucose (Fingerstick) 172 mg/dL (70-99) 243 mg/dL (70-99) Laboratory Tests Test 07/17/19 17:25 07/18/19 01:19 07/18/19 06:10 07/18/19 06:26 Glucose (Fingerstick) 221 mg/dL (70-99) 257 mg/dL (70-99) 172 mg/dL (70-99) White Blood Count 11.6 x10^3/uL (4.0-11.0) Red Blood Count 2.69 x10^6/uL (3.50-5.40) Hemoglobin 7.1 g/dL (12.0-15.5) Hematocrit 22.2 % (36.0-47.0) Mean Corpuscular Volume 83 fL (79-100) Mean Corpuscular Hemoglobin 26 pg (25-35) Mean Corpuscular Hemoglobin Concent 32 g/dL (31-37) Red Cell Distribution Width 17.2 % (11.5-14.5) Platelet Count 117 x10^3/uL (140-400) Neutrophils (%) (Auto) 80 % (31-73) Lymphocytes (%) (Auto) 10 % (24-48) Monocytes (%) (Auto) 9 % (0-9) Eosinophils (%) (Auto) 1 % (0-3) Basophils (%) (Auto) 0 % (0-3) Neutrophils # (Auto) 9.3 x10^3/uL (1.8-7.7) Lymphocytes # (Auto) 1.1 x10^3/uL (1.0-4.8) Monocytes # (Auto) 1.0 x10^3/uL (0.0-1.1) Eosinophils # (Auto) 0.1 x10^3/uL (0.0-0.7) Basophils # (Auto) 0.0 x10^3/uL (0.0-0.2) Sodium Level 144 mmol/L (136-145) Potassium Level 3.5 mmol/L (3.5-5.1) Chloride Level 107 mmol/L (98-107) Carbon Dioxide Level 30 mmol/L (21-32) Anion Gap 7 (6-14) Blood Urea Nitrogen 24 mg/dL (7-20) Creatinine 1.1 mg/dL (0.6-1.0) Estimated GFR (Cockcroft-Gault) 58.7 BUN/Creatinine Ratio 22 (6-20) Glucose Level 182 mg/dL (70-99) Calcium Level 8.6 mg/dL (8.5-10.1) Phosphorus Level 3.1 mg/dL (2.6-4.7) Magnesium Level 1.7 mg/dL (1.8-2.4) Total Bilirubin 1.1 mg/dL (0.2-1.0) Aspartate Amino Transf (AST/SGOT) 18 U/L (15-37) Alanine Aminotransferase (ALT/SGPT) 19 U/L (14-59) Alkaline Phosphatase 95 U/L (46-116) Total Protein 5.8 g/dL (6.4-8.2) Albumin 2.0 g/dL (3.4-5.0) Albumin/Globulin Ratio 0.5 (1.0-1.7) Test 07/18/19 12:09 Glucose (Fingerstick) 243 mg/dL (70-99) Problem List Problems Medical Problems: (1) Bowel obstruction Status: Acute Assessment/Plan await bowel function continue NG Justicifation of Admission Dx: Justifications for Admission: Justification of Admission Dx: Yes 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
[2019-07-18] MEDS: TPN PER PHARMACY MC PRN ×2 (14:06→14:07)
--- NOTE | 2019-07-18 15:00 | NUR ---
Pharmacy TPN Dosing Note S: JAQUELIN DAVIS is a 74 year old F Currently receiving Central Continuous TPN started 07/10/19 B:Pertinent PMH: SBO, NPO Height: 5 feet, 1 inches Weight: 65.5 kg Current diet: NPO LABS: Sodium: 144 Potassium: 3.5 Chloride: 107 Calcium: 8.6 Corrected Calcium: 10.20 Magnesium: 1.7 CO2: 30 SCr: 1.1 Glucose: 182 Albumin: 2.0 AST: 18 ALT: 19 TPN FORMULA: TPN TYPE: Central Continuous AMINO ACIDS: 65 gm DEXTROSE: 225 gm LIPIDS: 30 gm SODIUM CHLORIDE: - mEq SODIUM ACETATE: 70 mEq SODIUM PHOSPHATE: - mmol POTASSIUM CHLORIDE: 50 mEq POTASSIUM ACETATE: - mEq POTASSIUM PHOSPHATE: 13.6 mmol MAGNESIUM: 10 mEq CALCIUM: 10 mEq INSULIN: - units MULTIPLE VITAMIN: 10 ml TRACE ELEMENTS: 1ml ml(s) TPN PLAN: Refill R: Continue TPN ORDERED Will monitor electrolytes, glucose, and tolerance to TPN. DAMASO PENN, [facility], 07/18/19 [id number]
[2019-07-18 15:36] VITALS: BP 172/57
[2019-07-18] MEDS: IV NORMAL SALINE 1000ML BAG 1,000 ML IV SCH (17:43)
[2019-07-18 19:00] VITALS: BP 183/54
--- NOTE | 2019-07-18 19:57 | NUR ---
Patient's LR fluid was not finished prior to the end of shift. Patient did not have a BM today.
[2019-07-18] MEDS ORDERED: TOTAL PARENTERAL NUTRITION IV SCH ×10 (22:00)
[2019-07-18] MEDS ORDERED: DEXTROSE 70% IV SCH ×10 (22:00)
[2019-07-18] MEDS ORDERED: [UNRECOGNIZED DRUG - OTHER] IV SCH ×10 (22:00)
[2019-07-18] MEDS ORDERED: AMINO ACID IV SCH ×10 (22:00)
[2019-07-18 23:00] VITALS: BP 174/62
[2019-07-19] VITALS (12 sets, daily range): BP systolic 107–221; BP diastolic 51–76
[2019-07-19] MEDS: IV RINGERS,LACTATED 1000ML 1,000 ML IV SCH ×2 (00:20→01:43)
[2019-07-19] MEDS: PIPERACILLIN/TAZOBACTAM 3.375 GM in IV NORMAL SALINE 50ML 50 ML IV SCH ×5 (00:21→23:50)
[2019-07-19] MEDS: METOPROLOL TARTRATE 5 MG/5 ML VIAL. IVP PRN ×3 (01:06→15:08)
--- NOTE | 2019-07-19 02:17 | NUR ---
Patient's ng tube not suctioning well, irrigated with approximately 30mls h2o, cleared some of the clogging going on, suctioning better, monitoring..
[2019-07-19 06:22] LABS: BASO # 0.1 x10^3/uL (0.0-0.2); BASO % 1 % (0-3); EOS # 0.2 x10^3/uL (0.0-0.7); EOS % 2 % (0-3); HEMATOCRIT 21.8 % (36.0-47.0); LYMPH # 0.9 x10^3/uL (1.0-4.8); LYMPH % 11 % (24-48); MEAN CORPUSCULAR HEMOGLOBIN 27 pg (25-35); MEAN CORPUSCULAR HGB CONC 32 g/dL (31-37); MEAN CORPUSCULAR VOLUME 83 fL (79-100); MONO # 0.7 x10^3/uL (0.0-1.1); MONO % 8 % (0-9); NEUT # 6.4 x10^3/uL (1.8-7.7); NEUT % 78 % (31-73); PLATELET COUNT 122 x10^3/uL (140-400); RED BLOOD COUNT 2.64 x10^6/uL (3.50-5.40); RED CELL DISTRIBUTION WIDTH 17.1 % (11.5-14.5); WHITE BLOOD COUNT 8.3 x10^3/uL (4.0-11.0)
[2019-07-19 06:33] LABS: CALCIUM 8.5 mg/dL (8.5-10.1); CREATININE 1.1 mg/dL (0.6-1.0); GFR 58.7; POTASSIUM 3.6 mmol/L (3.5-5.1)
[2019-07-19] MEDS: IPRATRPIUM/ALBUTEROL 0.5/2.5MG 3 ML NEBU. NEB SCH ×4 (07:33→20:03)
[2019-07-19] MEDS: PANTOPRAZOLE IV PUSH 40 MG VIAL. IVP SCH (07:53)
[2019-07-19] MEDS: ENOXAPARIN 40 MG/0.4 ML SYRINGE. SQ SCH (07:54)
[2019-07-19] MEDS: INSULIN LISPRO 300 UNITS/3 ML VIAL. SQ SCH ×5 (08:01→23:53)
[2019-07-19] MEDS: amLODIPine BESYLATE 5 MG TABLET PO SCH (08:34)
[2019-07-19] MEDS: IV NORMAL SALINE 1000ML BAG 1,000 ML IV SCH (09:42)
[2019-07-19] MEDS: hydrALAZINE 20 MG/ML VIAL. IVP PRN ×3 (09:42→17:51)
--- NOTE | 2019-07-19 10:14 | PDOC ---
PROGRESS NOTES Subjective Subjective feels good Objective Objective Vital Signs Date Time Temp Pulse Resp B/P (MAP) Pulse Ox O2 Delivery O2 Flow Rate FiO2 07/19/19 09:42 76 209/64 07/19/19 07:55 Room Air 07/19/19 07:35 95 07/19/19 07:00 98.2 16 98.2 Intake and Output 07/19/19 07:00 Intake Total 2737 ml Output Total 600 ml Balance 2137 ml Intake Oral 125 ml IV Total 2612 ml Output Urine Total 450 ml Gastric Drainage Total 150 ml # Voids 2 Physical Exam Physical Exam NGT to suction Abdomen: Soft, Other (dressing dry) Heart: Regular rate Extremities: No clubbing General: Alert, Cooperative HEENT: Other (ng bilious ) Lungs: Clear to auscultation MUSCULOSKELETAL: No deformity, No swelling Neuro: Normal speech Psych/Mental Status: Mental status NL Skin: No rashes, No breakdown Diagnosis Problem List Problems Medical Problems: (1) Bowel obstruction Status: Acute Assessment Assessment Problems Medical Problems: (1) Bowel obstruction Status: Acute FINAL IMPRESSION: 1. Persistent small-bowel obstruction 2. 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 3. Hypertension. 4. Hyperlipidemia. 5. Hypothyroidism. 6. Anemia. 7. Acute renal insufficiency. 8. Lactic acidosis, improving with IV fluids. PLAN: Hb 7.0 ,transfuse 1 u prbc hematology consult for anemia POD#4 small bowel partial resection due to adhesions labs , wbc 17 down to 8 today blood c/s pending, urine c/s enterococuss fecalis , cxr today lung atelectasis started on Zosyn for fever and uti BP high Covid test neg. labs reviewed spoke with surgeon catapress patch On TPN,. kidney function improved. inc ambulation ,incentive spirometry, duoneb. fevers resolving. Plan Plan of Care Problems Medical Problems: (1) Bowel obstruction Status: Acute Comment Review of Relevant I have reviewed the following items raeann (where applicable) has been applied. Labs Laboratory Tests Test 07/18/19 12:09 07/18/19 18:02 07/19/19 06:10 07/19/19 07:51 Glucose (Fingerstick) 243 mg/dL (70-99) 210 mg/dL (70-99) 226 mg/dL (70-99) White Blood Count 8.3 x10^3/uL (4.0-11.0) Red Blood Count 2.64 x10^6/uL (3.50-5.40) Hemoglobin 7.0 g/dL (12.0-15.5) Hematocrit 21.8 % (36.0-47.0) Mean Corpuscular Volume 83 fL (79-100) Mean Corpuscular Hemoglobin 27 pg (25-35) Mean Corpuscular Hemoglobin Concent 32 g/dL (31-37) Red Cell Distribution Width 17.1 % (11.5-14.5) Platelet Count 122 x10^3/uL (140-400) Neutrophils (%) (Auto) 78 % (31-73) Lymphocytes (%) (Auto) 11 % (24-48) Monocytes (%) (Auto) 8 % (0-9) Eosinophils (%) (Auto) 2 % (0-3) Basophils (%) (Auto) 1 % (0-3) Neutrophils # (Auto) 6.4 x10^3/uL (1.8-7.7) Lymphocytes # (Auto) 0.9 x10^3/uL (1.0-4.8) Monocytes # (Auto) 0.7 x10^3/uL (0.0-1.1) Eosinophils # (Auto) 0.2 x10^3/uL (0.0-0.7) Basophils # (Auto) 0.1 x10^3/uL (0.0-0.2) Sodium Level 142 mmol/L (136-145) Potassium Level 3.6 mmol/L (3.5-5.1) Chloride Level 107 mmol/L (98-107) Carbon Dioxide Level 29 mmol/L (21-32) Anion Gap 6 (6-14) Blood Urea Nitrogen 22 mg/dL (7-20) Creatinine 1.1 mg/dL (0.6-1.0) Estimated GFR (Cockcroft-Gault) 58.7 Glucose Level 259 mg/dL (70-99) Calcium Level 8.5 mg/dL (8.5-10.1) Microbiology 07/17/19 Urine Culture - Final, Complete 07/17/19 Antimicrobic Susceptibility - Final, Complete 07/17/19 Blood Culture - Preliminary, Resulted NO GROWTH AFTER 1 DAY Medications Current Medications Sodium Acetate 70 meq/Potassium Chloride 50 meq/ Potassium Phosphate 13.6 mmol/Magnesium Sulfate 10 meq/ Calcium Gluconate 10 meq/ Multivitamins 10 ml/Chromium/ Copper/Manganese/ Seleni/Zn 1 ml/ Total Parenteral Nutrition/Amino Acids/Dextrose/ Fat Emulsion Intravenous 1,512 ml @ 63 mls/hr TPN CONT IV Last administered on 07/18/19at 21:52; Start 07/18/19 at 22:00; Stop 07/19/19 at 21:59 Vitals/I & O Vital Sign - Last 24 Hours 07/18/19 07/18/19 07/18/19 07/18/19 11:00 11:29 11:48 15:36 Temp 98.5 98.6 98.5 98.6 Pulse 85 80 89 Resp 17 16 B/P (MAP) 182/56 (98) 182/56 172/57 (95) Pulse Ox 92 96 O2 Delivery Room Air Room Air Room Air 07/18/19 07/18/19 07/18/19 07/18/19 16:02 19:00 19:50 20:15 Temp 99.0 99.0 Pulse 89 83 Resp 17 B/P (MAP) 172/57 183/54 (97) Pulse Ox 94 96 O2 Delivery Room Air Room Air Room Air 07/18/19 07/19/19 07/19/19 07/19/19 23:00 01:06 03:00 07:00 Temp 99.0 98.9 98.2 99.0 98.9 98.2 Pulse 80 80 68 74 Resp 17 17 16 B/P (MAP) 174/62 (99) 174/62 114/57 (76) 202/55 (104) Pulse Ox 95 95 95 O2 Delivery Room Air Room Air Room Air 07/19/19 07/19/19 07/19/19 07/19/19 07:35 07:53 07:55 09:31 Pulse 74 76 B/P (MAP) 202/55 209/64 (112) Pulse Ox 95 O2 Delivery Room Air Room Air 07/19/19 09:42 Pulse 76 B/P (MAP) 209/64 Intake and Output 07/18/19 07/18/19 07/19/19 15:00 23:00 07:00 Intake Total 1537 ml 1200 ml Output Total 600 ml Balance 1537 ml 600 ml Justicifation of Admission Dx: Justifications for Admission: Justification of Admission Dx: Yes Nutrition Consultation Dietary Evaluation: Recommendations by RD: Dietary education by RD, PPN/TPN Comments: REC continue TPN as orderd at this time Expected Outcomes/Goals: diet advancement - not met, new goal established New goal 07/10: TPN to meet >70% est needs while NPO - 07/15:met, goal ongoing Interpretation of weight loss: >7.5% in 3 months Malnutrition Findings: Food and Nutrition Intake (Sev: <50% est energy req 5days Weight Status: Appropriate MARÍA DILLON MD Jul 19, 2019 10:14
--- NOTE | 2019-07-19 12:25 | PDOC ---
Subjective: Subjective: "I think we're gonna get a bomb today!" Passed gas, feels urge to stool. Nurse present - minimal NG output. Objective: Objective: Transfusion and hematology consult ordered. Vital Signs: Vital Signs Date Time Temp Pulse Resp B/P (MAP) Pulse Ox O2 Delivery O2 Flow Rate FiO2 07/19/19 11:55 98.3 84 18 129/51 98.3 07/19/19 11:20 Room Air 07/19/19 11:18 99 Labs: Laboratory Tests Test 07/18/19 18:02 07/19/19 06:10 07/19/19 07:51 07/19/19 11:50 Glucose (Fingerstick) 210 mg/dL 226 mg/dL 169 mg/dL White Blood Count 8.3 x10^3/uL Red Blood Count 2.64 x10^6/uL Hemoglobin 7.0 g/dL Hematocrit 21.8 % Mean Corpuscular Volume 83 fL Mean Corpuscular Hemoglobin 27 pg Mean Corpuscular Hemoglobin Concent 32 g/dL Red Cell Distribution Width 17.1 % Platelet Count 122 x10^3/uL Neutrophils (%) (Auto) 78 % Lymphocytes (%) (Auto) 11 % Monocytes (%) (Auto) 8 % Eosinophils (%) (Auto) 2 % Basophils (%) (Auto) 1 % Neutrophils # (Auto) 6.4 x10^3/uL Lymphocytes # (Auto) 0.9 x10^3/uL Monocytes # (Auto) 0.7 x10^3/uL Eosinophils # (Auto) 0.2 x10^3/uL Basophils # (Auto) 0.1 x10^3/uL Sodium Level 142 mmol/L Potassium Level 3.6 mmol/L Chloride Level 107 mmol/L Carbon Dioxide Level 29 mmol/L Anion Gap 6 Blood Urea Nitrogen 22 mg/dL Creatinine 1.1 mg/dL Estimated GFR (Cockcroft-Gault) 58.7 Glucose Level 259 mg/dL Calcium Level 8.5 mg/dL BLOOD CULTURE Preliminary NO GROWTH AFTER 2 DAYS PE: GEN: NAD LUNGS: CTAB HEART: RRR ABD: maybe a gurgle or two NEURO/PSYCH: A & O 3 A/P: S/p SBR x 2, MORIAH UTI, RAYRAY -- Now passing gas, continue support. Justicifation of Admission Dx: Justifications for Admission: Justification of Admission Dx: Yes LULI MONZON Jul 19, 2019 12:25
--- NOTE | 2019-07-19 12:47 | PDOC ---
SURGICAL PROGRESS NOTE Subjective + flatus no nausea pain managed Vital Signs Vital Signs Date Time Temp Pulse Resp B/P (MAP) Pulse Ox O2 Delivery O2 Flow Rate FiO2 07/19/19 11:55 98.3 84 18 129/51 98.3 07/19/19 11:20 Room Air 07/19/19 11:18 99 I&O Intake and Output 07/19/19 07:00 Intake Total 2737 ml Output Total 600 ml Balance 2137 ml Intake Oral 125 ml IV Total 2612 ml Output Urine Total 450 ml Gastric Drainage Total 150 ml # Voids 2 General: Alert, Oriented X3, Cooperative HEENT: Other (ng in place) Abdomen: Soft, Other (dressing in place, nd) Labs Laboratory Tests Test 07/17/19 17:25 07/18/19 01:19 07/18/19 06:10 07/18/19 06:26 Glucose (Fingerstick) 221 mg/dL (70-99) 257 mg/dL (70-99) 172 mg/dL (70-99) White Blood Count 11.6 x10^3/uL (4.0-11.0) Red Blood Count 2.69 x10^6/uL (3.50-5.40) Hemoglobin 7.1 g/dL (12.0-15.5) Hematocrit 22.2 % (36.0-47.0) Mean Corpuscular Volume 83 fL (79-100) Mean Corpuscular Hemoglobin 26 pg (25-35) Mean Corpuscular Hemoglobin Concent 32 g/dL (31-37) Red Cell Distribution Width 17.2 % (11.5-14.5) Platelet Count 117 x10^3/uL (140-400) Neutrophils (%) (Auto) 80 % (31-73) Lymphocytes (%) (Auto) 10 % (24-48) Monocytes (%) (Auto) 9 % (0-9) Eosinophils (%) (Auto) 1 % (0-3) Basophils (%) (Auto) 0 % (0-3) Neutrophils # (Auto) 9.3 x10^3/uL (1.8-7.7) Lymphocytes # (Auto) 1.1 x10^3/uL (1.0-4.8) Monocytes # (Auto) 1.0 x10^3/uL (0.0-1.1) Eosinophils # (Auto) 0.1 x10^3/uL (0.0-0.7) Basophils # (Auto) 0.0 x10^3/uL (0.0-0.2) Sodium Level 144 mmol/L (136-145) Potassium Level 3.5 mmol/L (3.5-5.1) Chloride Level 107 mmol/L (98-107) Carbon Dioxide Level 30 mmol/L (21-32) Anion Gap 7 (6-14) Blood Urea Nitrogen 24 mg/dL (7-20) Creatinine 1.1 mg/dL (0.6-1.0) Estimated GFR (Cockcroft-Gault) 58.7 BUN/Creatinine Ratio 22 (6-20) Glucose Level 182 mg/dL (70-99) Calcium Level 8.6 mg/dL (8.5-10.1) Phosphorus Level 3.1 mg/dL (2.6-4.7) Magnesium Level 1.7 mg/dL (1.8-2.4) Total Bilirubin 1.1 mg/dL (0.2-1.0) Aspartate Amino Transf (AST/SGOT) 18 U/L (15-37) Alanine Aminotransferase (ALT/SGPT) 19 U/L (14-59) Alkaline Phosphatase 95 U/L (46-116) Total Protein 5.8 g/dL (6.4-8.2) Albumin 2.0 g/dL (3.4-5.0) Albumin/Globulin Ratio 0.5 (1.0-1.7) Test 07/18/19 12:09 07/18/19 18:02 07/19/19 06:10 07/19/19 07:51 Glucose (Fingerstick) 243 mg/dL (70-99) 210 mg/dL (70-99) 226 mg/dL (70-99) White Blood Count 8.3 x10^3/uL (4.0-11.0) Red Blood Count 2.64 x10^6/uL (3.50-5.40) Hemoglobin 7.0 g/dL (12.0-15.5) Hematocrit 21.8 % (36.0-47.0) Mean Corpuscular Volume 83 fL (79-100) Mean Corpuscular Hemoglobin 27 pg (25-35) Mean Corpuscular Hemoglobin Concent 32 g/dL (31-37) Red Cell Distribution Width 17.1 % (11.5-14.5) Platelet Count 122 x10^3/uL (140-400) Neutrophils (%) (Auto) 78 % (31-73) Lymphocytes (%) (Auto) 11 % (24-48) Monocytes (%) (Auto) 8 % (0-9) Eosinophils (%) (Auto) 2 % (0-3) Basophils (%) (Auto) 1 % (0-3) Neutrophils # (Auto) 6.4 x10^3/uL (1.8-7.7) Lymphocytes # (Auto) 0.9 x10^3/uL (1.0-4.8) Monocytes # (Auto) 0.7 x10^3/uL (0.0-1.1) Eosinophils # (Auto) 0.2 x10^3/uL (0.0-0.7) Basophils # (Auto) 0.1 x10^3/uL (0.0-0.2) Sodium Level 142 mmol/L (136-145) Potassium Level 3.6 mmol/L (3.5-5.1) Chloride Level 107 mmol/L (98-107) Carbon Dioxide Level 29 mmol/L (21-32) Anion Gap 6 (6-14) Blood Urea Nitrogen 22 mg/dL (7-20) Creatinine 1.1 mg/dL (0.6-1.0) Estimated GFR (Cockcroft-Gault) 58.7 Glucose Level 259 mg/dL (70-99) Calcium Level 8.5 mg/dL (8.5-10.1) Test 07/19/19 11:50 Glucose (Fingerstick) 169 mg/dL (70-99) Laboratory Tests Test 07/18/19 18:02 07/19/19 06:10 07/19/19 07:51 07/19/19 11:50 Glucose (Fingerstick) 210 mg/dL (70-99) 226 mg/dL (70-99) 169 mg/dL (70-99) White Blood Count 8.3 x10^3/uL (4.0-11.0) Red Blood Count 2.64 x10^6/uL (3.50-5.40) Hemoglobin 7.0 g/dL (12.0-15.5) Hematocrit 21.8 % (36.0-47.0) Mean Corpuscular Volume 83 fL (79-100) Mean Corpuscular Hemoglobin 27 pg (25-35) Mean Corpuscular Hemoglobin Concent 32 g/dL (31-37) Red Cell Distribution Width 17.1 % (11.5-14.5) Platelet Count 122 x10^3/uL (140-400) Neutrophils (%) (Auto) 78 % (31-73) Lymphocytes (%) (Auto) 11 % (24-48) Monocytes (%) (Auto) 8 % (0-9) Eosinophils (%) (Auto) 2 % (0-3) Basophils (%) (Auto) 1 % (0-3) Neutrophils # (Auto) 6.4 x10^3/uL (1.8-7.7) Lymphocytes # (Auto) 0.9 x10^3/uL (1.0-4.8) Monocytes # (Auto) 0.7 x10^3/uL (0.0-1.1) Eosinophils # (Auto) 0.2 x10^3/uL (0.0-0.7) Basophils # (Auto) 0.1 x10^3/uL (0.0-0.2) Sodium Level 142 mmol/L (136-145) Potassium Level 3.6 mmol/L (3.5-5.1) Chloride Level 107 mmol/L (98-107) Carbon Dioxide Level 29 mmol/L (21-32) Anion Gap 6 (6-14) Blood Urea Nitrogen 22 mg/dL (7-20) Creatinine 1.1 mg/dL (0.6-1.0) Estimated GFR (Cockcroft-Gault) 58.7 Glucose Level 259 mg/dL (70-99) Calcium Level 8.5 mg/dL (8.5-10.1) Problem List Problems Medical Problems: (1) Bowel obstruction Status: Acute Assessment/Plan clamp ng Justicifation of Admission Dx: Justifications for Admission: Justification of Admission Dx: Yes JOSELINE [employer] Jul 19, 2019 12:46
--- NOTE | 2019-07-19 13:19 | NUR ---
NG clamped at 1310 per order, if no issues - will check residual at 1910. Will continue to monitor.
[2019-07-19] MEDS: TPN PER PHARMACY MC PRN (13:29)
--- NOTE | 2019-07-19 13:29 | NUR ---
Pharmacy TPN Dosing Note S: JAQUELIN DAVIS is a 74 year old F Currently receiving Central Continuous TPN started 07/10/19 B:Pertinent PMH: SBO, NPO Height: 5 feet, 1 inches Weight: 65.5 kg Current diet: NPO LABS: Sodium: 142 Potassium: 3.6 Chloride: 107 Calcium: 8.5 Corrected Calcium: 10.10 Magnesium: 1.7 CO2: 29 SCr: 1.1 Glucose: 259, 226, 169 Albumin: 2.0 AST: 18 ALT: 19 TPN FORMULA: TPN TYPE: Central Continuous AMINO ACIDS: 65 gm DEXTROSE: 225 gm LIPIDS: 30 gm SODIUM ACETATE: 70 mEq POTASSIUM CHLORIDE: 50 mEq POTASSIUM PHOSPHATE: 13.6 mmol MAGNESIUM: 10 mEq CALCIUM: 10 mEq INSULIN: 10 units MULTIPLE VITAMIN: 10 ml TRACE ELEMENTS: 1 ml TPN PLAN: -Blood glucose values above goal range, add regular insulin 10 units/day to TPN. -Other electrolytes appear WNL and stable. -No labs needed for tomorrow. R: Continue TPN @ 63 ml/hr and above formula. Will monitor electrolytes, glucose, and tolerance to TPN. [facility], 07/19/19 [id number]
--- NOTE | 2019-07-19 14:42 | NUR ---
SW following for discharge planning. Spoke with RN and reviewed chart. Pt remains on TPN. Pt's Hgb 7.0. Discharge plan remains home self-care. SW to continue following.
--- NOTE | 2019-07-19 14:58 | NUR ---
Abdominal dressing changed, incision clean, well approximated. Covered with ABD, gauze and medipore tape.
--- NOTE | 2019-07-19 17:10 | PDOC2 ---
CONSULT Date of Consult Date of Consult DATE: 07/19/19 TIME: 15:47 Reason for Consult Reason for Consult: Anemia. Referring Physician Referring Physician: Dr. Cleo Marcial Identification/Chief Complaint Chief Complaint Anemia. Source Source: Chart review, Patient History of Present Illness Reason for Visit: Mrs. Nathanael Blackburn is a 74 year-old female who presented to [facility] ED on 07/06/2019 with complaints of abdominal pain x 3-4 days. She reported her last BM was 2 days prior. She reported a history of GERD. She described the pain being in her mid-abdomen with no specific radiation. She described it as generalized and aching. She reported a prior history of surgery on her Pancreas in 2012. CT was obtained. It showed dilated loops of small bowel with transition point in the anterior lower abdomen concerning for bowel obstruction, occlusion to high-grade stenosis of the right renal artery origin, high-grade stenosis to near occlusion of the left common iliac artery. She was admitted for further evaluation. Her labs on 07/06/2019 showed WBC 12.8, Hgb 8.4, Plt 370. On 07/07/2019, she was evaluated by vascular surgeon, Dr. Will Powers. No arterial intervention was recommended at this time. Recommendation to continue aspirin on a long-term basis was made. She was evaluated by JOSUE Sandra, on 07/08/2019. Per review of her note, patient was noted to have anemia. She denied hematemesis, hematochezia, and melena. She has a history of GERD, on omeprazole daily. Her last colonoscopy was in 2017, it showed polyps. 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 Review of labs showed trend for Hgb 7.3 on 07/07/2019, 6.8 on 07/08/2019. She recei brianne transfusion of PRBCs on 07/08/2019 with improvement in Hgb up to 9.4. Dr. Rex Hall performed laparoscopic converted to open small bowel resection x 2 with lysis of adhesions on 07/15/2019. Two main areas of obstruction were noted, proximal was less significant and noted in LUQ, distal was more significant area with tight, somewhat compromised segment. Pathology showed dense serosal adhesions with small bowel stricture, focal mucosal chronic ischemic changes, and focal mucosal ulceration and transmural defect with batsheva- enteric scarring. Repeat Hgb 8.3 on 07/16/2019, 7.6 on 07/17/2019, 7.1 on 07/18/2019, 7 on 07/19/2019. She received 1 unit PRBCs on 07/19/2019. Nathanael is being seen in consultation at the request of Dr. Cleo Marcial. Today, Nathanael is being seen via telecommunications platform. She reports she has not yet had a BM. She reports she has taken iron in the past "off and on", but discontinued it "a while ago". She states she received IV iron x 2-3, last given "5 years ago". Past Medical History Past Medical History HTN, DM, hypothyroidism, OA, PAD, celiac artery stenosis, colon polyps, GERD. Cardiovascular: HTN, Other CENTRAL NERVOUS SYSTEM: Other GI: GERD Heme/Onc: No pertinent hx Hepatobiliary: No pertinent hx Psych: No pertinent hx Musculoskeletal: Osteoarthritis Infectious disease: No pertinent hx Renal/: No pertinent hx Endocrine: Diabetes, Hypothyroidism Past Surgical History Past Surgical History: Other (distal pancreatectomy) Family History Family History: Coronary Artery Disease Social History Quit ALCOHOL: none Drugs: None Lives: with Family Current Problem List Problem List Problems Medical Problems: (1) Bowel obstruction Status: Acute Current Medications Current Medications Current Medications Morphine Sulfate (Morphine Sulfate) 4 mg 1X ONCE IV Last administered on 07/06/19at 08:17; Start 07/06/19 at 08:00; Stop 07/06/19 at 08:05; Status DC Ondansetron HCl (Zofran) 4 mg 1X ONCE IVP Last administered on 07/06/19at 08:17; Start 07/06/19 at 08:00; Stop 07/06/19 at 08:05; Status DC Famotidine (Pepcid Vial) 20 mg 1X ONCE IVP Last administered on 07/06/19at 08:17; Start 07/06/19 at 08:00; Stop 07/06/19 at 08:05; Status DC Sodium Chloride 1,000 ml @ 1,000 mls/hr 1X ONCE IV Last administered on 07/06/19at 09:38; Start 07/06/19 at 09:30; Stop 07/06/19 at 10:29; Status DC Iohexol (Omnipaque 350 Mg/ml) 70 ml 1X ONCE IV Last administered on 07/06/19at 10:50; Start 07/06/19 at 09:45; Stop 07/06/19 at 09:46; Status DC Info (CONTRAST GIVEN -- Rx MONITORING) 1 each PRN DAILY PRN MC SEE COMMENTS; Start 07/06/19 at 10:00; Stop 07/08/19 at 07:44; Status DC Sodium Chloride 1,000 ml @ 1,000 mls/hr 1X ONCE IV Last administered on 07/06/19at 12:41; Start 07/06/19 at 12:45; Stop 07/06/19 at 13:44; Status DC Amlodipine Besylate (Norvasc) 5 mg DAILY PO ; Start 07/07/19 at 09:00 Hydrochlorothiazide (Hydrodiuril) 25 mg DAILY PO ; Start 07/07/19 at 09:00; Stop 07/07/19 at 12:15; Status DC Pantoprazole Sodium (Protonix) 40 mg DAILYAC PO ; Start 07/07/19 at 07:30; Stop 07/08/19 at 12:50; Status DC Potassium Chloride/Dextrose/ Sod Cl 1,000 ml @ 100 mls/hr Q10H IV Last adm inistered on 07/07/19at 23:20; Start 07/06/19 at 18:00; Stop 07/08/19 at 13:05; Status DC Hydralazine HCl (Apresoline Inj) 10 mg PRN Q4HRS PRN IVP BP > 160/90 Last administered on 07/19/19at 14:05; Start 07/06/19 at 17:15 Fentanyl Citrate (Fentanyl 2ml Vial) 25 mcg PRN Q3HRS PRN IVP PAIN Last administered on 07/08/19at 16:12; Start 07/07/19 at 10:00 Ondansetron HCl (Zofran) 4 mg PRN Q6HRS PRN IVP NAUSEA/VOMITING Last administered on 07/14/19at 03:55; Start 07/07/19 at 10:00; Stop 07/16/19 at 11:40; Status DC Iohexol (Omnipaque 300 Mg/ml) 400 ml 1X ONCE PO Last administered on 07/08/19at 07:45; Start 07/08/19 at 07:45; Stop 07/08/19 at 07:46; Status DC Info (CONTRAST GIVEN -- Rx MONITORING) 1 each PRN DAILY PRN MC SEE COMMENTS; Start 07/08/19 at 07:45; Stop 07/10/19 at 07:44; Status DC Pantoprazole Sodium (PROTONIX VIAL for IV PUSH) 40 mg DAILYAC IVP Last administered on 07/19/19at 07:53; Start 07/09/19 at 07:30 Potassium Chloride/Dextrose/ Sod Cl 1,000 ml @ 100 mls/hr Q10H IV Last administered on 07/10/19at 15:41; Start 07/08/19 at 13:15; Stop 07/11/19 at 01:00; Status DC Clonidine HCl (Catapres Tts-1) 1 patch WEEKLY TD Last administered on 07/15/19at 20:33; Start 07/08/19 at 13:30; Stop 07/16/19 at 09:55; Status DC Albuterol/ Ipratropium (Duoneb) 3 ml 1X ONCE NEB Last administered on 07/10/19at 11:31; Start 07/10/19 at 10:15; Stop 07/10/19 at 10:16; Status DC Albuterol/ Ipratropium (Duoneb) 3 ml RTQID NEB Last administered on 07/19/19at 15:31; Start 07/10/19 at 12:00 Info (Tpn Per Pharmacy) 1 each PRN DAILY PRN MC SEE COMMENTS Last administered on 07/19/19at 13:29; Start 07/10/19 at 13:45 Sodium Chloride 90 meq/Potassium Chloride 50 meq/ Potassium Phosphate 13.6 mmol/Magnesium Sulfate 10 meq/ Calcium Gluconate 10 meq/ Multivitamins 10 ml/Chromium/ Copper/Manganese/ Seleni/Zn 1 ml/ Total Parenteral Nutrition/Amino Acids/Dextrose/ Fat Emulsion Intravenous 1,512 ml @ 63 mls/hr TPN CONT IV Last administered on 07/10/19at 22:40; Start 07/10/19 at 22:00; Stop 07/11/19 at 21:59; Status DC Sodium Chloride 90 meq/Potassium Chloride 50 meq/ Potassium Phosphate 13.6 mmol/Magnesium Sulfate 10 meq/ Calcium Gluconate 10 meq/ Multivitamins 10 ml/Chromium/ Copper/Manganese/ Seleni/Zn 1 ml/ Total Parenteral Nutrition/Amino Acids/Dextrose/ Fat Emulsion Intravenous 1,512 ml @ 63 mls/hr TPN CONT IV Last administered on 07/11/19at 22:00; Start 07/11/19 at 22:00; Stop 07/12/19 at 21:59; Status DC Benzocaine (Hurricaine One) 1 spray PRN Q4HRS PRN MM NG irritation Last administered on 07/17/19at 21:51; Start 07/11/19 at 16:15 Insulin Human Lispro (HumaLOG) 0-7 UNITS TIDWMEALS SQ Last administered on 07/14/19at 16:57; Start 07/12/19 at 08:00; Stop 07/15/19 at 11:03; Status DC Dextrose (Dextrose 50%-Water Syringe) 12.5 gm PRN Q15MIN PRN IV SEE COMMENTS; Start 07/11/19 at 19:15 Cefoxitin Sodium (Mefoxin) 2 gm 1X PREOP ONCE IVP Last administered on 07/15/19at 15:46; Start 07/15/19 at 08:30; Stop 07/15/19 at 08:31; Status DC Sodium Chloride 90 meq/Potassium Chloride 50 meq/ Potassium Phosphate 13.6 mmol/Magnesium Sulfate 10 meq/ Calcium Gluconate 10 meq/ Multivitamins 10 ml/Chromium/ Copper/Manganese/ Seleni/Zn 1 ml/ Total Parenteral Nutrition/Amino Acids/Dextrose/ Fat Emulsion Intravenous 1,512 ml @ 63 mls/hr TPN CONT IV Last administered on 07/12/19at 22:34; Start 07/12/19 at 22:00; Stop 07/13/19 at 21:59; Status DC Ondansetron HCl (Zofran) 4 mg PRN Q6HRS PRN IV NAUSEA/VOMITING; Start 07/15/19 at 07:00; Stop 07/15/19 at 19:00; Status DC Fentanyl Citrate (Fentanyl 2ml Vial) 25 mcg PRN Q5MIN PRN IV MILD PAIN 1-3; Start 07/15/19 at 07:00; Stop 07/15/19 at 19:00; Status DC Fentanyl Citrate (Fentanyl 2ml Vial) 50 mcg PRN Q5MIN PRN IV MODERATE TO SEVERE PAIN Last administered on 07/15/19at 18:23; Start 07/15/19 at 07:00; Stop 07/15/19 at 19:00; Status DC Morphine Sulfate (Morphine Sulfate) 1 mg PRN Q10MIN PRN IV SEVERE PAIN 7-10; Start 07/15/19 at 07:00; Stop 07/15/19 at 19:00; Status DC Ringer's Solution 1,000 ml @ 30 mls/hr Q24H IV Last administered on 07/15/19at 12:15; Start 07/15/19 at 07:00; Stop 07/15/19 at 18:59; Status DC Lidocaine HCl (Xylocaine-Mpf 1% 2ml Vial) 2 ml PRN 1X PRN ID PRIOR TO IV START; Start 07/15/19 at 07:00; Stop 07/15/19 at 19:00; Status DC Hydromorphone HCl (Dilaudid) 0.5 mg PRN Q10MIN PRN IV SEV PAIN, Second choice; Start 07/15/19 at 07:00; Stop 07/15/19 at 19:00; Status DC Prochlorperazine Edisylate (Compazine) 5 mg PACU PRN PRN IV NAUSEA, MRX1; Start 07/15/19 at 07:00; Stop 07/16/19 at 06:59; Status DC Sodium Chloride 90 meq/Potassium Chloride 50 meq/ Potassium Phosphate 13.6 mmol/Magnesium Sulfate 10 meq/ Calcium Gluconate 10 meq/ Multivitamins 10 ml/Chromium/ Copper/Manganese/ Seleni/Zn 1 ml/ Total Parenteral Nutrition/Amino Acids/Dextrose/ Fat Emulsion Intravenous 1,512 ml @ 63 mls/hr TPN CONT IV Last administered on 07/13/19at 21:56; Start 07/13/19 at 22:00; Stop 07/14/19 at 21:59; Status DC Metoprolol Tartrate (Lopressor Vial) 10 mg PRN Q6HRS PRN IVP SBP > 160, 1ST CHOICE Last administered on 07/19/19at 15:08; Start 07/13/19 at 12:45 Sodium Chloride 90 meq/Potassium Chloride 50 meq/ Potassium Phosphate 13.6 mmol/Magnesium Sulfate 10 meq/ Calcium Gluconate 10 meq/ Multivitamins 10 ml/Chromium/ Copper/Manganese/ Seleni/Zn 1 ml/ Total Parenteral Nutrition/Amino Acids/Dextrose/ Fat Emulsion Intravenous 1,512 ml @ 63 mls/hr TPN CONT IV Last administered on 07/14/19at 20:53; Start 07/14/19 at 22:00; Stop 07/15/19 at 21:59; Status DC Propofol (Diprivan) 200 mg STK-MED ONCE IV ; Start 07/15/19 at 10:50; Stop 07/15/19 at 10:51; Status DC Lidocaine HCl (Lidocaine Pf 2% Vial) 5 ml STK-MED ONCE .ROUTE ; Start 07/15/19 at 10:50; Stop 07/15/19 at 10:51; Status DC Rocuronium Yoder (Zemuron) 50 mg STK-MED ONCE .ROUTE ; Start 07/15/19 at 10:50; Stop 07/15/19 at 10:51; Status DC Fentanyl Citrate (Fentanyl 2ml Vial) 100 mcg STK-MED ONCE .ROUTE ; Start 07/15/19 at 10:51; Stop 07/15/19 at 10:51; Status DC Sodium Acetate 70 meq/Potassium Chloride 50 meq/ Potassium Phosphate 13.6 mmol/Magnesium Sulfate 10 meq/ Calcium Gluconate 10 meq/ Multivitamins 10 ml/Chromium/ Copper/Manganese/ Seleni/Zn 1 ml/ Total Parenteral Nutrition/Amino Acids/Dextrose/ Fat Emulsion Intravenous 1,512 ml @ 63 mls/hr TPN CONT IV Last administered on 07/15/19at 22:02; Start 07/15/19 at 22:00; Stop 07/16/19 at 21:59; Status DC Insulin Human Lispro (HumaLOG) 0-7 UNITS Q6HRS SQ Last administered on 07/19/19at 12:13; Start 07/15/19 at 12:00 Insulin Human Lispro (HumaLOG VIAL for OP,RR ONLY) 0-10 units PRN Q1HR PRN SQ PER PROTOCOL Last administered on 07/15/19at 12:16; Start 07/15/19 at 12:00; Stop 07/16/19 at 11:59; Status DC Bupivacaine HCl/ Epinephrine Bitart (Sensorcain-Epi 0.5%-1:[id number] Mpf) [address] K-MED ONCE .ROUTE Last administered on 07/15/19at 15:57; Start 07/15/19 at 12:38; Stop 07/15/19 at 12:38; Status DC Albumin Human 500 ml @ As Directed STK-MED ONCE IV ; Start 07/15/19 at 16:57; Stop 07/15/19 at 16:58; Status DC Sevoflurane (Ultane) 90 ml STK-MED ONCE IH ; Start 07/15/19 at 16:57; Stop 07/15/19 at 16:58; Status DC Neostigmine Yoder (Neostigmine Methylsulfate) 5 mg STK-MED ONCE .ROUTE ; Start 07/15/19 at 16:58; Stop 07/15/19 at 16:58; Status DC Glycopyrrolate (Robinul) 1 mg STK-MED ONCE .ROUTE ; Start 07/15/19 at 16:58; Stop 07/15/19 at 16:58; Status DC Phenylephrine HCl (PHENYLEPHRINE in 0.9% NACL PF) 1 mg STK-MED ONCE IV ; Start 07/15/19 at 16:58; Stop 07/15/19 at 16:58; Status DC Ephedrine Sulfate (ePHEDrine PF IN SALINE SYRINGE) 50 mg STK-MED ONCE IV ; Start 07/15/19 at 16:58; Stop 07/15/19 at 16:58; Status DC Enoxaparin Sodium (Lovenox 40mg Syringe) 40 mg Q24H SQ Last administered on 07/19/19at 07:54; Start 07/16/19 at 09:00 Sodium Chloride (Normal Saline Flush) 3 ml QSHIFT PRN IV AFTER MEDS AND BLOOD DRAWS; Start 07/15/19 at 17:45 Ringer's Solution 1,000 ml @ 100 mls/hr Q10H IV Last administered on 07/19/19at 00:20; Start 07/15/19 at 17:43; Stop 07/19/19 at 09:54; Status DC Naloxone HCl (Narcan) 0.4 mg PRN Q2MIN PRN IV SEE INSTRUCTIONS; Start 07/15/19 at 17:45 Sodium Chloride 1,000 ml @ 25 mls/hr Q24H IV Last administered on 07/19/19at 09:42; Start 07/15/19 at 17:43 Morphine Sulfate 30 ml @ 0 mls/hr CONT PRN PRN IV PER PROTOCOL Last administered on 07/15/19at 18:30; Start 07/15/19 at 17:45 Ondansetron HCl (Zofran) 4 mg PRN Q6HRS PRN IVP NAUESA, 1ST CHOICE Last administered on 07/16/19at 15:35; Start 07/15/19 at 17:45 Ondansetron HCl (Zofran) 4 mg STK-MED ONCE .ROUTE ; Start 07/15/19 at 18:08; Stop 07/15/19 at 18:08; Status DC Fentanyl Citrate (Fentanyl 2ml Vial) 100 mcg STK-MED ONCE .ROUTE ; Start 07/15/19 at 18:09; Stop 07/15/19 at 18:09; Status DC Ketorolac Tromethamine (Toradol 30mg Vial) 30 mg 1X ONCE IVP Last administered on 07/15/19at 18:30; Start 07/15/19 at 18:30; Stop 07/15/19 at 18:31; Status DC Clonidine HCl (Catapres Tts-2) 1 patch WEEKLY TD Last administered on 07/16/19at 11:32; Start 07/16/19 at 10:00 Sodium Acetate 70 meq/Potassium Chloride 50 meq/ Potassium Phosphate 13.6 mmol/Magnesium Sulfate 10 meq/ Calcium Gluconate 10 meq/ Multivitamins 10 ml/Chromium/ Copper/Manganese/ Seleni/Zn 1 ml/ Total Parenteral Nutrition/Amino Acids/Dextrose/ Fat Emulsion Intravenous 1,512 ml @ 63 mls/hr TPN CONT IV Last administered on 07/16/19at 22:12; Start 07/16/19 at 22:00; Stop 07/17/19 at 21:59; Status DC Piperacillin Sod/ Tazobactam Sod 3.375 gm/Sodium Chloride 50 ml @ 100 mls/hr Q6HRS IV Last administered on 07/19/19at 06:20; Start 07/17/19 at 10:00 Sodium Acetate 70 meq/Potassium Chloride 50 meq/ Potassium Phosphate 13.6 mmol/Magnesium Sulfate 10 meq/ Calcium Gluconate 10 meq/ Multivitamins 10 ml/Chromium/ Copper/Manganese/ Seleni/Zn 1 ml/ Total Parenteral Nutrition/Amino Acids/Dextrose/ Fat Emulsion Intravenous 1,512 ml @ 63 mls/hr TPN CONT IV Last administered on 07/17/19at 21:51; Start 07/17/19 at 22:00; Stop 07/18/19 at 21:59; Status DC Sodium Acetate 70 meq/Potassium Chloride 50 meq/ Potassium Phosphate 13.6 mmol/Magnesium Sulfate 10 meq/ Calcium Gluconate 10 meq/ Multivitamins 10 ml/Chromium/ Copper/Manganese/ Seleni/Zn 1 ml/ Total Parenteral Nutrition/Amino Acids/Dextrose/ Fat Emulsion Intravenous 1,512 ml @ 63 mls/hr TPN CONT IV Last administered on 07/18/19at 21:52; Start 07/18/19 at 22:00; Stop 07/19/19 at 21:59 Sodium Acetate 70 meq/Potassium Chloride 50 meq/ Potassium Phosphate 13.6 mmol/ Magnesium Sulfate 10 meq/ Calcium Gluconate 10 meq/ Multivitamins 10 ml/Chromium/ Copper/Manganese/ Seleni/Zn 1 ml/ Insulin Human Regular 10 unit/ Total Parenteral Nutrition/Amino Acids/Dextrose/ Fat Emuls... 1,512 ml @ 63 mls/hr TPN CONT IV ; Start 07/19/19 at 22:00; Stop 07/20/19 at 21:59 Active Scripts Active Reported Omeprazole 40 Mg Capsule.dr 50 Mg PO DAILY Losartan Potassium 50 Mg Tablet 50 Mg PO BID Amlodipine Besylate 5 Mg Tablet 5 Mg PO DAILY Aspirin 325 Mg Tablet 325 Tab PO DAILY Hydrochlorothiazide Tablet (Hydrochlorothiazide) 50 Mg Tablet 25 Mg PO DAILY Levothyroxine Sodium 50 Mcg Tablet 50 Mcg PO DAILYAC Allergies Allergies: Coded Allergies: No Known Drug Allergies (Unverified , 01/21/14) Vitals VITALS Vital Signs Date Time Temp Pulse Resp B/P (MAP) Pulse Ox O2 Delivery O2 Flow Rate FiO2 07/19/19 15:31 Room Air 07/19/19 15:08 83 189/61 07/19/19 15:03 98.6 18 98.6 07/19/19 14:50 93 Labs Labs Laboratory Tests Test 07/17/19 17:25 07/18/19 01:19 07/18/19 06:10 07/18/19 06:26 Glucose (Fingerstick) 221 mg/dL (70-99) 257 mg/dL (70-99) 172 mg/dL (70-99) White Blood Count 11.6 x10^3/uL (4.0-11.0) Red Blood Count 2.69 x10^6/uL (3.50-5.40) Hemoglobin 7.1 g/dL (12.0-15.5) Hematocrit 22.2 % (36.0-47.0) Mean Corpuscular Volume 83 fL (79-100) Mean Corpuscular Hemoglobin 26 pg (25-35) Mean Corpuscular Hemoglobin Concent 32 g/dL (31-37) Red Cell Distribution Width 17.2 % (11.5-14.5) Platelet Count 117 x10^3/uL (140-400) Neutrophils (%) (Auto) 80 % (31-73) Lymphocytes (%) (Auto) 10 % (24-48) Monocytes (%) (Auto) 9 % (0-9) Eosinophils (%) (Auto) 1 % (0-3) Basophils (%) (Auto) 0 % (0-3) Neutrophils # (Auto) 9.3 x10^3/uL (1.8-7.7) Lymphocytes # (Auto) 1.1 x10^3/uL (1.0-4.8) Monocytes # (Auto) 1.0 x10^3/uL (0.0-1.1) Eosinophils # (Auto) 0.1 x10^3/uL (0.0-0.7) Basophils # (Auto) 0.0 x10^3/uL (0.0-0.2) Sodium Level 144 mmol/L (136-145) Potassium Level 3.5 mmol/L (3.5-5.1) Chloride Level 107 mmol/L (98-107) Carbon Dioxide Level 30 mmol/L (21-32) Anion Gap 7 (6-14) Blood Urea Nitrogen 24 mg/dL (7-20) Creatinine 1.1 mg/dL (0.6-1.0) Estimated GFR (Cockcroft-Gault) 58.7 BUN/Creatinine Ratio 22 (6-20) Glucose Level 182 mg/dL (70-99) Calcium Level 8.6 mg/dL (8.5-10.1) Phosphorus Level 3.1 mg/dL (2.6-4.7) Magnesium Level 1.7 mg/dL (1.8-2.4) Total Bilirubin 1.1 mg/dL (0.2-1.0) Aspartate Amino Transf (AST/SGOT) 18 U/L (15-37) Alanine Aminotransferase (ALT/SGPT) 19 U/L (14-59) Alkaline Phosphatase 95 U/L (46-116) Total Protein 5.8 g/dL (6.4-8.2) Albumin 2.0 g/dL (3.4-5.0) Albumin/Globulin Ratio 0.5 (1.0-1.7) Test 07/18/19 12:09 07/18/19 18:02 07/19/19 06:10 07/19/19 07:51 Glucose (Fingerstick) 243 mg/dL (70-99) 210 mg/dL (70-99) 226 mg/dL (70-99) White Blood Count 8.3 x10^3/uL (4.0-11.0) Red Blood Count 2.64 x10^6/uL (3.50-5.40) Hemoglobin 7.0 g/dL (12.0-15.5) Hematocrit 21.8 % (36.0-47.0) Mean Corpuscular Volume 83 fL (79-100) Mean Corpuscular Hemoglobin 27 pg (25-35) Mean Corpuscular Hemoglobin Concent 32 g/dL (31-37) Red Cell Distribution Width 17.1 % (11.5-14.5) Platelet Count 122 x10^3/uL (140-400) Neutrophils (%) (Auto) 78 % (31-73) Lymphocytes (%) (Auto) 11 % (24-48) Monocytes (%) (Auto) 8 % (0-9) Eosinophils (%) (Auto) 2 % (0-3) Basophils (%) (Auto) 1 % (0-3) Neutrophils # (Auto) 6.4 x10^3/uL (1.8-7.7) Lymphocytes # (Auto) 0.9 x10^3/uL (1.0-4.8) Monocytes # (Auto) 0.7 x10^3/uL (0.0-1.1) Eosinophils # (Auto) 0.2 x10^3/uL (0.0-0.7) Basophils # (Auto) 0.1 x10^3/uL (0.0-0.2) Sodium Level 142 mmol/L (136-145) Potassium Level 3.6 mmol/L (3.5-5.1) Chloride Level 107 mmol/L (98-107) Carbon Dioxide Level 29 mmol/L (21-32) Anion Gap 6 (6-14) Blood Urea Nitrogen 22 mg/dL (7-20) Creatinine 1.1 mg/dL (0.6-1.0) Estimated GFR (Cockcroft-Gault) 58.7 Glucose Level 259 mg/dL (70-99) Calcium Level 8.5 mg/dL (8.5-10.1) Test 07/19/19 11:50 Glucose (Fingerstick) 169 mg/dL (70-99) Laboratory Tests Test 07/18/19 18:02 07/19/19 06:10 07/19/19 07:51 07/19/19 11:50 Glucose (Fingerstick) 210 mg/dL (70-99) 226 mg/dL (70-99) 169 mg/dL (70-99) White Blood Count 8.3 x10^3/uL (4.0-11.0) Red Blood Count 2.64 x10^6/uL (3.50-5.40) Hemoglobin 7.0 g/dL (12.0-15.5) Hematocrit 21.8 % (36.0-47.0) Mean Corpuscular Volume 83 fL (79-100) Mean Corpuscular Hemoglobin 27 pg (25-35) Mean Corpuscular Hemoglobin Concent 32 g/dL (31-37) Red Cell Distribution Width 17.1 % (11.5-14.5) Platelet Count 122 x10^3/uL (140-400) Neutrophils (%) (Auto) 78 % (31-73) Lymphocytes (%) (Auto) 11 % (24-48) Monocytes (%) (Auto) 8 % (0-9) Eosinophils (%) (Auto) 2 % (0-3) Basophils (%) (Auto) 1 % (0-3) Neutrophils # (Auto) 6.4 x10^3/uL (1.8-7.7) Lymphocytes # (Auto) 0.9 x10^3/uL (1.0-4.8) Monocytes # (Auto) 0.7 x10^3/uL (0.0-1.1) Eosinophils # (Auto) 0.2 x10^3/uL (0.0-0.7) Basophils # (Auto) 0.1 x10^3/uL (0.0-0.2) Sodium Level 142 mmol/L (136-145) Potassium Level 3.6 mmol/L (3.5-5.1) Chloride Level 107 mmol/L (98-107) Carbon Dioxide Level 29 mmol/L (21-32) Anion Gap 6 (6-14) Blood Urea Nitrogen 22 mg/dL (7-20) Creatinine 1.1 mg/dL (0.6-1.0) Estimated GFR (Cockcroft-Gault) 58.7 Glucose Level 259 mg/dL (70-99) Calcium Level 8.5 mg/dL (8.5-10.1) Images Images 07/17/2019 CXR Clinical History: Fever. An AP erect portable digital radiograph of the chest was obtained. Comparison study is dated 07/10/2019. The NG tube and right arm PICC are unchanged in position. Surgical clips overlie the left upper quadrant of the abdomen. Surgical clips are seen overlying the right lower lobe. The cardiac silhouette is mildly enlarged.The thoracic aorta is tortuous. Atherosclerotic calcification of the thoracic aorta is seen. Improving subsegmental atelectasis and/or infiltrate is seen involving the right lower lobe. Increasing left lower lobe atelectasis and/or infiltrate is noted. No pneumothorax or pleural effusion is seen. The osseous structures are unchanged. Impression: Increasing left lower lobe atelectasis and/or infiltrate. 07/15/2019 KUB INDICATION: Postop exploratory laparotomy Comparisons: 07/14/2019 Interval surgical suture material seen in the left upper quadrant. There is a small amount of air likely within the anterior abdominal wall in the left lower quadrant. Enteric tube with tip in the left upper quadrant likely within the stomach. Abdominal drain noted projecting over the right para midline abdomen. Air and stool noted throughout the colon to level of the rectum in a nonobstructive bowel gas pattern. No suspicious masses or calcifications. Redemonstration of numerous surgical clips in the left upper quadrant. IMPRESSION: Postsurgical changes as described above. Assessment/Plan Assessment/Plan 74 year-old female with history of Whipple procedure for pancreatic cyst in 2012, with intermittent iron deficiency anemia since then. The patient was admitted on 07/06/2019 with symptoms of SBO. 07/06/2019 CT also showed high-grade obstruction/occlusion of the celiac artery. Last colonoscopy in 2017. Transferrin saturation 3% on 07/08/2019 is consistent with severe iron deficiency anemia. According to the patient, she has required 2-3 IV iron infusions in the past under the auspices of Dr. Marcial, last "5 years ago". She had also taken oral iron in the past, but stopped it "long time ago". 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 However, recent GI blood losses cannot be excluded. The patient has been transfused with 2 units of PRBC's on this admission. In the future, she may benefit from iron replacement therapy (po, and if needed IV). She may also benefit from repeat EGD/colonoscopy, as per Dr. Marcial. The patient is at higher risk for bowel ischemia due to high-grade occlusion of celiac artery, which in turn may result in GI bleeding. Nathanael has been evaluated by vascular surgeon, Dr. Will Powers. He felt that no immediate intervention was needed. Plan: 1. Inpatient management as per Dr. Marcial, Dr. Hlal, Dr. Lowery. 2. Iron 1 tab with vitamin C 500 mg daily in between meals as outpatient, after voodoo of bowel function. 3. IV iron could be considered if oral iron is ineffective or not tolerated. 4. Outpatient EGD/colonoscopy if deemed necessary by Dr. Marcial. 5. Further evaluation of high-grade stenosis/occlusion of celiac artery as outpatient by vascular surgery. 6. CBC, iron studies, TSH, free T4 on the next visit. 7. Follow-up at [facility] in 3 weeks. Thank you for the opportunity to see your patient. Please call with any questions. Oscar Eason MD [phone] TAYLER EASON MD Jul 19, 2019 17:10
--- NOTE | 2019-07-19 19:14 | NUR ---
NG tube residual checked at 1905, 30cc residual. Removed NG tube at 1910 per orders. Patient tolerated intervention well.
[2019-07-19] MEDS ORDERED: TOTAL PARENTERAL NUTRITION IV SCH ×11 (22:00)
[2019-07-19] MEDS ORDERED: [UNRECOGNIZED DRUG - OTHER] IV SCH ×11 (22:00)
[2019-07-19] MEDS ORDERED: AMINO ACID IV SCH ×11 (22:00)
[2019-07-19] MEDS ORDERED: DEXTROSE 70% IV SCH ×11 (22:00)
[2019-07-20] VITALS (7 sets, daily range): BP systolic 137–202; BP diastolic 55–70
[2019-07-20] MEDS: PIPERACILLIN/TAZOBACTAM 3.375 GM in IV NORMAL SALINE 50ML 50 ML IV SCH ×4 (05:52→23:26)
[2019-07-20] MEDS: hydrALAZINE 20 MG/ML VIAL. IVP PRN ×3 (06:05→23:25)
[2019-07-20] MEDS: INSULIN LISPRO 300 UNITS/3 ML VIAL. SQ SCH ×4 (06:07→23:26)
[2019-07-20 06:17] LABS: BASO # 0.1 x10^3/uL (0.0-0.2); BASO % 1 % (0-3); EOS # 0.2 x10^3/uL (0.0-0.7); EOS % 3 % (0-3); HEMATOCRIT 26.2 % (36.0-47.0); HEMOGLOBIN 8.6 g/dL (12.0-15.5); LYMPH % 12 % (24-48); MEAN CORPUSCULAR HEMOGLOBIN 28 pg (25-35); MEAN CORPUSCULAR HGB CONC 33 g/dL (31-37); MEAN CORPUSCULAR VOLUME 86 fL (79-100); MONO # 0.7 x10^3/uL (0.0-1.1); MONO % 8 % (0-9); NEUT # 6.5 x10^3/uL (1.8-7.7); NEUT % 77 % (31-73); PLATELET COUNT 112 x10^3/uL (140-400); RED BLOOD COUNT 3.06 x10^6/uL (3.50-5.40); RED CELL DISTRIBUTION WIDTH 18.7 % (11.5-14.5); WHITE BLOOD COUNT 8.5 x10^3/uL (4.0-11.0)
[2019-07-20] MEDS: PANTOPRAZOLE IV PUSH 40 MG VIAL. IVP SCH (07:29)
[2019-07-20] MEDS: IPRATRPIUM/ALBUTEROL 0.5/2.5MG 3 ML NEBU. NEB SCH ×4 (07:37→20:25)
[2019-07-20] MEDS: ENOXAPARIN 40 MG/0.4 ML SYRINGE. SQ SCH (09:12)
[2019-07-20] MEDS: amLODIPine BESYLATE 5 MG TABLET PO SCH (09:12)
--- NOTE | 2019-07-20 09:21 | PDOC ---
JOSELINE PRIEST SPRAY DRIER 07/20/19 0921: SURGICAL PROGRESS NOTE Subjective up to commode + flatus no nausea Vital Signs Vital Signs Date Time Temp Pulse Resp B/P (MAP) Pulse Ox O2 Delivery O2 Flow Rate FiO2 07/20/19 09:12 88 197/62 07/20/19 07:37 97 Room Air 07/20/19 07:15 98.4 18 98.4 I&O Intake and Output 07/20/19 07:00 Intake Total 2850 ml Output Total 30 ml Balance 2820 ml Intake Oral 50 ml IV Total 2450 ml Blood Product IV Normal Saline Flush 350 ml Gastric Drainage Total 30 ml # Voids 6 General: Alert, Oriented X3, Cooperative Abdomen: Soft, Other (mild ttp) Labs Laboratory Tests Test 07/18/19 12:09 07/18/19 18:02 07/19/19 06:10 07/19/19 07:51 Glucose (Fingerstick) 243 mg/dL (70-99) 210 mg/dL (70-99) 226 mg/dL (70-99) White Blood Count 8.3 x10^3/uL (4.0-11.0) Red Blood Count 2.64 x10^6/uL (3.50-5.40) Hemoglobin 7.0 g/dL (12.0-15.5) Hematocrit 21.8 % (36.0-47.0) Mean Corpuscular Volume 83 fL (79-100) Mean Corpuscular Hemoglobin 27 pg (25-35) Mean Corpuscular Hemoglobin Concent 32 g/dL (31-37) Red Cell Distribution Width 17.1 % (11.5-14.5) Platelet Count 122 x10^3/uL (140-400) Neutrophils (%) (Auto) 78 % (31-73) Lymphocytes (%) (Auto) 11 % (24-48) Monocytes (%) (Auto) 8 % (0-9) Eosinophils (%) (Auto) 2 % (0-3) Basophils (%) (Auto) 1 % (0-3) Neutrophils # (Auto) 6.4 x10^3/uL (1.8-7.7) Lymphocytes # (Auto) 0.9 x10^3/uL (1.0-4.8) Monocytes # (Auto) 0.7 x10^3/uL (0.0-1.1) Eosinophils # (Auto) 0.2 x10^3/uL (0.0-0.7) Basophils # (Auto) 0.1 x10^3/uL (0.0-0.2) Sodium Level 142 mmol/L (136-145) Potassium Level 3.6 mmol/L (3.5-5.1) Chloride Level 107 mmol/L (98-107) Carbon Dioxide Level 29 mmol/L (21-32) Anion Gap 6 (6-14) Blood Urea Nitrogen 22 mg/dL (7-20) Creatinine 1.1 mg/dL (0.6-1.0) Estimated GFR (Cockcroft-Gault) 58.7 Glucose Level 259 mg/dL (70-99) Calcium Level 8.5 mg/dL (8.5-10.1) Test 07/19/19 11:50 07/19/19 17:36 07/19/19 23:47 07/20/19 05:59 Glucose (Fingerstick) 169 mg/dL (70-99) 174 mg/dL (70-99) 225 mg/dL (70-99) 241 mg/dL (70-99) Test 07/20/19 06:00 White Blood Count 8.5 x10^3/uL (4.0-11.0) Red Blood Count 3.06 x10^6/uL (3.50-5.40) Hemoglobin 8.6 g/dL (12.0-15.5) Hematocrit 26.2 % (36.0-47.0) Mean Corpuscular Volume 86 fL (79-100) Mean Corpuscular Hemoglobin 28 pg (25-35) Mean Corpuscular Hemoglobin Concent 33 g/dL (31-37) Red Cell Distribution Width 18.7 % (11.5-14.5) Platelet Count 112 x10^3/uL (140-400) Neutrophils (%) (Auto) 77 % (31-73) Lymphocytes (%) (Auto) 12 % (24-48) Monocytes (%) (Auto) 8 % (0-9) Eosinophils (%) (Auto) 3 % (0-3) Basophils (%) (Auto) 1 % (0-3) Neutrophils # (Auto) 6.5 x10^3/uL (1.8-7.7) Lymphocytes # (Auto) 1.0 x10^3/uL (1.0-4.8) Monocytes # (Auto) 0.7 x10^3/uL (0.0-1.1) Eosinophils # (Auto) 0.2 x10^3/uL (0.0-0.7) Basophils # (Auto) 0.1 x10^3/uL (0.0-0.2) Laboratory Tests Test 07/19/19 11:50 07/19/19 17:36 07/19/19 23:47 07/20/19 05:59 Glucose (Fingerstick) 169 mg/dL (70-99) 174 mg/dL (70-99) 225 mg/dL (70-99) 241 mg/dL (70-99) Test 07/20/19 06:00 White Blood Count 8.5 x10^3/uL (4.0-11.0) Red Blood Count 3.06 x10^6/uL (3.50-5.40) Hemoglobin 8.6 g/dL (12.0-15.5) Hematocrit 26.2 % (36.0-47.0) Mean Corpuscular Volume 86 fL (79-100) Mean Corpuscular Hemoglobin 28 pg (25-35) Mean Corpuscular Hemoglobin Concent 33 g/dL (31-37) Red Cell Distribution Width 18.7 % (11.5-14.5) Platelet Count 112 x10^3/uL (140-400) Neutrophils (%) (Auto) 77 % (31-73) Lymphocytes (%) (Auto) 12 % (24-48) Monocytes (%) (Auto) 8 % (0-9) Eosinophils (%) (Auto) 3 % (0-3) Basophils (%) (Auto) 1 % (0-3) Neutrophils # (Auto) 6.5 x10^3/uL (1.8-7.7) Lymphocytes # (Auto) 1.0 x10^3/uL (1.0-4.8) Monocytes # (Auto) 0.7 x10^3/uL (0.0-1.1) Eosinophils # (Auto) 0.2 x10^3/uL (0.0-0.7) Basophils # (Auto) 0.1 x10^3/uL (0.0-0.2) Problem List Problems Medical Problems: (1) Bowel obstruction Status: Acute Assessment/Plan start clears Justicifation of Admission Dx: Justifications for Admission: Justification of Admission Dx: Yes TABITHA LORD MD 07/20/19 0949: SURGICAL PROGRESS NOTE Assessment/Plan Agree with fancy diet to clears. Patient stable surgically continue supportive care JOSELINE PRIEST APRN Jul 20, 2019 09:21 TABITHA LORD MD Jul 20, 2019 09:49
--- NOTE | 2019-07-20 11:08 | PDOC ---
PROGRESS NOTES Subjective Subjective tolerating clear liquid diet Objective Objective Vital Signs Date Time Temp Pulse Resp B/P (MAP) Pulse Ox O2 Delivery O2 Flow Rate FiO2 07/20/19 09:12 88 197/62 07/20/19 07:37 97 Room Air 07/20/19 07:15 98.4 18 98.4 Intake and Output 07/20/19 07:00 Intake Total 2850 ml Output Total 30 ml Balance 2820 ml Intake Oral 50 ml IV Total 2450 ml Blood Product IV Normal Saline Flush 350 ml Gastric Drainage Total 30 ml # Voids 6 Physical Exam Physical Exam NGT to suction Abdomen: Soft, Other (mild ttp) Heart: Regular rate Extremities: No clubbing General: Alert, Oriented X3, Cooperative HEENT: Other (ng in place) Lungs: Clear to auscultation MUSCULOSKELETAL: No deformity, No swelling Neuro: Normal speech Psych/Mental Status: Mental status NL Skin: No rashes, No breakdown Diagnosis Problem List Problems Medical Problems: (1) Bowel obstruction Status: Acute Assessment Assessment Problems Medical Problems: (1) Bowel obstruction Status: Acute FINAL IMPRESSION: 1. Persistent small-bowel obstruction 2. 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 3. Hypertension. 4. Hyperlipidemia. 5. Hypothyroidism. 6. Anemia. 7. Acute renal insufficiency. 8. Lactic acidosis, improving with IV fluids. PLAN: tolerating clear liquid diet. Hb 8.4 ,transfused 1 u prbc hematology consult for anemia POD#5 small bowel partial resection due to adhesions labs , wbc 17 down to 8 today blood c/s neg urine c/s enterococuss fecalis , cxr today lung atelectasis started on Zosyn for fever and uti (07/17/19) BP high add loartin Covid test neg. labs reviewed spoke with surgeon catapress patch On TPN,. kidney function improved. inc ambulation ,incentive spirometry, duoneb. fevers resolving. Plan Plan of Care Problems Medical Problems: (1) Bowel obstruction Status: Acute Comment Review of Relevant I have reviewed the following items raeann (where applicable) has been applied. Labs Laboratory Tests Test 07/19/19 11:50 07/19/19 17:36 07/19/19 23:47 07/20/19 05:59 Glucose (Fingerstick) 169 mg/dL (70-99) 174 mg/dL (70-99) 225 mg/dL (70-99) 241 mg/dL (70-99) Test 07/20/19 06:00 White Blood Count 8.5 x10^3/uL (4.0-11.0) Red Blood Count 3.06 x10^6/uL (3.50-5.40) Hemoglobin 8.6 g/dL (12.0-15.5) Hematocrit 26.2 % (36.0-47.0) Mean Corpuscular Volume 86 fL (79-100) Mean Corpuscular Hemoglobin 28 pg (25-35) Mean Corpuscular Hemoglobin Concent 33 g/dL (31-37) Red Cell Distribution Width 18.7 % (11.5-14.5) Platelet Count 112 x10^3/uL (140-400) Neutrophils (%) (Auto) 77 % (31-73) Lymphocytes (%) (Auto) 12 % (24-48) Monocytes (%) (Auto) 8 % (0-9) Eosinophils (%) (Auto) 3 % (0-3) Basophils (%) (Auto) 1 % (0-3) Neutrophils # (Auto) 6.5 x10^3/uL (1.8-7.7) Lymphocytes # (Auto) 1.0 x10^3/uL (1.0-4.8) Monocytes # (Auto) 0.7 x10^3/uL (0.0-1.1) Eosinophils # (Auto) 0.2 x10^3/uL (0.0-0.7) Basophils # (Auto) 0.1 x10^3/uL (0.0-0.2) Microbiology 07/17/19 Urine Culture - Final, Complete 07/17/19 Antimicrobic Susceptibility - Final, Complete 07/17/19 Blood Culture - Preliminary, Resulted NO GROWTH AFTER 2 DAYS Medications Current Medications Sodium Acetate 70 meq/Potassium Chloride 50 meq/ Potassium Phosphate 13.6 mmol/Magnesium Sulfate 10 meq/ Calcium Gluconate 10 meq/ Multivitamins 10 ml/Chromium/ Copper/Manganese/ Seleni/Zn 1 ml/ Insulin Human Regular 10 unit/ Total Parenteral Nutrition/Amino Acids/Dextrose/ Fat Emuls... 1,512 ml @ 63 mls/hr TPN CONT IV Last administered on 07/19/19at 23:52; Start 07/19/19 at 22 :00; Stop 07/20/19 at 21:59 Vitals/I & O Vital Sign - Last 24 Hours 07/19/19 07/19/19 07/19/19 07/19/19 11:18 11:20 11:38 11:55 Temp 98.8 98.8 98.3 98.8 98.8 98.3 Pulse 77 77 84 Resp 17 17 18 B/P (MAP) 107/56 (73) 107/56 129/51 Pulse Ox 99 O2 Delivery Room Air Room Air 07/19/19 07/19/19 07/19/19 07/19/19 13:10 14:04 14:05 14:50 Temp 98.8 98.4 98.8 98.4 Pulse 81 84 84 Resp 18 18 B/P (MAP) 174/57 221/76 221/76 Pulse Ox 93 O2 Delivery Room Air 07/19/19 07/19/19 07/19/19 07/19/19 15:03 15:08 15:31 16:09 Temp 98.6 98.9 98.6 98.9 Pulse 83 83 77 Resp 18 18 B/P (MAP) 189/61 189/61 196/63 O2 Delivery Room Air 07/19/19 07/19/19 07/19/19 07/19/19 17:51 19:38 20:04 20:15 Temp 98.3 98.3 Pulse 78 71 Resp 16 B/P (MAP) 203/72 184/54 (97) Pulse Ox 95 95 O2 Delivery Room Air Room Air Room Air 07/19/19 07/20/19 07/20/19 07/20/19 22:32 03:58 06:05 07:15 Temp 98.8 98.6 98.4 98.8 98.6 98.4 Pulse 79 67 72 78 Resp 18 16 18 B/P (MAP) 134/65 (88) 184/63 (103) 197/68 202/64 (110) Pulse Ox 95 95 97 O2 Delivery Room Air Room Air Room Air 07/20/19 07/20/19 07/20/19 07/20/19 07:33 07:37 08:33 09:12 Pulse 88 88 B/P (MAP) 197/62 (107) 197/62 Pulse Ox 97 O2 Delivery Room Air Room Air Intake and Output 07/19/19 07/19/19 07/20/19 15:00 23:00 07:00 Intake Total 1200 ml 50 ml 1600 ml Output Total 30 ml Balance 1200 ml 20 ml 1600 ml Justicifation of Admission Dx: Justifications for Admission: Justification of Admission Dx: Yes Nutrition Consultation Dietary Evaluation: Recommendations by RD: Dietary education by RD, PPN/TPN Comments: REC continue TPN as orderd at this time Expected Outcomes/Goals: diet advancement - not met, new goal established New goal 07/10: TPN to meet >70% est needs while NPO - 07/15:met, goal ongoing Interpretation of weight loss: >7.5% in 3 months Malnutrition Findings: Food and Nutrition Intake (Sev: <50% est energy req 5days Weight Status: Appropriate MARÍA DILLON MD Jul 20, 2019 11:08
[2019-07-20] MEDS: LEVOTHYROXINE 50 MCG TABLET PO SCH (12:20)
[2019-07-20] MEDS: LOSARTAN POTASSIUM 50 MG TABLET. PO SCH ×2 (12:20→20:58)
[2019-07-20] MEDS: TPN PER PHARMACY MC PRN (12:59)
--- NOTE | 2019-07-20 12:59 | NUR ---
Pharmacy TPN Dosing Note S: JAQUELIN DAVIS is a 74 year old F Currently receiving Central Continuous TPN started 07/10/19 B:Pertinent PMH: SBO, NPO Height: 5 feet, 1 inches Weight: 65.5 kg Current diet: CLD LABS: Sodium: 142 Potassium: 3.6 Chloride: 107 Calcium: 8.5 Corrected Calcium: 10.10 Magnesium: 1.7 CO2: 29 SCr: 1.1 Glucose: 225, 241, 287 Albumin: 2.0 AST: 18 ALT: 19 TPN FORMULA: TPN TYPE: Central Continuous AMINO ACIDS: 65 gm DEXTROSE: 225 gm LIPIDS: 30 gm SODIUM ACETATE: 70 mEq POTASSIUM CHLORIDE: 50 mEq POTASSIUM PHOSPHATE: 13.6 mmol MAGNESIUM: 10 mEq CALCIUM: 10 mEq INSULIN: 20 units MULTIPLE VITAMIN: 10 ml TRACE ELEMENTS: 1 ml TPN PLAN: -Started on CLD today, will monitor for TPN d/c. -Blood glucose values higher today despite insulin addition to TPN. Increase regular insulin to 20 units/day. -Next labs Monday. R: Continue TPN @ 63 ml/hr and above formula. Will monitor electrolytes, glucose, and tolerance to TPN. GRAHAM HANSON [facility], 07/20/19 [id number]
[2019-07-20] MEDS: LACTOBACILLUS RHAMNOSUS GG 1 CAPSULE. PO SCH (20:58)
[2019-07-20] MEDS: IV NORMAL SALINE 1000ML BAG 1,000 ML IV SCH (20:58)
[2019-07-20] MEDS ORDERED: AMINO ACID IV SCH ×11 (22:00)
[2019-07-20] MEDS ORDERED: TOTAL PARENTERAL NUTRITION IV SCH ×11 (22:00)
[2019-07-20] MEDS ORDERED: [UNRECOGNIZED DRUG - OTHER] IV SCH ×11 (22:00)
[2019-07-20] MEDS ORDERED: DEXTROSE 70% IV SCH ×11 (22:00)
[2019-07-21 04:00] VITALS: BP 187/55
[2019-07-21] MEDS: hydrALAZINE 20 MG/ML VIAL. IVP PRN ×2 (04:46→11:16)
[2019-07-21] MEDS: PIPERACILLIN/TAZOBACTAM 3.375 GM in IV NORMAL SALINE 50ML 50 ML IV SCH ×3 (06:03→18:38)
[2019-07-21] MEDS: INSULIN LISPRO 300 UNITS/3 ML VIAL. SQ SCH ×3 (06:08→18:43)
[2019-07-21] MEDS: IPRATRPIUM/ALBUTEROL 0.5/2.5MG 3 ML NEBU. NEB SCH ×4 (06:59→19:13)
[2019-07-21 07:00] VITALS: BP 176/68
[2019-07-21] MEDS: LEVOTHYROXINE 50 MCG TABLET PO SCH (07:18)
[2019-07-21] MEDS: PANTOPRAZOLE IV PUSH 40 MG VIAL. IVP SCH (07:18)
[2019-07-21] MEDS: ENOXAPARIN 40 MG/0.4 ML SYRINGE. SQ SCH (09:04)
[2019-07-21] MEDS: LACTOBACILLUS RHAMNOSUS GG 1 CAPSULE. PO SCH ×2 (09:04→20:38)
[2019-07-21] MEDS: LOSARTAN POTASSIUM 50 MG TABLET. PO SCH ×2 (09:04→20:38)
[2019-07-21] MEDS: amLODIPine BESYLATE 5 MG TABLET PO SCH (09:04)
[2019-07-21] MEDS ORDERED: oxyCODONE/APAP 5/325 1 TAB TABLET PO PRN (09:30)
[2019-07-21] MEDS ORDERED: MORPHINE SULFATE 2 MG/ML VIAL. IV PRN (09:30)
[2019-07-21 11:00] VITALS: BP 188/56
--- NOTE | 2019-07-21 12:05 | PDOC ---
PROGRESS NOTES Subjective Subjective tolerating diet ,advancing to full liquid today Objective Objective Vital Signs Date Time Temp Pulse Resp B/P (MAP) Pulse Ox O2 Delivery O2 Flow Rate FiO2 07/21/19 11:16 86 188/56 07/21/19 11:11 Room Air 07/21/19 07:00 98.2 17 98 98.2 Intake and Output 07/21/19 07:00 Intake Total 590 ml Output Total 250 ml Balance 340 ml Intake Oral 490 ml IV Total 100 ml Output Urine Total 250 ml # Voids 4 # Bowel Movements 1 Physical Exam Physical Exam NGT to suction Abdomen: Soft, Other (mild ttp) Heart: Regular rate Extremities: No clubbing General: Alert, Oriented X3, Cooperative HEENT: Other (ng in place) Lungs: Clear to auscultation MUSCULOSKELETAL: No deformity, No swelling Neuro: Normal speech Psych/Mental Status: Mental status NL Skin: No rashes, No breakdown Diagnosis Problem List Problems Medical Problems: (1) Bowel obstruction Status: Acute Assessment Assessment Problems Medical Problems: (1) Bowel obstruction Status: Acute FINAL IMPRESSION: 1. Persistent small-bowel obstruction 2. 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 3. Hypertension. 4. Hyperlipidemia. 5. Hypothyroidism. 6. Anemia. 7. Acute renal insufficiency. 8. Lactic acidosis, improving with IV fluids. PLAN: Advance diet today. IV iron infusion today tolerating clear liquid diet. Hb 8.4 ,transfused 1 u prbc hematology consult for anemia POD#6 small bowel partial resection due to adhesions labs , wbc 17 down to 8 today blood c/s neg urine c/s enterococuss fecalis , cxr lung atelectasis started on Zosyn for fever and uti (07/17/19), d/c antibiotics tomorrow BP high add loartin Covid test neg. labs reviewed spoke with surgeon catapress patch d/c TPN,. kidney function improved. inc ambulation ,incentive spirometry, duoneb. fevers resolving. ? home tomorrow? Plan Plan of Care Problems Medical Problems: (1) Bowel obstruction Status: Acute Comment Review of Relevant I have reviewed the following items raeann (where applicable) has been applied. Labs Laboratory Tests Test 07/20/19 12:14 07/20/19 18:10 07/20/19 21:09 07/21/19 05:50 Glucose (Fingerstick) 287 mg/dL (70-99) 214 mg/dL (70-99) 189 mg/dL (70-99) 234 mg/dL (70-99) Microbiology 07/17/19 Urine Culture - Final, Complete 07/17/19 Antimicrobic Susceptibility - Final, Complete 07/17/19 Blood Culture - Preliminary, Resulted NO GROWTH AFTER 4 DAYS Medications Current Medications Iron Sucrose 500 mg/Sodium Chloride 275 ml @ 78.571 mls/ hr 1X ONCE IV ; Start 07/21/19 at 16:00; Stop 07/21/19 at 19:29 Lactobacillus Rhamnosus (Culturelle) 1 cap BID PO Last administered on 07/21/19at 09:04; Start 07/20/19 at 21:00 Morphine Sulfate (Morphine Sulfate) 2 mg PRN Q2HR PRN IV PAIN; Start 07/21/19 at 09:30 Oxycodone/ Acetaminophen (Percocet 5/325) 1 tab PRN Q4HRS PRN PO PAIN; Start 07/21/19 at 09:30 Sodium Acetate 70 meq/Potassium Chloride 50 meq/ Potassium Phosphate 13.6 mmol/Magnesium Sulfate 10 meq/ Calcium Gluconate 10 meq/ Multivitamins 10 ml/Chromium/ Copper/Manganese/ Seleni/Zn 1 ml/ Insulin Human Regular 20 unit/ Total Parenteral Nutrition/Amino Acids/Dextrose/ Fat Emuls... 1,512 ml @ 63 mls/hr TPN CONT IV Last administered on 07/20/19at 22:33; Start 07/20/19 at 22:00; Stop 07/21/19 at 21:59 Vitals/I & O Vital Sign - Last 24 Hours 07/20/19 07/20/19 07/20/19 07/20/19 12:20 15:20 15:21 15:25 Temp 98.7 98.7 Pulse 81 85 85 Resp 16 B/P (MAP) 137/62 196/70 (112) 196/70 Pulse Ox 97 95 O2 Delivery Room Air Room Air 07/20/19 07/20/19 07/20/19 07/20/19 19:25 20:00 20:26 20:58 Temp 98.8 98.8 Pulse 87 87 Resp 24 B/P (MAP) 182/62 (102) 182/62 Pulse Ox 98 100 O2 Delivery Room Air Room Air Room Air 07/20/19 07/20/19 07/21/19 07/21/19 23:12 23:25 03:00 04:00 Temp 98.6 98.4 98.6 98.4 Pulse 76 76 83 Resp 21 20 B/P (MAP) 172/55 (94) 172/55 187/55 (99) Pulse Ox 93 98 O2 Delivery Room Air Room Air Room Air 07/21/19 07/21/19 07/21/19 07/21/19 04:46 06:59 07:00 07:41 Temp 98.2 98.2 Pulse 83 94 Resp 17 B/P (MAP) 187/55 176/68 (104) Pulse Ox 97 98 O2 Delivery Room Air Room Air Room Air 07/21/19 07/21/19 07/21/19 07/21/19 09:04 09:04 11:11 11:16 Pulse 94 94 86 B/P (MAP) 176/68 176/68 188/56 O2 Delivery Room Air Intake and Output 0 07/20/19 07/20/19 07/21/19 15:00 23:00 07:00 Intake Total 50 ml 290 ml 250 ml Output Total 250 ml Balance -200 ml 290 ml 250 ml Justicifation of Admission Dx: Justifications for Admission: Justification of Admission Dx: Yes Nutrition Consultation Dietary Evaluation: Recommendations by RD: Dietary education by RD, PPN/TPN Comments: REC continue TPN as orderd at this time Expected Outcomes/Goals: diet advancement - not met, new goal established New goal 07/10: TPN to meet >70% est needs while NPO - 07/15:met, goal ongoing Interpretation of weight loss: >7.5% in 3 months Malnutrition Findings: Food and Nutrition Intake (Sev: <50% est energy req 5days Weight Status: Appropriate MARÍA DILLON MD Jul 21, 2019 12:05
[2019-07-21] MEDS ORDERED: LIDO:MAALOX 1:1 20 ML SINGLE DOSE. SWSW ONE (12:45)
--- NOTE | 2019-07-21 12:46 | NUR ---
Pt reported to this RN that she was having some chest discomfort. Pt denied SOB, any radiating. Stated it is an aching pain and "it feels like I wanna burp." Pt sinus tachycardia on the monitor, BP 186/63. Hydralazine previously administered, refer to EMAR for details. Dr. Marcial notified by telephone. Orders received for a GI cocktail. Will administer and follow-up with pt.
--- NOTE | 2019-07-21 14:01 | NUR ---
This RN spoke to Dr. Marcial by telephone to verify orders for discontinuing TPN. He stated that TPN could be discontinued at this time. Will discontinue and monitor pt.
[2019-07-21 15:00] VITALS: BP 163/56
[2019-07-21] MEDS ORDERED: IRON SUCROSE COMPLEX 500 MG in IV NORMAL SALINE 250ML 250 ML IV ONE (16:00)
[2019-07-21 19:58] VITALS: BP 183/63
[2019-07-21] MEDS ORDERED: IV DEXTROSE 5% - 0.9 % NACL 1,000 ML IV SCH (20:15)
[2019-07-21 23:27] VITALS: BP 186/63
[2019-07-22] MEDS: hydrALAZINE 20 MG/ML VIAL. IVP PRN ×2 (00:27→13:07)
[2019-07-22] MEDS: PIPERACILLIN/TAZOBACTAM 3.375 GM in IV NORMAL SALINE 50ML 50 ML IV SCH ×2 (00:27→05:50)
[2019-07-22 03:33] VITALS: BP 162/55
[2019-07-22] MEDS: INSULIN LISPRO 300 UNITS/3 ML VIAL. SQ SCH ×3 (05:47→12:00)
[2019-07-22 07:00] VITALS: BP 190/73
[2019-07-22] MEDS: IPRATRPIUM/ALBUTEROL 0.5/2.5MG 3 ML NEBU. NEB SCH ×3 (07:28→15:29)
[2019-07-22] MEDS: PANTOPRAZOLE IV PUSH 40 MG VIAL. IVP SCH (08:30)
[2019-07-22] MEDS: LACTOBACILLUS RHAMNOSUS GG 1 CAPSULE. PO SCH (08:31)
[2019-07-22] MEDS: amLODIPine BESYLATE 5 MG TABLET PO SCH (08:31)
[2019-07-22] MEDS: LOSARTAN POTASSIUM 50 MG TABLET. PO SCH (08:31)
[2019-07-22] MEDS: LEVOTHYROXINE 50 MCG TABLET PO SCH (08:31)
[2019-07-22] MEDS: ENOXAPARIN 40 MG/0.4 ML SYRINGE. SQ SCH (08:39)
[2019-07-22 09:14] VITALS: BP 162/47
--- NOTE | 2019-07-22 09:57 | PDOC ---
PROGRESS NOTES Subjective Subjective pt want to go home Objective Objective Vital Signs Date Time Temp Pulse Resp B/P (MAP) Pulse Ox O2 Delivery O2 Flow Rate FiO2 07/22/19 09:14 91 162/47 (85) 07/22/19 08:00 Room Air 07/22/19 07:30 98 07/22/19 07:00 98.6 15 98.6 Intake and Output 07/22/19 07:00 Intake Total 1602 ml Output Total 250 ml Balance 1352 ml Intake Oral 530 ml IV Total 1072 ml Output Urine Total 250 ml # Voids 5 # Bowel Movements 3 Physical Exam Physical Exam NGT to suction Abdomen: Soft, Other (mild ttp) Heart: Regular rate Extremities: No clubbing General: Alert, Oriented X3, Cooperative HEENT: Other (ng in place) Lungs: Clear to auscultation MUSCULOSKELETAL: No deformity, No swelling Neuro: Normal speech Psych/Mental Status: Mental status NL Skin: No rashes, No breakdown Diagnosis Problem List Problems Medical Problems: (1) Bowel obstruction Status: Acute Assessment Assessment Problems Medical Problems: (1) Bowel obstruction Status: Acute FINAL IMPRESSION: 1. Persistent small-bowel obstruction 2. 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 3. Hypertension. 4. Hyperlipidemia. 5. Hypothyroidism. 6. Anemia. 7. Acute renal insufficiency. 8. Lactic acidosis, improving with IV fluids. PLAN: tolerating diet IV iron infusion 07/21/19, 500 mg given d/c home when ok with dr Marin Hb 8.4 ,transfused 1 u prbc hematology consult for anemia apprecited POD#7 small bowel partial resection due to adhesions d/c TPN d/c iv antibiotics Plan Plan of Care Problems Medical Problems: (1) Bowel obstruction Status: Acute Comment Review of Relevant I have reviewed the following items raeann (where applicable) has been applied. Labs Laboratory Tests Test 07/21/19 12:04 07/21/19 18:19 07/22/19 00:19 07/22/19 05:40 Glucose (Fingerstick) 190 mg/dL (70-99) 163 mg/dL (70-99) 153 mg/dL (70-99) 175 mg/dL (70-99) Microbiology 07/17/19 Urine Culture - Final, Complete 07/17/19 Antimicrobic Susceptibility - Final, Complete 07/17/19 Blood Culture - Preliminary, Resulted NO GROWTH AFTER 4 DAYS Medications Current Medications Dextrose/Sodium Chloride 1,000 ml @ 75 mls/hr [id number] IV Last administered on 07/21/19at 20:37; Start 07/21/19 at 20:15 Iron Sucrose 500 mg/Sodium Chloride 275 ml @ 78.571 mls/ hr 1X ONCE IV Last administered on 07/21/19at 17:01; Start 07/21/19 at 16:00; Stop 07/21/19 at 19:29; Status DC Multi-Ingredient Mouthwash/Gargle (Gi Cocktail) 20 ml 1X ONCE SWSW Last administered on 07/21/19at 12:51; Start 07/21/19 at 12:45; Stop 07/21/19 at 12:47; Status DC Vitals/I & O Vital Sign - Last 24 Hours 07/21/19 07/21/19 07/21/19 07/21/19 11:00 11:11 11:16 15:00 Temp 98.1 98.1 98.1 98.1 Pulse 89 86 99 Resp 17 17 B/P (MAP) 188/56 (100) 188/56 163/56 (91) Pulse Ox 94 95 O2 Delivery Room Air Room Air Room Air 07/21/19 07/21/19 07/21/19 07/21/19 15:24 19:16 19:58 20:00 Temp 98.5 98.5 Pulse 100 Resp 16 B/P (MAP) 183/63 (103) Pulse Ox 97 95 O2 Delivery Room Air Room Air Room Air 07/21/19 07/21/19 07/22/19 07/22/19 20:38 23:27 00:27 03:33 Temp 98.0 98.5 98.0 98.5 Pulse 100 87 87 83 Resp 16 16 B/P (MAP) 183/63 186/63 (104) 186/63 162/55 (90) Pulse Ox 94 94 O2 Delivery Room Air Room Air 07/22/19 07/22/19 07/22/19 07/22/19 07:00 07:30 08:00 08:31 Temp 98.6 98.6 Pulse 98 98 Resp 15 B/P (MAP) 190/73 (112) 190/73 Pulse Ox 96 98 O2 Delivery Room Air Room Air Room Air 07/22/19 07/22/19 08:31 09:14 Pulse 98 91 B/P (MAP) 190/73 162/47 (85) Intake and Output 07/21/19 07/21/19 07/22/19 15:00 23:00 07:00 Intake Total 1192 ml 200 ml 210 ml Output Total 250 ml Balance 1192 ml 200 ml -40 ml Justicifation of Admission Dx: Justifications for Admission: Justification of Admission Dx: Yes Nutrition Consultation Dietary Evaluation: Recommendations by RD: Dietary education by RD, PPN/TPN Comments: REC continue TPN as orderd at this time Expected Outcomes/Goals: diet advancement - not met, new goal established New goal 07/10: TPN to meet >70% est needs while NPO - 07/15:met, goal ongoing Interpretation of weight loss: >7.5% in 3 months Malnutrition Findings: Food and Nutrition Intake (Sev: <50% est energy req 5days Weight Status: Appropriate MARÍA DILLON MD Jul 22, 2019 09:57
[2019-07-22] MEDS ORDERED: OXYC1TAB15 PO (10:01)
[2019-07-22] MEDS ORDERED: CLON1PAT6 TD (10:01)
--- NOTE | 2019-07-22 10:37 | NUR ---
OLEG following for discharge planning. OLEG reviewed chart and coordinated care with RN. OLEG met with pt who declines SNU. Pt is agreeable to HH from [facility]. OLEG completed Patient Choice of Vendor form. Pt to discharge home today, 07/22/2019 on room air. Pt on oral abx with no TPN. OLEG phoned and faxed clinicals and discharge orders to [facility], , (fax). Pt accepted for HH per Leonor with [facility]. No further SW needs at this time. Addendum: 07/22/19 at 1151 by MITZI DEJESUS OLEG coordinated care with Dr. Marcial who stated no HH needs at discharge. OLEG notified [facility], .
[2019-07-22 11:02] VITALS: BP 174/61
--- NOTE | 2019-07-22 11:39 | PDOC ---
Subjective: Subjective: Having breathing treatment - waves and gives me a thumbs up - nods when I ask if she's eating and stooling - indicates she's excited to go home. Objective: Vital Signs: Vital Signs Date Time Temp Pulse Resp B/P (MAP) Pulse Ox O2 Delivery O2 Flow Rate FiO2 07/22/19 11:07 98 Room Air 07/22/19 11:02 98.3 89 16 174/61 (98) 98.3 Labs: Laboratory Tests Test 07/21/19 12:04 07/21/19 18:19 07/22/19 00:19 07/22/19 05:40 Glucose (Fingerstick) 190 mg/dL 163 mg/dL 153 mg/dL 175 mg/dL PE: GEN: NAD LUNGS: RT present for breathing treatment ABD: non-distended NEURO/PSYCH: A & O 3 A/P: S/p SBR x 2, MORIAH UTI, RAYRAY -- DC plans noted. Justicifation of Admission Dx: Justifications for Admission: Justification of Admission Dx: Yes LULI MONZON Jul 22, 2019 11:39
--- NOTE | 2019-07-22 12:22 | PDOC ---
JOSELINE PRIEST APRN 07/22/19 1222: SURGICAL PROGRESS NOTE Subjective tolerating diet + stool minimal pain Vital Signs Vital Signs Date Time Temp Pulse Resp B/P (MAP) Pulse Ox O2 Delivery O2 Flow Rate FiO2 07/22/19 11:07 98 Room Air 07/22/19 11:02 98.3 89 16 174/61 (98) 98.3 I&O Intake and Output 07/22/19 07:00 Intake Total 1602 ml Output Total 250 ml Balance 1352 ml Intake Oral 530 ml IV Total 1072 ml Output Urine Total 250 ml # Voids 5 # Bowel Movements 3 General: Alert, Oriented X3, Cooperative Abdomen: Soft, No tenderness, Other Extremities: No tenderness/swelling (vernon in place) Labs Laboratory Tests Test 07/20/19 18:10 07/20/19 21:09 07/21/19 05:50 07/21/19 12:04 Glucose (Fingerstick) 214 mg/dL (70-99) 189 mg/dL (70-99) 234 mg/dL (70-99) 190 mg/dL (70-99) Test 07/21/19 18:19 07/22/19 00:19 07/22/19 05:40 07/22/19 11:43 Glucose (Fingerstick) 163 mg/dL (70-99) 153 mg/dL (70-99) 175 mg/dL (70-99) 167 mg/dL (70-99) Laboratory Tests Test 07/21/19 18:19 07/22/19 00:19 07/22/19 05:40 07/22/19 11:43 Glucose (Fingerstick) 163 mg/dL (70-99) 153 mg/dL (70-99) 175 mg/dL (70-99) 167 mg/dL (70-99) Problem List Problems Medical Problems: (1) Bowel obstruction Status: Acute Assessment/Plan soft diet, ok to dc remove vernon Justicifation of Admission Dx: Justifications for Admission: Justification of Admission Dx: Yes GELY CROCKER MD 07/22/19 1329: SURGICAL PROGRESS NOTE Assessment/Plan pt seen as above home today f/u with JOSELINE Reynolds APRN Jul 22, 2019 12:22 GELY CROCKER MD Jul 22, 2019 13:29
[2019-07-22] MEDS: cloNIDine TTS-2 1 PATCH PATCH TD SCH (13:08)
[2019-07-22 15:21] VITALS: BP 100/58
--- NOTE | 2019-07-22 15:30 | RAD ---
CHEST PA LATERAL History: Reason: f/u pneumonia / Spl. Instructions: / History: Comparison: July 17, 2019 Findings: Postop changes right lower lung. Bibasilar linear opacities. No pleural effusion. No pneumothorax. Stable right PICC. Interval removal of enteric tube. Unchanged heart size. Right sixth lateral rib resection, unchanged. Impression: 1. Linear bibasilar opacities, likely atelectasis. Electronically signed by: Beltran Gipson DO (07/22/2019 3:27 PM) [facility]
--- NOTE | 2019-07-22 16:44 | NUR ---
Discharge Note: JAQUELIN DAVIS [address] Discharge instructions and discharge home medications reviewed with Patient and a copy given. All questions have been answered and understanding verbalized. The following instructions and handouts were given: malnutrition, SBO, Soft diet Discontinued lines and drains: [place] drain removed. Picc line removed intact. Tele monitor removed Patient discharged to Home with Home health via wheelchair.
--- NOTE | 2019-07-24 15:30 | PDOC ---
Provider Note Provider Note Discharge summary dictated.#[id number]. Justicifation of Admission Dx: Justifications for Admission: Justification of Admission Dx: Yes MARÍA DILLON MD Jul 24, 2019 15:30
--- NOTE | 2019-07-24 22:44 | DS ---
DATE OF DISCHARGE: 07/22/2019 REASON FOR ADMISSION TO THE HOSPITAL: Abdominal pain, small-bowel obstruction. CONSULTATION: Dr. Hall, Dr. Mancilla, Dr. Mccullough and Dr Slava Eason, ,Hematology. PROCEDURES DONE: Laparotomy and lysis of adhesions and partial small bowel resection CTA of abdomen and pelvis, small bowel series. HOSPITAL COURSE: The patient is a 74-year-old female patient with history of pancreatic benign mass, had a surgery done most likely Whipple's procedure and she was doing relatively well. This was 5 years ago. She was having abdominal pain and nausea and vomiting, was found to have small-bowel obstruction, high-grade. The patient was treated conservatively to see if we can improve small-bowel obstruction without surgery, but in spite of conservative efforts, it did not improve. Small bowel series shows high-grade obstruction. The patient was taken to surgery, laparotomy, small bowel resection x 2, lysis of adhesions, extensive adhesions, 2 main areas of obstruction, proximal at the healed jejunostomy tube site, distal obstruction was tight. The patient did well, was continued on TPN NG tube and the patient also had a UTI and a postop pneumonia, atelectasis. The patient was treated with IV Zosyn. The patient also had a hemoglobin low at 7, was seen by Hematology and it was thought she had low iron studies secondary to her Whipple's procedure. The patient was given IV iron infusion and as mentioned, she was on TPN for nutrition and a central line. On the whole, the patient's condition improved. She was treated and she was discharged. FINAL DIAGNOSES: 1. High-grade small-bowel obstruction. The patient underwent laparotomy, lysis of adhesions and small bowel was resected. 2. 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 3. Urinary tract infection with Enterococcus, was treated. 4. Atelectasis pneumonitis secondary to her postop pneumonitis. 5. Hypertension. 6. Hyperlipidemia. DISPOSITION: Home. DISCHARGE MEDICATIONS: See MRAD for discharge medications. MARÍA DILLON MD DR: GRACE/reynaldo JOB#: [id number] / [id number] [facility]
== END 2019-07-22 16:57 | disposition home health service (06) | DRG 329 ==
LOC: ER 07:42 → ED HOLD 14:40 → 4 NORTH 15:36 → 6 SOUTH 07-13 15:40
PROVIDERS: ADMIT Internal Medicine; ATTEND Internal Medicine
PROC: 0D9670Z Drainage of Stomach with Drainage Device, Via Natural or Artificial Opening (ICD-10-PCS; 2019-07-06)
PROC: 02HV33Z Insertion of Infusion Device into Superior Vena Cava, Percutaneous Approach (ICD-10-PCS; 2019-07-10)
PROC: 0DB80ZZ Excision of Small Intestine, Open Approach (ICD-10-PCS; 2019-07-15)
PROC: 0DN80ZZ Release Small Intestine, Open Approach (ICD-10-PCS; 2019-07-15)
PROC: 0DJD4ZZ Inspection of Lower Intestinal Tract, Percutaneous Endoscopic Approach (ICD-10-PCS; principal; 2019-07-15 12:30)
PROC: 30233N1 Transfusion of Nonautologous Red Blood Cells into Peripheral Vein, Percutaneous Approach (ICD-10-PCS; 2019-07-19)
DX: K56.600 Partial intestinal obstruction, unspecified as to cause (principal); N17.0 Acute kidney failure with tubular necrosis; I77.4 Celiac artery compression syndrome; E87.2 Acidosis; I74.5 Embolism and thrombosis of iliac artery; K55.9 Vascular disorder of intestine, unspecified; K90.9 Intestinal malabsorption, unspecified; N39.0 Urinary tract infection, site not specified; D50.9 Iron deficiency anemia, unspecified; E03.9 Hypothyroidism, unspecified; E11.51 Type 2 diabetes mellitus with diabetic peripheral angiopathy without gangrene; E78.5 Hyperlipidemia, unspecified; I10 Essential (primary) hypertension; I70.1 Atherosclerosis of renal artery; I70.8 Atherosclerosis of other arteries; M19.90 Unspecified osteoarthritis, unspecified site; Z20.828 Contact with and (suspected) exposure to other viral communicable diseases; I77.1 Stricture of artery; K21.9 Gastro-esophageal reflux disease without esophagitis; K56.51 Intestinal adhesions [bands], with partial obstruction; K56.690 Other partial intestinal obstruction; K63.5 Polyp of colon; N28.9 Disorder of kidney and ureter, unspecified; Z53.31 Laparoscopic surgical procedure converted to open procedure; Z79.82 Long term (current) use of aspirin; Z82.49 Family history of ischemic heart disease and other diseases of the circulatory system; Z87.19 Personal history of other diseases of the digestive system; Z87.891 Personal history of nicotine dependence; Z90.411 Acquired partial absence of pancreas; Z93.4 Other artificial openings of gastrointestinal tract status
CPT/HCPCS: 36415; 36569; 71045; 71046; 74018; 74021; 74174; 74250; 80048; 80053; 82962; 83540; 83550; 83605; 83690; 83735; 84100; 84478; 85007; 85025; 86850; 86900; 86901; 86920; 87040; 87086; 88307; 93005; 94640; 94760; 96361; 96374; 96375; 99291; A7015; C9113; G0238; J0360; J0610; J0694; J1650; J1756; J1815; J1885; J2270; J2370; J2405; J2543; J2704; J2710; J3010; J3475; J3480; J3490; J7030; J7042; J7050; J7120; P9016; P9045; Q9967; U0003; 97110-GP; 97116-GP; 97530-GO; 97530-GP; 97535-GO; G0378

== ENCOUNTER → 2019-08-08 | Outpatient (CLI) | payer MEDICARE ==
[2019-07-22 15:21] VITALS: BP 100/58
[~2019-08-08] MED LIST changes: +AMLO5TAB10 PO; +CLON1PAT6 TD; +OMEP40CA45 PO; +OXYC1TAB15 PO
[2019-08-08 12:32] LABS: BASO # 0.1 x10^3/uL (0.0-0.2); BASO % 1 % (0-3); EOS # 0.1 x10^3/uL (0.0-0.7); EOS % 2 % (0-3); HEMOGLOBIN 10.8 g/dL (12.0-15.5); LYMPH # 2.2 x10^3/uL (1.0-4.8); LYMPH % 31 % (24-48); MEAN CORPUSCULAR HEMOGLOBIN 29 pg (25-35); MEAN CORPUSCULAR HGB CONC 33 g/dL (31-37); MEAN CORPUSCULAR VOLUME 89 fL (79-100); MONO # 0.6 x10^3/uL (0.0-1.1); MONO % 8 % (0-9); NEUT # 4.1 x10^3/uL (1.8-7.7); NEUT % 58 % (31-73); PLATELET COUNT 211 x10^3/uL (140-400); RED BLOOD COUNT 3.72 x10^6/uL (3.50-5.40); RED CELL DISTRIBUTION WIDTH 20.7 % (11.5-14.5)
[2019-08-08 12:56] LABS: FREE T4 1.59 ng/dL (0.76-1.46); THYROID STIM HORMONE (TSH) 0.404 uIU/mL (0.358-3.74)
== END ==
LOC: ONCLAB 12:07
PROVIDERS: ATTEND Internal Medicine Hematology & Oncology
DX: D64.9 Anemia, unspecified (principal)
CPT/HCPCS: 36415; 82728; 83540; 83550; 84439; 84443; 85025

== ENCOUNTER → 2019-11-08 | Outpatient (CLI) | payer MEDICARE ==
[2019-11-08 11:13] LABS: BASO % 1 % (0-3); EOS # 0.1 x10^3/uL (0.0-0.7); EOS % 1 % (0-3); HEMATOCRIT 32.8 % (36.0-47.0); HEMOGLOBIN 10.9 g/dL (12.0-15.5); LYMPH # 2.3 x10^3/uL (1.0-4.8); LYMPH % 35 % (24-48); MEAN CORPUSCULAR HEMOGLOBIN 31 pg (25-35); MEAN CORPUSCULAR HGB CONC 33 g/dL (31-37); MEAN CORPUSCULAR VOLUME 92 fL (79-100); MONO # 0.4 x10^3/uL (0.0-1.1); MONO % 7 % (0-9); NEUT # 3.8 x10^3/uL (1.8-7.7); NEUT % 57 % (31-73); PLATELET COUNT 204 x10^3/uL (140-400); RED BLOOD COUNT 3.56 x10^6/uL (3.50-5.40); RED CELL DISTRIBUTION WIDTH 13.8 % (11.5-14.5); WHITE BLOOD COUNT 6.7 x10^3/uL (4.0-11.0)
== END | disposition home or self-care (01) ==
LOC: ONCLAB 10:58
PROVIDERS: ATTEND Internal Medicine Hematology & Oncology
DX: D64.9 Anemia, unspecified (principal)
CPT/HCPCS: 36415; 82728; 83540; 83550; 85025

== ENCOUNTER → 2020-04-07 | Outpatient (CLI) | payer MEDICARE ==
[~2020-04-07] MED LIST changes: +AMLO-186 PO; -AMLO5TAB10 PO; -HYDR50TA6 PO; +HYDR50TA9 PO
[2020-04-07 11:46] LABS: BASO # 0.1 x10^3/uL (0.0-0.2); BASO % 1 % (0-3); EOS # 0.1 x10^3/uL (0.0-0.7); EOS % 2 % (0-3); HEMATOCRIT 33.8 % (36.0-47.0); LYMPH # 2.2 x10^3/uL (1.0-4.8); LYMPH % 29 % (24-48); MEAN CORPUSCULAR HEMOGLOBIN 31 pg (25-35); MEAN CORPUSCULAR HGB CONC 33 g/dL (31-37); MEAN CORPUSCULAR VOLUME 94 fL (79-100); MONO # 0.5 x10^3/uL (0.0-1.1); MONO % 7 % (0-9); NEUT # 4.6 x10^3/uL (1.8-7.7); NEUT % 62 % (31-73); PLATELET COUNT 185 x10^3/uL (140-400); RED BLOOD COUNT 3.59 x10^6/uL (3.50-5.40); RED CELL DISTRIBUTION WIDTH 12.8 % (11.5-14.5); WHITE BLOOD COUNT 7.4 x10^3/uL (4.0-11.0)
== END ==
LOC: ONCLAB 11:01
PROVIDERS: ATTEND Internal Medicine Hematology & Oncology
DX: D64.9 Anemia, unspecified (principal)
CPT/HCPCS: 36415; 82728; 83540; 83550; 85025

== ENCOUNTER → 2020-09-09 | Outpatient (CLI) | payer MEDICARE ==
[~2020-09-09] MED LIST changes: -OMEP40CA45 PO; +OMEP40CA7 PO
[2020-09-09 11:52] LABS: BASO # 0.1 x10^3/uL (0.0-0.2); BASO % 1 % (0-3); EOS # 0.1 x10^3/uL (0.0-0.7); EOS % 2 % (0-3); HEMATOCRIT 33.4 % (36.0-47.0); HEMOGLOBIN 10.9 g/dL (12.0-15.5); LYMPH # 1.9 x10^3/uL (1.0-4.8); LYMPH % 27 % (24-48); MEAN CORPUSCULAR HEMOGLOBIN 31 pg (25-35); MEAN CORPUSCULAR HGB CONC 33 g/dL (31-37); MEAN CORPUSCULAR VOLUME 95 fL (79-100); MONO # 0.4 x10^3/uL (0.0-1.1); MONO % 5 % (0-9); NEUT # 4.6 x10^3/uL (1.8-7.7); NEUT % 65 % (31-73); PLATELET COUNT 204 x10^3/uL (140-400); RED BLOOD COUNT 3.52 x10^6/uL (3.50-5.40); RED CELL DISTRIBUTION WIDTH 13.2 % (11.5-14.5); WHITE BLOOD COUNT 7.1 x10^3/uL (4.0-11.0)
[2020-09-09 13:00] LABS: ANISOCYTOSIS SLIGHT; PLT ESTIMATE ADEQUATE (ADEQUATE); POLYCHROMASIA OCCASIONAL
== END ==
LOC: ONCLAB 10:24
PROVIDERS: ATTEND Internal Medicine Hematology & Oncology
DX: D50.0 Iron deficiency anemia secondary to blood loss (chronic) (principal)
CPT/HCPCS: 36415; 82728; 83540; 83550; 85025

== ENCOUNTER → 2021-06-10 | Outpatient (CLI) | payer MEDICARE ==
--- NOTE | 2021-06-10 10:19 | KCIC ---
Right lower extremity venous duplex study 06/10/2021 10:16 AM Clinical History: Right leg pain and swelling Technique: Using a combination of real time ultrasound imaging and color-flow and pulse Doppler imagi ng techniques, including spectral analysis, graded compression and augmentation, duplex evaluation of the deep venous system of the right lower extremity was performed. Multiple images were obtained. Findings: There is no sonographic evidence of deep venous thrombosis involving the visualized deep ve nous structures of the right lower extremity Impression: No evidence of deep venous thrombosis involving the right lower extremity Electronically signed by: Slade Ruano MD (06/10/2021 10:17 AM) [id number]
== END ==
LOC: KCIC US 09:36
PROVIDERS: ATTEND Internal Medicine
DX: M79.604 Pain in right leg (principal); R22.41 Localized swelling, mass and lump, right lower limb
CPT/HCPCS: 93971

== ENCOUNTER 2021-06-23 13:47 | Emergency (ER) | payer MEDICARE ==
[~2021-06-23] VITALS: Ht 157.5 cm; Wt 67.0 kg
--- NOTE | 2021-06-23 15:15 | PHYS DOC ---
Past Medical History Past Medical History: Anemia, Diabetes-Type II, GERD, Hypertension Additional Past Medical Histor: "borderline diabetes" Past Surgical History: Other Additional Past Surgical Histo: PANCREATIC Smoking Status: Never Smoker Alcohol Use: Occasionally Drug Use: None General Adult EDM: Chief Complaint: HYPOTENSION HPI: HPI: Patient is a 76-year-old female who presents today with dizziness and low blood pressure. Patient states that 2 days ago she was instructed by phone to switch from Catapres 0.2 transdermal to clonidine 0.2 p.o. twice daily, she says over the last couple of days her blood pressure has been low and that she has been feeling fatigued and lightheaded. Currently her blood pressure is 107/85, when I asked what her blood pressure had been running at home and she stated 180s systolically, and that Dr. Smith had made the change in her medications. Patient also states that the oral medications is much cheaper than the transdermal medications which was running her approximately $100 a month. Patient is denies chest pain, shortness of breath, or syncopal episode. Review of Systems: Review of Systems: Constitutional: Denies fever or chills. [] Eyes: Denies change in visual acuity. [] HENT: Denies nasal congestion or sore throat. [] Respiratory: Denies cough or shortness of breath. [] Cardiovascular: Low blood pressure denies chest pain or edema. [] GI: Denies abdominal pain, nausea, vomiting, bloody stools or diarrhea. [] : Denies dysuria. [] Musculoskeletal: Denies back pain or joint pain. [] Integument: Denies rash. [] Neurologic: Dizziness denies headache, focal weakness or sensory changes. [] Endocrine: Denies polyuria or polydipsia. [] Lymphatic: Denies swollen glands. [] Psychiatric: Denies depression or anxiety. [] Heart Score: C/O Chest Pain: No Risk Factors: Risk Factors: DM, Current or recent (<one month) smoker, HTN, HLP, family history of CAD, obesity. Risk Scores: Score 0 - 3: 2.5% MACE over next 6 weeks - Discharge Home Score 4 - 6: 20.3% MACE over next 6 weeks - Admit for Clinical Observation Score 7 - 10: 72.7% MACE over next 6 weeks - Early Invasive Strategies Allergies: Allergies: Allergies Coded Allergies Type Severity Reaction Last Updated Verified No Known Drug Allergies 01/21/14 No Physical Exam: PE: Constitutional: Well developed, well nourished, no acute distress, non-toxic appearance. [] HENT: Normocephalic, atraumatic, bilateral external ears normal, oropharynx moist, no oral exudates, nose normal. [] Eyes: PERRLA, EOMI, conjunctiva normal, no discharge. [] Neck: Normal range of motion, no tenderness, supple, no stridor. [] Cardiovascular:Heart rate regular rhythm, no murmur [] Lungs & Thorax: Bilateral breath sounds clear to auscultation [] Abdomen: Bowel sounds normal, soft, no tenderness, no masses, no pulsatile masses. [] Skin: Warm, dry, no erythema, no rash. [] Back: No tenderness, no CVA tenderness. [] Extremities: No tenderness, no cyanosis, no clubbing, ROM intact, no edema. [] Neurologic: Alert and oriented X 3, normal motor function, normal sensory function, no focal deficits noted. [] Psychologic: Affect normal, judgement normal, mood normal. [] Current Patient Data: Vital Signs: Vital Signs Date Time Temp Pulse Resp B/P (MAP) Pulse Ox O2 Delivery O2 Flow Rate FiO2 06/23/21 15:20 98.2 57 16 106/54 (71) 98 98.2 06/23/21 14:44 98.2 56 16 107/56 (73) 96 98.2 Vital Signs Date Time Temp Pulse Resp B/P (MAP) Pulse Ox O2 Delivery O2 Flow Rate FiO2 06/23/21 14:44 98.2 56 16 107/56 (73) 96 98.2 EKG: EKG: [] Radiology/Procedures: Radiology/Procedures: [] Course & Med Decision Making: Course & Med Decision Making Pertinent Labs and Imaging studies reviewed. (See chart for details) I spoke to patient at length regarding her medication changed, and I suspect that its due to the clonidine being twice daily 0.2 by mouth that is causing her dizziness and fatigue, I will decrease her clonidine dose from 0.2 twice daily 0.1 twice daily. Patient is advised to continue to monitor her blood pressure, she is also to stay on and be caution it of the dizziness. Patient is encouraged to return here to the emergency department should her dizziness re turn, she have shortness of breath, or chest pain. Patient is to call her primary care physician Dr. Marcial tomorrow and update him on her status. Patient is agreeable with the plan of care and verbalized understanding. [address] Marcial about the plan of care and he is agreeable to see the patient on outpatient basis for further evaluation and management Dragon Disclaimer: Dragon Disclaimer: This electronic medical record was generated, in whole or in part, using a voice recognition dictation system. Departure Departure Impression: Primary Impression: Low blood pressure reading Disposition: HOME / SELF CARE / HOMELESS Condition: STABLE Referrals: MARÍA MARCIAL MD (PCP) Additional Instructions: Clonidine 0.1mg twice daily by mouth Continue to monitor your blood pressure as you have been doing for the last couple of weeks Follow-up with Dr. Marcial by phone and update him on your situation Return here to the emergency department should you have chest pain, shortness of breath, dizziness, or syncopal episode. ISELA LLOYD CERTIFIED PEST CONTROL TECHNICIAN June 23, 2021 15:15
[2021-06-23 15:20] VITALS: BP 106/54
== END 2021-06-23 15:30 | disposition home or self-care (01) ==
LOC: ER 13:47
DX: R03.1 Nonspecific low blood-pressure reading (principal); R42 Dizziness and giddiness; E11.9 Type 2 diabetes mellitus without complications; K21.9 Gastro-esophageal reflux disease without esophagitis; I10 Essential (primary) hypertension
CPT/HCPCS: 99282